=== PATIENT | male | born 1950 | race Caucasian/White ===

== ENCOUNTER → 2016-10-14 | Outpatient (CLI) | payer BC ==
[2016-10-14 10:47] LABS: Anion Gap 12 mmol/L; Blood Urea Nitrogen 16 mg/dL (9-20); Carbon Dioxide 28 mmol/L (22-30); Chloride 101 mmol/L (98-107); Non-African American GFR(MDRD) >60 (>60 ml/min/1.73 sqM); Sodium 141 mmol/L (137-145)
[2016-10-14 10:49] LABS: CH 30.8; CHCM 33.6; HCT 45.6 % (39.0-53.0); HDW 2.79; HGB 14.9 gm/dL (13.0-17.5); MCHC 32.6 g/dL (31.0-37.0); MCV 92.1 fL (80.0-100.0); Mean Platelet Volume 7.2; RBC 4.95 m/uL (4.30-5.90); RDW 13.2 % (11.5-15.5)
== END | disposition home or self-care (01) ==
LOC: LABPAT 10:01
PROVIDERS: ATTEND Internal Medicine Cardiovascular Disease
DX: Z01.812 Encounter for preprocedural laboratory examination (principal); I25.5 Ischemic cardiomyopathy
CPT/HCPCS: 80051; 82565; 84520; 85027

== ENCOUNTER 2016-10-26 11:00 | Day surgery (SDC) | payer BC ==
[2016-10-25 08:55] VITALS: BMI 24.3
[~2016-10-26 11:00] MED LIST: DEXAMETHASONE SOD PHOSPHATE 10 MG/ML 1 ML VIAL IV ONE; HYDROmorphone 1 MG/ML 1 ML SYRINGE IVP PRN; MIDAZOLAM 2 MG/2 ML VIAL IV PRN; ONDANSETRON 4 MG/2 ML VIAL IVP ONE; SCOPOLAMINE 1.5MG/72HR PATCH TRANSDERM ONE; ceFAZolin 1,000 MG in SODIUM CHLORIDE 0.9% IRRIGATIO 250 ML IRRIGATION ONE; ceFAZolin 2 GM in SODIUM CHLORIDE 0.9% 100 ML IVPB ONE
[2016-10-26] MEDS: SODIUM CHLORIDE 0.9% 1,000 ML IV SCH (11:28)
[2016-10-26] MEDS ORDERED: MIDAZOLAM 2 MG/2 ML VIAL ONE (11:41)
[2016-10-26] MEDS ORDERED: fentaNYL (PF) 50 MCG/ML 2 ML AMP ONE (11:41)
[2016-10-26] MEDS ORDERED: PROPOFOL 10 MG/ML 20 ML VIAL IV ONE (11:41)
[2016-10-26] MEDS ORDERED: LIDOCAINE 1% INJ 10MG/ML (20 ML MDV) SQ ONE ×2 (12:30→12:31)
[2016-10-26] MEDS ORDERED: ACETAMINOPHEN TAB 325 MG TAB PO PRN (13:29)
[2016-10-26] MEDS ORDERED: HYDROcodone/APAP 5-325MG 1 EACH TAB PO PRN (13:29)
--- NOTE | 2016-10-26 13:39 | P.PCN ---
Date of Procedure: 10/26/16 Preoperative Diagnosis: Ischemic cardiomyopathy and congestive heart failure Postoperative Diagnosis: The same Procedure(s) Performed: Prophylactic AICD implantation Description of Procedure: HISTORY: This is a 66-year-old gentleman with history of ischemic cardiomyopathy with ejection fraction of about 30% was referred for prophylactic AICD implantation by LALA Sevilla. Patient had previous myocardial infarctions stent placement. CONSENT:I have discussed the risks, benefits and alternative therapies for the above-mentioned procedure and for both sedation/analgesia as well as necessary blood product administration, if indicated, as they pertain to this patient. The patient has indicated understanding and acceptance of the risks and procedures discussed. PROCEDURE: Patient was brought to the lab in a fasting state. Patient was prepped and draped in the usual fashion. Patient was given IV sedation with fentanyl and Versed. The skin below the left clavicle was infiltrated with lidocaine. An incision was made parallel to deltopectoral groove was deepened until the pectoral fascia was exposed. A pocket was created by blunt dissection and cautery. Axillary venography was performed to delineate the course of the axillary vein. 1 stick were performed into extrathoracic portion of the axillary vein and 1 sheath were advanced over the guidewires and left in subclavian vein. LEADS: VENTRICULAR: This is manufactured by [employer]. Model number is [id number] and the serial number is [id number] THE DEVICE: This is manufactured by [employer]. Model name is Inogen Mini. Model number is [id number] and the serial number is [id number]. The ventricular lead is maneuvered l with help of a straight and curved stylets into the left ventricle apical region. Satisfactory position was obtained and threshold measurements were made. . . THRESHOLDS: VENTRICLE : The minimal patient threshold was 0.6 at a pulse width of 0.5. Impedance was 672 ohms. Shock impedance was 72. R-wave: 11.5 DFT TESTING: This was done under general anesthesia. Anesthesia was administered by department of anesthesia. Ventricle fibrillation was induced with T shock. This was appropriately detected with a 3 dropouts. 11 J shock converted the patient back to sinus rhythm. Patient tolerated the procedure well. The leads and pulse generator remained in the pocket after it was washed with antibiotics. Pocket was closed in the usual fashion. The fascia was closed with 2-0 Prolene ,the subcutaneous tissue was closed with 3-0 Prolene and the skin was closed with 4-0 Prolene. PROGRAMMING: NAYELY PROGRAMMING MODE: VVI RATE: 40 OUTPUT: ventricle: 3.5 at 2.5 ms TACHYCARDIA PROGRAMMING: VT ZONE: Programmed to a rate of 1 75 bpm. Monitor only zone. VF ZONE: Programmed to a rate of 205 bpm. Therapies are programmed to Quick convert followed by 21 J 1 followed by 31 time joules 1 followed by 41 J 6. FINAL IMPRESSION: #1. Axillary venography #2. Insertion of the single coil single lead prophylactic AICD #3. DFT testing COMPLICATIONS: Nil PLAN: Patient will be monitored on the telemetry unit. Prophylactic antibacterial be continued. Possible discharge in am. Chest x-ray to be done in the a.m.
[2016-10-26] MEDS ORDERED: WARFARIN 5 MG TAB PO ONE (18:00)
[2016-10-26] MEDS: LACTATED RINGERS 1,000 ML IV SCH (18:47)
[2016-10-26] MEDS: CARVEDILOL 3.125 MG TAB PO SCH (18:57)
[2016-10-26] MEDS: ceFAZolin 2 GM in SODIUM CHLORIDE 0.9% 100 ML IVPB SCH ×2 (18:58→23:36)
[2016-10-26] MEDS ORDERED: ASPIRIN 81 MG CHEW PO ONE (21:00)
[2016-10-27] MEDS: ceFAZolin 2 GM in SODIUM CHLORIDE 0.9% 100 ML IVPB SCH (05:04)
[2016-10-27] MEDS: CARVEDILOL 3.125 MG TAB PO SCH (06:33)
[2016-10-27 08:26] VITALS: BP 98/54; PULSE 63; RESP 14; TEMP 97.2
[2016-10-27] MEDS: LACTATED RINGERS 1,000 ML IV SCH (08:33)
[2016-10-27] MEDS: SODIUM CHLORIDE 0.9% 1,000 ML IV SCH (08:35)
--- NOTE | 2016-10-27 08:50 | P.DS ---
Providers Date of admission: 10/26/2016 Attending physician: Joseph Rose Primary care physician: Heather Doctors Hospital Course: This is 66-year-old gentleman with history of previous myocardial infarctions and ischemic cardiomyopathy, was referred for prophylactic AICD implantation. Patient had device implantation yesterday without any complications. Patient remained stable overnight. Patient did have transient atrial fibrillation but back in sinus rhythm at this time. His site looks normal without any hematoma or ecchymosis. Patient denies any chest pain shortness of breath dizziness or syncope. His vital signs remained stable. Patient is tolerating activity. Chest x-ray showed proper lead position. Interrogation of the device showed proper thresholds and stable. Patient is being discharged home. He'll continue home medications and prophylactic antibiotics in the form of Keflex 500 mg by mouth 3 times a day. Patient is instructed to keep the area dry for the next week. He is also instructed not to lift any heavy weights pushing or pulling with the left arm. He is at advised not to drive. Patient will be followed in the office in one week time. Appointment will be made with Dr. LALA Sevilla. Plan - Discharge Summary New Discharge Prescriptions: Cephalexin [Keflex] 500 mg PO Q8HR #10 cap Discharge Medication List Lisinopril [Prinivil] 10 mg PO DAILY 01/26/16 [History] Aspirin 325 mg PO DAILY 02/10/16 [History] Carvedilol [Coreg] 3.125 mg PO BID 03/03/16 [History] Atorvastatin [Lipitor] 10 mg PO DAILY 10/25/16 [History] Cephalexin [Keflex] 500 mg PO Q8HR #10 cap 10/27/16 [Rx] Discharge Disposition: HOME SELF-CARE
[2016-10-27] MEDS ORDERED: LISINOPRIL 10 MG TAB PO SCH (09:00)
[2016-10-27] MEDS ORDERED: ATORVASTATIN 10 MG TAB PO SCH (09:00)
--- NOTE | 2016-10-27 09:45 | XR ---
EXAMINATION TYPE: XR chest 2V DATE OF EXAM: 10/27/2016 7:37 AM COMPARISON: NONE HISTORY: Lead placement check FINDINGS: The lungs are clear and there is no pneumothorax, pleural effusion, or focal pneumonia. Single lead pacemaker seen lead overlying the right ventricle. Hypertrophic and degenerative change of the spine . IMPRESSION: 1. No postprocedural complication.
== END 2016-10-27 11:09 | disposition home or self-care (01) ==
LOC: CATHEP 11:00 → 6SEL 13:40 → CATHEP 10-27 11:09
PROVIDERS: ATTEND Internal Medicine Cardiovascular Disease
DX: I25.5 Ischemic cardiomyopathy (principal); I50.9 Heart failure, unspecified; Z00.6 Encounter for examination for normal comparison and control in clinical research program; I12.9 Hypertensive chronic kidney disease with stage 1 through stage 4 chronic kidney disease, or unspecified chronic kidney disease; N18.9 Chronic kidney disease, unspecified; I73.9 Peripheral vascular disease, unspecified; I25.10 Atherosclerotic heart disease of native coronary artery without angina pectoris; E78.5 Hyperlipidemia, unspecified; Z82.49 Family history of ischemic heart disease and other diseases of the circulatory system; Z87.891 Personal history of nicotine dependence; Z79.82 Long term (current) use of aspirin; Z79.899 Other long term (current) drug therapy
CPT/HCPCS: 93005; 93641; 33249; 71020; C1892; C1722; C1769; C1777; J2250; J0690 ×3; J2001; J3010; J2704; 99152; 99153

== ENCOUNTER → 2016-11-19 | Outpatient (CLI) | payer BC ==
[2016-11-19 10:25] LABS: Basophils % (A) 1 %; CH 30.4; CHCM 33.2; Eosinophils # (A) 0.3 k/uL (0-0.7); Eosinophils % (A) 5 %; HCT 44.3 % (39.0-53.0); HDW 2.82; HGB 14.3 gm/dL (13.0-17.5); Luc # (Auto) 0.17; Luc % (Auto) 2; Lymphocytes # (A) 1.7 k/uL (1.0-4.8); Lymphocytes % (A) 23 %; MCH 29.8 pg (25.0-35.0); MCHC 32.3 g/dL (31.0-37.0); MCV 92.2 fL (80.0-100.0); Mean Platelet Volume 6.6; Monocytes # (A) 0.4 k/uL (0-1.0); Monocytes % (A) 5 %; Neutrophils # (A) 4.8 k/uL (1.3-7.7); Neutrophils % (A) 64 %; RBC 4.81 m/uL (4.30-5.90); RDW 13.1 % (11.5-15.5); WBC 7.4 k/uL (3.8-10.6); WBC (Perox) 7.36
[2016-11-19 10:36] LABS: Anion Gap 11 mmol/L; Blood Urea Nitrogen 19 mg/dL (9-20); Carbon Dioxide 30 mmol/L (22-30); Chloride 101 mmol/L (98-107); Non-African American GFR(MDRD) >60 (>60 ml/min/1.73 sqM); Potassium 5.1 mmol/L (3.5-5.1); Sodium 142 mmol/L (137-145)
== END | disposition home or self-care (01) ==
LOC: LABPAT 09:36
PROVIDERS: ATTEND Internal Medicine Interventional Cardiology
DX: Z01.812 Encounter for preprocedural laboratory examination (principal); I25.5 Ischemic cardiomyopathy; I73.9 Peripheral vascular disease, unspecified
CPT/HCPCS: 80051; 82565; 84520; 85025

== ENCOUNTER 2016-12-07 06:32 | Day surgery (SDC) | payer BC ==
[2016-12-03 15:06] VITALS: BMI 24.3
[~2016-12-07 06:32] MED LIST changes: +ALPRAZolam 0.25 MG TAB PO PRN; +ALPRAZolam 0.5 MG TAB PO PRN; +ASPIRIN 325 MG TAB PO STA; +ATORVASTATIN 80 MG TAB PO STA; -DEXAMETHASONE SOD PHOSPHATE 10 MG/ML 1 ML VIAL IV ONE; -HYDROmorphone 1 MG/ML 1 ML SYRINGE IVP PRN; -MIDAZOLAM 2 MG/2 ML VIAL IV PRN; +NITROGLYCERIN SL TABS 0.4 MG TAB SUBLINGUAL PRN; -ONDANSETRON 4 MG/2 ML VIAL IVP ONE; -SCOPOLAMINE 1.5MG/72HR PATCH TRANSDERM ONE; +SODIUM CHLORIDE 0.9% 1,000 ML in EMPTY BAG 1 BAG IV ONE; -ceFAZolin 1,000 MG in SODIUM CHLORIDE 0.9% IRRIGATIO 250 ML IRRIGATION ONE; -ceFAZolin 2 GM in SODIUM CHLORIDE 0.9% 100 ML IVPB ONE
[2016-12-07] MEDS ORDERED: LIDOCAINE 2% INJ 20 MG/ML SQ ONE (07:34)
[2016-12-07] MEDS ORDERED: diphenhydrAMINE 50 MG/ML 1 ML VIAL IVP ONE (07:35)
[2016-12-07] MEDS ORDERED: MIDAZOLAM 2 MG/2 ML VIAL IV ONE (07:35)
[2016-12-07] MEDS: VERAPAMIL SYRINGE (5 MG/10 ML) INTRAARTER ONE ×2 (07:37→08:36)
[2016-12-07] MEDS: HEPARIN SODIUM 1,000 UNIT/ML VIAL IV ONE ×2 (07:38→08:07)
[2016-12-07] MEDS ORDERED: SODIUM CHLORIDE 0.9% 1,000 ML IV ONE (07:57)
[2016-12-07] MEDS ORDERED: NITROGLYCERIN 1000MCG/10ML SYRINGE INTRACORON ONE (08:30)
[2016-12-07] MEDS ORDERED: IOHEXOL 350 MG/ML 100 ML BOTTLE INTRATHECA ONE (08:35)
[2016-12-07] MEDS ORDERED: NITROGLYCERIN SL TABS 0.4 MG TAB SUBLINGUAL PRN (08:44)
[2016-12-07] MEDS ORDERED: ATROPINE SULFATE 0.1 MG/ML 10ML SYRINGE IV PRN (08:44)
[2016-12-07] MEDS ORDERED: RX INFO: IV CONTRAST WAS GIVEN 1 EACH MISC MISCELLANE PRN (08:44)
[2016-12-07] MEDS ORDERED: MAG HYDROX/AL HYDROX/SIMETH 30 ML CUP PO PRN (08:44)
[2016-12-07] MEDS ORDERED: ZOLPIDEM 5 MG TAB PO PRN (08:44)
[2016-12-07] MEDS ORDERED: SODIUM CHLORIDE 0.9% 1,000 ML IV SCH (08:45)
[2016-12-07] MEDS ORDERED: CLOPIDOGREL 75 MG TAB PO ONE (08:50)
[2016-12-07] MEDS: CARVEDILOL 6.25 MG TAB PO SCH (18:31)
--- NOTE | 2016-12-07 20:27 | US ---
EXAMINATION TYPE: US carotid duplex BILAT DATE OF EXAM: 12/07/2016 7:32 PM COMPARISON: NONE CLINICAL HISTORY: pre op. EXAM MEASUREMENTS: RIGHT: Peak Systolic Velocity (PSV) cm/sec ----- Right CCA: 84.6 ----- Right ICA: 69.0 ----- Right ECA: 77.4 ICA/CCA ratio: 0.8 RIGHT: End Diastole cm/sec ----- Right CCA: 15.5 ----- Right ICA: 16.8 ----- Right ECA: 11.1 LEFT: Peak Systolic Velocity (PSV) cm/sec ----- Left CCA: 87.1 ----- Left ICA: 98.2 ----- Left ECA: 89.2 ICA/CCA ratio: 1.1 LEFT: End Diastole cm/sec ----- Left CCA: 19.2 ----- Left ICA: 27.0 ----- Left ECA: 14.1 VERTEBRALS (direction of flow): Right Vertebral: Antegrade Left Vertebral: Antegrade TECHNOLOGIST IMPRESSION: Mild amount of plaque visualized bilaterally, no elevated velocities, no si gnificant stenosis IMPRESSION: There is antegrade flow in the vertebral arteries. The images and measurements suggest 2 0-30% stenosis in both internal carotid arteries. Criteria for Assigning % of Stenosis / Diameter reduction (Estimation based on the indirect measurements of the internal carotid artery velocities (ICA PSV). 1. Normal (no stenosis)=ICA PSV < 125 cm/s: ratio < 2.0: ICA EDV<40 cm/s. 2. Less than 50% stenosis=ICA PSV < 125 cm/s: ratio < 2.0: ICA EDV<40 cm/s. 3. 50 to 69% stenosis=ICA PSV of 125 to 230 cm/s: ration 2.0 ? 4.0: ICA EDV 40-100 cm/s. 4. Greater than 70% stenosis to near occlusion= ICA PSV > 230 cm/s: ratio > 4.0: ICA EDV > 100 cm/s. 5. Near occlusion= ICA PSV velocities may be low or undetectable: variable ratio and ICA EDV. 6. Total occlusion=unable to detect flow.
--- NOTE | 2016-12-07 22:24 | CC ---
DATE OF SERVICE: 12/07/2016 PROCEDURE: Coronary angiography. PERFORMED BY: Dr. Ede Sevilla. CLINICAL INFORMATION: Mr. Francois Avendano is a 66-year-old gentleman with peripheral arterial disease, ischemic cardiomyopathy, hypertension and hypercholesterolemia. He underwent a cardiac catheterization in March of last year which revealed a mid LAD subtotal lesion. 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 Because of ejection fraction of less than 35%, he went on to have a single-chamber ICD. He was brought in for the procedure to tackle a subtotal/chronic total occlusion in the mid LAD, where there was significant viability based on noninvasive studies. He was advised intervention after repeating coronary angiography. Risks, benefits, options and rationale were discussed. PROCEDURE NOTE: Under local anesthesia and strict aseptic precautions, a 6 Portuguese introducer was placed in the right radial artery. I used an Ultimate 2 catheter to perform selective coronary angiography and then went on to perform intervention of the LAD. Left ventriculogram was not performed and LV pressures were not checked. CORONARY ANGIOGRAPHIC FINDINGS LEFT MAIN CORONARY ARTERY: Short patent vessel has mild to moderate calcification, bifurcates into LAD and circumflex. In the caudal view there is no significant disease, but I cannot exclude some calcification at about 10% to 15% narrowing. It bifurcates into LAD and circumflex. LEFT ANTERIOR DESCENDING CORONARY ARTERY: This vessel is subtotally occluded in the mid portion after 2 diagonal branches and a septal branch. Prior to the occlusion there is about a 50% narrowing. Late filling of the LAD is noted and it runs all the way to the apex. This appears to be a chronically occluded vessel. The opacified diagonal and septal branches are free of significant disease, and the LAD itself has a 50% lesion before the subtotal occlusion. LEFT POSTERIOR CIRCUMFLEX CORONARY ARTERY: Technically a non-dominant vessel; gives off a first obtuse marginal; has a 40% narrowing, then continues ( ) circumflex in the distal posterolateral branch has about a 30% to 40% narrowing. No critical lesion is noted. There is moderate calcification noted. RIGHT CORONARY ARTERY: This is a dominant vessel, diffusely diseased; has multiple areas of narrowing, and there is inferior wall akinesia noted. The vessel bifurcates distally into PLV and PDA. PLV is not opacified. PDA has diffuse disease. The entire RCA has diffuse disease throughout with multiple areas of narrowing of about 70% to 80%, and distal stenosis is about 80% to 90%. Then it bifurcates into a totally occluded PLV and a PDA that has diffuse disease. Left ventriculogram was not performed. FINAL IMPRESSION: This patient has a subtotal 95% to 99% mid LAD lesion which appears to be almost a chronic occlusion with recanalized vessel. There is a 50% LAD lesion prior to total occlusion, and the 2 diagonals and septals are patent. Circumflex has moderate noncritical disease; non-dominant vessel. Right coronary artery is diffusely diseased, has multiple areas of narrowing with significant hypokinesia in its distribution. The distal RCA has a 90% stenosis and the PDA branch has diffuse disease, but PLV is not opacified. RECOMMENDATIONS: I am recommend intervention of the LAD and proceeded to perform this in the same setting.
--- NOTE | 2016-12-07 22:30 | PTCA ---
DATE OF SERVICE: 12/07/2016 PROCEDURE: Percutaneous transluminal coronary angioplasty of totally occluded mid left anterior descending coronary artery. PERFORMED BY: Dr. Ede Sevilla. CLINICAL INFORMATION: Mr. Francois Avendano is a 66-year-old gentleman with peripheral arterial disease, ischemic cardiomyopathy, hypertension and hypercholesterolemia. He underwent a cardiac catheterization in March of last year which revealed a mid LAD subtotal lesion. 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 Because of ejection fraction of less than 35%, he went on to have a single-chamber ICD. He was brought in for the procedure to tackle a subtotal/chronic total occlusion in the mid LAD, where there was significant viability based on noninvasive studies. He was advised intervention after repeating coronary angiography. Risks, benefits, options and rationale were discussed. Following coronary angiography, I recommended PTCA of this vessel, which was probably a chronic subtotal occlusion of recanalized vessel. PROCEDURE NOTE: Existing 6 Fijian introducer was used to perform the procedure. I used an XB LAD 3.5 catheter with a fairly decent guide support, and I tried to cross the lesion with a long Whisper wire with a straight tip. I had difficulty with guide support and finally I switched this over to a Voda 3.5 catheter. With this I had a better guide support; I was able to cross the lesion. Wire was kept distally. I tried to advance a 1.5 balloon, and with great difficulty I reached the lesion and gave 2 inflations. There was improved profusion in the LAD, but I could not open up the artery, and therefore I abandoned the procedure with the understanding that the vessel is large enough and he may benefit from a surgical intervention or a chronic total occlusion effort which could be performed later on. Patient has significant peripheral arterial disease. PTCA was performed with a modest improvement. Results were discussed with the patient and his . I will reevaluate him in the office in about a week or so and then make further recommendations. Patient received 5000 units of IV heparin and he also received 600 mg of Plavix. The sheath was taken out and TR band applied as per protocol and he was sent to the room in stable condition. ASSESSMENT: From a pre-PTCA stenosis of 99%, the residual stenosis is about 50% to 60% with improved flow, but this is a suboptimal result. This was explained to the patient. He will require a definitive revascularization procedure maybe CABG, which will be discussed at length during his office visit or prior to discharge . He will be discharged tomorrow if he remains stable. Findings and reccomendations were discussed with the patient and family. ROSALIE
--- NOTE | 2016-12-07 22:32 | LTR ---
December 07, 2016 RE: Francois Avendano Dear Dr. Rebolledo, Thank you for the opportunity to participate in the care of Mr. Avendano. Please find enclosed my detailed reports for your records. This gentleman had a suboptimal result because of the chronicity of the lesion. I will re-evaluate him in the office and consider repeat revascularization either surgically or by percutaneous approach with [facility]-specific center. However, I will discuss with the patient at length and keep you posted. I expect he will be discharged tomorrow if he remains stable. Thank you for your referral. Please call with questions. Sincerely, KATHY MEZA MD
[2016-12-08 00:29] VITALS: RESP 16
[2016-12-08 06:24] LABS: Basophils % (A) 1 %; CH 30.5; CHCM 33.5; Eosinophils # (A) 0.3 k/uL (0-0.7); Eosinophils % (A) 5 %; HCT 40.9 % (39.0-53.0); HGB 13.1 gm/dL (13.0-17.5); Luc # (Auto) 0.11; Luc % (Auto) 2; Lymphocytes # (A) 1.2 k/uL (1.0-4.8); Lymphocytes % (A) 20 %; MCH 29.3 pg (25.0-35.0); MCV 91.4 fL (80.0-100.0); Mean Platelet Volume 6.6; Monocytes # (A) 0.4 k/uL (0-1.0); Monocytes % (A) 7 %; Neutrophils % (A) 65 %; RBC 4.47 m/uL (4.30-5.90); RDW 13.3 % (11.5-15.5); WBC 6.1 k/uL (3.8-10.6); WBC (Perox) 6.59
[2016-12-08 06:29] LABS: INR 1.2 (<1.1); Partial Thromboplastin Time 22.9 sec (22.0-30.0); Prothrombin Time 11.8 sec (9.0-12.0)
[2016-12-08 06:32] LABS: ALT 30 U/L (21-72); AST 17 U/L (17-59); Alkaline Phosphatase 75 U/L (38-126); Anion Gap 9 mmol/L; Blood Urea Nitrogen 15 mg/dL (9-20); Calcium 9.2 mg/dL (8.4-10.2); Carbon Dioxide 30 mmol/L (22-30); Chloride 103 mmol/L (98-107); Glucose 93 mg/dL (74-99); Magnesium 1.9 mg/dL (1.6-2.3); Non-African American GFR(MDRD) >60 (>60 ml/min/1.73 sqM); Potassium 4.7 mmol/L (3.5-5.1); Sodium 142 mmol/L (137-145); Total Bilirubin 0.6 mg/dL (0.2-1.3); Total Protein 6.7 g/dL (6.3-8.2)
[2016-12-08] MEDS: CARVEDILOL 6.25 MG TAB PO SCH (06:44)
[2016-12-08 07:06] LABS: Hepatitis B Core IgM Index 0.06
[2016-12-08 07:17] LABS: Hepatitis C Virus IgG Index 0.01
[2016-12-08 07:18] LABS: Hepatitis C Virus IgG Ab Negative (Negative)
[2016-12-08] MEDS ORDERED: ASPIRIN 81 MG CHEW PO SCH (09:00)
[2016-12-08] MEDS ORDERED: LISINOPRIL 10 MG TAB PO SCH (09:00)
[2016-12-08] MEDS ORDERED: CLOPIDOGREL 75 MG TAB PO SCH (09:00)
[2016-12-08] MEDS ORDERED: ATORVASTATIN 40 MG TAB PO SCH (09:00)
--- NOTE | 2016-12-08 09:06 | DS ---
DATE OF ADMISSION: 12/07/2016 DATE OF DISCHARGE: 12/08/2016 DIAGNOSES: 1. Unstable angina. 2. Ischemic cardiomyopathy. 3. Peripheral arterial disease. Mr. Avendano was brought in yesterday for elective coronary angiography and PCI. I performed coronary angiography which revealed a subtotal mid LAD lesion, which was intervened. This appeared to be almost a chronic total occlusion with recanalization. I was able to cross the lesion and dilated the proximal portion of the lesion with a 1.5 balloon but I could not advance any other balloon. I explained to the patient that he will benefit from revascularization even surgically. I spoke to the patient this morning at length and reviewed that his carotid Doppler was unremarkable. I am recommending an echocardiogram. I am suggesting aortocoronary bypass surgery with a VIZCAINO to LAD and possibly the diagonal branch that was there just before the total occlusion, which was patent with moderate disease and also consider bypassing the circumflex marginal. I explained to the patient that LAD territory was viable and a graft of this would improve both quality of life and length of life. He is 66 years of age and I explained the rationale for complete revascularization necessitating the grafting of diagonal and if necessary of obtuse marginal as well. I had a long discussion with the patient. He understands and is agreeable with this. He will be seen by Dr. Johnson this morning. A carotid Doppler is unremarkable and echocardiogram will also be repeated today. The patient will be discharged after being seen by Dr. Johnson and he will have surgery next week. He received 600 mg of Plavix and therefore I recommend that we should wait at least 4 to 5 days. He will be on: 1. Aspirin 81 mg daily. 2. Coreg 6.25 mg b.i.d. 3. Atorvastatin will be 40 mg daily. He will be discharged later on this afternoon. This morning, physical exam revealed blood pressure of 110/60, pulse rate 60 per minute. There is no JVD or carotid bruit. S1, S2 are heard normally. Lungs are clear. Abdomen exam is unremarkable. Lower extremities reveal diminished pulses. No edema. Central nervous system, grossly no focal deficits.
[2016-12-08 09:15] VITALS: PULSE 60
--- NOTE | 2016-12-08 10:28 | ECHOF ---
Referral Reason:eval heart function pre-op poss cabg MEASUREMENTS -------- HEIGHT: 193.0 cm WEIGHT: 94.3 kg BP: 107/62 RVIDd: 3.4 cm (< 3.3) IVSd: 1.3 cm (0.6 - 1.1) LVIDd: 4.6 cm (3.9 - 5.3) LVPWd: 1.3 cm (0.6 - 1.1) IVSs: 1.4 cm LVIDs: 3.6 cm LVPWs: 1.9 cm LA Diam: 3.2 cm (2.7 - 3.8) LAESV Index (A-L): 17.94 ml/m Ao Diam: 3.5 cm (2.0 - 3.7) AV Cusp: 2.3 cm (1.5 - 2.6) LA Diam: 2.7 cm (2.7 - 3.8) MV EXCURSION: 10.412 mm (> 18.000) MV EF SLOPE: 71 mm/s (70 - 150) EPSS: 1.1 cm MV E Kennedy: 0.61 m/s MV DecT: 278 ms MV A Kennedy: 0.76 m/s MV E/A Ratio: 0.80 RAP: 5.00 mmHg RVSP: 27.70 mmHg FINDINGS -------- Pacerwire seen in RV and RA. AICD This was a technically good study. There is mild concentric left ventricular hypertrophy. Overall left ventricular systolic function is mild-moderately impaired with, an EF between 40 - 45 %. Apical septum LV wall motion is hypokinetic. The right ventricle is mildly enlarged. Normal LA size by volume 22+/-6 ml/m2. The right atrium is normal in size. Aortic valve is trileaflet and is mildly thickened. Mild mitral annular calcification present. Trace tricuspid regurgitation present. The pulmonic valve was not well visualized. The aortic root size is normal. Normal inferior vena cava with normal inspiratory collapse consistent with estimated right atrial pressure of 5 mmHg. There is no pericardial effusion. CONCLUSIONS -------- 1. Pacerwire seen in RV and RA. 2. Aortic valve is trileaflet and is mildly thickened. 3. Mild mitral annular calcification present. 4. Trace tricuspid regurgitation present. 5. The pulmonic valve was not well visualized. 6. The aortic root size is normal. 7. Normal inferior vena cava with normal inspiratory collapse consistent with estimated right atrial pressure of 5 mmHg. 8. There is no pericardial effusion. 9. AICD 10. This was a technically good study. 11. There is mild concentric left ventricular hypertrophy. 12. Overall left ventricular systolic function is mild-moderately impaired with, an EF between 40 - 45 %. 13. Apical septum LV wall motion is hypokinetic. 14. The right ventricle is mildly enlarged. 15. Normal LA size by volume 22+/-6 ml/m2. 16. The right atrium is normal in size. ENGINEERING TEST MECHANIC: Miguel Brandon RDCS
[2016-12-08 11:05] VITALS: BP 122/67; TEMP 97.1
[2016-12-08 11:07] LABS: Hemoglobin A1C 5.3 % (4.2-6.1)
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
== END 2016-12-08 15:49 | disposition home or self-care (01) ==
LOC: CATHCVL 06:32 → 6SEL 08:35 → CATHCVL 12-08 15:49
PROVIDERS: ATTEND Internal Medicine Interventional Cardiology
DX: I25.110 Atherosclerotic heart disease of native coronary artery with unstable angina pectoris (principal); I25.82 Chronic total occlusion of coronary artery; I73.9 Peripheral vascular disease, unspecified; I25.5 Ischemic cardiomyopathy; I10 Essential (primary) hypertension; E78.00 Pure hypercholesterolemia, unspecified; Z72.0 Tobacco use; Z82.49 Family history of ischemic heart disease and other diseases of the circulatory system; Z95.810 Presence of automatic (implantable) cardiac defibrillator; Z79.899 Other long term (current) drug therapy; Z79.82 Long term (current) use of aspirin; Z89.429 Acquired absence of other toe(s), unspecified side
CPT/HCPCS: 93306; 93454; 92920; 83880; 80053; 80074; 84443; 83036; 83735; 85025; 85610; 85730; 87070; 93880; C1769 ×2; C1887 ×2; C1725 ×2; C1894; J2001; J2250; J1200; Q9967; J1644

== ENCOUNTER → 2016-12-14 | Outpatient (CLI) | payer BC ==
[2016-12-14 10:20] LABS: Cholesterol 154 mg/dL (<200); HDL Cholesterol 55 mg/dL (40-60); Triglycerides 81 mg/dL (<150)
[2016-12-14 10:39] LABS: Appearance,Urine Clear (Clear); Bilirubin,Urine Negative (Negative); Glucose,Urine (UA) Negative (Negative); Ketones,Urine Negative (Negative); Leukocyte Esterase,Urine Negative (Negative); Nitrite,Urine Negative (Negative); PH, Urine 5.5 (5.0-8.0); Protein,Urine Trace (Negative); Specific Gravity,Urine 1.017 (1.001-1.035); UA Billing (MACRO vs. MICRO) CHEM; Urobilinogen,Urine <2.0 mg/dL (<2.0)
--- NOTE | 2016-12-14 12:47 | XR ---
EXAMINATION TYPE: XR chest 2V DATE OF EXAM: 12/14/2016 10:34 AM COMPARISON: Prior chest x-ray 27 October 2016 HISTORY: Coronary artery disease TECHNIQUE: Frontal and lateral views of the chest are obtained. FINDINGS: Prominent lung volumes, intracardiac defibrillator lead are again noted. Cardiac mediastin al silhouette, pulmonary vascularity and migue are stable. No evident pneumonia, pneumothorax, or pleu ral effusion. IMPRESSION: No acute cardiopulmonary process. Stable exam.
--- NOTE | 2016-12-22 10:57 | P.ARTDOP ---
Arterial Doppler LOWER EXTREMITY ARTERIAL DOPPLER: DATE OF SERVICE: 12/14/2016 Reason for study: Pre-CABG. Doppler waveforms: Multiphasic at the femoral level bilaterally and at the left popliteal. Atypical below and all areas.. Pulse volume recording: Only performed at the digital level and very blunted bilaterally. Pressure gradients: Moderate gradients above both ankles. Ankle-brachial indices: 0.5 on the right and 0.49 on the left. Impression: At least moderate bilateral femoral popliteal disease..
--- NOTE | 2016-12-22 10:59 | P.VSCSTY ---
Greater Saphenous Vein Mapping This is bilateral lower extremity greater saphenous vein mapping. Date of service 12/14/2016 Vein quality and ultrasound appearance normal. Vein size groin right 7.5 x 4.9 groin left 5.6 x 4.9 High thigh right 4.7 x 3.7 high thigh left 4.5 x 4.2 Mid thigh right 4.4 x 4.0 mid thigh left 4.6 x 4.1 Above-knee right 4.4 x 3.4 above- knee left 3.4 x 2.8 Below knee right 4.7 x 3.2 below-knee left 3.7 x 2.5 Mid calf right 2.9 x 3.3 mid calf left to 3.3 x 2.8 Ankle right 3.5 x 2.2 ankle left 2.9 x 2.5 Impression usable bilateral greater saphenous vein.
== END | disposition home or self-care (01) ==
LOC: LABWHC1 08:57
PROVIDERS: ATTEND Surgery
DX: Z01.812 Encounter for preprocedural laboratory examination (principal); I25.10 Atherosclerotic heart disease of native coronary artery without angina pectoris
CPT/HCPCS: 36415; 71020; 80061; 81003; 87086; 93923; 93970; 94150

== ENCOUNTER 2016-12-16 05:40 | Inpatient (IN) | payer BC ==
[~2016-12-16 05:40] MED LIST changes: +ALBUMIN HUMAN 25% 50 ML IV ONE; +ALBUMIN HUMAN 5% 500 ML IVPB ONE; -ALPRAZolam 0.25 MG TAB PO PRN; -ALPRAZolam 0.5 MG TAB PO PRN; +AMINOCAPROIC ACID 250 MG/ML 20 ML VIAL IV ONE; +AMINOCAPROIC ACID 5,000 MG in DEXTROSE 5% IN WATER 50 ML IV ONE; +ASPIRIN 325 MG TAB PO ONE; -ASPIRIN 325 MG TAB PO STA; +ATORVASTATIN 10 MG TAB PO ONE; -ATORVASTATIN 80 MG TAB PO STA; +CALCIUM CHLORIDE 100 MG/ML 10 ML SYRINGE IV ONE; +CHLORHEXIDINE GLUCONATE 15 ML CUP MUCOUS MEM ONE; +CLEVIDIPINE BUTYRATE 25 MG in EMPTY BAG 1 BAG IV ONE; +DEXTROSE 5% IN WATER 1,000 ML with POTASSIUM CHLORIDE 110 MEQ, MAGNESIUM SULFATE 16 MEQ... IV ONE; +DEXTROSE 5% IN WATER 1,000 ML with POTASSIUM CHLORIDE 25 MEQ, SODIUM CHLORIDE 4MEQ/ML V... IV ONE; +HEPARIN SODIUM 1,000 UNIT/ML VIAL IV ONE; +HEPARIN SODIUM,PORCINE 5,000 UNIT in SODIUM CHLORIDE 0.9% 500 ML IV ONE; +INSULIN REGULAR 100 UNIT in SODIUM CHLORIDE 0.9% 100 ML IV ONE; +LACTATED RINGERS 1,000 ML IV ONE; +MAGNESIUM SULFATE MG 500 MG/ML VIAL IV ONE; +MANNITOL 25% 12.5 GM/50 ML VIAL IV ONE; +METOPROLOL TARTRATE 12.5 MG TAB PO ONE; +MUPIROCIN 2% OINT 22 GM TUBE NASAL NR; -NITROGLYCERIN SL TABS 0.4 MG TAB SUBLINGUAL PRN; +NITROGLYCERIN-D5W PMX 25 MG/250 ML BTL IV ONE; +NITROGLYCERIN-D5W PMX 50 MG in DEXTROSE/WATER 1 250ML.BAG IV ONE; +NOREPINEPHRINE 4 MG in SODIUM CHLORIDE 0.9% 250 ML IV ONE; +PAPAVERINE 360 MG in SODIUM CHLORIDE 0.9% 90 ML IV ONE; +PHENYLEPHRINE 40 MG in SODIUM CHLORIDE 0.9% 250 ML IV ONE; +PHENYLEPHRINE-0.9% NACL SYG 1 MG/10 ML SYRINGE IV ONE; +PROPOFOL 50 ML IV ONE; +PROTAMINE SULFATE 10 MG/ML 25 ML VIAL IV ONE; +PROTAMINE SULFATE 250 MG in EMPTY BAG 1 BAG IV ONE; +SODIUM BICARB 8.4% 50 ML SYR (1 MEQ/ML) IV ONE; +SODIUM CHLORIDE 0.9% 1,000 ML IV ONE; -SODIUM CHLORIDE 0.9% 1,000 ML in EMPTY BAG 1 BAG IV ONE; +ceFAZolin 1,000 MG in SODIUM CHLORIDE 0.9% IRRIGATIO 1,000 ML IRRIGATION ONE; +ceFAZolin 2,000 MG in SODIUM CHLORIDE 0.9% 30 ML IVPB ONE
[2016-12-16] MEDS ORDERED: LACTATED RINGERS 1,000 ML IV SCH (05:46)
[2016-12-16] MEDS ORDERED: VECURONIUM 10 MG VIAL IV ONE (07:53)
[2016-12-16] MEDS ORDERED: ALBUMIN HUMAN 5% 500 ML VIAL IVPB ONE (07:53)
[2016-12-16] MEDS ORDERED: HEPARIN SODIUM 1,000 UNIT/ML VIAL ONE (07:53)
[2016-12-16] MEDS ORDERED: ELECTROLYTE-R (PH 7.4) 1,000 ML IV.SOLN IV ONE (07:53)
[2016-12-16] MEDS ORDERED: PROPOFOL 10 MG/ML 20 ML VIAL IV ONE (07:53)
[2016-12-16] MEDS ORDERED: fentaNYL (PF) 50 MCG/ML 50 ML VIAL ONE (07:53)
[2016-12-16] MEDS ORDERED: HEPARIN SODIUM,PORCINE 5,000 UNIT/ML 1 ML VIAL ONE (07:53)
[2016-12-16] MEDS ORDERED: ePHEDrine 50 MG/ML 1 ML AMP ONE (07:53)
[2016-12-16] MEDS ORDERED: HEPARIN SODIUM,PORCINE 10,000 UNIT/ML 1 ML VIAL ONE (07:53)
[2016-12-16] MEDS ORDERED: MAGNESIUM SULFATE 4 MEQ/ML 2 ML VIAL ONE (07:53)
[2016-12-16] MEDS ORDERED: fentaNYL (PF) 50 MCG/ML 2 ML AMP ONE (07:53)
[2016-12-16] MEDS ORDERED: WATER FOR INJECTION, STERILE 10 ML VIAL IV ONE (07:53)
[2016-12-16] MEDS ORDERED: PROTAMINE SULFATE 10 MG/ML 25 ML VIAL IV ONE (07:53)
[2016-12-16] MEDS ORDERED: LIDOCAINE 2% SYG (PF) 100 MG/5 ML ONE (07:53)
[2016-12-16] MEDS ORDERED: SODIUM CHLORIDE 0.9% IRRIG 1,000 ML BTL IRRIGATION ONE (07:53)
[2016-12-16] MEDS ORDERED: MIDAZOLAM 2 MG/2 ML VIAL ONE (07:53)
[2016-12-16 08:43] LABS: Glucose,Whole Blood 90 mg/dL (75-99)
[2016-12-16 10:39] LABS: Glucose,Whole Blood 112 mg/dL (75-99)
[2016-12-16] MEDS ORDERED: WATER IV ONE (11:45)
[2016-12-16] MEDS ORDERED: [UNRECOGNIZED DRUG - OTHER] IV ONE (11:45)
[2016-12-16] MEDS ORDERED: DEXTROSE IV ONE (11:45)
[2016-12-16 11:56] LABS: Glucose,Whole Blood 106 mg/dL (75-99)
[2016-12-16 12:19] LABS: Glucose,Whole Blood 107 mg/dL (75-99)
[2016-12-16 12:37] LABS: Glucose,Whole Blood 104 mg/dL (75-99)
[2016-12-16 13:02] LABS: Glucose,Whole Blood 266 mg/dL (75-99)
[2016-12-16 13:32] LABS: Glucose,Whole Blood 196 mg/dL (75-99)
[2016-12-16 14:07] LABS: Glucose,Whole Blood 185 mg/dL (75-99)
[2016-12-16 15:06] LABS: Glucose,Whole Blood 120 mg/dL (75-99)
[2016-12-16] MEDS ORDERED: ALBUMIN HUMAN 5% 250 ML IVPB ONE (15:26)
[2016-12-16] MEDS ORDERED: Magnesium Replacement Protocol 1 EACH MISC MISCELLANE PRN (15:59)
[2016-12-16] MEDS ORDERED: Potassium Replacement Protocol 1 EACH MISC MISCELLANE PRN (15:59)
[2016-12-16] MEDS ORDERED: PROPOFOL 500 MG in EMPTY BAG 1 BAG IV SCH (15:59)
[2016-12-16] MEDS ORDERED: BENZOCAINE/MENTHOL LOZENG 1 EACH LOZENGE MUCOUS MEM PRN (15:59)
[2016-12-16] MEDS ORDERED: METOCLOPRAMIDE 5 MG/ML 2 ML VIAL IVP PRN (15:59)
[2016-12-16] MEDS ORDERED: CALCIUM GLUCONATE 2,000 MG in SODIUM CHLORIDE 0.9% 100 ML IVPB PRN (15:59)
[2016-12-16] MEDS ORDERED: ALBUMIN HUMAN 5% 250 ML in EMPTY BAG 1 BAG IVPB PRN (15:59)
[2016-12-16] MEDS ORDERED: PHENYLEPHRINE 40 MG in SODIUM CHLORIDE 0.9% 250 ML IV SCH (15:59)
[2016-12-16] MEDS ORDERED: ONDANSETRON 4 MG/2 ML VIAL IVP PRN (15:59)
[2016-12-16] MEDS ORDERED: MORPHINE SULFATE 2 MG/ML SYRINGE IVP PRN (15:59)
[2016-12-16] MEDS ORDERED: Phosphorus Replacement Protoco 1 EACH MISC MISCELLANE PRN (15:59)
[2016-12-16] MEDS: IPRATROPIUM-ALBUTEROL 3 ML NEB INHALATION SCH ×3 (16:16→22:57)
--- NOTE | 2016-12-16 16:19 | XR ---
EXAMINATION TYPE: XR chest 1V portable DATE OF EXAM: 12/16/2016 4:04 PM Comparison: 12/14/2016 Clinical History: 66-YEAR-OLD MALE RULE OUT RETAINED SURGICAL BLADE Findings: Median sternotomy wires are present with post-CABG changes in the mediastinum. Left anterior chest wa ll ICD generator right ventricular lead. A magnified overlies the generator device. ET tube is satisf actory. Right IJ [place]gen catheter with tip at the proximal right main pulmonary artery. Mediastinal drains as well as a less left chest tube are in place. No appreciable pneumothorax. Mild interstitia l prominence. No significant pleural effusion. Impression: 1. No retained surgical foreign body identified. 2. Post surgical changes. Correlate for mild pulmonary vascular congestion.
[2016-12-16] MEDS: LACTATED RINGERS 1,000 ML IV SCH (16:30)
[2016-12-16] MEDS: NITROGLYCERIN-D5W PMX 50 MG in DEXTROSE/WATER 1 250ML.BAG IV SCH (16:30)
[2016-12-16 16:59] LABS: ABG Base Excess -1.4 mmol/L; ABG HCO3 24 mmol/L (21-25); ABG PCO2 49 mmHg (35-45); ABG PH 7.31 (7.35-7.45); ABG PO2 >400 mmHg (83-108); ABG TCO2 26 mmol/L (19-24)
[2016-12-16 17:04] LABS: Glucose,Whole Blood 111 mg/dL (75-99)
[2016-12-16 17:13] LABS: CHCM 33.8; HDW 2.97; MCH 31.9 pg (25.0-35.0); MCHC 34.6 g/dL (31.0-37.0); MCV 92.2 fL (80.0-100.0); Mean Platelet Volume 8.3; RBC 2.11 m/uL (4.30-5.90); RDW 13.5 % (11.5-15.5); WBC (Perox) 5.99
[2016-12-16 17:17] LABS: Ionized Calcium 4.5 mg/dL (4.5-5.3)
[2016-12-16 17:24] LABS: INR 1.6 (<1.1); Partial Thromboplastin Time 33.7 sec (22.0-30.0); Prothrombin Time 15.5 sec (9.0-12.0)
[2016-12-16 17:26] LABS: HCT 19.4 % (39.0-53.0); HGB 6.7 gm/dL (13.0-17.5)
[2016-12-16 17:28] LABS: ALT 33 U/L (21-72); AST 25 U/L (17-59); Alkaline Phosphatase 37 U/L (38-126); Anion Gap 7 mmol/L; Blood Urea Nitrogen 11 mg/dL (9-20); Calcium 7.4 mg/dL (8.4-10.2); Carbon Dioxide 25 mmol/L (22-30); Chloride 107 mmol/L (98-107); Glucose 104 mg/dL (74-99); Magnesium 2.3 mg/dL (1.6-2.3); Non-African American GFR(MDRD) >60 (>60 ml/min/1.73 sqM); Potassium 4.6 mmol/L (3.5-5.1); Sodium 139 mmol/L (137-145); Total Bilirubin 1.1 mg/dL (0.2-1.3); Total Protein 4.7 g/dL (6.3-8.2)
[2016-12-16 17:32] LABS: Glucose,Whole Blood 117 mg/dL (75-99)
[2016-12-16 17:52] LABS: Add Differential Manual Differential
[2016-12-16 17:55] LABS: Nucleated Red Blood Cells 0 /100 WBC (0-0); Total Cells Counted 200
[2016-12-16 17:56] LABS: Hepatitis B Core IgM Index 0.05
[2016-12-16 17:57] LABS: Manual Review Performed
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
[2016-12-16 18:09] LABS: Hepatitis C Virus IgG Index 0.01
[2016-12-16 18:11] LABS: Hepatitis C Virus IgG Ab Negative (Negative)
[2016-12-16] MEDS: ceFAZolin 2 GM in SODIUM CHLORIDE 0.9% 100 ML IVPB SCH (18:15)
[2016-12-16] MEDS ORDERED: CALCIUM GLUCONATE 1,000 MG in SODIUM CHLORIDE 0.9% 100 ML IVPB ONE (18:15)
[2016-12-16] MEDS: INSULIN REGULAR 100 UNIT in SODIUM CHLORIDE 0.9% 100 ML IV SCH (18:26)
[2016-12-16 18:28] LABS: Glucose,Whole Blood 152 mg/dL (75-99)
[2016-12-16] MEDS: ACETAMINOPHEN IV (For NPO) 1,000 MG in EMPTY BAG 1 BAG IVPB SCH (18:45)
[2016-12-16 19:09] LABS: Glucose,Whole Blood 158 mg/dL (75-99)
[2016-12-16] MEDS: PROPOFOL 500 MG in EMPTY BAG 1 BAG IV SCH ×2 (19:25→22:12)
[2016-12-16 19:35] LABS: Basophils % (A) 0 %; CH 30.7; CHCM 33.7; Eosinophils # (A) 0.1 k/uL (0-0.7); Eosinophils % (A) 1 %; HCT 20.5 % (39.0-53.0); HDW 3.01; Luc # (Auto) 0.06; Luc % (Auto) 1; Lymphocytes # (A) 0.5 k/uL (1.0-4.8); Lymphocytes % (A) 6 %; MCH 30.9 pg (25.0-35.0); MCHC 33.8 g/dL (31.0-37.0); MCV 91.5 fL (80.0-100.0); Monocytes # (A) 0.6 k/uL (0-1.0); Monocytes % (A) 6 %; Neutrophils # (A) 8.5 k/uL (1.3-7.7); Neutrophils % (A) 87 %; RBC 2.24 m/uL (4.30-5.90); RDW 13.5 % (11.5-15.5); WBC 9.8 k/uL (3.8-10.6); WBC (Perox) 9.46
[2016-12-16 19:56] LABS: HGB 6.9 gm/dL (13.0-17.5)
[2016-12-16 20:17] LABS: Glucose,Whole Blood 159 mg/dL (75-99)
[2016-12-16] MEDS: MILRINONE-D5W PMX 20 MG in DEXTROSE/WATER 1 100ML.BAG IV SCH (20:54)
[2016-12-16] MEDS ORDERED: PANTOPRAZOLE 40 MG/10 ML VIAL IVP SCH (21:00)
[2016-12-16 21:02] LABS: Glucose,Whole Blood 154 mg/dL (75-99)
[2016-12-16] MEDS: CHLORHEXIDINE GLUCONATE 15 ML CUP MUCOUS MEM SCH (21:17)
[2016-12-16 22:05] LABS: Glucose,Whole Blood 138 mg/dL (75-99)
[2016-12-16] MEDS: CLEVIDIPINE BUTYRATE 25 MG in EMPTY BAG 1 BAG IV SCH (22:13)
[2016-12-16 22:49] LABS: Basophils % (A) 0 %; CH 30.7; CHCM 33.8; Eosinophils % (A) 0 %; HDW 2.95; Luc # (Auto) 0.05; Luc % (Auto) 1; Lymphocytes # (A) 0.3 k/uL (1.0-4.8); Lymphocytes % (A) 4 %; MCH 30.5 pg (25.0-35.0); MCHC 33.4 g/dL (31.0-37.0); MCV 91.3 fL (80.0-100.0); Mean Platelet Volume 9.1; Monocytes # (A) 0.4 k/uL (0-1.0); Monocytes % (A) 6 %; Neutrophils # (A) 6.4 k/uL (1.3-7.7); Neutrophils % (A) 89 %; RBC 2.03 m/uL (4.30-5.90); RDW 13.6 % (11.5-15.5); WBC 7.2 k/uL (3.8-10.6); WBC (Perox) 7.42
[2016-12-16 22:58] LABS: Ionized Calcium 4.7 mg/dL (4.5-5.3)
[2016-12-16 23:03] LABS: HCT 18.5 % (39.0-53.0); HGB 6.2 gm/dL (13.0-17.5)
[2016-12-16 23:05] LABS: Anion Gap 10 mmol/L; Blood Urea Nitrogen 12 mg/dL (9-20); Calcium 8.1 mg/dL (8.4-10.2); Carbon Dioxide 25 mmol/L (22-30); Chloride 105 mmol/L (98-107); Glucose 117 mg/dL (74-99); Magnesium 2.3 mg/dL (1.6-2.3); Non-African American GFR(MDRD) >60 (>60 ml/min/1.73 sqM); Potassium 4.2 mmol/L (3.5-5.1); Sodium 140 mmol/L (137-145)
[2016-12-16 23:06] LABS: Glucose,Whole Blood 126 mg/dL (75-99)
--- NOTE | 2016-12-16 23:06 | OP ---
DATE OF SERVICE: 12/16/2016 SURGEON: Jennie Johnson MD SCRIPT WORKER: 1. Dung BESS 2. Cierra Parikh RN PREOPERATIVE DIAGNOSES: 1. Triple-vessel coronary artery disease. 2. Chronically occluded left anterior descending artery. 3. Old anteroapical myocardial infarction. 4. Ischemic cardiomyopathy, status post ICD implantation. 5. Hypertension. 6. Hyperlipidemia. 7. Peripheral vascular disease, status post toe amputation in the past. POSTOPERATIVE DIAGNOSES: 1. Triple-vessel coronary artery disease. 2. Chronically occluded left anterior descending artery. 3. Old anteroapical myocardial infarction. 4. Ischemic cardiomyopathy, status post ICD implantation. 5. Hypertension. 6. Hyperlipidemia. 7. Peripheral vascular disease, status post toe amputation in the past. OPERATION: 1. Quadruple coronary artery bypass grafting using the left internal mammary artery to the left anterior descending artery. 2. Reverse saphenous vein graft from the aorta to the posterior descending artery. 3. Reverse saphenous vein graft from the aorta to the diagonal artery. 4. Reverse saphenous vein graft from the aorta to the obtuse marginal artery. 5. Bilateral endoscopic harvesting of the greater saphenous vein. 6. Intraoperative transesophageal echocardiogram and epiaortic scanning. 7. Intraoperative graft flow measurements using the medistim system. INDICATION FOR SURGERY: Patient is a 66-year-old gentleman with the above comorbidities who was known to have chronically occluded left anterior descending artery and had a Lexiscan last year showing fixed defects anteroseptally with some minimal apical reversibility. He underwent ICD implantation in October 2016 for ischemic cardiomyopathy. Patient was reevaluated at this point and was brought in for potential PCI stenting of his chronically occluded left anterior descending artery; that was not successful. However, he has severe disease of the diagonal right coronary system and moderate disease of the circumflex system. Patient was offered surgery and is brought in today one week after receiving 600 mg of Plavix. Risks, benefits and alternatives were discussed with him. He understood them and agreed to proceed. DESCRIPTION OF THE PROCEDURE: Patient had a right internal jugular [place]-Jurgen catheter and right radial arterial line placed. He had normal PA pressure and good cardiac index. He was brought to the operating room, where general endotracheal anesthesia was induced uneventfully. He received 2 grams of cefazolin intravenously. A Campbell catheter was inserted. The chest, abdomen and both lower extremities were prepped and draped using ChloraPrep. Ioban was used to cover the skin. We placed a sterile magnet over the ICD to deactivate it during the case. Transesophageal echocardiogram revealed global hypokinesia with severe anterior hypokinesia and also severe inferior hypokinesia with no significant valvular abnormalities. Midline sternotomy was performed and no bone wax was used. The left hemisternum was elevated and the left internal mammary artery was harvested in a somewhat skeletonized fashion. The left pleura was intentionally opened in this process and was drained with 28 Colombian chest tube. The right pleura remained intact. In the same setting, initially the left greater saphenous vein was harvested from groin to above ankle level. However, the quality was at best fair, and we decided to harvest the right lower extremity greater saphenous vein, which was done subsequently. That vein was of better quality. Both leg incisions were closed over a drain. Mediastinal fat was transected with the Bovie and epiaortic scanning revealed no protruding atheroma in the ascending aorta. There was some intimal thickening. Pericardium was opened in an inverted T fashion and pericardial cradle was created. Findings included an elongated soft aorta that turned out to be thickened and a somewhat enlarged heart with evidence of an old anteroapical fibrotic old MD. Systemic heparinization to achieve an ACT above 500 seconds was administered, and after placement of respective pursestrings, aortic cannulation with a 21 [place]ian soft flow cannula, venous cannulation with a 29 3-stage Medtronic venous cannula via the right atrial appendage was performed. Antegrade as well as retrograde cardioplegia catheters were placed. The mammary artery was double-clipped distally and transected. It had an excellent pulsatile flow in it and was around 1.75 mm in diameter. The vein segment that we were using was of good quality for the diagonal and the obtuse marginal artery, and slightly of a lesser quality for the posterior descending artery. During aortic clamping, myocardial protection was achieved. An initial dose of 1 liter antegrade cold blood cardioplegia followed by 500 mL of retrograde cold blood cardioplegia. All subsequent doses were given retrograde at 15-minute intervals, with the last dose being warm blood via the retrograde route. The target had been identified before when I arrested the heart, and it appeared that the LAD, diagonal artery, obtuse marginal artery and posterior descending artery would be the site for bypass. The first distal anastomosis between a segment of reverse saphenous vein graft and the posterior descending artery was 1.5 mm in diameter and thin-walled, using Prolene 7-0 in continuous fashion. The second distal anastomosis was between another segment of reverse saphenous vein graft of better quality and the 1.5 mm thin-walled diagonal artery using Prolene 7-0 in continuous fashion. The third distal anastomosis was between another vein of good quality and the 2 mm obtuse marginal artery, using Prolene 7-0 in continuous fashion. All 3 venous anastomoses had good flow in them and were hemostatic. The fourth and last distal anastomosis was between the left internal mammary artery and was of good quality again and around 1.75 mm in diameter, and the mid aspect of the left anterior descending artery found in a fibrotic area. That artery was around 1.5 mm in diameter, thin-walled at that level, and the anastomosis was completed using Prolene 7-0 in continuous fashion. The mammary pedicle was affixed to the epicardium using Prolene 6-0 suture. Satisfied with the distal anastomosis, we moved our attention to the proximal anastomosis. Three buttons of 4.5 mm each were punched out of the ascending aorta. The 3 proximal anastomoses of the 3 vein grafts were fashioned in the same method using Prolene 6-0 in a continuous fashion. The re-warming was started during the proximal anastomosis, and again we gave warm blood as we were constructing the last proximal anastomosis. Patient was given lidocaine and magnesium and some de-airing maneuvers were done before unclamping the aorta. Flow was reestablished in the mammary artery. Flow was reestablished in the veins after de-airing them. After a period of reperfusion and guided with a MOOSE that showed much improved left ventricular function, we were able to wean off cardiopulmonary bypass with the need of moderate dose of Primacor that was started at the beginning of the case. MOOSE showed definitely improved left ventricular function. Flow measurement during the case and after coming off bypass with good hemodynamics showed a flow of 84 mL per minute, pulsatility index of 1.9, and diastolic filling of 74% for the mammary artery graft, showing excellent parameters. The flow into the vein graft to the obtuse marginal artery was 116 mL per minute, pulsatility index of 1.4, diastolic filling of 71% showing an excellent graft. Flow into the vein going to the diagonal artery was 53 mL per minute, pulsatility index of 2.5, diastolic filling of 70%, showing an excellent graft. The last graft to be measured was the vein going to the posterior descending artery, and the flow was 91 mL per minute, pulsatility index of 1.9, diastolic filling of 66%, showing an excellent graft. With that, test-dose than full-dose protamine was given. Two substernal chest tubes were placed. A deep groove was made in the left pleural pericardial fat to accommodate the mammary artery medial to the lung and away from the posterior sternal table. Pericardium was approximated over the heart and the grafts and the aorta. After ensuring adequate hemostasis and hemodynamics and after correct sponge, instrument and needle count, the sternum was approximated using 6 [id number] [place] cables after interposing Fibril between the sternal edges. Thorough irrigation with cefazolin followed. The rest of the closure proceeded in layers. Patient was transferred to the ICU in stable condition with normal sinus rhythm at 70, normal EKG, mean arterial pressure of 67, PA pressure of 26/12, on low-dose Primacor and nitroglycerin. [facility]
[2016-12-17 00:12] LABS: Glucose,Whole Blood 109 mg/dL (75-99)
[2016-12-17] MEDS: MILRINONE-D5W PMX 20 MG in DEXTROSE/WATER 1 100ML.BAG IV SCH (00:49)
[2016-12-17 01:05] LABS: Glucose,Whole Blood 141 mg/dL (75-99)
[2016-12-17] MEDS: ceFAZolin 2 GM in SODIUM CHLORIDE 0.9% 100 ML IVPB SCH ×2 (01:25→08:21)
[2016-12-17] MEDS: ACETAMINOPHEN IV (For NPO) 1,000 MG in EMPTY BAG 1 BAG IVPB SCH ×4 (01:25→19:51)
[2016-12-17] MEDS: HEPARIN SODIUM,PORCINE 5,000 UNIT/ML 1 ML VIAL SQ SCH ×3 (01:25→16:15)
[2016-12-17 01:33] LABS: ABG Base Excess -2.1 mmol/L; ABG HCO3 22 mmol/L (21-25); ABG PCO2 39 mmHg (35-45); ABG PH 7.38 (7.35-7.45); ABG PO2 194 mmHg (83-108); ABG TCO2 24 mmol/L (19-24)
[2016-12-17 02:03] LABS: Glucose,Whole Blood 147 mg/dL (75-99)
[2016-12-17 03:00] LABS: Glucose,Whole Blood 138 mg/dL (75-99)
[2016-12-17 04:05] LABS: Glucose,Whole Blood 114 mg/dL (75-99)
[2016-12-17 05:02] LABS: Glucose,Whole Blood 131 mg/dL (75-99)
[2016-12-17 05:16] LABS: Basophils % (A) 0 %; CH 30.7; CHCM 34.1; Eosinophils % (A) 0 %; HCT 21.5 % (39.0-53.0); HDW 3.05; HGB 7.1 gm/dL (13.0-17.5); Luc # (Auto) 0.07; Luc % (Auto) 1; Lymphocytes # (A) 0.3 k/uL (1.0-4.8); Lymphocytes % (A) 5 %; MCHC 33.1 g/dL (31.0-37.0); MCV 90.7 fL (80.0-100.0); Mean Platelet Volume 7.9; Monocytes # (A) 0.4 k/uL (0-1.0); Monocytes % (A) 6 %; Neutrophils # (A) 6.2 k/uL (1.3-7.7); Neutrophils % (A) 88 %; RBC 2.37 m/uL (4.30-5.90); RDW 14.6 % (11.5-15.5); WBC 7.1 k/uL (3.8-10.6); WBC (Perox) 7.13
[2016-12-17 05:41] LABS: Ionized Calcium 4.8 mg/dL (4.5-5.3)
[2016-12-17 05:48] LABS: ALT 31 U/L (21-72); AST 28 U/L (17-59); Alkaline Phosphatase 40 U/L (38-126); Anion Gap 8 mmol/L; Blood Urea Nitrogen 14 mg/dL (9-20); Calcium 8.2 mg/dL (8.4-10.2); Carbon Dioxide 24 mmol/L (22-30); Chloride 108 mmol/L (98-107); Glucose 122 mg/dL (74-99); Magnesium 2.1 mg/dL (1.6-2.3); Non-African American GFR(MDRD) >60 (>60 ml/min/1.73 sqM); Potassium 4.4 mmol/L (3.5-5.1); Sodium 140 mmol/L (137-145)
[2016-12-17 06:11] LABS: Glucose,Whole Blood 135 mg/dL (75-99)
[2016-12-17 07:02] LABS: Glucose,Whole Blood 129 mg/dL (75-99)
[2016-12-17] MEDS: IPRATROPIUM-ALBUTEROL 3 ML NEB INHALATION SCH ×4 (08:00→19:24)
[2016-12-17 08:19] LABS: Glucose,Whole Blood 114 mg/dL (75-99)
[2016-12-17] MEDS: ATORVASTATIN 40 MG TAB PO SCH (08:26)
[2016-12-17] MEDS: ASPIRIN 325 MG TAB PO SCH (08:26)
--- NOTE | 2016-12-17 08:26 | XR ---
EXAMINATION TYPE: XR chest 1V portable DATE OF EXAM: 12/17/2016 6:49 AM COMPARISON: 12/16/2016 HISTORY: Shortness of breath TECHNIQUE: Single frontal view of the chest is obtained. FINDINGS: Mel[place]-Jurgen catheter and chest tube and cardiac device noted. Subsegmental infiltrate and ti ny effusion. No pneumothorax. Tiny bilateral pleural effusions. IMPRESSION: Stable postoperative changes with basilar atelectasis or infiltrate and tiny effusion.
[2016-12-17] MEDS: CLOPIDOGREL 75 MG TAB PO SCH (08:27)
[2016-12-17] MEDS: CHLORHEXIDINE GLUCONATE 15 ML CUP MUCOUS MEM SCH ×2 (08:27→22:32)
[2016-12-17] MEDS ORDERED: PANTOPRAZOLE 40 MG/10 ML VIAL IVP SCH (09:00)
[2016-12-17] MEDS: PANTOPRAZOLE 40 MG TABLET PO SCH ×2 (09:06→20:52)
[2016-12-17] MEDS: METOPROLOL TARTRATE 12.5 MG TAB PO SCH ×2 (09:07→22:33)
[2016-12-17 09:18] LABS: Glucose,Whole Blood 101 mg/dL (75-99)
[2016-12-17 10:23] LABS: Glucose,Whole Blood 106 mg/dL (75-99)
--- NOTE | 2016-12-17 10:38 | P.PN ---
Progress Note - Text CV Surgery Nursing POD: #1, quadruple coronary artery bypass grafting utilizing left internal mammary artery to the left anterior descending artery, reverse saphenous vein grafts to the posterior descending artery, diagonal branch, and obtuse marginal branch. Bilateral endoscopic harvesting of the greater saphenous vein, intraoperative transesophageal echocardiogram and epi-aortic ultrasonography, intraoperative graft flow measurements. Patient awake and alert, no distress noted, no specific complaints. Vital Signs: Afebrile , T-max 98.8F Vital Signs - 24 hr 12/16/16 12/16/16 12/16/16 16:30 16:45 17:00 Temperature Pulse Rate 68 68 70 Pulse Rate [ 65 Quality Assurance Coach ] Respiratory 16 16 16 Rate Blood Pressure O2 Sat by Pulse 100 100 100 Oximetry 12/16/16 12/16/16 12/16/16 17:30 18:00 18:47 Temperature Pulse Rate 69 72 77 Pulse Rate [ Quality Assurance Coach ] Respiratory Rate Blood Pressure O2 Sat by Pulse 100 100 Oximetry 12/16/16 12/16/16 12/16/16 19:00 19:30 20:00 Temperature Pulse Rate 75 77 76 Pulse Rate [ 65 Quality Assurance Coach ] Respiratory 16 16 16 Rate Blood Pressure 96/55 96/55 90/53 O2 Sat by Pulse 100 100 100 Oximetry 12/16/16 12/16/16 12/16/16 20:30 21:00 21:30 Temperature Pulse Rate 75 74 72 Pulse Rate [ Quality Assurance Coach ] Respiratory 16 16 16 Rate Blood Pressure 90/53 81/52 81/52 O2 Sat by Pulse 100 100 100 Oximetry 12/16/16 12/16/16 12/16/16 22:00 22:30 22:58 Temperature Pulse Rate 70 71 73 Pulse Rate [ Quality Assurance Coach ] Respiratory 16 Rate Blood Pressure 89/55 89/51 O2 Sat by Pulse 100 100 Oximetry 12/16/16 12/16/16 12/16/16 23:00 23:08 23:30 Temperature Pulse Rate 71 66 75 Pulse Rate [ Quality Assurance Coach ] Respiratory Rate Blood Pressure 96/58 112/57 O2 Sat by Pulse 100 100 Oximetry 12/16/16 12/17/16 12/17/16 23:55 00:00 00:30 Temperature Pulse Rate 74 73 72 Pulse Rate [ 65 Quality Assurance Coach ] Respiratory 16 Rate Blood Pressure 100/56 100/56 103/60 O2 Sat by Pulse 100 100 100 Oximetry 12/17/16 12/17/16 12/17/16 01:00 01:30 02:00 Temperature Pulse Rate 74 78 77 Pulse Rate [ Quality Assurance Coach ] Respiratory 18 Rate Blood Pressure 103/59 104/55 100/56 O2 Sat by Pulse 100 99 99 Oximetry 12/17/16 12/17/16 12/17/16 03:00 03:30 04:00 Temperature Pulse Rate 77 77 75 Pulse Rate [ 65 Quality Assurance Coach ] Respiratory 18 25 H 18 Rate Blood Pressure 103/60 105/60 106/62 O2 Sat by Pulse 100 100 100 Oximetry 12/17/16 12/17/16 12/17/16 04:30 05:00 06:00 Temperature Pulse Rate 76 77 80 Pulse Rate [ Quality Assurance Coach ] Respiratory 21 21 37 H Rate Blood Pressure 102/61 103/57 111/64 O2 Sat by Pulse 100 100 100 Oximetry 12/17/16 12/17/16 12/17/16 07:00 08:00 09:00 Temperature 98.8 F Pulse Rate 82 79 80 Pulse Rate [ Quality Assurance Coach ] Respiratory 50 H 20 22 Rate Blood Pressure O2 Sat by Pulse 98 100 100 Oximetry 12/17/16 10:00 Temperature Pulse Rate 78 Pulse Rate [ Quality Assurance Coach ] Respiratory 22 Rate Blood Pressure O2 Sat by Pulse 100 Oximetry ABP, PAP, CO, CI - Last 8 Hours Arterial Blood Pressure 132/53 Arterial Blood Pressure 129/55 Arterial Blood Pressure 117/52 Arterial Blood Pressure 134/55 Arterial Blood Pressure 129/56 Arterial Blood Pressure 117/48 Arterial Blood Pressure 108/46 Arterial Blood Pressure 121/53 Arterial Blood Pressure 116/52 Arterial Blood Pressure 109/51 Pulmonary Artery Pressure 24/14 Pulmonary Artery Pressure 31/15 Pulmonary Artery Pressure 25/12 Pulmonary Artery Pressure 26/11 Pulmonary Artery Pressure 33/16 Pulmonary Artery Pressure 34/14 Pulmonary Artery Pressure 33/16 Pulmonary Artery Pressure 29/14 Pulmonary Artery Pressure 31/15 Pulmonary Artery Pressure 31/16 Cardiac Output 6.3 Cardiac Output 6.3 Cardiac Output 6.3 Cardiac Output 7.8 Cardiac Output 7.8 Cardiac Output 7.8 Cardiac Output 7.8 Cardiac Output 7.8 Cardiac Output 9.1 Cardiac Output 9.1 Cardiac Index 2.8 Cardiac Index 3.5 Labs: Short CBC 12/16/16 12/16/16 12/16/16 Range/Units 16:40 19:20 22:30 WBC 6.0 9.8 7.2 (3.8-10.6) k/uL Hgb 6.7 L* D 6.9 L* 6.2 L* (13.0-17.5) gm/dL Hct 19.4 L* 20.5 L 18.5 L* (39.0-53.0) % Plt Count 96 L D 124 L 102 L (150-450) k/uL Neutrophils # Not Reportable 8.5 H 6.4 12/17/16 Range/Units 05:00 WBC 7.1 (3.8-10.6) k/uL Hgb 7.1 L (13.0-17.5) gm/dL Hct 21.5 L (39.0-53.0) % Plt Count 118 L (150-450) k/uL Neutrophils # 6.2 BMP 12/16/16 12/16/16 12/17/16 16:40 22:30 05:00 Sodium 139 140 140 Potassium 4.6 4.2 4.4 Chloride 107 105 108 H Carbon Dioxide 25 25 24 BUN 11 12 14 Creatinine 0.84 0.87 0.84 Glucose 104 H 117 H 122 H Calcium 7.4 L 8.1 L 8.2 L Liver Function 12/16/16 12/17/16 Range/Units 16:40 05:00 Total Bilirubin 1.1 1.0 (0.2-1.3) mg/dL AST 25 28 (17-59) U/L ALT 33 31 (21-72) U/L Alkaline Phosphatase 37 L 40 (38-126) U/L Albumin 3.1 L 3.2 L (3.5-5.0) g/dL IV Fluids: Insulin drip at 3.5 units per hour, nitroglycerin drip at 20 mcg/m Cardiac output: 6.3 L/m Cardiac index: 2.8 L/m Pulmonary artery pressures: 24/14 mmHg CVP: 8 mmHg Lungs: Respirations are even and nonlabored, breath sounds diminished bilaterally particularly in the left base to auscultation. O2 sat: 100% on 4 L of oxygen delivered via nasal cannula I/S: 500 mL, The patient gave return demonstration of proper use of the incentive spirometer Heart: S1S2, regular rate and rhythm, bedside telemetry shows a normal sinus rhythm at 78 Sternum stable, chest incision clean with silverlon dressing clean and dry. Right leg is slightly ecchymotic at saphenous vein harvest site. Abdomen: Soft, Positive bowel sounds present in all 4 quadrants. CBGs: 106-158 mg/dL U/O: Adequate urine output to the Campbell catheter Chest Tubes: Mediastinal chest tube without visible air leak drained 343 mL of serosanguineous fluid over the last 8 hours area Left pleural chest tube without visible air leak and drained 78 mL of serosanguineous fluid over the last 8 hours 24 hr Total: Mediastinal-583 mL Left pleural-217 mL Intake & Output 12/15/16 12/16/16 12/17/16 12/18/16 06:59 06:59 06:59 06:59 Intake Total 1769.840 489.843 Output Total 3820 549 Balance -2050.160 -59.157 Weight 104 kg Active Medications Hydrocodone Bitart/Acetaminophen ([place] 5-325) 2 each PO Q4HR PRN PRN Reason: Severe Pain Hydrocodone Bitart/Acetaminophen ([place] 5-325) 1 each PO Q4HR PRN PRN Reason: Moderate Pain Albuterol/Ipratropium (Duoneb 0.5 Mg-3 Mg/3 Ml Soln) 3 ml INHALATION RT-Q2H PRN PRN Reason: Shortness Of Breath Or Wheezing Albuterol/Ipratropium (Duoneb 0.5 Mg-3 Mg/3 Ml Soln) 3 ml INHALATION RT-QID [facility] Aspirin (Aspirin) 325 mg PO DAILY [facility] Last Admin: 12/17/16 08:26 Dose: 325 mg Atorvastatin Calcium (Lipitor) 40 mg PO DAILY [facility] Last Admin: 12/17/16 08:26 Dose: 40 mg Benzocaine/Menthol (Cepacol Lozenge) 1 each MUCOUS MEM Q2H PRN PRN Reason: Sore Throat Bisacodyl (Dulcolax) 10 mg RECTAL DAILY PRN PRN Reason: Constipation Chlorhexidine Gluconate (Peridex) 15 ml MUCOUS MEM BID [facility] Last Admin: 12/17/16 08:27 Dose: Not Given Clopidogrel Bisulfate (Plavix) 75 mg PO DAILY [facility] Last Admin: 12/17/16 08:27 Dose: 75 mg Heparin Sodium (Porcine) (Heparin) 5,000 unit SQ Q8HR [facility] Last Admin: 12/17/16 08:25 Dose: 5,000 unit Acetaminophen 1,000 mg/ IV (Solution) 100 mls @ 400 mls/hr IVPB Q6HR MICHAELA Stop: 12/17/16 18:01 Last Admin: 12/17/16 08:21 Dose: 400 mls/hr Albumin Human 250 ml/ IV (Solution) 250 mls @ 250 mls/hr IVPB Q1HR PRN PRN Reason: For Volume Stop: 12/18/16 16:00 Last Admin: 12/16/16 22:11 Dose: 250 mls/hr Calcium Gluconate 2,000 mg/ (Sodium Chloride) 120 mls @ 100 mls/hr IVPB ONCE PRN PRN Reason: Ionized Calcium less than 4.4 Stop: 12/17/16 16:00 Clevidipine 25 mg/ IV Solution 50 mls @ 2 mls/hr IV .Q24H MICHAELA; 1 MG/HR PRN Reason: Protocol Last Admin: 12/16/16 22:13 Dose: Not Given Insulin Human Regular 100 unit (/ Sodium Chloride) 101 mls @ 0 mls/hr IV .Q0M MICHAELA; Per Protocol PRN Reason: Protocol Last Titration: 12/17/16 09:22 Dose: 0 units/hr, 0 mls/hr Lactated Ringer's (Lactated Ringers) 1,000 mls @ 20 mls/hr IV .Q24H MICHAELA Last Admin: 12/16/16 16:30 Dose: 50 mls/hr Nitroglycerin/Dextrose 50 mg/ (IV Solution) 250 mls @ 1.5 mls/hr IV .Q24H MICHAELA PRN Reason: 5 MCG/MIN Last Infusion: 12/16/16 16:30 Dose: 5 mcg/min, 1.5 mls/hr Phenylephrine HCl 40 mg/ (Sodium Chloride) 254 mls @ 0 mls/hr IV .Q0M MICHAELA; Titrate PRN Reason: Protocol Propofol 500 mg/ IV Solution 50 mls @ 0 mls/hr IV .Q0M MICHAELA; Titrate PRN Reason: Protocol Last Titration: 12/16/16 23:20 Dose: 0 mcg/kg/min, 0 mls/hr Magnesium Hydroxide (Milk Of Magnesia) 2,400 mg PO BID PRN PRN Reason: Constipation Metoclopramide HCl (Reglan) 10 mg IVP Q4H PRN PRN Reason: Nausea And Vomiting Metoprolol Tartrate (Lopressor) 12.5 mg PO BID MICHAELA Last Admin: 12/17/16 09:07 Dose: 12.5 mg Miscellaneous Information (Magnesium Per Protocol) 1 each MISCELLANE DAILY PRN ; Protocol PRN Reason: Per Protocol Miscellaneous Information (Phosphorus Per Protocol) 1 each MISCELLANE DAILY PRN ; Protocol PRN Reason: Per Protocol Miscellaneous Information (Potassium Per Protocol) 1 each MISCELLANE DAILY PRN ; Protocol PRN Reason: Per Protocol Morphine Sulfate (Morphine Sulfate (Inj)) 2 mg IVP Q2H PRN PRN Reason: Severe Pain Last Admin: 12/17/16 06:39 Dose: 2 mg Ondansetron HCl (Zofran) 4 mg IVP Q6HR PRN PRN Reason: Nausea And Vomiting Oxycodone HCl (Oxyir) 10 mg PO Q4H PRN PRN Reason: Severe Pain Stop: 12/17/16 16:00 Last Admin: 12/17/16 08:20 Dose: 10 mg Oxycodone HCl (Oxyir) 5 mg PO Q4H PRN PRN Reason: Moderate Pain Stop: 12/17/16 16:00 Pantoprazole Sodium (Protonix) 40 mg PO AC-BID MICHAELA Last Admin: 12/17/16 09:06 Dose: 40 mg Senna/Docusate Sodium (Senokot-S) 2 each PO HS MICHAELA Sodium Chloride (Saline Flush) 10 ml IV BID MICHAELA Last Admin: 12/17/16 09:07 Dose: 10 ml Plan: Postop day #1-good progress Continue aggressive pulmonary toilet utilizing incentive spirometry, coughing and deep breathing, and inhalation treatments per respiratory therapy department. Continue to increase activity as tolerated. Blood sugar management per medical service AICD to be interrogated today
--- NOTE | 2016-12-17 10:53 | P.CONS ---
History of Present Illness - Reason for Consult Consult date: 12/17/16 medical management Requesting physician: Jennie Johnson - Chief Complaint quadruple bypass - History of Present Illness this is a 66-year-old male with a known history of triple-vessel coronary artery disease, myocardial infarction, ischemic cardiomyopathy with AICD placement, hypertension, hyperlipidemia, peripheral vascular disease and COPD. Patient is also former smoker he quit in October 2016. patient had undergone cardiac catheterization 12/07/2016 had a chronically occluded mid LAD. And PTCA was unsuccessful at opening the lesion. Therefore he was recommended to have a coronary artery bypass grafting. Patient is postop day #1 status post quadruple coronary bypass grafting with Dr. Grubbs. Patient was extubated last night. He is currently sitting up at bedside chair. Pain is controlled. He has [address] Denies any nausea or vomiting. Denies any bowel movement changes, shortness of breath in urine output is adequate. He is currently on insulin drip for close blood sugar monitoring. Patient has no history of diabetes.blood sugar this morning is 114. patient does have [facility] with dextrose with good contributing to some of the mildly elevated blood sugars.we'll continue to monitor.patient also had acute blood loss anemia with hemoglobin 6.2 did require 1 unit of blood. Hemoglobin today is 7.1 Review of Systems please refer to HPI otherwise unremarkable Past Medical History Past Medical History: Eye Disorder, Hyperlipidemia, Hypertension, Vascular Disorder Additional Past Medical History / Comment(s): Ischemic cardiomyopathy with impaired LV function preoperatively., COPD with an FEV1 of 41% of predicted based on a spirometer was done preoperatively, blindness in the left eye, peripheral vascular disease with previous amputation of the toe, chronic back pain, hyperlipidemia, hypertension History of Any Multi-Drug Resistant Organisms: None Reported Past Surgical History: AICD, Heart Catheterization, Tonsillectomy Additional Past Surgical History / Comment(s): right foot surgery, Left eye surgery after injury. [place] AICD Lt Chest. Past Anesthesia/Blood Transfusion Reactions: No Reported Reaction, Motion Sickness Type of Cardiac Device: AICD Device Placement Date:: 10/27/2016 Past Psychological History: No Psychological Hx Reported Smoking Status: Former smoker Past Alcohol Use History: None Reported Additional Past Alcohol Use History / Comment(s): STOPPED DRINKING 37 YEARS AGO. QUIT SMOKING OCT 2016. HX OF 1 PPD SMOKER-SMOKED FOR OVER 40 YRS. Past Drug Use History: None Reported - Past Family History Mother Family Medical History: Cancer Additional Family Medical History / Comment(s): age 62 of cancer Father Additional Family Medical History / Comment(s): paraplegic after motorcycle accident age 57. age 64 2 weeks after . Medications and Allergies Home Medications Medication Instructions Recorded Confirmed Type Lisinopril [Prinivil] 10 mg PO DAILY 01/26/16 12/16/16 History Aspirin 325 mg PO ONCE 12/16/16 12/16/16 History Aspirin [Adult Low Dose Aspirin EC] 81 mg PO DAILY 12/16/16 12/16/16 History Atorvastatin [Lipitor] 40 mg PO DAILY 12/16/16 12/16/16 History Carvedilol [Coreg] 6.25 mg PO DAILY 12/16/16 12/16/16 History Allergies Allergy/AdvReac Type Severity Reaction Status Date / Time No Known Allergies Allergy Verified 12/13/16 09:41 Physical Exam Vitals: Vital Signs Temp Pulse Pulse Resp BP Pulse Ox 12/17/16 10:00 78 22 100 12/17/16 09:00 80 22 100 12/17/16 08:00 98.8 F 79 20 100 12/17/16 07:00 82 50 H 98 12/17/16 06:00 80 37 H 111/64 100 12/17/16 05:00 77 21 103/57 100 12/17/16 04:30 76 21 102/61 100 12/17/16 04:00 75 65 18 106/62 100 12/17/16 03:30 77 25 H 105/60 100 12/17/16 03:00 77 18 103/60 100 12/17/16 02:00 77 18 100/56 99 12/17/16 01:30 78 104/55 99 12/17/16 01:00 74 103/59 100 12/17/16 00:30 72 103/60 100 12/17/16 00:00 73 65 16 100/56 100 12/16/16 23:55 74 100/56 100 12/16/16 23:30 75 112/57 100 12/16/16 23:08 66 12/16/16 23:00 71 96/58 100 12/16/16 22:58 73 12/16/16 22:30 71 89/51 100 12/16/16 22:00 70 16 89/55 100 12/16/16 21:30 72 16 81/52 100 12/16/16 21:00 74 16 81/52 100 12/16/16 20:30 75 16 90/53 100 12/16/16 20:00 76 65 16 90/53 100 12/16/16 19:30 77 16 96/55 100 12/16/16 19:00 75 16 96/55 100 12/16/16 18:47 77 12/16/16 18:00 72 100 12/16/16 17:30 69 100 12/16/16 17:00 70 16 100 12/16/16 16:45 68 16 100 12/16/16 16:30 68 65 16 100 Intake and Output 12/16/16 12/17/16 12/17/16 22:59 06:59 14:59 Intake Total 706.756 5759.768 489.843 Output Total 2887 933 549 Balance -2347.928 264.768 -59.157 Intake: IV 395 544 240 CO/CI 130 120 10 Lactated Ringers 1,000 ml 250 400 200 @ 20 mls/hr IV .Q24H [facility] Rx#:[id number] Pressure Bag 15 24 30 Intake, IV Titration 144.072 33.768 249.843 Amount ACETAMINOPHEN IV (For NPO 100 ) 1,000 mg In Empty Bag 1 bag @ 400 mls/hr IVPB Q6HR [facility] Rx#:[id number] Insulin Regular 100 unit 11.008 13.062 32.250 In Sodium Chloride 0.9% 100 ml @ Per Protocol IV .Q0M [facility] Rx#:[id number] Lactated Ringers 1,000 ml 100 @ 20 mls/hr IV .Q24H [facility] Rx#:[id number] Milrinone-D5w Pmx 20 mg 11.084 17.593 In Dextrose/Water 1 100ml .bag @ Per Protocol IV . Q0M [facility] Rx#:[id number] Nitroglycerin-D5w Pmx 50 0 mg In Dextrose/Water 1 250ml.bag @ 5 MCG/MIN 1.5 mls/hr IV .Q24H [facility] Rx#: [id number] Propofol 500 mg In Empty 33.064 9.622 Bag 1 bag @ Titrate IV . Q0M [facility] Rx#:[id number] ceFAZolin 2 gm In Sodium 100 Chloride 0.9% 100 ml @ 100 mls/hr IVPB Q8HR [facility] Rx#:[id number] Blood Product 620 Rc As-1 Unit 310 [id number] Output: Chest Tube Drainage 197 274 329 Chest Tube Mediastinal 193 200 190 Left Lateral Chest 4 74 139 Gastric Drainage 450 100 Drainage 90 Left Knee 40 Right Knee 50 Urine 1150 559 220 Estimated Blood Loss 1000 Other: Voiding Method Indwelling Catheter Indwelling Catheter Weight 104 kg ABP, PAP, CO, CI - Last 8 Hours Arterial Blood Pressure 132/53 Arterial Blood Pressure 129/55 Arterial Blood Pressure 117/52 Arterial Blood Pressure 134/55 Arterial Blood Pressure 129/56 Arterial Blood Pressure 117/48 Arterial Blood Pressure 108/46 Arterial Blood Pressure 121/53 Arterial Blood Pressure 116/52 Arterial Blood Pressure 109/51 Pulmonary Artery Pressure 24/14 Pulmonary Artery Pressure 31/15 Pulmonary Artery Pressure 25/12 Pulmonary Artery Pressure 26/11 Pulmonary Artery Pressure 33/16 Pulmonary Artery Pressure 34/14 Pulmonary Artery Pressure 33/16 Pulmonary Artery Pressure 29/14 Pulmonary Artery Pressure 31/15 Pulmonary Artery Pressure 31/16 Cardiac Output 6.3 Cardiac Output 6.3 Cardiac Output 6.3 Cardiac Output 7.8 Cardiac Output 7.8 Cardiac Output 7.8 Cardiac Output 7.8 Cardiac Output 7.8 Cardiac Output 9.1 Cardiac Output 9.1 Cardiac Index 2.8 Cardiac Index 3.5 Head normocephalic Neck supple Lungs clear to auscultation bilaterally no wheezing or crackles. 2 chest tubes. Dressing is clean dry and intact along the chest wall. Heart regular rate and rhythm S1-S2, no rub or gallop Abdomen is soft nontender nondistended positive bowel sounds no hepatosplenomegaly Extremities no edema Neuro alert and orientated to 3 Results CBC & Chem 7: 12/17/16 05:00 12/17/16 05:00 Labs: Abnormal Lab Results - Last 24 Hours (Table) 12/14/16 12/16/16 12/16/16 Range/Units 09:30 11:42 12:15 RBC (4.30-5.90) m/uL Hgb (13.0-17.5) gm/dL Hct (39.0-53.0) % Plt Count (150-450) k/uL Neutrophils # (1.3-7.7) k/uL Lymphocytes # (1.0-4.8) k/uL Lymphocytes # (Manual) (1.0-4.8) k/uL PT (9.0-12.0) sec APTT (22.0-30.0) sec ABG pH (7.35-7.45) ABG pCO2 (35-45) mmHg ABG pO2 (83-108) mmHg ABG Total CO2 (19-24) mmol/L ABG O2 Saturation (94-97) % Chloride (98-107) mmol/L Glucose (74-99) mg/dL POC Glucose (mg/dL) 106 H 107 H (75-99) mg/dL Calcium (8.4-10.2) mg/dL Alkaline Phosphatase (38-126) U/L Total Protein (6.3-8.2) g/dL Albumin (3.5-5.0) g/dL Crossmatch See Detail 12/16/16 12/16/16 12/16/16 Range/Units 12:33 12:59 13:29 RBC (4.30-5.90) m/uL Hgb (13.0-17.5) gm/dL Hct (39.0-53.0) % Plt Count (150-450) k/uL Neutrophils # (1.3-7.7) k/uL Lymphocytes # (1.0-4.8) k/uL Lymphocytes # (Manual) (1.0-4.8) k/uL PT (9.0-12.0) sec APTT (22.0-30.0) sec ABG pH (7.35-7.45) ABG pCO2 (35-45) mmHg ABG pO2 (83-108) mmHg ABG Total CO2 (19-24) mmol/L ABG O2 Saturation (94-97) % Chloride (98-107) mmol/L Glucose (74-99) mg/dL POC Glucose (mg/dL) 104 H 266 H 196 H (75-99) mg/dL Calcium (8.4-10.2) mg/dL Alkaline Phosphatase (38-126) U/L Total Protein (6.3-8.2) g/dL Albumin (3.5-5.0) g/dL Crossmatch 12/16/16 12/16/16 12/16/16 Range/Units 14:04 15:03 16:40 RBC 2.11 L (4.30-5.90) m/uL Hgb 6.7 L* D (13.0-17.5) gm/dL Hct 19.4 L* (39.0-53.0) % Plt Count 96 L D (150-450) k/uL Neutrophils # (1.3-7.7) k/uL Lymphocytes # (1.0-4.8) k/uL Lymphocytes # (Manual) 0.8 L (1.0-4.8) k/uL PT (9.0-12.0) sec APTT (22.0-30.0) sec ABG pH (7.35-7.45) ABG pCO2 (35-45) mmHg ABG pO2 (83-108) mmHg ABG Total CO2 (19-24) mmol/L ABG O2 Saturation (94-97) % Chloride (98-107) mmol/L Glucose (74-99) mg/dL POC Glucose (mg/dL) 185 H 120 H (75-99) mg/dL Calcium (8.4-10.2) mg/dL Alkaline Phosphatase (38-126) U/L Total Protein (6.3-8.2) g/dL Albumin (3.5-5.0) g/dL Crossmatch 12/16/16 12/16/16 12/16/16 Range/Units 16:40 16:40 16:44 RBC (4.30-5.90) m/uL Hgb (13.0-17.5) gm/dL Hct (39.0-53.0) % Plt Count (150-450) k/uL Neutrophils # (1.3-7.7) k/uL Lymphocytes # (1.0-4.8) k/uL Lymphocytes # (Manual) (1.0-4.8) k/uL PT 15.5 H (9.0-12.0) sec APTT 33.7 H (22.0-30.0) sec ABG pH (7.35-7.45) ABG pCO2 (35-45) mmHg ABG pO2 (83-108) mmHg ABG Total CO2 (19-24) mmol/L ABG O2 Saturation (94-97) % Chloride (98-107) mmol/L Glucose 104 H (74-99) mg/dL POC Glucose (mg/dL) 111 H (75-99) mg/dL Calcium 7.4 L (8.4-10.2) mg/dL Alkaline Phosphatase 37 L (38-126) U/L Total Protein 4.7 L (6.3-8.2) g/dL Albumin 3.1 L (3.5-5.0) g/dL Crossmatch 12/16/16 12/16/16 12/16/16 Range/Units 16:51 17:27 18:20 RBC (4.30-5.90) m/uL Hgb (13.0-17.5) gm/dL Hct (39.0-53.0) % Plt Count (150-450) k/uL Neutrophils # (1.3-7.7) k/uL Lymphocytes # (1.0-4.8) k/uL Lymphocytes # (Manual) (1.0-4.8) k/uL PT (9.0-12.0) sec APTT (22.0-30.0) sec ABG pH 7.31 L (7.35-7.45) ABG pCO2 49 H (35-45) mmHg ABG pO2 >400 H (83-108) mmHg ABG Total CO2 26 H (19-24) mmol/L ABG O2 Saturation 100.0 H (94-97) % Chloride (98-107) mmol/L Glucose (74-99) mg/dL POC Glucose (mg/dL) 117 H 152 H (75-99) mg/dL Calcium (8.4-10.2) mg/dL Alkaline Phosphatase (38-126) U/L Total Protein (6.3-8.2) g/dL Albumin (3.5-5.0) g/dL Crossmatch 12/16/16 12/16/16 12/16/16 Range/Units 19:04 19:20 20:11 RBC 2.24 L (4.30-5.90) m/uL Hgb 6.9 L* (13.0-17.5) gm/dL Hct 20.5 L (39.0-53.0) % Plt Count 124 L (150-450) k/uL Neutrophils # 8.5 H (1.3-7.7) k/uL Lymphocytes # 0.5 L (1.0-4.8) k/uL Lymphocytes # (Manual) (1.0-4.8) k/uL PT (9.0-12.0) sec APTT (22.0-30.0) sec ABG pH (7.35-7.45) ABG pCO2 (35-45) mmHg ABG pO2 (83-108) mmHg ABG Total CO2 (19-24) mmol/L ABG O2 Saturation (94-97) % Chloride (98-107) mmol/L Glucose (74-99) mg/dL POC Glucose (mg/dL) 158 H 159 H (75-99) mg/dL Calcium (8.4-10.2) mg/dL Alkaline Phosphatase (38-126) U/L Total Protein (6.3-8.2) g/dL Albumin (3.5-5.0) g/dL Crossmatch 12/16/16 12/16/16 12/16/16 Range/Units 20:57 22:02 22:30 RBC (4.30-5.90) m/uL Hgb (13.0-17.5) gm/dL Hct (39.0-53.0) % Plt Count (150-450) k/uL Neutrophils # (1.3-7.7) k/uL Lymphocytes # (1.0-4.8) k/uL Lymphocytes # (Manual) (1.0-4.8) k/uL PT (9.0-12.0) sec APTT (22.0-30.0) sec ABG pH (7.35-7.45) ABG pCO2 (35-45) mmHg ABG pO2 (83-108) mmHg ABG Total CO2 (19-24) mmol/L ABG O2 Saturation (94-97) % Chloride (98-107) mmol/L Glucose 117 H (74-99) mg/dL POC Glucose (mg/dL) 154 H 138 H (75-99) mg/dL Calcium 8.1 L (8.4-10.2) mg/dL Alkaline Phosphatase (38-126) U/L Total Protein (6.3-8.2) g/dL Albumin (3.5-5.0) g/dL Crossmatch 12/16/16 12/16/16 12/17/16 Range/Units 22:30 23:04 00:08 RBC 2.03 L (4.30-5.90) m/uL Hgb 6.2 L* (13.0-17.5) gm/dL Hct 18.5 L* (39.0-53.0) % Plt Count 102 L (150-450) k/uL Neutrophils # (1.3-7.7) k/uL Lymphocytes # 0.3 L (1.0-4.8) k/uL Lymphocytes # (Manual) (1.0-4.8) k/uL PT (9.0-12.0) sec APTT (22.0-30.0) sec ABG pH (7.35-7.45) ABG pCO2 (35-45) mmHg ABG pO2 (83-108) mmHg ABG Total CO2 (19-24) mmol/L ABG O2 Saturation (94-97) % Chloride (98-107) mmol/L Glucose (74-99) mg/dL POC Glucose (mg/dL) 126 H 109 H (75-99) mg/dL Calcium (8.4-10.2) mg/dL Alkaline Phosphatase (38-126) U/L Total Protein (6.3-8.2) g/dL Albumin (3.5-5.0) g/dL Crossmatch 12/17/16 12/17/16 12/17/16 Range/Units 01:01 01:07 02:02 RBC (4.30-5.90) m/uL Hgb (13.0-17.5) gm/dL Hct (39.0-53.0) % Plt Count (150-450) k/uL Neutrophils # (1.3-7.7) k/uL Lymphocytes # (1.0-4.8) k/uL Lymphocytes # (Manual) (1.0-4.8) k/uL PT (9.0-12.0) sec APTT (22.0-30.0) sec ABG pH (7.35-7.45) ABG pCO2 (35-45) mmHg ABG pO2 194 H (83-108) mmHg ABG Total CO2 (19-24) mmol/L ABG O2 Saturation 100.0 H (94-97) % Chloride (98-107) mmol/L Glucose (74-99) mg/dL POC Glucose (mg/dL) 141 H 147 H (75-99) mg/dL Calcium (8.4-10.2) mg/dL Alkaline Phosphatase (38-126) U/L Total Protein (6.3-8.2) g/dL Albumin (3.5-5.0) g/dL Crossmatch 12/17/16 12/17/16 12/17/16 Range/Units 02:55 04:02 04:58 RBC (4.30-5.90) m/uL Hgb (13.0-17.5) gm/dL Hct (39.0-53.0) % Plt Count (150-450) k/uL Neutrophils # (1.3-7.7) k/uL Lymphocytes # (1.0-4.8) k/uL Lymphocytes # (Manual) (1.0-4.8) k/uL PT (9.0-12.0) sec APTT (22.0-30.0) sec ABG pH (7.35-7.45) ABG pCO2 (35-45) mmHg ABG pO2 (83-108) mmHg ABG Total CO2 (19-24) mmol/L ABG O2 Saturation (94-97) % Chloride (98-107) mmol/L Glucose (74-99) mg/dL POC Glucose (mg/dL) 138 H 114 H 131 H (75-99) mg/dL Calcium (8.4-10.2) mg/dL Alkaline Phosphatase (38-126) U/L Total Protein (6.3-8.2) g/dL Albumin (3.5-5.0) g/dL Crossmatch 12/17/16 12/17/16 12/17/16 Range/Units 05:00 05:00 06:08 RBC 2.37 L (4.30-5.90) m/uL Hgb 7.1 L (13.0-17.5) gm/dL Hct 21.5 L (39.0-53.0) % Plt Count 118 L (150-450) k/uL Neutrophils # (1.3-7.7) k/uL Lymphocytes # 0.3 L (1.0-4.8) k/uL Lymphocytes # (Manual) (1.0-4.8) k/uL PT (9.0-12.0) sec APTT (22.0-30.0) sec ABG pH (7.35-7.45) ABG pCO2 (35-45) mmHg ABG pO2 (83-108) mmHg ABG Total CO2 (19-24) mmol/L ABG O2 Saturation (94-97) % Chloride 108 H (98-107) mmol/L Glucose 122 H (74-99) mg/dL POC Glucose (mg/dL) 135 H (75-99) mg/dL Calcium 8.2 L (8.4-10.2) mg/dL Alkaline Phosphatase (38-126) U/L Total Protein 5.0 L (6.3-8.2) g/dL Albumin 3.2 L (3.5-5.0) g/dL Crossmatch 12/17/16 12/17/16 12/17/16 Range/Units 06:57 08:17 09:17 RBC (4.30-5.90) m/uL Hgb (13.0-17.5) gm/dL Hct (39.0-53.0) % Plt Count (150-450) k/uL Neutrophils # (1.3-7.7) k/uL Lymphocytes # (1.0-4.8) k/uL Lymphocytes # (Manual) (1.0-4.8) k/uL PT (9.0-12.0) sec APTT (22.0-30.0) sec ABG pH (7.35-7.45) ABG pCO2 (35-45) mmHg ABG pO2 (83-108) mmHg ABG Total CO2 (19-24) mmol/L ABG O2 Saturation (94-97) % Chloride (98-107) mmol/L Glucose (74-99) mg/dL POC Glucose (mg/dL) 129 H 114 H 101 H (75-99) mg/dL Calcium (8.4-10.2) mg/dL Alkaline Phosphatase (38-126) U/L Total Protein (6.3-8.2) g/dL Albumin (3.5-5.0) g/dL Crossmatch 12/17/16 Range/Units 10:20 RBC (4.30-5.90) m/uL Hgb (13.0-17.5) gm/dL Hct (39.0-53.0) % Plt Count (150-450) k/uL Neutrophils # (1.3-7.7) k/uL Lymphocytes # (1.0-4.8) k/uL Lymphocytes # (Manual) (1.0-4.8) k/uL PT (9.0-12.0) sec APTT (22.0-30.0) sec ABG pH (7.35-7.45) ABG pCO2 (35-45) mmHg ABG pO2 (83-108) mmHg ABG Total CO2 (19-24) mmol/L ABG O2 Saturation (94-97) % Chloride (98-107) mmol/L Glucose (74-99) mg/dL POC Glucose (mg/dL) 106 H (75-99) mg/dL Calcium (8.4-10.2) mg/dL Alkaline Phosphatase (38-126) U/L Total Protein (6.3-8.2) g/dL Albumin (3.5-5.0) g/dL Crossmatch Assessment and Plan Plan: 1. Triple-vessel coronary artery disease status post quadruple coronary bypass grafting. Patient had successful extubation last night. Continue with postop management. He is postop day #1 2. Acute blood loss anemia: secondary to surgery. Patient did receive 1 unit of blood. Hemoglobin is 7.1 today. 3. hyperglycemia: Mildly elevated blood sugars likely related to the D5 running through nitro drip. Currently on insulin drip. Blood sugars are stable. Continue to monitor. No history of diabetes. 4.essential hypertension 5. Ischemic cardiomyopathy with AICD. Scheduled for AICD interrogation today. Recent echo shows an EF of 40-45% 6. Hyperlipidemia continue Lipitor 8. History of peripheral vascular disease 9. History of myocardial infarction encourage incentive spirometry use and increase activity Thank you for this consultation. We will continue to follow along with you. Time with Patient: Greater than 30 (Greater than 50% of the total time spent in counseling and coordination of care.I performed an examination of the patient and discussed their management with the physician Electroneurodiagnostic Technologist. I have reviewed the Physician Electroneurodiagnostic Technologist's notes and agree with the documented findings and plan of care)
[2016-12-17 11:16] LABS: Glucose,Whole Blood 119 mg/dL (75-99)
[2016-12-17 13:07] LABS: Glucose,Whole Blood 125 mg/dL (75-99)
[2016-12-17 14:08] LABS: Glucose,Whole Blood 130 mg/dL (75-99)
[2016-12-17 14:17] LABS: Basophils % (A) 0 %; CH 30.2; CHCM 33.8; Eosinophils % (A) 0 %; HCT 23.1 % (39.0-53.0); HGB 7.8 gm/dL (13.0-17.5); Luc # (Auto) 0.12; Luc % (Auto) 1; Lymphocytes # (A) 0.5 k/uL (1.0-4.8); Lymphocytes % (A) 4 %; MCH 30.2 pg (25.0-35.0); MCHC 33.6 g/dL (31.0-37.0); Mean Platelet Volume 7.8; Monocytes # (A) 0.7 k/uL (0-1.0); Monocytes % (A) 6 %; Neutrophils % (A) 89 %; RBC 2.57 m/uL (4.30-5.90); RDW 14.8 % (11.5-15.5); WBC 12.4 k/uL (3.8-10.6); WBC (Perox) 12.34
[2016-12-17 15:23] LABS: Glucose,Whole Blood 101 mg/dL (75-99)
[2016-12-17] MEDS ORDERED: HYDROcodone/APAP 5-325MG 1 EACH TAB PO PRN (15:27)
[2016-12-17] MEDS ORDERED: BISACODYL 10 MG SUPP RECTAL PRN (15:28)
[2016-12-17] MEDS ORDERED: IPRATROPIUM-ALBUTEROL 3 ML NEB INHALATION PRN (15:28)
[2016-12-17] MEDS ORDERED: MAGNESIUM HYDROXIDE 2,400 MG/10 ML CUP PO PRN (15:28)
--- NOTE | 2016-12-17 15:32 | CONS ---
DATE OF CONSULTATION: Francois Avendano is a 66-year-old gentleman. Consultation requested by Dr. Johnson. Patient is known to have atherosclerotic heart disease, chronic obstructive lung disease with FEV1 of 42% predicted. Ejection fraction 40 to 45% status post AICD and apparently Dr. Hilario Sevilla attempted to try to recanalize that totally occluded chronically occluded LAD but not able to open it as the patient was referred for revascularization surgery, underwent revascularization surgery. Patient is extubated patient had triple vessel bypass surgery by Dr. Johnson with VIZCAINO graft to the LAD and vein graft to second diagonal ( ) bypass graft intermediate. The patient is a known diabetic, hypertensive, dyslipidemic, obesity. Patient is alert and oriented and sitting at bedside chair and cooperating very well using the bedside spirometry. Patient is doing very well, progressing very well. Patient's past history remarkable for chronic obstructive lung disease and FEV1 of 41% of predicted on spirometry. History of blindness in the left eye, peripheral vascular disease, previous amputation of the toe, chronic back pain, hyperlipidemia, hypertension. Status post AICD. Review of systems are essentially unremarkable other than what is stated in history of present illness. Current medications prior to admission include lisinopril 10 mg p.o. daily, aspirin 325, atorvastatin 40 mg, carvedilol 6.5 mg p.o. b.i.d. ALLERGIES: None mentioned. Physical examination revealed well-developed, well-nourished 66-year-old gentleman, not in acute distress, oriented x3 with a pulse rate 80 beats per minute and regular, blood pressure 111/64, respirations 20. Head normocephalic. HEENT unremarkable. Neck is supple. No thyroid enlargement. No bruit noted. Good carotid upstroke bilaterally. Chest is symmetrical. Cardiac examination, regular rate and rhythm. S1, S2 Lungs are clinically clear to auscultation and percussion, other than scattered rhonchi. Abdomen is soft. No organomegaly. Active bowel sounds. Extremities, decreased pedal pulses. No pedal edema. APNS examination grossly within normal limits. ASSESSMENT: 1. Status post aortocoronary bypass surgery x3 done yesterday 12/16. 2. Chronic obstructive lung disease with low FEV1 41% predicted with doing reasonably well. 3. Hypertension. 4. Hyperlipidemia. 5. Status post automatic implantable cardiovascular defibrillator. ADDENDUM: Correction on the bypass surgery done on Francois Avendano. Francois Avendano had internal mammary graft to left anterior descending, reverse saphenous venous bypass graft to posterior descending and reverse saphenous bypass graft to diagonal artery, reverse saphenous venous bypass graft obtuse marginal branch. There is a correction from previous dictation.
[2016-12-17] MEDS: HYDROcodone/APAP 5-325MG 1 EACH TAB PO PRN ×2 (16:11→20:21)
[2016-12-17] MEDS: CLEVIDIPINE BUTYRATE 25 MG in EMPTY BAG 1 BAG IV SCH (16:13)
[2016-12-17] MEDS: LACTATED RINGERS 1,000 ML IV SCH (16:14)
[2016-12-17] MEDS: NITROGLYCERIN-D5W PMX 50 MG in DEXTROSE/WATER 1 250ML.BAG IV SCH (16:14)
[2016-12-17 16:20] LABS: Glucose,Whole Blood 113 mg/dL (75-99)
--- NOTE | 2016-12-17 16:22 | P.PN ---
Subjective On 12/17/2016 the patient is being seen in follow-up. The patient is postop day #1 following carotid bypass surgery. The patient underwent his surgery yesterday without any major complications. Overnight the patient was weaned off the mechanical ventilator and the patient was extubated without any major difficulties. This morning, the patient is sitting up on a chair. The patient is hemodynamically stable. He is known to have COPD with FEV1 of 41% of predicted preoperatively. He is using incentive spirometer. In oxygen by nasal cannula. Chest tubes are still in place and the patient has 2 mediastinal and one left-sided pleural chest tube. Output is noted. Based on the output the patient's chest tube will be kept in place for another 24 hours. The patient did drop his hemoglobin postop and his hemoglobin was as low as 6.2 and based on that he was given a total of 2 units of packed RBCs. In fact after the packed RBC transfusion the patient's hemodynamics improved considerably. Her 89 was briefly placed on Primacor which was subsequently discontinued. Most recent hemoglobin is up to 7.2. No other specific complaints. Chest pain is under good control for now. Blood sugars also under good control. Objective - Vital Signs Vital signs: Vital Signs Temp 98 F 12/17/16 12:00 Pulse 79 12/17/16 15:37 Resp 20 12/17/16 15:00 BP 115/62 12/17/16 13:00 Pulse Ox 98 12/17/16 15:00 Intake & Output 12/16/16 12/17/16 12/17/16 18:59 06:59 18:59 Intake Total 206 1563.840 755.843 Output Total 1936 1884 1114 Balance -1730 -320.160 -358.157 Weight 104 kg Intake: IV 106 866 506 CO/CI 20 230 10 Lactated Ringers 1,000 ml 50 600 430 @ 20 mls/hr IV .Q24H [facility] Rx#:[id number] Pressure Bag 3 36 66 Intake, IV Titration 100 77.840 249.843 Amount ACETAMINOPHEN IV (For NPO 100 ) 1,000 mg In Empty Bag 1 bag @ 400 mls/hr IVPB Q6HR [facility] Rx#:[id number] Insulin Regular 100 unit 24.070 32.250 In Sodium Chloride 0.9% 100 ml @ Per Protocol IV .Q0M [facility] Rx#:[id number] Lactated Ringers 1,000 ml 100 @ 20 mls/hr IV .Q24H [facility] Rx#:[id number] Milrinone-D5w Pmx 20 mg 11.084 17.593 In Dextrose/Water 1 100ml .bag @ Per Protocol IV . Q0M [facility] Rx#:[id number] Nitroglycerin-D5w Pmx 50 0 mg In Dextrose/Water 1 250ml.bag @ 5 MCG/MIN 1.5 mls/hr IV .Q24H [facility] Rx#: [id number] Propofol 500 mg In Empty 42.686 Bag 1 bag @ Titrate IV . Q0M [facility] Rx#:[id number] ceFAZolin 2 gm In Sodium 100 Chloride 0.9% 100 ml @ 100 mls/hr IVPB Q8HR [facility] Rx#:[id number] Blood Product 620 Rc As-1 Unit 310 [id number] Output: Chest Tube Drainage 111 360 669 Chest Tube Mediastinal 111 282 340 Left Lateral Chest 0 78 329 Gastric Drainage 550 Drainage 90 90 Left Knee 40 40 Right Knee 50 50 Urine 825 884 355 Estimated Blood Loss 1000 Other: Voiding Method Indwelling Catheter Indwelling Catheter ABP, PAP, CO, CI - Last Documented Arterial Blood Pressure 124/51 Pulmonary Artery Pressure 32/22 Cardiac Output 6.3 Cardiac Index 2.8 - Exam Head exam was generally normal. There was no scleral icterus or corneal arcus. Mucous membranes were moist.Neck was supple and without jugular venous distension, thyromegaly, or carotid bruits. Carotids were easily palpable bilaterally. There was no adenopathy.the patient has a right IJ Cordis in place and neck is supple and there is no significant venous distention goiter. Lungs sounds are diminished in the lung bases bilaterally and the chest tubes are all in place. Sternum stable clean and intact. Heart sounds are positive for a throughout. No significant murmurs appreciated.Abdominal exam revealed normal bowel sounds. The abdomen was soft, non-tender, and without masses, organomegaly , or appreciable enlargement of the abdominal aorta.Examination of the extremities revealed easily palpable radial, femoral and pedal pulses. There was no cyanosis, clubbing or edema. - Labs CBC & Chem 7: 12/17/16 14:07 12/17/16 05:00 Labs: Abnormal Lab Results - Last 24 Hours (Table) 12/14/16 12/16/16 12/16/16 Range/Units 09:30 16:40 16:40 WBC (3.8-10.6) k/uL RBC 2.11 L (4.30-5.90) m/uL Hgb 6.7 L* D (13.0-17.5) gm/dL Hct 19.4 L* (39.0-53.0) % Plt Count 96 L D (150-450) k/uL Neutrophils # (1.3-7.7) k/uL Lymphocytes # (1.0-4.8) k/uL Lymphocytes # (Manual) 0.8 L (1.0-4.8) k/uL PT (9.0-12.0) sec APTT (22.0-30.0) sec ABG pH (7.35-7.45) ABG pCO2 (35-45) mmHg ABG pO2 (83-108) mmHg ABG Total CO2 (19-24) mmol/L ABG O2 Saturation (94-97) % Chloride (98-107) mmol/L Glucose 104 H (74-99) mg/dL POC Glucose (mg/dL) (75-99) mg/dL Calcium 7.4 L (8.4-10.2) mg/dL Alkaline Phosphatase 37 L (38-126) U/L Total Protein 4.7 L (6.3-8.2) g/dL Albumin 3.1 L (3.5-5.0) g/dL Crossmatch See Detail 12/16/16 12/16/16 12/16/16 Range/Units 16:40 16:44 16:51 WBC (3.8-10.6) k/uL RBC (4.30-5.90) m/uL Hgb (13.0-17.5) gm/dL Hct (39.0-53.0) % Plt Count (150-450) k/uL Neutrophils # (1.3-7.7) k/uL Lymphocytes # (1.0-4.8) k/uL Lymphocytes # (Manual) (1.0-4.8) k/uL PT 15.5 H (9.0-12.0) sec APTT 33.7 H (22.0-30.0) sec ABG pH 7.31 L (7.35-7.45) ABG pCO2 49 H (35-45) mmHg ABG pO2 >400 H (83-108) mmHg ABG Total CO2 26 H (19-24) mmol/L ABG O2 Saturation 100.0 H (94-97) % Chloride (98-107) mmol/L Glucose (74-99) mg/dL POC Glucose (mg/dL) 111 H (75-99) mg/dL Calcium (8.4-10.2) mg/dL Alkaline Phosphatase (38-126) U/L Total Protein (6.3-8.2) g/dL Albumin (3.5-5.0) g/dL Crossmatch 12/16/16 12/16/16 12/16/16 Range/Units 17:27 18:20 19:04 WBC (3.8-10.6) k/uL RBC (4.30-5.90) m/uL Hgb (13.0-17.5) gm/dL Hct (39.0-53.0) % Plt Count (150-450) k/uL Neutrophils # (1.3-7.7) k/uL Lymphocytes # (1.0-4.8) k/uL Lymphocytes # (Manual) (1.0-4.8) k/uL PT (9.0-12.0) sec APTT (22.0-30.0) sec ABG pH (7.35-7.45) ABG pCO2 (35-45) mmHg ABG pO2 (83-108) mmHg ABG Total CO2 (19-24) mmol/L ABG O2 Saturation (94-97) % Chloride (98-107) mmol/L Glucose (74-99) mg/dL POC Glucose (mg/dL) 117 H 152 H 158 H (75-99) mg/dL Calcium (8.4-10.2) mg/dL Alkaline Phosphatase (38-126) U/L Total Protein (6.3-8.2) g/dL Albumin (3.5-5.0) g/dL Crossmatch 12/16/16 12/16/16 12/16/16 Range/Units 19:20 20:11 20:57 WBC (3.8-10.6) k/uL RBC 2.24 L (4.30-5.90) m/uL Hgb 6.9 L* (13.0-17.5) gm/dL Hct 20.5 L (39.0-53.0) % Plt Count 124 L (150-450) k/uL Neutrophils # 8.5 H (1.3-7.7) k/uL Lymphocytes # 0.5 L (1.0-4.8) k/uL Lymphocytes # (Manual) (1.0-4.8) k/uL PT (9.0-12.0) sec APTT (22.0-30.0) sec ABG pH (7.35-7.45) ABG pCO2 (35-45) mmHg ABG pO2 (83-108) mmHg ABG Total CO2 (19-24) mmol/L ABG O2 Saturation (94-97) % Chloride (98-107) mmol/L Glucose (74-99) mg/dL POC Glucose (mg/dL) 159 H 154 H (75-99) mg/dL Calcium (8.4-10.2) mg/dL Alkaline Phosphatase (38-126) U/L Total Protein (6.3-8.2) g/dL Albumin (3.5-5.0) g/dL Crossmatch 12/16/16 12/16/16 12/16/16 Range/Units 22:02 22:30 22:30 WBC (3.8-10.6) k/uL RBC 2.03 L (4.30-5.90) m/uL Hgb 6.2 L* (13.0-17.5) gm/dL Hct 18.5 L* (39.0-53.0) % Plt Count 102 L (150-450) k/uL Neutrophils # (1.3-7.7) k/uL Lymphocytes # 0.3 L (1.0-4.8) k/uL Lymphocytes # (Manual) (1.0-4.8) k/uL PT (9.0-12.0) sec APTT (22.0-30.0) sec ABG pH (7.35-7.45) ABG pCO2 (35-45) mmHg ABG pO2 (83-108) mmHg ABG Total CO2 (19-24) mmol/L ABG O2 Saturation (94-97) % Chloride (98-107) mmol/L Glucose 117 H (74-99) mg/dL POC Glucose (mg/dL) 138 H (75-99) mg/dL Calcium 8.1 L (8.4-10.2) mg/dL Alkaline Phosphatase (38-126) U/L Total Protein (6.3-8.2) g/dL Albumin (3.5-5.0) g/dL Crossmatch 12/16/16 12/17/16 12/17/16 Range/Units 23:04 00:08 01:01 WBC (3.8-10.6) k/uL RBC (4.30-5.90) m/uL Hgb (13.0-17.5) gm/dL Hct (39.0-53.0) % Plt Count (150-450) k/uL Neutrophils # (1.3-7.7) k/uL Lymphocytes # (1.0-4.8) k/uL Lymphocytes # (Manual) (1.0-4.8) k/uL PT (9.0-12.0) sec APTT (22.0-30.0) sec ABG pH (7.35-7.45) ABG pCO2 (35-45) mmHg ABG pO2 (83-108) mmHg ABG Total CO2 (19-24) mmol/L ABG O2 Saturation (94-97) % Chloride (98-107) mmol/L Glucose (74-99) mg/dL POC Glucose (mg/dL) 126 H 109 H 141 H (75-99) mg/dL Calcium (8.4-10.2) mg/dL Alkaline Phosphatase (38-126) U/L Total Protein (6.3-8.2) g/dL Albumin (3.5-5.0) g/dL Crossmatch 12/17/16 12/17/16 12/17/16 Range/Units 01:07 02:02 02:55 WBC (3.8-10.6) k/uL RBC (4.30-5.90) m/uL Hgb (13.0-17.5) gm/dL Hct (39.0-53.0) % Plt Count (150-450) k/uL Neutrophils # (1.3-7.7) k/uL Lymphocytes # (1.0-4.8) k/uL Lymphocytes # (Manual) (1.0-4.8) k/uL PT (9.0-12.0) sec APTT (22.0-30.0) sec ABG pH (7.35-7.45) ABG pCO2 (35-45) mmHg ABG pO2 194 H (83-108) mmHg ABG Total CO2 (19-24) mmol/L ABG O2 Saturation 100.0 H (94-97) % Chloride (98-107) mmol/L Glucose (74-99) mg/dL POC Glucose (mg/dL) 147 H 138 H (75-99) mg/dL Calcium (8.4-10.2) mg/dL Alkaline Phosphatase (38-126) U/L Total Protein (6.3-8.2) g/dL Albumin (3.5-5.0) g/dL Crossmatch 12/17/16 12/17/16 12/17/16 Range/Units 04:02 04:58 05:00 WBC (3.8-10.6) k/uL RBC 2.37 L (4.30-5.90) m/uL Hgb 7.1 L (13.0-17.5) gm/dL Hct 21.5 L (39.0-53.0) % Plt Count 118 L (150-450) k/uL Neutrophils # (1.3-7.7) k/uL Lymphocytes # 0.3 L (1.0-4.8) k/uL Lymphocytes # (Manual) (1.0-4.8) k/uL PT (9.0-12.0) sec APTT (22.0-30.0) sec ABG pH (7.35-7.45) ABG pCO2 (35-45) mmHg ABG pO2 (83-108) mmHg ABG Total CO2 (19-24) mmol/L ABG O2 Saturation (94-97) % Chloride (98-107) mmol/L Glucose (74-99) mg/dL POC Glucose (mg/dL) 114 H 131 H (75-99) mg/dL Calcium (8.4-10.2) mg/dL Alkaline Phosphatase (38-126) U/L Total Protein (6.3-8.2) g/dL Albumin (3.5-5.0) g/dL Crossmatch 12/17/16 12/17/16 12/17/16 Range/Units 05:00 06:08 06:57 WBC (3.8-10.6) k/uL RBC (4.30-5.90) m/uL Hgb (13.0-17.5) gm/dL Hct (39.0-53.0) % Plt Count (150-450) k/uL Neutrophils # (1.3-7.7) k/uL Lymphocytes # (1.0-4.8) k/uL Lymphocytes # (Manual) (1.0-4.8) k/uL PT (9.0-12.0) sec APTT (22.0-30.0) sec ABG pH (7.35-7.45) ABG pCO2 (35-45) mmHg ABG pO2 (83-108) mmHg ABG Total CO2 (19-24) mmol/L ABG O2 Saturation (94-97) % Chloride 108 H (98-107) mmol/L Glucose 122 H (74-99) mg/dL POC Glucose (mg/dL) 135 H 129 H (75-99) mg/dL Calcium 8.2 L (8.4-10.2) mg/dL Alkaline Phosphatase (38-126) U/L Total Protein 5.0 L (6.3-8.2) g/dL Albumin 3.2 L (3.5-5.0) g/dL Crossmatch 12/17/16 12/17/16 12/17/16 Range/Units 08:17 09:17 10:20 WBC (3.8-10.6) k/uL RBC (4.30-5.90) m/uL Hgb (13.0-17.5) gm/dL Hct (39.0-53.0) % Plt Count (150-450) k/uL Neutrophils # (1.3-7.7) k/uL Lymphocytes # (1.0-4.8) k/uL Lymphocytes # (Manual) (1.0-4.8) k/uL PT (9.0-12.0) sec APTT (22.0-30.0) sec ABG pH (7.35-7.45) ABG pCO2 (35-45) mmHg ABG pO2 (83-108) mmHg ABG Total CO2 (19-24) mmol/L ABG O2 Saturation (94-97) % Chloride (98-107) mmol/L Glucose (74-99) mg/dL POC Glucose (mg/dL) 114 H 101 H 106 H (75-99) mg/dL Calcium (8.4-10.2) mg/dL Alkaline Phosphatase (38-126) U/L Total Protein (6.3-8.2) g/dL Albumin (3.5-5.0) g/dL Crossmatch 12/17/16 12/17/16 12/17/16 Range/Units 11:14 13:05 14:07 WBC (3.8-10.6) k/uL RBC (4.30-5.90) m/uL Hgb (13.0-17.5) gm/dL Hct (39.0-53.0) % Plt Count (150-450) k/uL Neutrophils # (1.3-7.7) k/uL Lymphocytes # (1.0-4.8) k/uL Lymphocytes # (Manual) (1.0-4.8) k/uL PT (9.0-12.0) sec APTT (22.0-30.0) sec ABG pH (7.35-7.45) ABG pCO2 (35-45) mmHg ABG pO2 (83-108) mmHg ABG Total CO2 (19-24) mmol/L ABG O2 Saturation (94-97) % Chloride (98-107) mmol/L Glucose (74-99) mg/dL POC Glucose (mg/dL) 119 H 125 H 130 H (75-99) mg/dL Calcium (8.4-10.2) mg/dL Alkaline Phosphatase (38-126) U/L Total Protein (6.3-8.2) g/dL Albumin (3.5-5.0) g/dL Crossmatch 12/17/16 12/17/16 Range/Units 14:07 15:22 WBC 12.4 H (3.8-10.6) k/uL RBC 2.57 L (4.30-5.90) m/uL Hgb 7.8 L (13.0-17.5) gm/dL Hct 23.1 L (39.0-53.0) % Plt Count 146 L (150-450) k/uL Neutrophils # 11.0 H (1.3-7.7) k/uL Lymphocytes # 0.5 L (1.0-4.8) k/uL Lymphocytes # (Manual) (1.0-4.8) k/uL PT (9.0-12.0) sec APTT (22.0-30.0) sec ABG pH (7.35-7.45) ABG pCO2 (35-45) mmHg ABG pO2 (83-108) mmHg ABG Total CO2 (19-24) mmol/L ABG O2 Saturation (94-97) % Chloride (98-107) mmol/L Glucose (74-99) mg/dL POC Glucose (mg/dL) 101 H (75-99) mg/dL Calcium (8.4-10.2) mg/dL Alkaline Phosphatase (38-126) U/L Total Protein (6.3-8.2) g/dL Albumin (3.5-5.0) g/dL Crossmatch Assessment and Plan Plan: Impression: #1 Coronary artery disease status post coronary artery bypass grafting utilizing a VIZCAINO to the elbow EGD, saphenous vein grafts to the OM, diabetic and PDA. Postoperative day #1 #2 Ventilatory dependence as a planned outcome of thoracotomy.the patient was weaned off the mechanical ventilator and extubated blood any major difficulties. Today's chest x-ray showing stable postoperative changes. #3 postoperative anemia, status post transfusion with 2 units of packed RBC. Hemogram is stable for now. Patient is on no pressors. #4 Hypertension. #5 Hyperlipidemia. #6 Ischemic cardiomyopathy, status post AICD, most recent echocardiogram reveals estimated ejection fraction 40-45% Plan Continue using incentive spirometer. Monitor the output from the chest tubes. Interrogate AICD at a later stage. Routine postoperative care and the patient be kept in ICU for 24 hours.wean of the clavicle proximal and discontinue on this will largely depend on the patient's blood pressure response.
[2016-12-17 17:59] LABS: Glucose,Whole Blood 120 mg/dL (75-99)
[2016-12-17 19:34] LABS: Glucose,Whole Blood 132 mg/dL (75-99)
[2016-12-17 22:24] LABS: Glucose,Whole Blood 141 mg/dL (75-99)
[2016-12-17] MEDS: SENNOSIDES-DOCUSATE SODIUM 1 EACH TAB PO SCH (22:32)
[2016-12-17] MEDS ORDERED: ALPRAZolam 0.5 MG TAB PO PRN (22:43)
[2016-12-18] MEDS: HEPARIN SODIUM,PORCINE 5,000 UNIT/ML 1 ML VIAL SQ SCH ×3 (00:16→15:32)
[2016-12-18] MEDS: HYDROcodone/APAP 5-325MG 1 EACH TAB PO PRN ×2 (00:16→04:32)
[2016-12-18] MEDS: INSULIN REGULAR 100 UNIT in SODIUM CHLORIDE 0.9% 100 ML IV SCH (00:20)
[2016-12-18 00:21] LABS: Glucose,Whole Blood 133 mg/dL (75-99)
[2016-12-18 02:04] LABS: Glucose,Whole Blood 111 mg/dL (75-99)
[2016-12-18 04:29] LABS: Glucose,Whole Blood 108 mg/dL (75-99)
[2016-12-18 04:39] LABS: Basophils % (A) 0 %; CH 30.9; Eosinophils % (A) 0 %; HCT 22.7 % (39.0-53.0); HDW 3.09; HGB 7.3 gm/dL (13.0-17.5); Luc # (Auto) 0.16; Luc % (Auto) 2; Lymphocytes # (A) 0.9 k/uL (1.0-4.8); Lymphocytes % (A) 9 %; MCH 29.6 pg (25.0-35.0); MCHC 32.2 g/dL (31.0-37.0); MCV 91.7 fL (80.0-100.0); Mean Platelet Volume 8.9; Monocytes # (A) 0.7 k/uL (0-1.0); Monocytes % (A) 7 %; Neutrophils # (A) 8.1 k/uL (1.3-7.7); Neutrophils % (A) 82 %; RBC 2.47 m/uL (4.30-5.90); WBC 9.9 k/uL (3.8-10.6); WBC (Perox) 10.49
[2016-12-18 04:44] LABS: INR 1.3 (<1.1); Ionized Calcium 4.8 mg/dL (4.5-5.3); Prothrombin Time 13.1 sec (9.0-12.0)
[2016-12-18 04:53] LABS: ALT 27 U/L (21-72); AST 22 U/L (17-59); Alkaline Phosphatase 40 U/L (38-126); Anion Gap 7 mmol/L; Blood Urea Nitrogen 14 mg/dL (9-20); Calcium 8.2 mg/dL (8.4-10.2); Carbon Dioxide 28 mmol/L (22-30); Chloride 104 mmol/L (98-107); Glucose 105 mg/dL (74-99); Non-African American GFR(MDRD) >60 (>60 ml/min/1.73 sqM); Potassium 4.6 mmol/L (3.5-5.1); Sodium 139 mmol/L (137-145); Total Bilirubin 0.5 mg/dL (0.2-1.3); Total Protein 5.3 g/dL (6.3-8.2)
[2016-12-18 06:08] LABS: Glucose,Whole Blood 106 mg/dL (75-99)
[2016-12-18] MEDS: IPRATROPIUM-ALBUTEROL 3 ML NEB INHALATION SCH ×4 (07:02→19:21)
--- NOTE | 2016-12-18 07:03 | XR ---
EXAMINATION TYPE: XR chest 1V portable DATE OF EXAM: 12/18/2016 6:36 AM CLINICAL HISTORY: Difficulty breathing progress study. Post open cardiac surgery. TECHNIQUE: Single AP portable upright view of the chest is obtained. COMPARISON: Chest x-ray from one day earlier FINDINGS: There is interval removal of right internal jugular [place] catheter, cordis sheath lili ins present. There is persistent left-sided chest tube and mediastinal drainage catheter. Post CABG changes with mediastinal clips and sternal wires is redemonstrated. Cardiac silhouette size is at upper limits of normal with mild central vascular congestion. No new suspicious focal airspace opacity or pneumothorax is seen bilaterally. Suspect tiny bilateral pleural effusions felt stable. IMPRESSION: Overall stable findings, persistent mild central vascular congestion and tiny bilateral pleural effusions, no new suspicious focal infiltrate is seen.
[2016-12-18] MEDS: CHLORHEXIDINE GLUCONATE 15 ML CUP MUCOUS MEM SCH (08:08)
[2016-12-18] MEDS: METOPROLOL TARTRATE 25 MG TAB PO SCH ×2 (08:09→20:40)
[2016-12-18] MEDS: PANTOPRAZOLE 40 MG TABLET PO SCH ×2 (08:10→16:33)
[2016-12-18] MEDS: ATORVASTATIN 40 MG TAB PO SCH (08:10)
[2016-12-18] MEDS: CLOPIDOGREL 75 MG TAB PO SCH (08:10)
[2016-12-18] MEDS: ASPIRIN 325 MG TAB PO SCH (08:10)
[2016-12-18] MEDS: HYDROcodone/APAP 7.5-325MG 1 EACH TAB PO PRN ×4 (08:13→20:39)
--- NOTE | 2016-12-18 08:13 | P.PN ---
Subjective Principal diagnosis: Triple-vessel coronary artery disease. Chronically occluded left anterior descending artery. Old anteroapical myocardial infarction. Ischemic myopathy, status post ICD implantation. Hypertension. Hyperlipidemia. Peripheral vascular disease, status post toe amputation in the past. POD #2 quadruple coronary artery bypass grafting using the left internal mammary artery to the left anterior descending artery. Reverse saphenous vein graft from the aorta to the posterior descending artery. Reverse saphenous vein graft from the aorta to the diagonal artery. Reverse saphenous vein graft from the aorta to the obtuse marginal artery. Bilateral endoscopic harvesting of the greater saphenous vein. Intraoperative transesophageal echocardiogram and epi-aortic scanning. Intraoperative graft flow measurement using the Medistim device. Patient currently sitting up in a recliner receiving breathing treatment. States pain is not quite controlled with current medication regimen. Objective - Vital Signs Vital signs: Vital Signs Temp 97.9 F 12/18/16 04:00 Pulse 95 12/18/16 07:17 Resp 26 H 12/18/16 07:00 BP 115/62 12/17/16 13:00 Pulse Ox 92 L 12/18/16 07:00 Intake & Output 12/17/16 12/18/16 12/18/16 18:59 06:59 18:59 Intake Total 935.139 874.570 86 Output Total 1414 967 120 Balance -478.861 -92.430 -34 Weight 102.5 kg Intake: IV 674 700.5 56 CO/CI 10 Lactated Ringers 1,000 ml 580 600 50 @ 20 mls/hr IV .Q24H [facility] Rx#:[id number] Nitroglycerin-D5w Pmx 50 28.5 mg In Dextrose/Water 1 250ml.bag @ 5 MCG/MIN 1.5 mls/hr IV .Q24H [facility]ELA Rx#: [id number] Pressure Bag 84 72 6 Intake, IV Titration 261.139 24.070 Amount ACETAMINOPHEN IV (For NPO 100 ) 1,000 mg In Empty Bag 1 bag @ 400 mls/hr IVPB Q6HR [facility]A Rx#:[id number] Insulin Regular 100 unit 43.546 24.070 In Sodium Chloride 0.9% 100 ml @ Per Protocol IV .Q0M [facility]HAELA Rx#:[id number] Milrinone-D5w Pmx 20 mg 17.593 In Dextrose/Water 1 100ml .bag @ Per Protocol IV . Q0M PENDING SALE TO [facility] Rx#:[id number] ceFAZolin 2 gm In Sodium 100 Chloride 0.9% 100 ml @ 100 mls/hr IVPB Q8HR PENDING SALE TO [facility] Rx#:[id number] Oral 150 30 Output: Chest Tube Drainage 759 360 90 Chest Tube Mediastinal 370 160 20 Left Lateral Chest 389 200 70 Drainage 200 150 Left Knee 90 90 Right Knee 110 60 Urine 455 457 30 Other: Voiding Method Indwelling Catheter Indwelling Catheter ABP, PAP, CO, CI - Last Documented Arterial Blood Pressure 154/60 Pulmonary Artery Pressure 32/22 Cardiac Output 6.3 Cardiac Index 2.8 - Constitutional General appearance: Present: cooperative, no acute distress - Respiratory Details: Lungs sounds diminished bilaterally, respirations even, nonlabored. Currently on 2 L nasal cannula. Only able to achieve 500 mL on incentive spirometry. Effective cough with productive yellow thick sputum. Left pleural chest tube to -20 cm wall suction, draining 120 mL serosanguineous drainage in the last 8 hours, 540 mL in the last 24 hours. Mediastinal chest tube to -20 cm wall suction, draining 120 mL in the last 8 hours, 430 mL last 4 hours. No air leak present - Cardiovascular Details: S1, S2 present. Regular rate and rhythm, normal sinus rhythm on telemetry. No events noted overnight on telemetry. A/V epicardial pacemaker wires present but capped. Chest stable. Heart hugger in place with patient demonstrating appropriate use. No edema present. Teds, SCDs present. - Gastrointestinal Gastrointestinal Comment(s): Abdomen soft, nontender, nondistended. Hypoactive bowel sounds 4 quadrants. - Genitourinary Genitourinary Comment(s): Campbell present draining clear, yellow urine. Approximately 30-40 mL per hour. - Integumentary Integumentary Comment(s): Anterior chest incision covered with dry intact silver dressing. I lateral lower extremity EVH sites well approximated with SHEILA drains draining minimal serosanguineous fluid. - Musculoskeletal Musculoskeletal: Present: strength equal bilaterally - Psychiatric Psychiatric: Present: A&O x's 3, appropriate affect, intact judgment & insight - Allied health notes Allied health notes reviewed: nursing - Labs CBC & Chem 7: 12/18/16 04:25 12/18/16 04:25 Labs: Abnormal Lab Results - Last 24 Hours (Table) 12/17/16 12/17/16 12/17/16 Range/Units 08:17 09:17 10:20 WBC (3.8-10.6) k/uL RBC (4.30-5.90) m/uL Hgb (13.0-17.5) gm/dL Hct (39.0-53.0) % Plt Count (150-450) k/uL Neutrophils # (1.3-7.7) k/uL Lymphocytes # (1.0-4.8) k/uL PT (9.0-12.0) sec Glucose (74-99) mg/dL POC Glucose (mg/dL) 114 H 101 H 106 H (75-99) mg/dL Calcium (8.4-10.2) mg/dL Total Protein (6.3-8.2) g/dL Albumin (3.5-5.0) g/dL 12/17/16 12/17/16 12/17/16 Range/Units 11:14 13:05 14:07 WBC (3.8-10.6) k/uL RBC (4.30-5.90) m/uL Hgb (13.0-17.5) gm/dL Hct (39.0-53.0) % Plt Count (150-450) k/uL Neutrophils # (1.3-7.7) k/uL Lymphocytes # (1.0-4.8) k/uL PT (9.0-12.0) sec Glucose (74-99) mg/dL POC Glucose (mg/dL) 119 H 125 H 130 H (75-99) mg/dL Calcium (8.4-10.2) mg/dL Total Protein (6.3-8.2) g/dL Albumin (3.5-5.0) g/dL 12/17/16 12/17/16 12/17/16 Range/Units 14:07 15:22 16:18 WBC 12.4 H (3.8-10.6) k/uL RBC 2.57 L (4.30-5.90) m/uL Hgb 7.8 L (13.0-17.5) gm/dL Hct 23.1 L (39.0-53.0) % Plt Count 146 L (150-450) k/uL Neutrophils # 11.0 H (1.3-7.7) k/uL Lymphocytes # 0.5 L (1.0-4.8) k/uL PT (9.0-12.0) sec Glucose (74-99) mg/dL POC Glucose (mg/dL) 101 H 113 H (75-99) mg/dL Calcium (8.4-10.2) mg/dL Total Protein (6.3-8.2) g/dL Albumin (3.5-5.0) g/dL 12/17/16 12/17/16 12/17/16 Range/Units 17:58 19:32 22:23 WBC (3.8-10.6) k/uL RBC (4.30-5.90) m/uL Hgb (13.0-17.5) gm/dL Hct (39.0-53.0) % Plt Count (150-450) k/uL Neutrophils # (1.3-7.7) k/uL Lymphocytes # (1.0-4.8) k/uL PT (9.0-12.0) sec Glucose (74-99) mg/dL POC Glucose (mg/dL) 120 H 132 H 141 H (75-99) mg/dL Calcium (8.4-10.2) mg/dL Total Protein (6.3-8.2) g/dL Albumin (3.5-5.0) g/dL 12/18/16 12/18/16 12/18/16 Range/Units 00:19 02:03 04:25 WBC (3.8-10.6) k/uL RBC (4.30-5.90) m/uL Hgb (13.0-17.5) gm/dL Hct (39.0-53.0) % Plt Count (150-450) k/uL Neutrophils # (1.3-7.7) k/uL Lymphocytes # (1.0-4.8) k/uL PT (9.0-12.0) sec Glucose 105 H (74-99) mg/dL POC Glucose (mg/dL) 133 H 111 H (75-99) mg/dL Calcium 8.2 L (8.4-10.2) mg/dL Total Protein 5.3 L (6.3-8.2) g/dL Albumin 3.1 L (3.5-5.0) g/dL 12/18/16 12/18/16 12/18/16 Range/Units 04:25 04:25 04:28 WBC (3.8-10.6) k/uL RBC 2.47 L (4.30-5.90) m/uL Hgb 7.3 L (13.0-17.5) gm/dL Hct 22.7 L (39.0-53.0) % Plt Count 120 L (150-450) k/uL Neutrophils # 8.1 H (1.3-7.7) k/uL Lymphocytes # 0.9 L (1.0-4.8) k/uL PT 13.1 H (9.0-12.0) sec Glucose (74-99) mg/dL POC Glucose (mg/dL) 108 H (75-99) mg/dL Calcium (8.4-10.2) mg/dL Total Protein (6.3-8.2) g/dL Albumin (3.5-5.0) g/dL 12/18/16 Range/Units 06:07 WBC (3.8-10.6) k/uL RBC (4.30-5.90) m/uL Hgb (13.0-17.5) gm/dL Hct (39.0-53.0) % Plt Count (150-450) k/uL Neutrophils # (1.3-7.7) k/uL Lymphocytes # (1.0-4.8) k/uL PT (9.0-12.0) sec Glucose (74-99) mg/dL POC Glucose (mg/dL) 106 H (75-99) mg/dL Calcium (8.4-10.2) mg/dL Total Protein (6.3-8.2) g/dL Albumin (3.5-5.0) g/dL - Imaging and Cardiology Chest x-ray: report reviewed, image reviewed Assessment and Plan (1) Coronary artery disease Status: Acute (2) Ischemic cardiomyopathy Status: Acute (3) Status post implantation of automatic cardioverter/defibrillator (AICD) Status: Acute (4) Hypertension Status: Acute (5) Hyperlipidemia Status: Acute (6) Peripheral vascular disease Status: Acute (7) COPD (chronic obstructive pulmonary disease) Status: Acute Plan: 1. Continue aspirin, Plavix, Lipitor. Will increase Lopressor to 25 mg by mouth twice a day. 2. Will increase pain medication to Vancleave was 7.5/325 mg. Avoid Toradol at this time as patient has 1 functioning kidney. 3. DC nitro drip. 4. Encourage incentive spirometry use. 5. Increase activity, out of bed to chair all day. Physical therapy to follow 6. May add in REGGIE inhibitor later if blood pressure will tolerate. 7. Will leave chest tubes for 1 more day as output was high in the last 24 hours. 8. GI/DVT prophylaxis. 9. Insulin management per primary service. 10. More recommendations as patient progresses. Time with Patient: Greater than 30
[2016-12-18 08:21] LABS: Glucose,Whole Blood 129 mg/dL (75-99)
[2016-12-18] MEDS ORDERED: FUROSEMIDE 10 MG/ML 2 ML VIAL IV ONE (08:51)
[2016-12-18 10:25] LABS: Glucose,Whole Blood 126 mg/dL (75-99)
[2016-12-18 11:15] LABS: Glucose,Whole Blood 118 mg/dL (75-99)
[2016-12-18] MEDS: INSULIN LISPRO (humaLOG) 300 UNIT/3 ML VIAL SQ SCH ×3 (11:41→20:39)
[2016-12-18] MEDS: LISINOPRIL 5 MG TAB PO SCH (11:41)
--- NOTE | 2016-12-18 12:08 | P.PN ---
Subjective Patient is doing well today. Insulin drip was discontinued this morning. He denies any chest pain. He was up in the chair when I saw him. Objective - Vital Signs Vital signs: Vital Signs Temp 97.7 F 12/18/16 08:00 Pulse 86 12/18/16 11:00 Resp 20 12/18/16 11:44 BP 115/62 12/17/16 13:00 Pulse Ox 95 12/18/16 11:00 Intake & Output 12/17/16 12/18/16 12/18/16 18:59 06:59 18:59 Intake Total 935.139 874.570 252 Output Total 4285 299 8014 Balance -478.861 -92.430 -1288 Weight 102.5 kg Intake: IV 674 700.5 222 CO/CI 10 Lactated Ringers 1,000 ml 580 600 210 @ 20 mls/hr IV .Q24H MICHAELA Rx#:[id number] Nitroglycerin-D5w Pmx 50 28.5 mg In Dextrose/Water 1 250ml.bag @ 5 MCG/MIN 1.5 mls/hr IV .Q24H MICHAELA Rx#: [id number] Pressure Bag 84 72 12 Intake, IV Titration 261.139 24.070 Amount ACETAMINOPHEN IV (For NPO 100 ) 1,000 mg In Empty Bag 1 bag @ 400 mls/hr IVPB Q6HR MICHAELA Rx#:[id number] Insulin Regular 100 unit 43.546 24.070 In Sodium Chloride 0.9% 100 ml @ Per Protocol IV .Q0M MICHAELA Rx#:[id number] Milrinone-D5w Pmx 20 mg 17.593 In Dextrose/Water 1 100ml .bag @ Per Protocol IV . Q0M MICHAELA Rx#:[id number] ceFAZolin 2 gm In Sodium 100 Chloride 0.9% 100 ml @ 100 mls/hr IVPB Q8HR MICHAELA Rx#:[id number] Oral 150 30 Output: Chest Tube Drainage 759 360 130 Chest Tube Mediastinal 370 160 30 Left Lateral Chest 389 200 100 Drainage 200 150 Left Knee 90 90 Right Knee 110 60 Urine 752 001 5847 Other: Voiding Method Indwelling Catheter Indwelling Catheter Indwelling Catheter ABP, PAP, CO, CI - Last Documented Arterial Blood Pressure 123/46 Pulmonary Artery Pressure 32/22 Cardiac Output 6.3 Cardiac Index 2.8 - Exam General: The patient is awake and alert, in no distress Eye: there is normal conjunctiva bilaterally. Neck: The neck is supple, there is no JVD. Cardiovascular: Normal S1-S2, no S3-S4, no murmurs. Respiratory: Lungs clear to auscultation bilaterally Gastrointestinal: Abdomen is soft, nontender Musculoskeletal: There is no pedal edema. Neurological:. Speech is normal. Skin: Skin is warm and dry - Labs CBC & Chem 7: 12/18/16 04:25 12/18/16 04:25 Labs: Abnormal Lab Results - Last 24 Hours (Table) 12/17/16 12/17/16 12/17/16 Range/Units 13:05 14:07 14:07 WBC 12.4 H (3.8-10.6) k/uL RBC 2.57 L (4.30-5.90) m/uL Hgb 7.8 L (13.0-17.5) gm/dL Hct 23.1 L (39.0-53.0) % Plt Count 146 L (150-450) k/uL Neutrophils # 11.0 H (1.3-7.7) k/uL Lymphocytes # 0.5 L (1.0-4.8) k/uL PT (9.0-12.0) sec Glucose (74-99) mg/dL POC Glucose (mg/dL) 125 H 130 H (75-99) mg/dL Calcium (8.4-10.2) mg/dL Total Protein (6.3-8.2) g/dL Albumin (3.5-5.0) g/dL 12/17/16 12/17/16 12/17/16 Range/Units 15:22 16:18 17:58 WBC (3.8-10.6) k/uL RBC (4.30-5.90) m/uL Hgb (13.0-17.5) gm/dL Hct (39.0-53.0) % Plt Count (150-450) k/uL Neutrophils # (1.3-7.7) k/uL Lymphocytes # (1.0-4.8) k/uL PT (9.0-12.0) sec Glucose (74-99) mg/dL POC Glucose (mg/dL) 101 H 113 H 120 H (75-99) mg/dL Calcium (8.4-10.2) mg/dL Total Protein (6.3-8.2) g/dL Albumin (3.5-5.0) g/dL 12/17/16 12/17/16 12/18/16 Range/Units 19:32 22:23 00:19 WBC (3.8-10.6) k/uL RBC (4.30-5.90) m/uL Hgb (13.0-17.5) gm/dL Hct (39.0-53.0) % Plt Count (150-450) k/uL Neutrophils # (1.3-7.7) k/uL Lymphocytes # (1.0-4.8) k/uL PT (9.0-12.0) sec Glucose (74-99) mg/dL POC Glucose (mg/dL) 132 H 141 H 133 H (75-99) mg/dL Calcium (8.4-10.2) mg/dL Total Protein (6.3-8.2) g/dL Albumin (3.5-5.0) g/dL 12/18/16 12/18/16 12/18/16 Range/Units 02:03 04:25 04:25 WBC (3.8-10.6) k/uL RBC 2.47 L (4.30-5.90) m/uL Hgb 7.3 L (13.0-17.5) gm/dL Hct 22.7 L (39.0-53.0) % Plt Count 120 L (150-450) k/uL Neutrophils # 8.1 H (1.3-7.7) k/uL Lymphocytes # 0.9 L (1.0-4.8) k/uL PT (9.0-12.0) sec Glucose 105 H (74-99) mg/dL POC Glucose (mg/dL) 111 H (75-99) mg/dL Calcium 8.2 L (8.4-10.2) mg/dL Total Protein 5.3 L (6.3-8.2) g/dL Albumin 3.1 L (3.5-5.0) g/dL 12/18/16 12/18/16 12/18/16 Range/Units 04:25 04:28 06:07 WBC (3.8-10.6) k/uL RBC (4.30-5.90) m/uL Hgb (13.0-17.5) gm/dL Hct (39.0-53.0) % Plt Count (150-450) k/uL Neutrophils # (1.3-7.7) k/uL Lymphocytes # (1.0-4.8) k/uL PT 13.1 H (9.0-12.0) sec Glucose (74-99) mg/dL POC Glucose (mg/dL) 108 H 106 H (75-99) mg/dL Calcium (8.4-10.2) mg/dL Total Protein (6.3-8.2) g/dL Albumin (3.5-5.0) g/dL 12/18/16 12/18/16 12/18/16 Range/Units 08:19 10:23 11:13 WBC (3.8-10.6) k/uL RBC (4.30-5.90) m/uL Hgb (13.0-17.5) gm/dL Hct (39.0-53.0) % Plt Count (150-450) k/uL Neutrophils # (1.3-7.7) k/uL Lymphocytes # (1.0-4.8) k/uL PT (9.0-12.0) sec Glucose (74-99) mg/dL POC Glucose (mg/dL) 129 H 126 H 118 H (75-99) mg/dL Calcium (8.4-10.2) mg/dL Total Protein (6.3-8.2) g/dL Albumin (3.5-5.0) g/dL Assessment and Plan Plan: 1. Triple-vessel coronary artery disease status post quadruple coronary bypass grafting. Continue with postop management. 2. Acute blood loss anemia: secondary to surgery. Patient did receive 1 unit of blood. We will monitor CBC daily. Transfusion as directed by cardiac surgery. 3. hyperglycemia: Insulin drip discontinued today. Continue sliding scale insulin 4. Essential hypertension: Blood pressure well-controlled 5. Ischemic cardiomyopathy with AICD. Recent echo shows an EF of 40-45% 6. Hyperlipidemia continue Lipitor 8. History of peripheral vascular disease 9. History of myocardial infarction encourage incentive spirometry use and increase activity. Repeat lab work in the morning. Thank you for this consultation. We will continue to follow along with you.
[2016-12-18] MEDS: LACTATED RINGERS 1,000 ML IV SCH (12:19)
--- NOTE | 2016-12-18 13:21 | P.PN ---
Subjective Principal diagnosis: Coronary artery disease On 12/17/2016 the patient is being seen in follow-up. The patient is postop day #1 following carotid bypass surgery. The patient underwent his surgery yesterday without any major complications. Overnight the patient was weaned off the mechanical ventilator and the patient was extubated without any major difficulties. This morning, the patient is sitting up on a chair. The patient is hemodynamically stable. He is known to have COPD with FEV1 of 41% of predicted preoperatively. He is using incentive spirometer. In oxygen by nasal cannula. Chest tubes are still in place and the patient has 2 mediastinal and one left-sided pleural chest tube. Output is noted. Based on the output the patient's chest tube will be kept in place for another 24 hours. The patient did drop his hemoglobin postop and his hemoglobin was as low as 6.2 and based on that he was given a total of 2 units of packed RBCs. In fact after the packed RBC transfusion the patient's hemodynamics improved considerably. Her 89 was briefly placed on Primacor which was subsequently discontinued. Most recent hemoglobin is up to 7.2. No other specific complaints. Chest pain is under good control for now. Blood sugars also under good control. The patient is seen again today 12/18/2016 in follow-up in the intensive care unit following coronary artery bypass surgery. This is postoperative day #2. He is is awake and alert in no acute distress. He is sitting up in the chair at the bedside. His mediastinal and left pleural chest tubes remain in place. There is still a good amount of output noted. His chest x-ray does reveal improved aeration. He denies any worsening shortness of breath, cough or congestion. He is maintaining good O2 saturations in the upper 90s on 2 L/m per nasal cannula. He is pulling approximately 500 mL's on his incentive spirometer. He's been afebrile. His heart remained regular in sinus rhythm. Hemodynamically stable. Objective - Vital Signs Vital signs: Vital Signs Temp 97.5 F L 12/18/16 12:00 Pulse 88 12/18/16 12:00 Resp 20 12/18/16 12:00 BP 115/62 12/17/16 13:00 Pulse Ox 98 12/18/16 12:00 Intake & Output 12/17/16 12/18/16 12/18/16 18:59 06:59 18:59 Intake Total 935.139 874.570 265 Output Total 4456 935 4149 Balance -478.861 -92.430 -1775 Weight 102.5 kg Intake: IV 674 700.5 235 CO/CI 10 Lactated Ringers 1,000 ml 580 600 220 @ 20 mls/hr IV .Q24H MICHAELA Rx#:[id number] Nitroglycerin-D5w Pmx 50 28.5 mg In Dextrose/Water 1 250ml.bag @ 5 MCG/MIN 1.5 mls/hr IV .Q24H MICHAELA Rx#: [id number] Pressure Bag 84 72 15 Intake, IV Titration 261.139 24.070 Amount ACETAMINOPHEN IV (For NPO 100 ) 1,000 mg In Empty Bag 1 bag @ 400 mls/hr IVPB Q6HR MICHAELA Rx#:[id number] Insulin Regular 100 unit 43.546 24.070 In Sodium Chloride 0.9% 100 ml @ Per Protocol IV .Q0M MICHAELA Rx#:[id number] Milrinone-D5w Pmx 20 mg 17.593 In Dextrose/Water 1 100ml .bag @ Per Protocol IV . Q0M MICHAELA Rx#:[id number] ceFAZolin 2 gm In Sodium 100 Chloride 0.9% 100 ml @ 100 mls/hr IVPB Q8HR MICHAELA Rx#:[id number] Oral 150 30 Output: Chest Tube Drainage 759 360 230 Chest Tube Mediastinal 370 160 70 Left Lateral Chest 389 200 160 Drainage 200 150 Left Knee 90 90 Right Knee 110 60 Urine 282 952 2491 Other: Voiding Method Indwelling Catheter Indwelling Catheter Indwelling Catheter ABP, PAP, CO, CI - Last Documented Arterial Blood Pressure 128/55 Pulmonary Artery Pressure 32/22 Cardiac Output 6.3 Cardiac Index 2.8 - Exam GENERAL EXAM: Alert, active, comfortable in no apparent distress. HEAD: Normocephalic. EYES: Normal reaction of pupils, equal size. NOSE: Clear with pink turbinates. THROAT: No erythema or exudates. NECK: No masses, no JVD. CHEST: No chest wall deformity. Dressing is dry and intact. LUNGS: Equal air entry with crackles in the bilateral posterior bases. Diminished. CVS: S1 and S2 normal with no audible murmurs, regular rhythm. ABDOMEN: No hepatosplenomegaly, normal bowel sounds, no guarding or rigidity. SPINE: No scoliosis or deformity SKIN: No rashes CENTRAL NERVOUS SYSTEM: No focal deficits, tone is normal in all 4 extremities. Extremities: There is trace peripheral edema. SHEILA drains bilaterally. Neto wraps in place. Peripheral pulses are intact. - Labs CBC & Chem 7: 12/18/16 04:25 12/18/16 04:25 Labs: Abnormal Lab Results - Last 24 Hours (Table) 12/17/16 12/17/16 12/17/16 Range/Units 14:07 14:07 15:22 WBC 12.4 H (3.8-10.6) k/uL RBC 2.57 L (4.30-5.90) m/uL Hgb 7.8 L (13.0-17.5) gm/dL Hct 23.1 L (39.0-53.0) % Plt Count 146 L (150-450) k/uL Neutrophils # 11.0 H (1.3-7.7) k/uL Lymphocytes # 0.5 L (1.0-4.8) k/uL PT (9.0-12.0) sec Glucose (74-99) mg/dL POC Glucose (mg/dL) 130 H 101 H (75-99) mg/dL Calcium (8.4-10.2) mg/dL Total Protein (6.3-8.2) g/dL Albumin (3.5-5.0) g/dL 12/17/16 12/17/16 12/17/16 Range/Units 16:18 17:58 19:32 WBC (3.8-10.6) k/uL RBC (4.30-5.90) m/uL Hgb (13.0-17.5) gm/dL Hct (39.0-53.0) % Plt Count (150-450) k/uL Neutrophils # (1.3-7.7) k/uL Lymphocytes # (1.0-4.8) k/uL PT (9.0-12.0) sec Glucose (74-99) mg/dL POC Glucose (mg/dL) 113 H 120 H 132 H (75-99) mg/dL Calcium (8.4-10.2) mg/dL Total Protein (6.3-8.2) g/dL Albumin (3.5-5.0) g/dL 12/17/16 12/18/16 12/18/16 Range/Units 22:23 00:19 02:03 WBC (3.8-10.6) k/uL RBC (4.30-5.90) m/uL Hgb (13.0-17.5) gm/dL Hct (39.0-53.0) % Plt Count (150-450) k/uL Neutrophils # (1.3-7.7) k/uL Lymphocytes # (1.0-4.8) k/uL PT (9.0-12.0) sec Glucose (74-99) mg/dL POC Glucose (mg/dL) 141 H 133 H 111 H (75-99) mg/dL Calcium (8.4-10.2) mg/dL Total Protein (6.3-8.2) g/dL Albumin (3.5-5.0) g/dL 12/18/16 12/18/16 12/18/16 Range/Units 04:25 04:25 04:25 WBC (3.8-10.6) k/uL RBC 2.47 L (4.30-5.90) m/uL Hgb 7.3 L (13.0-17.5) gm/dL Hct 22.7 L (39.0-53.0) % Plt Count 120 L (150-450) k/uL Neutrophils # 8.1 H (1.3-7.7) k/uL Lymphocytes # 0.9 L (1.0-4.8) k/uL PT 13.1 H (9.0-12.0) sec Glucose 105 H (74-99) mg/dL POC Glucose (mg/dL) (75-99) mg/dL Calcium 8.2 L (8.4-10.2) mg/dL Total Protein 5.3 L (6.3-8.2) g/dL Albumin 3.1 L (3.5-5.0) g/dL 12/18/16 12/18/16 12/18/16 Range/Units 04:28 06:07 08:19 WBC (3.8-10.6) k/uL RBC (4.30-5.90) m/uL Hgb (13.0-17.5) gm/dL Hct (39.0-53.0) % Plt Count (150-450) k/uL Neutrophils # (1.3-7.7) k/uL Lymphocytes # (1.0-4.8) k/uL PT (9.0-12.0) sec Glucose (74-99) mg/dL POC Glucose (mg/dL) 108 H 106 H 129 H (75-99) mg/dL Calcium (8.4-10.2) mg/dL Total Protein (6.3-8.2) g/dL Albumin (3.5-5.0) g/dL 12/18/16 12/18/16 Range/Units 10:23 11:13 WBC (3.8-10.6) k/uL RBC (4.30-5.90) m/uL Hgb (13.0-17.5) gm/dL Hct (39.0-53.0) % Plt Count (150-450) k/uL Neutrophils # (1.3-7.7) k/uL Lymphocytes # (1.0-4.8) k/uL PT (9.0-12.0) sec Glucose (74-99) mg/dL POC Glucose (mg/dL) 126 H 118 H (75-99) mg/dL Calcium (8.4-10.2) mg/dL Total Protein (6.3-8.2) g/dL Albumin (3.5-5.0) g/dL Assessment and Plan Plan: Impression: #1 Coronary artery disease status post coronary artery bypass grafting utilizing a VIZCAINO to the elbow EGD, saphenous vein grafts to the OM, diabetic and PDA. Postoperative day #2 #2 Ventilatory dependence as a planned outcome of thoracotomy. The patient was weaned off the mechanical ventilator and extubated blood any major difficulties. Today's chest x-ray showing stable postoperative changes. #3 Postoperative anemia, status post transfusion with 2 units of packed RBC. Hemoglobin is stable for now, currently 7.3. Patient is on no pressors. #4 Hypertension. #5 Hyperlipidemia. #6 Ischemic cardiomyopathy, status post AICD, most recent echocardiogram reveals estimated ejection fraction 40-45% Plan[facility] The patient was seen and evaluated by Dr. Lamar. His chest x-ray and labs were reviewed. His nitroglycerin drip has been weaned off. We'll wean off the insulin drip and start the 3 shock protocol. He'll remain here in the intensive care unit another 24 hours. We will increase his activity as tolerated. We've again encourage increased use the incentive spirometer and cough and deep breathing exercises. We will continue to follow.
--- NOTE | 2016-12-18 13:25 | P.PN ---
Subjective Principal diagnosis: CAD status post CABG This is a pleasant 66-year-old gentleman who sees Dr. LALA Sevilla as an outpatient who underwent coronary artery bypass grafting 4 with VIZCAINO to LAD, SVG to OM, SVG to diagonal, and SVG to PDA. The patient was extubated yesterday. Hemodynamically he seems to be doing very well. He is on dual antiplatelet therapy along with beta simran, and statin. Objective - Vital Signs Vital signs: Vital Signs Temp 97.5 F L 12/18/16 12:00 Pulse 88 12/18/16 12:00 Resp 20 12/18/16 12:00 BP 115/62 12/17/16 13:00 Pulse Ox 98 12/18/16 12:00 Intake & Output 12/17/16 12/18/16 12/18/16 18:59 06:59 18:59 Intake Total 935.139 874.570 265 Output Total 7491 629 4226 Balance -478.861 -92.430 -1775 Weight 102.5 kg Intake: IV 674 700.5 235 CO/CI 10 Lactated Ringers 1,000 ml 580 600 220 @ 20 mls/hr IV .Q24H MICHAELA Rx#:[id number] Nitroglycerin-D5w Pmx 50 28.5 mg In Dextrose/Water 1 250ml.bag @ 5 MCG/MIN 1.5 mls/hr IV .Q24H MICHAELA Rx#: [id number] Pressure Bag 84 72 15 Intake, IV Titration 261.139 24.070 Amount ACETAMINOPHEN IV (For NPO 100 ) 1,000 mg In Empty Bag 1 bag @ 400 mls/hr IVPB Q6HR MICHAELA Rx#:[id number] Insulin Regular 100 unit 43.546 24.070 In Sodium Chloride 0.9% 100 ml @ Per Protocol IV .Q0M MICHAELA Rx#:[id number] Milrinone-D5w Pmx 20 mg 17.593 In Dextrose/Water 1 100ml .bag @ Per Protocol IV . Q0M MICHAELA Rx#:[id number] ceFAZolin 2 gm In Sodium 100 Chloride 0.9% 100 ml @ 100 mls/hr IVPB Q8HR MICHAELA Rx#:[id number] Oral 150 30 Output: Chest Tube Drainage 759 360 230 Chest Tube Mediastinal 370 160 70 Left Lateral Chest 389 200 160 Drainage 200 150 Left Knee 90 90 Right Knee 110 60 Urine 757 869 1509 Other: Voiding Method Indwelling Catheter Indwelling Catheter Indwelling Catheter ABP, PAP, CO, CI - Last Documented Arterial Blood Pressure 128/55 Pulmonary Artery Pressure 32/22 Cardiac Output 6.3 Cardiac Index 2.8 - Constitutional General appearance: Present: no acute distress - Labs CBC & Chem 7: 12/18/16 04:25 12/18/16 04:25 Labs: Abnormal Lab Results - Last 24 Hours (Table) 12/17/16 12/17/16 12/17/16 Range/Units 14:07 14:07 15:22 WBC 12.4 H (3.8-10.6) k/uL RBC 2.57 L (4.30-5.90) m/uL Hgb 7.8 L (13.0-17.5) gm/dL Hct 23.1 L (39.0-53.0) % Plt Count 146 L (150-450) k/uL Neutrophils # 11.0 H (1.3-7.7) k/uL Lymphocytes # 0.5 L (1.0-4.8) k/uL PT (9.0-12.0) sec Glucose (74-99) mg/dL POC Glucose (mg/dL) 130 H 101 H (75-99) mg/dL Calcium (8.4-10.2) mg/dL Total Protein (6.3-8.2) g/dL Albumin (3.5-5.0) g/dL 12/17/16 12/17/16 12/17/16 Range/Units 16:18 17:58 19:32 WBC (3.8-10.6) k/uL RBC (4.30-5.90) m/uL Hgb (13.0-17.5) gm/dL Hct (39.0-53.0) % Plt Count (150-450) k/uL Neutrophils # (1.3-7.7) k/uL Lymphocytes # (1.0-4.8) k/uL PT (9.0-12.0) sec Glucose (74-99) mg/dL POC Glucose (mg/dL) 113 H 120 H 132 H (75-99) mg/dL Calcium (8.4-10.2) mg/dL Total Protein (6.3-8.2) g/dL Albumin (3.5-5.0) g/dL 12/17/16 12/18/16 12/18/16 Range/Units 22:23 00:19 02:03 WBC (3.8-10.6) k/uL RBC (4.30-5.90) m/uL Hgb (13.0-17.5) gm/dL Hct (39.0-53.0) % Plt Count (150-450) k/uL Neutrophils # (1.3-7.7) k/uL Lymphocytes # (1.0-4.8) k/uL PT (9.0-12.0) sec Glucose (74-99) mg/dL POC Glucose (mg/dL) 141 H 133 H 111 H (75-99) mg/dL Calcium (8.4-10.2) mg/dL Total Protein (6.3-8.2) g/dL Albumin (3.5-5.0) g/dL 12/18/16 12/18/16 12/18/16 Range/Units 04:25 04:25 04:25 WBC (3.8-10.6) k/uL RBC 2.47 L (4.30-5.90) m/uL Hgb 7.3 L (13.0-17.5) gm/dL Hct 22.7 L (39.0-53.0) % Plt Count 120 L (150-450) k/uL Neutrophils # 8.1 H (1.3-7.7) k/uL Lymphocytes # 0.9 L (1.0-4.8) k/uL PT 13.1 H (9.0-12.0) sec Glucose 105 H (74-99) mg/dL POC Glucose (mg/dL) (75-99) mg/dL Calcium 8.2 L (8.4-10.2) mg/dL Total Protein 5.3 L (6.3-8.2) g/dL Albumin 3.1 L (3.5-5.0) g/dL 12/18/16 12/18/16 12/18/16 Range/Units 04:28 06:07 08:19 WBC (3.8-10.6) k/uL RBC (4.30-5.90) m/uL Hgb (13.0-17.5) gm/dL Hct (39.0-53.0) % Plt Count (150-450) k/uL Neutrophils # (1.3-7.7) k/uL Lymphocytes # (1.0-4.8) k/uL PT (9.0-12.0) sec Glucose (74-99) mg/dL POC Glucose (mg/dL) 108 H 106 H 129 H (75-99) mg/dL Calcium (8.4-10.2) mg/dL Total Protein (6.3-8.2) g/dL Albumin (3.5-5.0) g/dL 12/18/16 12/18/16 Range/Units 10:23 11:13 WBC (3.8-10.6) k/uL RBC (4.30-5.90) m/uL Hgb (13.0-17.5) gm/dL Hct (39.0-53.0) % Plt Count (150-450) k/uL Neutrophils # (1.3-7.7) k/uL Lymphocytes # (1.0-4.8) k/uL PT (9.0-12.0) sec Glucose (74-99) mg/dL POC Glucose (mg/dL) 126 H 118 H (75-99) mg/dL Calcium (8.4-10.2) mg/dL Total Protein (6.3-8.2) g/dL Albumin (3.5-5.0) g/dL Assessment and Plan Plan: Assessment #1 CAD and status post CABG as described above #2 hypertension #3 dyslipidemia Plan #1 continue the patient on the current medical treatment #2 follow-up with the patient
[2016-12-18 13:49] LABS: Hemoglobin A1C 5.3 % (4.2-6.1)
[2016-12-18] MEDS: FERROUS SULFATE 325 MG TAB PO SCH (16:33)
[2016-12-18 16:40] LABS: Glucose,Whole Blood 134 mg/dL (75-99)
[2016-12-18 20:37] LABS: Glucose,Whole Blood 138 mg/dL (75-99)
[2016-12-18] MEDS: SENNOSIDES-DOCUSATE SODIUM 1 EACH TAB PO SCH (20:39)
[2016-12-19] MEDS: HEPARIN SODIUM,PORCINE 5,000 UNIT/ML 1 ML VIAL SQ SCH ×3 (00:34→15:13)
[2016-12-19] MEDS: HYDROcodone/APAP 7.5-325MG 1 EACH TAB PO PRN ×3 (03:13→18:58)
[2016-12-19 05:23] LABS: Basophils % (A) 0 %; CH 30.5; CHCM 33.9; Eosinophils # (A) 0.1 k/uL (0-0.7); Eosinophils % (A) 1 %; HCT 21.4 % (39.0-53.0); HDW 3.01; HGB 7.3 gm/dL (13.0-17.5); Luc # (Auto) 0.11; Luc % (Auto) 2; Lymphocytes # (A) 0.8 k/uL (1.0-4.8); Lymphocytes % (A) 11 %; MCH 31.2 pg (25.0-35.0); MCHC 34.4 g/dL (31.0-37.0); MCV 90.7 fL (80.0-100.0); Mean Platelet Volume 8.8; Monocytes # (A) 0.5 k/uL (0-1.0); Monocytes % (A) 7 %; Neutrophils # (A) 5.5 k/uL (1.3-7.7); Neutrophils % (A) 79 %; RBC 2.35 m/uL (4.30-5.90); RDW 14.6 % (11.5-15.5); WBC (Perox) 7.49
[2016-12-19 05:30] LABS: Ionized Calcium 4.8 mg/dL (4.5-5.3)
[2016-12-19 05:36] LABS: ALT 33 U/L (21-72); AST 18 U/L (17-59); Alkaline Phosphatase 49 U/L (38-126); Anion Gap 6 mmol/L; Blood Urea Nitrogen 16 mg/dL (9-20); Calcium 8.2 mg/dL (8.4-10.2); Carbon Dioxide 29 mmol/L (22-30); Chloride 101 mmol/L (98-107); Glucose 115 mg/dL (74-99); Non-African American GFR(MDRD) >60 (>60 ml/min/1.73 sqM); Potassium 4.6 mmol/L (3.5-5.1); Sodium 136 mmol/L (137-145); Total Bilirubin 0.6 mg/dL (0.2-1.3); Total Protein 5.2 g/dL (6.3-8.2)
[2016-12-19 05:46] LABS: Magnesium 1.9 mg/dL (1.6-2.3)
[2016-12-19] MEDS: MAGNESIUM SULFATE-D5W PMX 1 GM in DEXTROSE/WATER 1 100ML.BAG IVPB SCH ×2 (06:58→08:13)
[2016-12-19] MEDS: INSULIN LISPRO (humaLOG) 300 UNIT/3 ML VIAL SQ SCH ×4 (07:28→23:28)
[2016-12-19] MEDS: FERROUS SULFATE 325 MG TAB PO SCH ×2 (07:37→16:06)
[2016-12-19] MEDS: PANTOPRAZOLE 40 MG TABLET PO SCH ×2 (07:37→16:06)
[2016-12-19] MEDS: CLOPIDOGREL 75 MG TAB PO SCH (07:38)
[2016-12-19] MEDS: ATORVASTATIN 40 MG TAB PO SCH (07:38)
[2016-12-19] MEDS: ASPIRIN 325 MG TAB PO SCH (07:38)
--- NOTE | 2016-12-19 07:38 | XR ---
EXAMINATION TYPE: XR chest 1V portable DATE OF EXAM: 12/19/2016 6:30 AM COMPARISON: Prior chest x-ray 18 December 2016 HISTORY: Postoperative cardiac surgery, abnormal chest x-ray TECHNIQUE: Single frontal view of the chest is obtained. FINDINGS: Intracardiac defibrillator is stable, left chest tube remains in place, minimal left apica l pneumothorax is noted. Right jugular central venous sheath is no longer seen. Patchy basilar densit y persists. Patient is post median sternotomy and the heart is enlarged, median sternal drain is pres ent. Interstitium mildly increased, lung volumes are low. IMPRESSION: Basilar atelectasis and possible small effusion, small left apical pneumothorax. Expirat ory rotated exam. Additional follow-up suggested.
[2016-12-19] MEDS: IPRATROPIUM-ALBUTEROL 3 ML NEB INHALATION SCH ×4 (07:59→19:45)
--- NOTE | 2016-12-19 09:10 | P.PN ---
Addendum entered and electronically signed by Briseida Cuello, [facility] 12/19/16 10:31 : Mediastinal chest tube discontinued without incident. Pt brendon well. CXR in AM. Original Note: <Briseida Cuello - Last Filed: 12/19/16 09:10> Subjective Principal diagnosis: Triple-vessel coronary artery disease. Chronically occluded left anterior descending artery. Old anteroapical myocardial infarction. Ischemic myopathy, status post ICD implantation. Hypertension. Hyperlipidemia. Peripheral vascular disease, status post toe amputation in the past. POD #3 quadruple coronary artery bypass grafting using the left internal mammary artery to the left anterior descending artery. Reverse saphenous vein graft from the aorta to the posterior descending artery. Reverse saphenous vein graft from the aorta to the diagonal artery. Reverse saphenous vein graft from the aorta to the obtuse marginal artery. Bilateral endoscopic harvesting of the greater saphenous vein. Intraoperative transesophageal echocardiogram and epi-aortic scanning. Intraoperative graft flow measurement using the Medistim device. Patient currently sitting up in a recliner in no apparent distress. No new complaints at this time. Objective - Vital Signs Vital signs: Vital Signs Temp 98.2 F 12/19/16 04:00 Pulse 92 12/19/16 07:59 Resp 20 12/19/16 07:47 BP 107/59 12/19/16 07:30 Pulse Ox 98 12/19/16 07:30 Intake & Output 12/18/16 12/19/16 12/19/16 18:59 06:59 18:59 Intake Total 325 273 216 Output Total 2580 1040 230 [facility] -2255 -767 -14 Weight 99.4 kg Intake: IV 295 153 16 Lactated Ringers 1,000 ml 280 120 10 @ 20 mls/hr IV .Q24H [facility] Rx#:[id number] Pressure Bag 15 33 6 Intake, IV Titration 200 Amount Magnesium Sulfate-D5w Pmx 200 1 gm In Dextrose/Water 1 100ml.bag @ 100 mls/hr IVPB Q1H [facility] Rx#: [id number] Oral 30 120 Output: Chest Tube Drainage 270 290 30 Chest Tube Mediastinal 80 100 0 Left Lateral Chest 190 190 30 Urine 2310 750 200 Other: Voiding Method Indwelling Catheter Urinal Urinal ABP, PAP, CO, CI - Last Documented Arterial Blood Pressure 99/48 Pulmonary Artery Pressure 32/22 Cardiac Output 6.3 Cardiac Index 2.8 - Constitutional General appearance: Present: cooperative, no acute distress - Respiratory Details: Lungs sounds diminished bilaterally. Respirations even, nonlabored. Currently on 2 L nasal cannula. Only able to achieve 500 mL in his incentive spirometry. Weak cough. Mediastinal chest tube to -20 cm wall suction, drained 60 mL serosanguineous fluid in the last 8 hours, 360 mL the last 24 hours. Left pleural chest tube to -20 cm wall suction, drained 130 mL serosanguineous fluid the last 8 hours, 220 mL the last 24 hours. No air leak present. - Cardiovascular Details: S1, S2 present. Regular rate and rhythm, normal sinus rhythm on telemetry. No events noted overnight. Chest stable. Heart hugger in place with patient demonstrating appropriate use. Bilateral lower extremity edema present. Teds, SCDs present. - Gastrointestinal Gastrointestinal Comment(s): Abdomen soft, nontender, nondistended. Active bowel sounds 4 quadrants. Tolerating diet. - Genitourinary Genitourinary Comment(s): Voiding clear, yellow urine per urinal. - Integumentary Integumentary Comment(s): Anterior chest covered with dry intact silver dressing. Bilateral lower extremity EVH sites well approximated. - Musculoskeletal Musculoskeletal: Present: gait normal, strength equal bilaterally - Psychiatric Psychiatric: Present: A&O x's 3, appropriate affect, intact judgment & insight - Allied health notes Allied health notes reviewed: nursing - Labs CBC & Chem 7: 12/19/16 05:05 12/19/16 05:05 Labs: Abnormal Lab Results - Last 24 Hours (Table) 12/18/16 12/18/16 12/18/16 Range/Units 08:19 10:23 11:13 RBC (4.30-5.90) m/uL Hgb (13.0-17.5) gm/dL Hct (39.0-53.0) % Plt Count (150-450) k/uL Lymphocytes # (1.0-4.8) k/uL Sodium (137-145) mmol/L Glucose (74-99) mg/dL POC Glucose (mg/dL) 129 H 126 H 118 H (75-99) mg/dL Calcium (8.4-10.2) mg/dL Total Protein (6.3-8.2) g/dL Albumin (3.5-5.0) g/dL 03/18/17 03/18/17 03/19/17 Range/Units 16:38 20:35 05:05 RBC 2.35 L (4.30-5.90) m/uL Hgb 7.3 L (13.0-17.5) gm/dL Hct 21.4 L (39.0-53.0) % Plt Count 133 L (150-450) k/uL Lymphocytes # 0.8 L (1.0-4.8) k/uL Sodium (137-145) mmol/L Glucose (74-99) mg/dL POC Glucose (mg/dL) 134 H 138 H (75-99) mg/dL Calcium (8.4-10.2) mg/dL Total Protein (6.3-8.2) g/dL Albumin (3.5-5.0) g/dL 12/19/16 Range/Units 05:05 RBC (4.30-5.90) m/uL Hgb (13.0-17.5) gm/dL Hct (39.0-53.0) % Plt Count (150-450) k/uL Lymphocytes # (1.0-4.8) k/uL Sodium 136 L (137-145) mmol/L Glucose 115 H (74-99) mg/dL POC Glucose (mg/dL) (75-99) mg/dL Calcium 8.2 L (8.4-10.2) mg/dL Total Protein 5.2 L (6.3-8.2) g/dL Albumin 3.0 L (3.5-5.0) g/dL - Imaging and Cardiology Chest x-ray: report reviewed, image reviewed Assessment and Plan (1) Coronary artery disease Status: Acute (2) Ischemic cardiomyopathy Status: Acute (3) Status post implantation of automatic cardioverter/defibrillator (AICD) Status: Acute (4) Hypertension Status: Acute (5) Hyperlipidemia Status: Acute (6) Peripheral vascular disease Status: Acute (7) COPD (chronic obstructive pulmonary disease) Status: Acute Plan: 1. Continue aspirin, Plavix, Lipitor, Lopressor. 2. Pain control with current regimen. Avoid Toradol at this time as patient has 1 functioning kidney. 3. Will add Lasix 20 mg IV push daily. 4. Encourage incentive spirometry use. 5. Increase activity, out of bed to chair all day. Physical therapy to follow 6. Will discontinue mediastinal chest tube. 7. GI/DVT prophylaxis. 8. Insulin management per primary service. 9. Transfer to [facility] selective care today. Time with Patient: Greater than 30 <Jose L Roberts - Last Filed: 12/19/16 11:05> Objective - Vital Signs Vital signs: Vital Signs Temp 98.7 F 12/19/16 08:00 Pulse 96 12/19/16 10:00 Resp 50 H 12/19/16 10:00 BP 108/71 12/19/16 10:00 Pulse Ox 94 L 12/19/16 10:00 Intake & Output 12/18/16 12/19/16 12/19/16 18:59 06:59 18:59 Intake Total 325 273 219 Output Total 2580 1040 340 Balance -2255 -767 -121 Weight 99.4 kg Intake: IV 295 153 19 Lactated Ringers 1,000 ml 280 120 10 @ 20 mls/hr IV .Q24H [facility] Rx#:[id number] Pressure Bag 15 33 9 Intake, IV Titration 200 Amount Magnesium Sulfate-D5w Pmx 200 1 gm In Dextrose/Water 1 100ml.bag @ 100 mls/hr IVPB Q1H [facility] Rx#: [id number] Oral 30 120 Output: Chest Tube Drainage 270 290 140 Chest Tube Mediastinal 80 100 70 Left Lateral Chest 190 190 70 Urine 2310 750 200 Other: Voiding Method Indwelling Catheter Urinal Urinal ABP, PAP, CO, CI - Last Documented Arterial Blood Pressure 110/49 Pulmonary Artery Pressure 32/22 Cardiac Output 6.3 Cardiac Index 2.8 - Labs CBC & Chem 7: 12/19/16 05:05 12/19/16 05:05 Labs: Abnormal Lab Results - Last 24 Hours (Table) 12/18/16 12/18/16 12/18/16 Range/Units 11:13 16:38 20:35 RBC (4.30-5.90) m/uL Hgb (13.0-17.5) gm/dL Hct (39.0-53.0) % Plt Count (150-450) k/uL Lymphocytes # (1.0-4.8) k/uL Sodium (137-145) mmol/L Glucose (74-99) mg/dL POC Glucose (mg/dL) 118 H 134 H 138 H (75-99) mg/dL Calcium (8.4-10.2) mg/dL Total Protein (6.3-8.2) g/dL Albumin (3.5-5.0) g/dL 12/19/16 12/19/16 Range/Units 05:05 05:05 RBC 2.35 L (4.30-5.90) m/uL Hgb 7.3 L (13.0-17.5) gm/dL Hct 21.4 L (39.0-53.0) % Plt Count 133 L (150-450) k/uL Lymphocytes # 0.8 L (1.0-4.8) k/uL Sodium 136 L (137-145) mmol/L Glucose 115 H (74-99) mg/dL POC Glucose (mg/dL) (75-99) mg/dL Calcium 8.2 L (8.4-10.2) mg/dL Total Protein 5.2 L (6.3-8.2) g/dL Albumin 3.0 L (3.5-5.0) g/dL Assessment and Plan Plan: I agree with the above assessment and plan. The patient looks good this morning. His mediastinal chest tube was removed. We will keep his pleural tube for now. He is currently on room air and and ambulating without difficulty. He was given a dose of Lasix. Labs reviewed and appear to be reasonable. His chest x-ray does not show any large effusion. We will plan on transferring him to [facility] care this afternoon.
[2016-12-19] MEDS: FUROSEMIDE 10 MG/ML 2 ML VIAL IV SCH (09:41)
[2016-12-19] MEDS: METOPROLOL TARTRATE 25 MG TAB PO SCH ×2 (10:14→20:46)
[2016-12-19] MEDS: LISINOPRIL 5 MG TAB PO SCH ×2 (10:16→12:55)
--- NOTE | 2016-12-19 12:38 | P.PN ---
Subjective On 12/17/2016 the patient is being seen in follow-up. The patient is postop day #1 following carotid bypass surgery. The patient underwent his surgery yesterday without any major complications. Overnight the patient was weaned off the mechanical ventilator and the patient was extubated without any major difficulties. This morning, the patient is sitting up on a chair. The patient is hemodynamically stable. He is known to have COPD with FEV1 of 41% of predicted preoperatively. He is using incentive spirometer. In oxygen by nasal cannula. Chest tubes are still in place and the patient has 2 mediastinal and one left-sided pleural chest tube. Output is noted. Based on the output the patient's chest tube will be kept in place for another 24 hours. The patient did drop his hemoglobin postop and his hemoglobin was as low as 6.2 and based on that he was given a total of 2 units of packed RBCs. In fact after the packed RBC transfusion the patient's hemodynamics improved considerably. Her 89 was briefly placed on Primacor which was subsequently discontinued. Most recent hemoglobin is up to 7.2. No other specific complaints. Chest pain is under good control for now. Blood sugars also under good control. On 12/19/2016, the patient is postop day #3. B cell chest tubes can be potentially moved today knowing that output is minimal. Left pleural chest tube will be kept. Chest x-ray shows no acute abnormalities per no pneumothorax. Patient is ambulating. Hemodynamically stable. No nausea or vomiting. Chest wall pain is under good control. Hemoglobin is stable. The patient's most recent hemoglobin is at 7.3. Objective - Vital Signs Vital signs: Vital Signs Temp 98.7 F 12/19/16 08:00 Pulse 93 12/19/16 11:32 Resp 50 H 12/19/16 10:00 BP 108/71 12/19/16 10:00 Pulse Ox 94 L 12/19/16 10:00 Intake & Output 12/18/16 12/19/16 12/19/16 18:59 06:59 18:59 Intake Total 325 273 219 Output Total 2580 1040 340 Balance -2255 -767 -121 Weight 99.4 kg Intake: IV 295 153 19 Lactated Ringers 1,000 ml 280 120 10 @ 20 mls/hr IV .Q24H [facility] Rx#:[id number] Pressure Bag 15 33 9 Intake, IV Titration 200 Amount Magnesium Sulfate-D5w Pmx 200 1 gm In Dextrose/Water 1 100ml.bag @ 100 mls/hr IVPB Q1H [facility] Rx#: [id number] Oral 30 120 Output: Chest Tube Drainage 270 290 140 Chest Tube Mediastinal 80 100 70 Left Lateral Chest 190 190 70 Urine 2310 750 200 Other: Voiding Method Indwelling Catheter Urinal Urinal ABP, PAP, CO, CI - Last Documented Arterial Blood Pressure 110/49 Pulmonary Artery Pressure 32/22 Cardiac Output 6.3 Cardiac Index 2.8 - Exam Head exam was generally normal. There was no scleral icterus or corneal arcus. Mucous membranes were moist.Neck was supple and without jugular venous distension, thyromegaly, or carotid bruits. Carotids were easily palpable bilaterally. There was no adenopathy. neck is supple and there is no significant venous distention goiter. Lungs sounds are diminished in the lung bases bilaterally and the chest tubes are all in place. Sternum stable clean and intact. Heart sounds are positive for a throughout. No significant murmurs appreciated.Abdominal exam revealed normal bowel sounds. The abdomen was soft, non-tender, and without masses, organomegaly, or appreciable enlargement of the abdominal aorta.Examination of the extremities revealed easily palpable radial, femoral and pedal pulses. There was no cyanosis, clubbing or edema. - Labs CBC & Chem 7: 12/19/16 05:05 12/19/16 05:05 Labs: Abnormal Lab Results - Last 24 Hours (Table) 12/18/16 12/18/16 12/19/16 Range/Units 16:38 20:35 05:05 RBC 2.35 L (4.30-5.90) m/uL Hgb 7.3 L (13.0-17.5) gm/dL Hct 21.4 L (39.0-53.0) % Plt Count 133 L (150-450) k/uL Lymphocytes # 0.8 L (1.0-4.8) k/uL Sodium (137-145) mmol/L Glucose (74-99) mg/dL POC Glucose (mg/dL) 134 H 138 H (75-99) mg/dL Calcium (8.4-10.2) mg/dL Total Protein (6.3-8.2) g/dL Albumin (3.5-5.0) g/dL 12/19/16 Range/Units 05:05 RBC (4.30-5.90) m/uL Hgb (13.0-17.5) gm/dL Hct (39.0-53.0) % Plt Count (150-450) k/uL Lymphocytes # (1.0-4.8) k/uL Sodium 136 L (137-145) mmol/L Glucose 115 H (74-99) mg/dL POC Glucose (mg/dL) (75-99) mg/dL Calcium 8.2 L (8.4-10.2) mg/dL Total Protein 5.2 L (6.3-8.2) g/dL Albumin 3.0 L (3.5-5.0) g/dL Assessment and Plan Plan: Impression: #1 Coronary artery disease status post coronary artery bypass grafting utilizing a VIZCAINO to the elbow EGD, saphenous vein grafts to the OM, diabetic and PDA. Postoperative day #3 #2 postoperative chest tubes still in place. The B cell chest tubes can be potentially removed today. This will be consulted for further with the cardiac surgeon. Chest x-ray stable for now. #3 postoperative anemia, status post transfusion with 2 units of packed RBC. Hemogram is stable for now at 7.3 #4 Hypertension. #5 Hyperlipidemia. #6 Ischemic cardiomyopathy, status post AICD, most recent echocardiogram reveals estimated ejection fraction 40-45% Plan Continue using incentive spirometer. Remove the mediastinal chest tubes. [place]blate the [place] to [place]. Lasix 20 mg IV daily. Rest of the medications are all appropriate. We will continue to follow.
[2016-12-19 12:44] LABS: Glucose,Whole Blood 142 mg/dL (75-99)
--- NOTE | 2016-12-19 12:57 | P.PN ---
Subjective Patient is doing well today. He denies any chest pain. He was up in the chair when I saw him. Objective - Vital Signs Vital signs: Vital Signs Temp 98.6 F 12/19/16 12:00 Pulse 96 12/19/16 12:00 Resp 32 H 12/19/16 12:00 BP 111/61 12/19/16 12:00 Pulse Ox 96 12/19/16 12:00 Intake & Output 12/18/16 12/19/16 12/19/16 18:59 06:59 18:59 Intake Total 325 273 219 Output Total 2580 1040 1320 Balance -2255 -767 -1101 Weight 99.4 kg Intake: IV 295 153 19 Lactated Ringers 1,000 ml 280 120 10 @ 20 mls/hr IV .Q24H [facility] Rx#:[id number] Pressure Bag 15 33 9 Intake, IV Titration 200 Amount Magnesium Sulfate-D5w Pmx 200 1 gm In Dextrose/Water 1 100ml.bag @ 100 mls/hr IVPB Q1H [facility] Rx#: [id number] Oral 30 120 Output: Chest Tube Drainage 270 290 170 Chest Tube Mediastinal 80 100 70 Left Lateral Chest 190 190 100 Urine 2310 750 1150 Other: Voiding Method Indwelling Catheter Urinal Urinal ABP, PAP, CO, CI - Last Documented Arterial Blood Pressure 110/49 Pulmonary Artery Pressure 32/22 Cardiac Output 6.3 Cardiac Index 2.8 - Exam General: The patient is awake and alert, in no distress Eye: there is normal conjunctiva bilaterally. Neck: The neck is supple, there is no JVD. Cardiovascular: Normal S1-S2, no S3-S4, no murmurs. Respiratory: Lungs clear to auscultation bilaterally Gastrointestinal: Abdomen is soft, nontender Musculoskeletal: There is no pedal edema. Neurological:. Speech is normal. Skin: Skin is warm and dry - Labs CBC & Chem 7: 12/19/16 05:05 12/19/16 05:05 Labs: Abnormal Lab Results - Last 24 Hours (Table) 12/18/16 12/18/16 12/19/16 Range/Units 16:38 20:35 05:05 RBC 2.35 L (4.30-5.90) m/uL Hgb 7.3 L (13.0-17.5) gm/dL Hct 21.4 L (39.0-53.0) % Plt Count 133 L (150-450) k/uL Lymphocytes # 0.8 L (1.0-4.8) k/uL Sodium (137-145) mmol/L Glucose (74-99) mg/dL POC Glucose (mg/dL) 134 H 138 H (75-99) mg/dL Calcium (8.4-10.2) mg/dL Total Protein (6.3-8.2) g/dL Albumin (3.5-5.0) g/dL 12/19/16 12/19/16 Range/Units 05:05 12:43 RBC (4.30-5.90) m/uL Hgb (13.0-17.5) gm/dL Hct (39.0-53.0) % Plt Count (150-450) k/uL Lymphocytes # (1.0-4.8) k/uL Sodium 136 L (137-145) mmol/L Glucose 115 H (74-99) mg/dL POC Glucose (mg/dL) 142 H (75-99) mg/dL Calcium 8.2 L (8.4-10.2) mg/dL Total Protein 5.2 L (6.3-8.2) g/dL Albumin 3.0 L (3.5-5.0) g/dL Assessment and Plan Plan: 1. Triple-vessel coronary artery disease status post quadruple coronary bypass grafting. Continue with postop management. 2. Acute blood loss anemia: secondary to surgery. Patient did receive 1 unit of blood. We will monitor CBC daily. Transfusion as directed by cardiac surgery. 3. hyperglycemia: Insulin drip discontinued today. Continue sliding scale insulin 4. Essential hypertension: Blood pressure well-controlled 5. Ischemic cardiomyopathy with AICD. Recent echo shows an EF of 40-45% 6. Hyperlipidemia continue Lipitor 8. History of peripheral vascular disease 9. History of myocardial infarction encourage incentive spirometry use and increase activity. Repeat lab work in the morning. Thank you for this consultation. We will continue to follow along with you.
--- NOTE | 2016-12-19 13:35 | P.PN ---
Subjective Principal diagnosis: CAD status post CABG This is a pleasant 66-year-old gentleman who sees Dr. LALA Sevilla as an outpatient who underwent coronary artery bypass grafting 4 with VIZCAINO to LAD, SVG to OM, SVG to diagonal, and SVG to PDA. The patient was extubated yesterday. Hemodynamically he seems to be doing very well. He is on dual antiplatelet therapy along with beta simran, and statin. Objective - Vital Signs Vital signs: Vital Signs Temp 98.6 F 12/19/16 12:00 Pulse 96 12/19/16 12:00 Resp 32 H 12/19/16 12:00 BP 111/61 12/19/16 12:00 Pulse Ox 96 12/19/16 12:00 Intake & Output 12/18/16 12/19/16 12/19/16 18:59 06:59 18:59 Intake Total 325 273 219 Output Total 2580 1040 1320 Balance -1045 -767 -1101 Weight 99.4 kg Intake: IV 295 153 19 Lactated Ringers 1,000 ml 280 120 10 @ 20 mls/hr IV .Q24H [facility] Rx#:[id number] Pressure Bag 15 33 9 Intake, IV Titration 200 Amount Magnesium Sulfate-D5w Pmx 200 1 gm In Dextrose/Water 1 100ml.bag @ 100 mls/hr IVPB Q1H [facility] Rx#: [id number] Oral 30 120 Output: Chest Tube Drainage 270 290 170 Chest Tube Mediastinal 80 100 70 Left Lateral Chest 190 190 100 Urine 2310 750 1150 Other: Voiding Method Indwelling Catheter Urinal Urinal ABP, PAP, CO, CI - Last Documented Arterial Blood Pressure 110/49 Pulmonary Artery Pressure 32/22 Cardiac Output 6.3 Cardiac Index 2.8 - Constitutional General appearance: Present: no acute distress - Labs CBC & Chem 7: 12/19/16 05:05 12/19/16 05:05 Labs: Abnormal Lab Results - Last 24 Hours (Table) 12/18/16 12/18/16 12/19/16 Range/Units 16:38 20:35 05:05 RBC 2.35 L (4.30-5.90) m/uL Hgb 7.3 L (13.0-17.5) gm/dL Hct 21.4 L (39.0-53.0) % Plt Count 133 L (150-450) k/uL Lymphocytes # 0.8 L (1.0-4.8) k/uL Sodium (137-145) mmol/L Glucose (74-99) mg/dL POC Glucose (mg/dL) 134 H 138 H (75-99) mg/dL Calcium (8.4-10.2) mg/dL Total Protein (6.3-8.2) g/dL Albumin (3.5-5.0) g/dL 12/19/16 12/19/16 Range/Units 05:05 12:43 RBC (4.30-5.90) m/uL Hgb (13.0-17.5) gm/dL Hct (39.0-53.0) % Plt Count (150-450) k/uL Lymphocytes # (1.0-4.8) k/uL Sodium 136 L (137-145) mmol/L Glucose 115 H (74-99) mg/dL POC Glucose (mg/dL) 142 H (75-99) mg/dL Calcium 8.2 L (8.4-10.2) mg/dL Total Protein 5.2 L (6.3-8.2) g/dL Albumin 3.0 L (3.5-5.0) g/dL Assessment and Plan Plan: Assessment #1 CAD and status post CABG as described above #2 hypertension #3 dyslipidemia Plan #1 continue the patient on the current medical treatment #2 follow-up with the patient
[2016-12-19 18:55] LABS: Glucose,Whole Blood 151 mg/dL (75-99)
[2016-12-19 20:03] LABS: Glucose,Whole Blood 129 mg/dL (75-99)
[2016-12-19] MEDS: SENNOSIDES-DOCUSATE SODIUM 1 EACH TAB PO SCH (20:46)
[2016-12-20] MEDS: HYDROcodone/APAP 7.5-325MG 1 EACH TAB PO PRN ×3 (00:20→16:56)
[2016-12-20] MEDS: HEPARIN SODIUM,PORCINE 5,000 UNIT/ML 1 ML VIAL SQ SCH ×4 (00:20→23:33)
[2016-12-20 05:03] LABS: Basophils % (A) 0 %; CH 30.1; CHCM 32.9; Eosinophils # (A) 0.2 k/uL (0-0.7); Eosinophils % (A) 4 %; HCT 23.1 % (39.0-53.0); HDW 2.97; HGB 7.6 gm/dL (13.0-17.5); Luc # (Auto) 0.14; Luc % (Auto) 3; Lymphocytes % (A) 20 %; MCH 30.5 pg (25.0-35.0); MCHC 33.1 g/dL (31.0-37.0); MCV 92.1 fL (80.0-100.0); Mean Platelet Volume 7.4; Monocytes # (A) 0.4 k/uL (0-1.0); Monocytes % (A) 7 %; Neutrophils # (A) 3.5 k/uL (1.3-7.7); Neutrophils % (A) 67 %; RBC 2.51 m/uL (4.30-5.90); RDW 14.7 % (11.5-15.5); WBC 5.3 k/uL (3.8-10.6); WBC (Perox) 5.64
[2016-12-20 05:06] LABS: Ionized Calcium 4.8 mg/dL (4.5-5.3)
[2016-12-20 05:21] LABS: ALT 31 U/L (21-72); AST 20 U/L (17-59); Alkaline Phosphatase 62 U/L (38-126); Anion Gap 2 mmol/L; Blood Urea Nitrogen 17 mg/dL (9-20); Calcium 8.4 mg/dL (8.4-10.2); Carbon Dioxide 30 mmol/L (22-30); Chloride 100 mmol/L (98-107); Glucose 101 mg/dL (74-99); Magnesium 2.1 mg/dL (1.6-2.3); Non-African American GFR(MDRD) >60 (>60 ml/min/1.73 sqM); Potassium 4.7 mmol/L (3.5-5.1); Sodium 132 mmol/L (137-145); Total Bilirubin 0.7 mg/dL (0.2-1.3); Total Protein 5.1 g/dL (6.3-8.2)
[2016-12-20 07:28] LABS: Glucose,Whole Blood 96 mg/dL (75-99)
[2016-12-20] MEDS: IPRATROPIUM-ALBUTEROL 3 ML NEB INHALATION SCH ×4 (07:34→20:17)
[2016-12-20] MEDS: INSULIN LISPRO (humaLOG) 300 UNIT/3 ML VIAL SQ SCH ×4 (08:38→20:13)
[2016-12-20] MEDS: PANTOPRAZOLE 40 MG TABLET PO SCH ×2 (08:38→16:57)
[2016-12-20] MEDS: FERROUS SULFATE 325 MG TAB PO SCH ×2 (08:38→16:57)
[2016-12-20] MEDS: ATORVASTATIN 40 MG TAB PO SCH (08:38)
[2016-12-20] MEDS: ASPIRIN 325 MG TAB PO SCH (08:39)
[2016-12-20] MEDS: CLOPIDOGREL 75 MG TAB PO SCH (08:39)
[2016-12-20] MEDS: METOPROLOL TARTRATE 25 MG TAB PO SCH ×2 (08:39→23:32)
--- NOTE | 2016-12-20 09:14 | XR ---
EXAMINATION TYPE: XR chest 1V portable DATE OF EXAM: 12/20/2016 7:09 AM COMPARISON: Prior chest x-ray 19 December 2016 HISTORY: Status post coronary bypass graft, chest tube Single view of the chest correlated to prior exam 19 December 2016 Left sided chest tube remains in place, there is a small left pneumothorax. Patient is post median st ernotomy, intracardiac defibrillator lead is in place. Patchy basilar density persists. Cardiomediast inal silhouette, pulmonary vascularity and migue are stable. IMPRESSION: Stable postoperative findings.
--- NOTE | 2016-12-20 11:13 | P.PN ---
Subjective Status post quadruple coronary artery bypass grafting Patient is currently in selective overflow. Patient sitting up at bedside chair comfortably. Denies any pain. Denies any nausea or vomiting. Denies any chest pain or shortness of breath. Patient has been having bowel movements. Objective - Vital Signs Vital signs: Vital Signs Temp 98.1 F 12/20/16 08:00 Pulse 85 12/20/16 11:00 Resp 25 H 12/20/16 08:00 BP 103/60 12/20/16 08:00 Pulse Ox 94 L 12/20/16 08:00 Intake & Output 12/19/16 12/20/16 12/20/16 18:59 06:59 18:59 Intake Total 809 350 Output Total 1915 360 640 Balance -1106 -10 -640 Weight 98.2 kg Intake: IV 19 Lactated Ringers 1,000 ml 10 @ 20 mls/hr IV .Q24H [facility] Rx#:[id number] Pressure Bag 9 Intake, IV Titration 200 Amount Magnesium Sulfate-D5w Pmx 200 1 gm In Dextrose/Water 1 100ml.bag @ 100 mls/hr IVPB Q1H [facility] Rx#: [id number] Oral 590 350 Output: Chest Tube Drainage 290 60 40 Chest Tube Mediastinal 70 Left Lateral Chest 220 60 40 Urine 1625 300 600 Other: Voiding Method Urinal Urinal Urinal # Voids 1 1 # Bowel Movements 1 1 1 ABP, PAP, CO, CI - Last Documented Arterial Blood Pressure 110/49 Pulmonary Artery Pressure 32/22 Cardiac Output 6.3 Cardiac Index 2.8 - Exam Head normocephalic Neck supple Lungs clear to auscultation bilaterally no wheezing or crackles Heart regular rate and rhythm S1-S2, no rub or gallop. Dressing clean dry and intact Abdomen is soft nontender nondistended positive bowel sounds no hepatosplenomegaly Extremities +1 edema bilateral lower extremities Neuro alert and orientated to 3 - Labs CBC & Chem 7: 12/20/16 04:23 12/20/16 04:23 Labs: Abnormal Lab Results - Last 24 Hours (Table) 12/19/16 12/19/16 12/19/16 Range/Units 12:43 18:53 20:02 RBC (4.30-5.90) m/uL Hgb (13.0-17.5) gm/dL Hct (39.0-53.0) % Sodium (137-145) mmol/L Glucose (74-99) mg/dL POC Glucose (mg/dL) 142 H 151 H 129 H (75-99) mg/dL Total Protein (6.3-8.2) g/dL Albumin (3.5-5.0) g/dL 12/20/16 12/20/16 Range/Units 04:23 04:23 RBC 2.51 L (4.30-5.90) m/uL Hgb 7.6 L (13.0-17.5) gm/dL Hct 23.1 L (39.0-53.0) % Sodium 132 L (137-145) mmol/L Glucose 101 H (74-99) mg/dL POC Glucose (mg/dL) (75-99) mg/dL Total Protein 5.1 L (6.3-8.2) g/dL Albumin 2.9 L (3.5-5.0) g/dL Assessment and Plan Plan: 1. Triple-vessel coronary artery disease status post quadruple coronary bypass grafting. Continue with postop management. 2. Acute blood loss anemia: secondary to surgery. Patient did receive 1 unit of blood. Hemoglobin is 7.6 today. 3. hyperglycemia: Off of insulin drip. Currently on a sliding scale coverage. No history of diabetes. 4. essential hypertension: Blood pressures in the lower side this morning. Continue to monitor. 5. Ischemic cardiomyopathy with AICD. Recent echo shows an EF of 40-45% 6. Hyperlipidemia continue Lipitor 8. History of peripheral vascular disease 9. History of myocardial infarction 10. Moderate protein calorie malnutrition. Albumin level 2.9. Start ensure encourage incentive spirometry use and increase activity
[2016-12-20] MEDS: FUROSEMIDE 10 MG/ML 2 ML VIAL IV SCH (11:58)
[2016-12-20 12:31] LABS: Glucose,Whole Blood 112 mg/dL (75-99)
[2016-12-20 12:49] LABS: ABG Base Excess 1.5 mmol/L; ABG HCO3 26 mmol/L (21-25); ABG Oxygen Saturation 99.9 % (94-97); ABG PCO2 41 mmHg (35-45); ABG PH 7.41 (7.35-7.45); ABG PO2 353 mmHg (83-108); ABG TCO2 27 mmol/L (19-24)
[2016-12-20 12:50] LABS: ABG Base Excess 0.3 mmol/L; ABG HCO3 26 mmol/L (21-25); ABG PCO2 51 mmHg (35-45); ABG PH 7.33 (7.35-7.45); ABG PO2 >420 mmHg (83-108); ABG TCO2 28 mmol/L (19-24)
[2016-12-20 12:51] LABS: ABG HCO3 27 mmol/L (21-25); ABG PCO2 56 mmHg (35-45); ABG PO2 329 mmHg (83-108)
[2016-12-20] MEDS ORDERED: LISINOPRIL 2.5 MG TAB PO SCH (12:51)
[2016-12-20] MEDS: LISINOPRIL 5 MG TAB PO SCH (12:51)
[2016-12-20 12:52] LABS: ABG Oxygen Saturation 99.9 % (94-97); ABG TCO2 28 mmol/L (19-24)
[2016-12-20 12:53] LABS: ABG Base Excess 0.1 mmol/L; ABG HCO3 25 mmol/L (21-25); ABG PCO2 44 mmHg (35-45); ABG PH 7.37 (7.35-7.45); ABG PO2 >420 mmHg (83-108); ABG TCO2 26 mmol/L (19-24)
[2016-12-20 12:54] LABS: ABG HCO3 27 mmol/L (21-25); ABG Oxygen Saturation 99.9 % (94-97); ABG PCO2 44 mmHg (35-45); ABG PO2 359 mmHg (83-108); ABG TCO2 28 mmol/L (19-24)
[2016-12-20 12:55] LABS: ABG Base Excess 1.9 mmol/L; ABG HCO3 26 mmol/L (21-25); ABG Oxygen Saturation 99.9 % (94-97); ABG PCO2 44 mmHg (35-45); ABG PO2 278 mmHg (83-108); ABG TCO2 28 mmol/L (19-24)
[2016-12-20 12:57] LABS: ABG Base Excess 0.3 mmol/L; ABG HCO3 25 mmol/L (21-25); ABG Oxygen Saturation 99.8 % (94-97); ABG PCO2 43 mmHg (35-45); ABG PH 7.38 (7.35-7.45); ABG PO2 234 mmHg (83-108); ABG TCO2 26 mmol/L (19-24)
[2016-12-20 12:58] LABS: ABG Base Excess -0.6 mmol/L; ABG HCO3 25 mmol/L (21-25); ABG Oxygen Saturation 99.9 % (94-97); ABG PCO2 47 mmHg (35-45); ABG PH 7.34 (7.35-7.45); ABG PO2 292 mmHg (83-108); ABG TCO2 26 mmol/L (19-24)
[2016-12-20 12:59] LABS: ABG Base Excess -1.2 mmol/L; ABG HCO3 24 mmol/L (21-25); ABG Oxygen Saturation 99.9 % (94-97); ABG PCO2 47 mmHg (35-45); ABG PH 7.33 (7.35-7.45); ABG PO2 351 mmHg (83-108); ABG TCO2 26 mmol/L (19-24)
--- NOTE | 2016-12-20 13:56 | P.PN ---
Subjective Principal diagnosis: Triple-vessel coronary artery disease. Chronically occluded left anterior descending artery. Old anteroapical myocardial infarction. Ischemic myopathy, status post ICD implantation. Hypertension. Hyperlipidemia. Peripheral vascular disease, status post toe amputation in the past. POD #4 quadruple coronary artery bypass grafting using the left internal mammary artery to the left anterior descending artery. Reverse saphenous vein graft from the aorta to the posterior descending artery. Reverse saphenous vein graft from the aorta to the diagonal artery. Reverse saphenous vein graft from the aorta to the obtuse marginal artery. Bilateral endoscopic harvesting of the greater saphenous vein. Intraoperative transesophageal echocardiogram and epi-aortic scanning. Intraoperative graft flow measurement using the Medistim device. Patient currently sitting up in a recliner in no apparent distress. No new complaints at this time. Objective - Vital Signs Vital signs: Vital Signs Temp 98.3 F 12/20/16 04:00 Pulse 98 12/20/16 07:53 Resp 15 12/20/16 04:00 BP 100/58 12/20/16 04:00 Pulse Ox 98 12/20/16 04:00 Intake & Output 12/19/16 12/20/16 12/20/16 18:59 06:59 18:59 Intake Total 809 350 Output Total 1915 360 600 Balance -1106 -10 -600 Intake: IV 19 Lactated Ringers 1,000 ml 10 @ 20 mls/hr IV .Q24H MICHAELA Rx#:[id number] Pressure Bag 9 Intake, IV Titration 200 Amount Magnesium Sulfate-D5w Pmx 200 1 gm In Dextrose/Water 1 100ml.bag @ 100 mls/hr IVPB Q1H MICHAELA Rx#: [id number] Oral 590 350 Output: Chest Tube Drainage 290 60 Chest Tube Mediastinal 70 Left Lateral Chest 220 60 Urine 1625 300 600 Other: Voiding Method Urinal Urinal # Voids 1 1 # Bowel Movements 1 1 ABP, PAP, CO, CI - Last Documented Arterial Blood Pressure 110/49 Pulmonary Artery Pressure 32/22 Cardiac Output 6.3 Cardiac Index 2.8 - Constitutional General appearance: Present: cooperative, no acute distress - Respiratory Details: Lungs sounds diminished bilaterally. Respirations even, nonlabored. Currently on room air. Able to achieve 750 mL on incentive spirometry. Effective cough. Left pleural chest tube to -20 cm wall suction, drained 70 mL serous fluid overnight, 350 mL in the last 24 hours. No air leak present. - Cardiovascular Details: S1, S2 present. Regular rate and rhythm, normal sinus rhythm on telemetry. No events noted overnight. AV epicardial pacemaker wires present but capped. Chest stable. Trace bilateral lower extremity edema present. Heart hugger in place with patient demonstrating appropriate use. Teds, SCDs present. - Gastrointestinal Gastrointestinal Comment(s): Abdomen soft, nontender, nondistended. Active bowel sounds 4 quadrants. Tolerating diet. - Genitourinary Genitourinary Comment(s): Continues to void clear, yellow urine per urinal. - Integumentary Integumentary Comment(s): Anterior chest incision covered with dry intact silver dressing. Bilateral lower extremity EVH sites well approximated. - Musculoskeletal Musculoskeletal: Present: gait normal, strength equal bilaterally - Psychiatric Psychiatric: Present: A&O x's 3, appropriate affect, intact judgment & insight - Allied health notes Allied health notes reviewed: nursing - Labs CBC & Chem 7: 12/20/16 04:23 12/20/16 04:23 Labs: Abnormal Lab Results - Last 24 Hours (Table) 12/19/16 12/19/16 12/19/16 Range/Units 12:43 18:53 20:02 RBC (4.30-5.90) m/uL Hgb (13.0-17.5) gm/dL Hct (39.0-53.0) % Sodium (137-145) mmol/L Glucose (74-99) mg/dL POC Glucose (mg/dL) 142 H 151 H 129 H (75-99) mg/dL Total Protein (6.3-8.2) g/dL Albumin (3.5-5.0) g/dL 12/20/16 12/20/16 Range/Units 04:23 04:23 RBC 2.51 L (4.30-5.90) m/uL Hgb 7.6 L (13.0-17.5) gm/dL Hct 23.1 L (39.0-53.0) % Sodium 132 L (137-145) mmol/L Glucose 101 H (74-99) mg/dL POC Glucose (mg/dL) (75-99) mg/dL Total Protein 5.1 L (6.3-8.2) g/dL Albumin 2.9 L (3.5-5.0) g/dL - Imaging and Cardiology Chest x-ray: image reviewed Assessment and Plan (1) Coronary artery disease Status: Acute (2) Ischemic cardiomyopathy Status: Acute (3) Status post implantation of automatic cardioverter/defibrillator (AICD) Status: Acute (4) Hypertension Status: Acute (5) Hyperlipidemia Status: Acute (6) Peripheral vascular disease Status: Acute (7) COPD (chronic obstructive pulmonary disease) Status: Acute Plan: 1. Continue aspirin, Plavix, Lipitor, Lopressor. 2. Pain control with current regimen. Avoid Toradol as patient has 1 functioning kidney. 3. Continue Lasix 20 mg IV push daily. 4. Encourage incentive spirometry use. 5. Increase activity, out of bed to chair all day. Physical therapy to follow 6. Will discontinue epicardial pacemaker wires, left pleural chest tube. 7. GI/DVT prophylaxis. 8. Insulin management per primary service. 9. Transfer to [facility] when bed available. 10. Anticipate discharge home with home care soon. Time with Patient: Greater than 30
--- NOTE | 2016-12-20 15:38 | P.PN ---
Subjective Principal diagnosis: Status post CABG On 12/17/2016 the patient is being seen in follow-up. The patient is postop day #1 following carotid bypass surgery. The patient underwent his surgery yesterday without any major complications. Overnight the patient was weaned off the mechanical ventilator and the patient was extubated without any major difficulties. This morning, the patient is sitting up on a chair. The patient is hemodynamically stable. He is known to have COPD with FEV1 of 41% of predicted preoperatively. He is using incentive spirometer. In oxygen by nasal cannula. Chest tubes are still in place and the patient has 2 mediastinal and one left-sided pleural chest tube. Output is noted. Based on the output the patient's chest tube will be kept in place for another 24 hours. The patient did drop his hemoglobin postop and his hemoglobin was as low as 6.2 and based on that he was given a total of 2 units of packed RBCs. In fact after the packed RBC transfusion the patient's hemodynamics improved considerably. Her 89 was briefly placed on Primacor which was subsequently discontinued. Most recent hemoglobin is up to 7.2. No other specific complaints. Chest pain is under good control for now. Blood sugars also under good control. On 12/19/2016, the patient is postop day #3. chest tubes can be potentially moved today knowing that output is minimal. Left pleural chest tube will be kept. Chest x-ray shows no acute abnormalities per no pneumothorax. Patient is ambulating. Hemodynamically stable. No nausea or vomiting. Chest wall pain is under good control. Hemoglobin is stable. The patient's most recent hemoglobin is at 7.3. Patient was reevaluated today on 12/20/2016, doing quite well, relatively asymptomatic, he is just generally weak, but doing well with incentive spirometry, and his chest x-ray is reassuring. Hence the patient will likely need to be transferred out of the ICU to monitor bed. Patient is postoperative day #4 today Objective - Vital Signs Vital signs: Vital Signs Temp 97.7 F 12/20/16 11:00 Pulse 92 12/20/16 12:00 Resp 30 H 12/20/16 12:00 BP 105/60 12/20/16 13:00 Pulse Ox 95 12/20/16 12:00 Intake & Output 12/19/16 12/20/16 12/20/16 18:59 06:59 18:59 Intake Total 809 350 Output Total 1915 360 680 Balance -1106 -10 -680 Weight 98.2 kg Intake: IV 19 Lactated Ringers 1,000 ml 10 @ 20 mls/hr IV .Q24H MICHAELA Rx#:[id number] Pressure Bag 9 Intake, IV Titration 200 Amount Magnesium Sulfate-D5w Pmx 200 1 gm In Dextrose/Water 1 100ml.bag @ 100 mls/hr IVPB Q1H MICHAELA Rx#: [id number] Oral 590 350 Output: Chest Tube Drainage 290 60 80 Chest Tube Mediastinal 70 Left Lateral Chest 220 60 80 Urine 1625 300 600 Other: Voiding Method Urinal Urinal Urinal # Voids 1 1 # Bowel Movements 1 1 1 ABP, PAP, CO, CI - Last Documented Arterial Blood Pressure 110/49 Pulmonary Artery Pressure 32/22 Cardiac Output 6.3 Cardiac Index 2.8 - Exam Head exam was generally normal. There was no scleral icterus or corneal arcus. Mucous membranes were moist.Neck was supple and without jugular venous distension, thyromegaly, or carotid bruits. Carotids were easily palpable bilaterally. There was no adenopathy. neck is supple and there is no significant venous distention goiter. Lungs sounds are diminished in the lung bases bilaterally and the chest tubes are all in place. Sternum stable clean and intact. Heart sounds are positive for a throughout. No significant murmurs appreciated.Abdominal exam revealed normal bowel sounds. The abdomen was soft, non-tender, and without masses, organomegaly, or appreciable enlargement of the abdominal aorta.Examination of the extremities revealed easily palpable radial, femoral and pedal pulses. There was no cyanosis, clubbing or edema. - Labs CBC & Chem 7: 12/20/16 04:23 12/20/16 04:23 Labs: Abnormal Lab Results - Last 24 Hours (Table) 12/16/16 12/16/16 12/16/16 Range/Units 08:41 10:38 11:44 RBC (4.30-5.90) m/uL Hgb (13.0-17.5) gm/dL Hct (39.0-53.0) % ABG pH 7.33 L 7.30 L (7.35-7.45) ABG pCO2 51 H 56 H (35-45) mmHg ABG pO2 353 H >420 H 329 H (83-108) mmHg ABG HCO3 26 H 26 H 27 H (21-25) mmol/L ABG Total CO2 27 H 28 H 28 H (19-24) mmol/L ABG O2 Saturation 99.9 H 100.0 H 99.9 H (94-97) % ABG Hematocrit 33 L 33 L (34.0-46.0) % ABG Potassium 4.9 H 5.0 H (3.4-4.5) mmol/L Sodium (137-145) mmol/L Glucose (74-99) mg/dL POC Glucose (mg/dL) (75-99) mg/dL Total Protein (6.3-8.2) g/dL Albumin (3.5-5.0) g/dL Arterial Blood Potassium 4.9 H 5.0 H (3.4-4.5) mmol/L 12/16/16 12/16/16 12/16/16 Range/Units 12:15 12:32 13:00 RBC (4.30-5.90) m/uL Hgb (13.0-17.5) gm/dL Hct (39.0-53.0) % ABG pH (7.35-7.45) ABG pCO2 (35-45) mmHg ABG pO2 >420 H 359 H 278 H (83-108) mmHg ABG HCO3 27 H 26 H (21-25) mmol/L ABG Total CO2 26 H 28 H 28 H (19-24) mmol/L ABG O2 Saturation 100.0 H 99.9 H 99.9 H (94-97) % ABG Hematocrit 29 L 26 L 25 L (34.0-46.0) % ABG Potassium 4.6 H 7.3 H* (3.4-4.5) mmol/L Sodium (137-145) mmol/L Glucose (74-99) mg/dL POC Glucose (mg/dL) (75-99) mg/dL Total Protein (6.3-8.2) g/dL Albumin (3.5-5.0) g/dL Arterial Blood Potassium 4.6 H 7.3 H* (3.4-4.5) mmol/L 12/16/16 12/16/16 12/16/16 Range/Units 13:30 14:05 15:06 RBC (4.30-5.90) m/uL Hgb (13.0-17.5) gm/dL Hct (39.0-53.0) % ABG pH 7.34 L 7.33 L (7.35-7.45) ABG pCO2 47 H 47 H (35-45) mmHg ABG pO2 234 H 292 H 351 H (83-108) mmHg ABG HCO3 (21-25) mmol/L ABG Total CO2 26 H 26 H 26 H (19-24) mmol/L ABG O2 Saturation 99.8 H 99.9 H 99.9 H (94-97) % ABG Hematocrit 25 L 25 L 24 L (34.0-46.0) % ABG Potassium 5.8 H 5.1 H (3.4-4.5) mmol/L Sodium (137-145) mmol/L Glucose (74-99) mg/dL POC Glucose (mg/dL) (75-99) mg/dL Total Protein (6.3-8.2) g/dL Albumin (3.5-5.0) g/dL Arterial Blood Potassium 5.8 H 5.1 H (3.4-4.5) mmol/L 12/19/16 12/19/16 12/20/16 Range/Units 18:53 20:02 04:23 RBC 2.51 L (4.30-5.90) m/uL Hgb 7.6 L (13.0-17.5) gm/dL Hct 23.1 L (39.0-53.0) % ABG pH (7.35-7.45) ABG pCO2 (35-45) mmHg ABG pO2 (83-108) mmHg ABG HCO3 (21-25) mmol/L ABG Total CO2 (19-24) mmol/L ABG O2 Saturation (94-97) % ABG Hematocrit (34.0-46.0) % ABG Potassium (3.4-4.5) mmol/L Sodium (137-145) mmol/L Glucose (74-99) mg/dL POC Glucose (mg/dL) 151 H 129 H (75-99) mg/dL Total Protein (6.3-8.2) g/dL Albumin (3.5-5.0) g/dL Arterial Blood Potassium (3.4-4.5) mmol/L 12/20/16 12/20/16 Range/Units 04:23 12:30 RBC (4.30-5.90) m/uL Hgb (13.0-17.5) gm/dL Hct (39.0-53.0) % ABG pH (7.35-7.45) ABG pCO2 (35-45) mmHg ABG pO2 (83-108) mmHg ABG HCO3 (21-25) mmol/L ABG Total CO2 (19-24) mmol/L ABG O2 Saturation (94-97) % ABG Hematocrit (34.0-46.0) % ABG Potassium (3.4-4.5) mmol/L Sodium 132 L (137-145) mmol/L Glucose 101 H (74-99) mg/dL POC Glucose (mg/dL) 112 H (75-99) mg/dL Total Protein 5.1 L (6.3-8.2) g/dL Albumin 2.9 L (3.5-5.0) g/dL Arterial Blood Potassium (3.4-4.5) mmol/L Assessment and Plan Plan: #1 Coronary artery disease status post coronary artery bypass grafting utilizing a VIZCAINO to the elbow EGD, saphenous vein grafts to the OM, diabetic and PDA. Postoperative day #4 #2 postoperative chest tubes still in place. The B cell chest tubes can be potentially removed today. This will be consulted for further with the cardiac surgeon. Chest x-ray stable for now. #3 postoperative anemia, status post transfusion with 2 units of packed RBC. Hemogram is stable for now at 7.6 #4 Hypertension. #5 Hyperlipidemia. #6 Ischemic cardiomyopathy, status post AICD, most recent echocardiogram reveals estimated ejection fraction 40-45% Recommendation: Continue incentive spirometry, ambulate, possibly transferred to a monitored bed on [facility] today. Time with Patient: Less than 30
[2016-12-20] MEDS ORDERED: LISINOPRIL 2.5 MG TAB PO STA (17:05)
[2016-12-20 17:20] LABS: Glucose,Whole Blood 114 mg/dL (75-99)
[2016-12-20 20:07] LABS: Glucose,Whole Blood 117 mg/dL (75-99)
[2016-12-20] MEDS: SENNOSIDES-DOCUSATE SODIUM 1 EACH TAB PO SCH (20:13)
[2016-12-21 00:19] VITALS: RESP 18
[2016-12-21] MEDS: HYDROcodone/APAP 7.5-325MG 1 EACH TAB PO PRN (04:09)
[2016-12-21 05:03] LABS: Basophils % (A) 0 %; Eosinophils # (A) 0.2 k/uL (0-0.7); Eosinophils % (A) 4 %; HCT 23.2 % (39.0-53.0); HDW 3.01; HGB 7.6 gm/dL (13.0-17.5); Luc # (Auto) 0.17; Luc % (Auto) 3; Lymphocytes # (A) 0.9 k/uL (1.0-4.8); Lymphocytes % (A) 18 %; MCH 30.1 pg (25.0-35.0); MCHC 32.9 g/dL (31.0-37.0); MCV 91.5 fL (80.0-100.0); Mean Platelet Volume 7.1; Monocytes # (A) 0.5 k/uL (0-1.0); Monocytes % (A) 9 %; Neutrophils # (A) 3.6 k/uL (1.3-7.7); Neutrophils % (A) 67 %; RBC 2.53 m/uL (4.30-5.90); RDW 15.1 % (11.5-15.5); WBC 5.4 k/uL (3.8-10.6); WBC (Perox) 5.64
[2016-12-21 05:23] LABS: Anion Gap 7 mmol/L; Blood Urea Nitrogen 16 mg/dL (9-20); Carbon Dioxide 26 mmol/L (22-30); Chloride 101 mmol/L (98-107); Glucose 103 mg/dL (74-99); Potassium 4.2 mmol/L (3.5-5.1); Sodium 134 mmol/L (137-145)
[2016-12-21 05:24] LABS: ALT 44 U/L (21-72); AST 40 U/L (17-59); Alkaline Phosphatase 93 U/L (38-126); Calcium 8.2 mg/dL (8.4-10.2); Non-African American GFR(MDRD) >60 (>60 ml/min/1.73 sqM); Total Bilirubin 0.9 mg/dL (0.2-1.3); Total Protein 5.3 g/dL (6.3-8.2)
--- NOTE | 2016-12-21 07:24 | XR ---
EXAMINATION TYPE: XR chest 2V DATE OF EXAM: 12/21/2016 6:55 AM COMPARISON: 12/20/2016 TECHNIQUE: PA and lateral views submitted. HISTORY: Post chest tube removal FINDINGS: Pacemaker and Postsurgical changes bilateral small effusion. Consolidation. No sizable pneumothorax. No overt failu re. Degenerative change of the spine noted. A tiny amount residual pneumomediastinum likely postsurgi alfonso. IMPRESSION: 1. Stable bilateral infiltrate and small effusion.
--- NOTE | 2016-12-21 07:25 | PN ---
66-year-old gentleman that is admitted to hospital with coronary artery disease and had bypass surgery doing well and is free of symptoms, somewhat hypotensive this morning. I decreased the dose of Lisinopril to 2.5 mg daily. On exam, comfortable at rest. Vital signs are stable. There is no jugular venous distention. Chest exam reveals good air entry bilaterally. Heart exam reveals first and second heart sounds. No gallop. Exam of the extremities did not reveal any edema. ASSESSMENT: Coronary artery disease, status post coronary artery bypass grafting, patient is doing well, waiting to be transferred out of ICU.
[2016-12-21 08:17] LABS: Glucose,Whole Blood 106 mg/dL (75-99)
[2016-12-21 08:37] VITALS: BP 107/74; TEMP 97.1
[2016-12-21] MEDS: ATORVASTATIN 40 MG TAB PO SCH (08:37)
[2016-12-21] MEDS: METOPROLOL TARTRATE 25 MG TAB PO SCH (08:37)
[2016-12-21] MEDS: PANTOPRAZOLE 40 MG TABLET PO SCH (08:37)
[2016-12-21] MEDS: FERROUS SULFATE 325 MG TAB PO SCH (08:37)
[2016-12-21] MEDS: CLOPIDOGREL 75 MG TAB PO SCH (08:37)
[2016-12-21] MEDS: ASPIRIN 325 MG TAB PO SCH (08:37)
[2016-12-21] MEDS: HEPARIN SODIUM,PORCINE 5,000 UNIT/ML 1 ML VIAL SQ SCH (08:38)
[2016-12-21] MEDS: INSULIN LISPRO (humaLOG) 300 UNIT/3 ML VIAL SQ SCH (08:38)
[2016-12-21] MEDS: FUROSEMIDE 10 MG/ML 2 ML VIAL IV SCH (08:38)
[2016-12-21] MEDS: IPRATROPIUM-ALBUTEROL 3 ML NEB INHALATION SCH (09:25)
--- NOTE | 2016-12-21 09:36 | P.PN ---
<Briseida Cuello - Last Filed: 12/21/16 09:36> Subjective Principal diagnosis: Triple-vessel coronary artery disease. Chronically occluded left anterior descending artery. Old anteroapical myocardial infarction. Ischemic myopathy, status post ICD implantation. Hypertension. Hyperlipidemia. Peripheral vascular disease, status post toe amputation in the past. POD #5 quadruple coronary artery bypass grafting using the left internal mammary artery to the left anterior descending artery. Reverse saphenous vein graft from the aorta to the posterior descending artery. Reverse saphenous vein graft from the aorta to the diagonal artery. Reverse saphenous vein graft from the aorta to the obtuse marginal artery. Bilateral endoscopic harvesting of the greater saphenous vein. Intraoperative transesophageal echocardiogram and epi-aortic scanning. Intraoperative graft flow measurement using the Medistim device. Patient currently sitting up in a recliner in no apparent distress. No new complaints at this time. Feels he is ready to go home today Objective - Vital Signs Vital signs: Vital Signs Temp 97.5 F L 12/21/16 04:03 Pulse 95 12/21/16 04:03 Resp 18 12/21/16 04:03 BP 107/67 12/21/16 04:03 Pulse Ox 94 L 12/21/16 04:03 Intake & Output 12/20/16 12/21/16 12/21/16 18:59 06:59 18:59 Output Total 2480 1625 Balance -2480 -1625 Weight 98.2 kg 98.2 kg Output: Chest Tube Drainage 80 Left Lateral Chest 80 Urine 2400 1625 Other: Voiding Method Urinal Urinal # Voids 1 # Bowel Movements 1 ABP, PAP, CO, CI - Last Documented Arterial Blood Pressure 110/49 Pulmonary Artery Pressure 32/22 Cardiac Output 6.3 Cardiac Index 2.8 - Constitutional General appearance: Present: cooperative, no acute distress - Respiratory Details: Lungs sounds diminished bilaterally. Respirations even, nonlabored. Currently on room air. Able to achieve 1250 mL on incentive spirometry. Effective cough. - Cardiovascular Details: S1, S2 present. Regular rate and rhythm, normal sinus rhythm on telemetry. Chest stable. Trace bilateral lower extremity edema present. Heart hugger place with patient demonstrating appropriate use. Teds, SCDs present. - Gastrointestinal Gastrointestinal Comment(s): Abdomen soft, nontender, nondistended. Active bowel sounds 4 quadrants. Tolerating diet. - Genitourinary Genitourinary Comment(s): Continues to void clear, yellow urine per urinal. - Integumentary Integumentary Comment(s): Anterior chest incision covered with dry intact silver dressing. Bilateral lower extremity EVH sites well approximated. - Musculoskeletal Musculoskeletal: Present: gait normal, strength equal bilaterally - Psychiatric Psychiatric: Present: A&O x's 3, appropriate affect, intact judgment & insight - Allied health notes Allied health notes reviewed: nursing - Labs CBC & Chem 7: 12/21/16 04:34 12/21/16 04:34 Labs: Abnormal Lab Results - Last 24 Hours (Table) 12/16/16 12/16/16 12/16/16 Range/Units 08:41 10:38 11:44 RBC (4.30-5.90) m/uL Hgb (13.0-17.5) gm/dL Hct (39.0-53.0) % Lymphocytes # (1.0-4.8) k/uL ABG pH 7.33 L 7.30 L (7.35-7.45) ABG pCO2 51 H 56 H (35-45) mmHg ABG pO2 353 H >420 H 329 H (83-108) mmHg ABG HCO3 26 H 26 H 27 H (21-25) mmol/L ABG Total CO2 27 H 28 H 28 H (19-24) mmol/L ABG O2 Saturation 99.9 H 100.0 H 99.9 H (94-97) % ABG Hematocrit 33 L 33 L (34.0-46.0) % ABG Potassium 4.9 H 5.0 H (3.4-4.5) mmol/L Sodium (137-145) mmol/L Glucose (74-99) mg/dL POC Glucose (mg/dL) (75-99) mg/dL Calcium (8.4-10.2) mg/dL Total Protein (6.3-8.2) g/dL Albumin (3.5-5.0) g/dL Arterial Blood Potassium 4.9 H 5.0 H (3.4-4.5) mmol/L 12/16/16 12/16/16 12/16/16 Range/Units 12:15 12:32 13:00 RBC (4.30-5.90) m/uL Hgb (13.0-17.5) gm/dL Hct (39.0-53.0) % Lymphocytes # (1.0-4.8) k/uL ABG pH (7.35-7.45) ABG pCO2 (35-45) mmHg ABG pO2 >420 H 359 H 278 H (83-108) mmHg ABG HCO3 27 H 26 H (21-25) mmol/L ABG Total CO2 26 H 28 H 28 H (19-24) mmol/L ABG O2 Saturation 100.0 H 99.9 H 99.9 H (94-97) % ABG Hematocrit 29 L 26 L 25 L (34.0-46.0) % ABG Potassium 4.6 H 7.3 H* (3.4-4.5) mmol/L Sodium (137-145) mmol/L Glucose (74-99) mg/dL POC Glucose (mg/dL) (75-99) mg/dL Calcium (8.4-10.2) mg/dL Total Protein (6.3-8.2) g/dL Albumin (3.5-5.0) g/dL Arterial Blood Potassium 4.6 H 7.3 H* (3.4-4.5) mmol/L 12/16/16 12/16/16 12/16/16 Range/Units 13:30 14:05 15:06 RBC (4.30-5.90) m/uL Hgb (13.0-17.5) gm/dL Hct (39.0-53.0) % Lymphocytes # (1.0-4.8) k/uL ABG pH 7.34 L 7.33 L (7.35-7.45) ABG pCO2 47 H 47 H (35-45) mmHg ABG pO2 234 H 292 H 351 H (83-108) mmHg ABG HCO3 (21-25) mmol/L ABG Total CO2 26 H 26 H 26 H (19-24) mmol/L ABG O2 Saturation 99.8 H 99.9 H 99.9 H (94-97) % ABG Hematocrit 25 L 25 L 24 L (34.0-46.0) % ABG Potassium 5.8 H 5.1 H (3.4-4.5) mmol/L Sodium (137-145) mmol/L Glucose (74-99) mg/dL POC Glucose (mg/dL) (75-99) mg/dL Calcium (8.4-10.2) mg/dL Total Protein (6.3-8.2) g/dL Albumin (3.5-5.0) g/dL Arterial Blood Potassium 5.8 H 5.1 H (3.4-4.5) mmol/L 12/20/16 12/20/16 12/20/16 Range/Units 12:30 17:18 20:06 RBC (4.30-5.90) m/uL Hgb (13.0-17.5) gm/dL Hct (39.0-53.0) % Lymphocytes # (1.0-4.8) k/uL ABG pH (7.35-7.45) ABG pCO2 (35-45) mmHg ABG pO2 (83-108) mmHg ABG HCO3 (21-25) mmol/L ABG Total CO2 (19-24) mmol/L ABG O2 Saturation (94-97) % ABG Hematocrit (34.0-46.0) % ABG Potassium (3.4-4.5) mmol/L Sodium (137-145) mmol/L Glucose (74-99) mg/dL POC Glucose (mg/dL) 112 H 114 H 117 H (75-99) mg/dL Calcium (8.4-10.2) mg/dL Total Protein (6.3-8.2) g/dL Albumin (3.5-5.0) g/dL Arterial Blood Potassium (3.4-4.5) mmol/L 12/21/16 12/21/16 Range/Units 04:34 04:34 RBC 2.53 L (4.30-5.90) m/uL Hgb 7.6 L (13.0-17.5) gm/dL Hct 23.2 L (39.0-53.0) % Lymphocytes # 0.9 L (1.0-4.8) k/uL ABG pH (7.35-7.45) ABG pCO2 (35-45) mmHg ABG pO2 (83-108) mmHg ABG HCO3 (21-25) mmol/L ABG Total CO2 (19-24) mmol/L ABG O2 Saturation (94-97) % ABG Hematocrit (34.0-46.0) % ABG Potassium (3.4-4.5) mmol/L Sodium 134 L (137-145) mmol/L Glucose 103 H (74-99) mg/dL POC Glucose (mg/dL) (75-99) mg/dL Calcium 8.2 L (8.4-10.2) mg/dL Total Protein 5.3 L (6.3-8.2) g/dL Albumin 3.0 L (3.5-5.0) g/dL Arterial Blood Potassium (3.4-4.5) mmol/L - Imaging and Cardiology Chest x-ray: image reviewed Assessment and Plan (1) Coronary artery disease Status: Acute (2) Ischemic cardiomyopathy Status: Acute (3) Status post implantation of automatic cardioverter/defibrillator (AICD) Status: Acute (4) Hypertension Status: Acute (5) Hyperlipidemia Status: Acute (6) Peripheral vascular disease Status: Acute (7) COPD (chronic obstructive pulmonary disease) Status: Acute Plan: 1. Continue aspirin, Plavix, Lipitor, Lopressor, REGGIE inhibitor. 2. Will sent home on oral Lasix. 3. Ambulate in hallway. 4. Encourage incentive spirometry use. 5. GI/DVT prophylaxis. 6. Insulin management per primary service. 7. Anticipate discharge home with home care this afternoon. Time with Patient: Greater than 30 <Jose L Roberts - Last Filed: 12/21/16 09:39> Objective - Vital Signs Vital signs: Vital Signs Temp 97.1 F L 12/21/16 08:00 Pulse 96 12/21/16 09:35 Resp 18 12/21/16 08:00 BP 107/74 12/21/16 08:00 Pulse Ox 96 12/21/16 08:00 Intake & Output 12/20/16 12/21/16 12/21/16 18:59 06:59 18:59 Output Total 2480 1625 Balance -2480 -1625 Weight 98.2 kg 98.2 kg Output: Chest Tube Drainage 80 Left Lateral Chest 80 Urine 2400 1625 Other: Voiding Method Urinal Urinal Urinal # Voids 1 # Bowel Movements 1 ABP, PAP, CO, CI - Last Documented Arterial Blood Pressure 110/49 Pulmonary Artery Pressure 32/22 Cardiac Output 6.3 Cardiac Index 2.8 - Labs CBC & Chem 7: 12/21/16 04:34 12/21/16 04:34 Labs: Abnormal Lab Results - Last 24 Hours (Table) 12/16/16 12/16/16 12/16/16 Range/Units 08:41 10:38 11:44 RBC (4.30-5.90) m/uL Hgb (13.0-17.5) gm/dL Hct (39.0-53.0) % Lymphocytes # (1.0-4.8) k/uL ABG pH 7.33 L 7.30 L (7.35-7.45) ABG pCO2 51 H 56 H (35-45) mmHg ABG pO2 353 H >420 H 329 H (83-108) mmHg ABG HCO3 26 H 26 H 27 H (21-25) mmol/L ABG Total CO2 27 H 28 H 28 H (19-24) mmol/L ABG O2 Saturation 99.9 H 100.0 H 99.9 H (94-97) % ABG Hematocrit 33 L 33 L (34.0-46.0) % ABG Potassium 4.9 H 5.0 H (3.4-4.5) mmol/L Sodium (137-145) mmol/L Glucose (74-99) mg/dL POC Glucose (mg/dL) (75-99) mg/dL Calcium (8.4-10.2) mg/dL Total Protein (6.3-8.2) g/dL Albumin (3.5-5.0) g/dL Arterial Blood Potassium 4.9 H 5.0 H (3.4-4.5) mmol/L 12/16/16 12/16/16 12/16/16 Range/Units 12:15 12:32 13:00 RBC (4.30-5.90) m/uL Hgb (13.0-17.5) gm/dL Hct (39.0-53.0) % Lymphocytes # (1.0-4.8) k/uL ABG pH (7.35-7.45) ABG pCO2 (35-45) mmHg ABG pO2 >420 H 359 H 278 H (83-108) mmHg ABG HCO3 27 H 26 H (21-25) mmol/L ABG Total CO2 26 H 28 H 28 H (19-24) mmol/L ABG O2 Saturation 100.0 H 99.9 H 99.9 H (94-97) % ABG Hematocrit 29 L 26 L 25 L (34.0-46.0) % ABG Potassium 4.6 H 7.3 H* (3.4-4.5) mmol/L Sodium (137-145) mmol/L Glucose (74-99) mg/dL POC Glucose (mg/dL) (75-99) mg/dL Calcium (8.4-10.2) mg/dL Total Protein (6.3-8.2) g/dL Albumin (3.5-5.0) g/dL Arterial Blood Potassium 4.6 H 7.3 H* (3.4-4.5) mmol/L 12/16/16 12/16/16 12/16/16 Range/Units 13:30 14:05 15:06 RBC (4.30-5.90) m/uL Hgb (13.0-17.5) gm/dL Hct (39.0-53.0) % Lymphocytes # (1.0-4.8) k/uL ABG pH 7.34 L 7.33 L (7.35-7.45) ABG pCO2 47 H 47 H (35-45) mmHg ABG pO2 234 H 292 H 351 H (83-108) mmHg ABG HCO3 (21-25) mmol/L ABG Total CO2 26 H 26 H 26 H (19-24) mmol/L ABG O2 Saturation 99.8 H 99.9 H 99.9 H (94-97) % ABG Hematocrit 25 L 25 L 24 L (34.0-46.0) % ABG Potassium 5.8 H 5.1 H (3.4-4.5) mmol/L Sodium (137-145) mmol/L Glucose (74-99) mg/dL POC Glucose (mg/dL) (75-99) mg/dL Calcium (8.4-10.2) mg/dL Total Protein (6.3-8.2) g/dL Albumin (3.5-5.0) g/dL Arterial Blood Potassium 5.8 H 5.1 H (3.4-4.5) mmol/L 12/20/16 12/20/16 12/20/16 Range/Units 12:30 17:18 20:06 RBC (4.30-5.90) m/uL Hgb (13.0-17.5) gm/dL Hct (39.0-53.0) % Lymphocytes # (1.0-4.8) k/uL ABG pH (7.35-7.45) ABG pCO2 (35-45) mmHg ABG pO2 (83-108) mmHg ABG HCO3 (21-25) mmol/L ABG Total CO2 (19-24) mmol/L ABG O2 Saturation (94-97) % ABG Hematocrit (34.0-46.0) % ABG Potassium (3.4-4.5) mmol/L Sodium (137-145) mmol/L Glucose (74-99) mg/dL POC Glucose (mg/dL) 112 H 114 H 117 H (75-99) mg/dL Calcium (8.4-10.2) mg/dL Total Protein (6.3-8.2) g/dL Albumin (3.5-5.0) g/dL Arterial Blood Potassium (3.4-4.5) mmol/L 12/21/16 12/21/16 12/21/16 Range/Units 04:34 04:34 08:16 RBC 2.53 L (4.30-5.90) m/uL Hgb 7.6 L (13.0-17.5) gm/dL Hct 23.2 L (39.0-53.0) % Lymphocytes # 0.9 L (1.0-4.8) k/uL ABG pH (7.35-7.45) ABG pCO2 (35-45) mmHg ABG pO2 (83-108) mmHg ABG HCO3 (21-25) mmol/L ABG Total CO2 (19-24) mmol/L ABG O2 Saturation (94-97) % ABG Hematocrit (34.0-46.0) % ABG Potassium (3.4-4.5) mmol/L Sodium 134 L (137-145) mmol/L Glucose 103 H (74-99) mg/dL POC Glucose (mg/dL) 106 H (75-99) mg/dL Calcium 8.2 L (8.4-10.2) mg/dL Total Protein 5.3 L (6.3-8.2) g/dL Albumin 3.0 L (3.5-5.0) g/dL Arterial Blood Potassium (3.4-4.5) mmol/L Assessment and Plan Plan: The patient was seen and examined. I agree with the above assessment and plan. Overall he looks great. Chest x-rays clear. His labs are unremarkable. He is ambulating without difficulty on room air. We will plan on discharging him home today.
[2016-12-21 09:37] VITALS: PULSE 96
[2016-12-21 10:36] VITALS: BMI 26.3
--- NOTE | 2016-12-21 11:01 | P.DS ---
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 Consult: post cardiac surgery Do you want consulting provider notified?: Yes Primary care physician: Stated None - Discharge Diagnosis(es) (1) Coronary artery disease Current Visit: Yes Status: Acute (2) Ischemic cardiomyopathy Current Visit: Yes Status: Acute (3) Status post implantation of automatic cardioverter/defibrillator (AICD) Current Visit: Yes Status: Acute (4) Hypertension Current Visit: Yes Status: Acute (5) Hyperlipidemia Current Visit: Yes Status: Acute (6) Peripheral vascular disease Current Visit: Yes Status: Acute (7) COPD (chronic obstructive pulmonary disease) Current Visit: Yes Status: Acute Hospital Course: FINAL DIAGNOSIS: 1.[Triple-vessel coronary artery disease] 2.[Chronically occluded left anterior descending artery] 3.[Old anteroapical myocardial infarction] 4.[Ischemic artery myopathy, status post ICD implantation] 5.[Hypertension] 6.[Hyperlipidemia] 7.[Peripheral vascular disease, status post toe amputation in the past] 8.[Acute blood loss anemia] PRINCIPAL PROCEDURE: [] 1.[Quadruple coronary artery bypass grafting] 2.[Bilateral endoscopic harvesting of the greater saphenous veins] 3.[Intraoperative transesophageal echocardiogram and epi-aortic scanning] 4.[Intraoperative graft flow measurements using the Medistim system HISTORY OF PRESENT ILLNESS: [This 66-year-old gentleman with multiple comorbidities who was known to have chronically occluded left anterior descending artery had a stress test last year showing fixed defects anteroseptally with some minimal apical reversibility. He underwent ICD implantation in October 2016 for ischemic Cardiomyopathy. He was reevaluated at this point was brought in for potential PCI stenting of his chronically occluded left anterior descending artery which was unsuccessful. In addition, he was noted to have severe disease of the diagonal right coronary system and moderate disease of the circumflex system. Cardiothoracic surgery was consulted for potential surgical revascularization. Dr. Johnson had an extensive discussion with the patient and his , all risks and benefits were explained, and they elected to proceed with surgery. Preoperative testing was completed. The patient was discharged home to allow for Plavix metabolism and to be brought back in as an outpatient.] HOSPITAL COURSE:[This gentleman came in on 12/16/2016 from outpatient for surgery. He was taken to the preoperative area, prepared for surgery, and taken to the operating room. Dr. Johnson performed an elective quadruple coronary artery bypass grafting using the left internal mammary artery to the left anterior descending artery, reverse saphenous vein graft from the aorta to the posterior descending artery, reverse saphenous vein graft from the aorta to the diagonal artery, reverse saphenous vein graft from the aorta to the obtuse marginal artery, bilateral endoscopic harvesting of the greater saphenous veins , intraoperative transesophageal echocardiogram and epi-aortic scanning, and intraoperative graft flow measurements using the Medistim machine. Upon completion of surgery, the patient was subsequently transferred to the cardiovascular intensive care unit where he was recovered, monitored hemodynamically, and where he progressed to cardiac rehabilitation phase 1. He did have an episode of acute blood loss anemia, which was treated with blood transfusion. He was extubated, all lines, tubes, and drips were discontinued when appropriate, and he was appropriate for transfer to [address] [place] [address] for further monitoring and rehabilitation, however [facility] did not have any beds so he remained in the intensive care unit. His oxygen was titrated down, he continued to work with physical therapy, and was ready to be discharged home on postoperative day #5 with [facility] to follow.] COMPLICATIONS: [The patient did experience acute blood loss anemia which was treated with blood transfusion.] CONSULTATIONS: 1.[Dr. Sevilla for cardiology] 2.[Dr. Lamar for pulmonology] 3.[Dr. Escobar for medical management] DISCHARGE INSTRUCTIONS: 1. No driving for 4 weeks, or until physician gives their ok. 2. The patient should sleep in their own bed, no medical bed needed. 3. Stairs are not an issue. If the bedroom is upstairs, it is advised that the patient go up at night and down in the morning for the first week. Go slowly, using handrail and take 1 step at a time. 4. ROMA hose are to be worn for 30 days or until physician discontinues. 5. Heart hugger is to be worn 100% of the time until physician discontinues.( except when showering) 6. No lifting, pushing, or pulling more than 10 pounds for 12 weeks. The physician will advise of any restriction changes. 7. The patient is expected to continue the prescribed walking program. 8. Continue pain control per as needed orders. 9. Continue with incentive spirometry and splinting/heart hugger until otherwise directed by the physician. 10. Must shower daily using liquid antibacterial soap and a separate white washcloth for each individual incision. 11. Please remove Silverlon chest dressing on [12/23/16] with routine sternal incision care thereafter. HOME HEALTH SERVICES TO PROVIDE: RN SKILLED HOME CARE SERVICES FOR POST-OP SURGICAL PATIENTS WITH THE FOLLOWING: Coronary Artery Bypass Surgery (CABG), Mitral Valve Replacement/ Repair ( MVR), Aortic Valve Replacement/Repair (AVR) RN TO CONTINUE EDUCATION FROM ``ROAD TO A HEALTH HEART PATIENT EDUCATION MANUAL (GIVEN TO PATIENT IN THE HOSPITAL) MEDICATION RECONCILIATION WITH EDUCATION NEEDED ON FIRST HOME VISIT EMPHASIZE IMPORTANCE OF WEARING BREAST SUPPORT/HEART HUGGER ENCOURAGE USE OF INCENTIVE SPIROMETER 10 X EVERY HOUR WHILE AWAKE ENCOURAGE UTILIZATION OF LOWER EXTREMITY COMPRESSION STOCKINGS/RMOA HOSE and ELEVATE LEGS ABOVE LEVEL OF HEART WHILE AT REST. ENCOURAGE AMBULATION 3-5x/day INCREASING TOLERATES, WHILE AVOID EXTREMES IN TEMPERATURE FREQUENCY: RN TO OPEN THE PATIENT WITHIN 24 HOURS OF DISCHARGE FROM THE HOSPITAL WITH TELEHEALTH INSTALLED AT [facility], RN TO VISIT 2-3 X A WEEK FOR 4 WEEKS ESTABLISHED BY PATIENT NEEDS. REMOVAL OF SUTURES: NURSING SERVICES TO REMOVE SUTURES TWO WEEKS POST SURGICAL DATE [ 12/30/16]. If any questions regarding suture removal please call the office at [phone]. LABORATORY: CBC, CMP TO BE DRAWN ON THE THIRD DAY HOME, Tuesday12/24/2016 (RAN STAT) FAX RESULTS TO [phone]. TELEHEALTH PARAMETERS: WEIGHT: NOTIFY MD OF WEIGHT GAIN OF 2 LBS IN 24 HOURS OR 5 LBS IN ONE WEEK HR: NOTIFY MD OF HR <55 BPM OR HR>100 BPM BP: NOTIFY MD IF BP <90/55 OR BP>140/100 O2 SAT: NOTIFY MD IF PO2<93% ON ROOM AIR SEND TELEHEALTH REPORT TO ONCOLOGY PHYSICIAN AND CARDIOVASCULAR SURGEON THE FIRST WEEK OF CARE AND THEN BI-WEEKLY. PLEASE ADDITIONALLY COMMUNICATE ANY ABNORMALS AND NEW FINDINGS TO THE SURGEONS OFFICE. Plan - Discharge Summary New Discharge Prescriptions: Aspirin 325 mg PO DAILY #30 tab Clopidogrel [Plavix] 75 mg PO DAILY #30 tab Furosemide [Lasix] 20 mg PO DAILY #3 tab HYDROcodone/APAP 7.5-325MG [Husser 7.5-325] 1 - 2 tab PO Q6HR PRN 7 Days PRN Reason: SEVERE Pain Lisinopril [Zestril] 2.5 mg PO 1200 #30 tab Metoprolol Tartrate [Lopressor] 25 mg PO BID #60 tab Pantoprazole [Protonix] 40 mg PO AC-BID #30 tablet. Discharge Medication List Atorvastatin [Lipitor] 40 mg PO DAILY 12/16/16 [History] Aspirin 325 mg PO DAILY #30 tab 12/21/16 [Rx] Clopidogrel [Plavix] 75 mg PO DAILY #30 tab 12/21/16 [Rx] Furosemide [Lasix] 20 mg PO DAILY #3 tab 12/21/16 [Rx] HYDROcodone/APAP 7.5-325MG [Husser 7.5-325] 1 - 2 tab PO Q6HR PRN 7 Days [Rx] Lisinopril [Zestril] 2.5 mg PO 1200 #30 tab 12/21/16 [Rx] Metoprolol Tartrate [Lopressor] 25 mg PO BID #60 tab 12/21/16 [Rx] Pantoprazole [Protonix] 40 mg PO AC-BID #30 tablet. 12/21/16 [Rx] Follow up Appointment(s)/Referral(s): Ivy Sevilla MD [STAFF PHYSICIAN] - 12/27/16 3:15 pm Jennie Johnson MD [STAFF PHYSICIAN] - 01/21/17 11:00 am [facility], [NON-STAFF] - 1 Week Heather Rebolledo MD [REFERRING] - 12/28/16 1:45 pm Jean Lamar MD [STAFF PHYSICIAN] - 12/30/16 1:15 pm Ambulatory/Diagnostic Orders: Complete Blood Count w/diff [LAB.AMB] Time Frame: 3 Days, Facility: [facility], Location: [facility] Comprehensive Metabolic Panel [LAB.AMB] Time Frame: 3 Days, Facility: [facility], Location: Laboratory Main Hospital Activity/Diet/Wound Care/Special Instructions: DISCHARGE INSTRUCTIONS: 1. No driving for 4 weeks, or until physician gives their ok. 2. The patient should sleep in their own bed, no medical bed needed. 3. Stairs are not an issue. If the bedroom is upstairs, it is advised that the patient go up at night and down in the morning for the first week. Go slowly, using handrail and take 1 step at a time. 4. ROMA hose are to be worn for 30 days or until physician discontinues. 5. Heart hugger is to be worn 100% of the time until physician discontinues.( except when showering) 6. No lifting, pushing, or pulling more than 10 pounds for 12 weeks. The physician will advise of any restriction changes. 7. The patient is expected to continue the prescribed walking program. 8. Continue pain control per as needed orders. 9. Continue with incentive spirometry and splinting/heart hugger until otherwise directed by the physician. 10. Must shower daily using liquid antibacterial soap and a separate white washcloth for each individual incision. 11. Please remove Silverlon chest dressing on [12/23/16] with routine sternal incision care thereafter. HOME HEALTH SERVICES TO PROVIDE: RN SKILLED HOME CARE SERVICES FOR POST-OP SURGICAL PATIENTS WITH THE FOLLOWING: Coronary Artery Bypass Surgery (CABG), Mitral Valve Replacement/ Repair ( MVR), Aortic Valve Replacement/Repair (AVR) RN TO CONTINUE EDUCATION FROM ``ROAD TO A HEALTH HEART PATIENT EDUCATION MANUAL (GIVEN TO PATIENT IN THE HOSPITAL) MEDICATION RECONCILIATION WITH EDUCATION NEEDED ON FIRST HOME VISIT EMPHASIZE IMPORTANCE OF WEARING BREAST SUPPORT/HEART HUGGER ENCOURAGE USE OF INCENTIVE SPIROMETER 10 X EVERY HOUR WHILE AWAKE ENCOURAGE UTILIZATION OF LOWER EXTREMITY COMPRESSION STOCKINGS/ROMA HOSE and ELEVATE LEGS ABOVE LEVEL OF HEART WHILE AT REST. ENCOURAGE AMBULATION 3-5x/day INCREASING TOLERATES, WHILE AVOID EXTREMES IN TEMPERATURE FREQUENCY: RN TO OPEN THE PATIENT WITHIN 24 HOURS OF DISCHARGE FROM THE HOSPITAL WITH TELEHEALTH INSTALLED AT [facility], RN TO VISIT 2-3 X A WEEK FOR 4 WEEKS ESTABLISHED BY PATIENT NEEDS. REMOVAL OF SUTURES: NURSING SERVICES TO REMOVE SUTURES TWO WEEKS POST SURGICAL DATE [ 12/30/16]. If any questions regarding suture removal please call the office at [phone]. LABORATORY: CBC, CMP TO BE DRAWN ON THE THIRD DAY HOME, Tuesday12/24/2016 (RAN STAT) FAX RESULTS TO [phone]. TELEHEALTH PARAMETERS: WEIGHT: NOTIFY MD OF WEIGHT GAIN OF 2 LBS IN 24 HOURS OR 5 LBS IN ONE WEEK HR: NOTIFY MD OF HR <55 BPM OR HR>100 BPM BP: NOTIFY MD IF BP <90/55 OR BP>140/100 O2 SAT: NOTIFY MD IF PO2<93% ON ROOM AIR SEND TELEHEALTH REPORT TO ONCOLOGY PHYSICIAN AND CARDIOVASCULAR SURGEON THE FIRST WEEK OF CARE AND THEN BI-WEEKLY. PLEASE ADDITIONALLY COMMUNICATE ANY ABNORMALS AND NEW FINDINGS TO THE SURGEONS OFFICE. Discharge Disposition: HOME WITH HOME HEALTH SERVICES
--- NOTE | 2016-12-21 11:59 | P.PN ---
Subjective Principal diagnosis: Status post CABG On 12/17/2016 the patient is being seen in follow-up. The patient is postop day #1 following carotid bypass surgery. The patient underwent his surgery yesterday without any major complications. Overnight the patient was weaned off the mechanical ventilator and the patient was extubated without any major difficulties. This morning, the patient is sitting up on a chair. The patient is hemodynamically stable. He is known to have COPD with FEV1 of 41% of predicted preoperatively. He is using incentive spirometer. In oxygen by nasal cannula. Chest tubes are still in place and the patient has 2 mediastinal and one left-sided pleural chest tube. Output is noted. Based on the output the patient's chest tube will be kept in place for another 24 hours. The patient did drop his hemoglobin postop and his hemoglobin was as low as 6.2 and based on that he was given a total of 2 units of packed RBCs. In fact after the packed RBC transfusion the patient's hemodynamics improved considerably. Her 89 was briefly placed on Primacor which was subsequently discontinued. Most recent hemoglobin is up to 7.2. No other specific complaints. Chest pain is under good control for now. Blood sugars also under good control. On 12/19/2016, the patient is postop day #3. chest tubes can be potentially moved today knowing that output is minimal. Left pleural chest tube will be kept. Chest x-ray shows no acute abnormalities per no pneumothorax. Patient is ambulating. Hemodynamically stable. No nausea or vomiting. Chest wall pain is under good control. Hemoglobin is stable. The patient's most recent hemoglobin is at 7.3. Patient was reevaluated today on 12/20/2016, doing quite well, relatively asymptomatic, he is just generally weak, but doing well with incentive spirometry, and his chest x-ray is reassuring. Hence the patient will likely need to be transferred out of the ICU to monitor bed. Patient is postoperative day #4 today Patient was seen today on 12/21/2016, his postoperative day #5, doing quite well , being discharged home today. Chest x-ray showed a small tiny right pleural effusion and otherwise unremarkable. Patient is asymptomatic. Objective - Vital Signs Vital signs: Vital Signs Temp 97.1 F L 12/21/16 08:00 Pulse 96 12/21/16 09:35 Resp 18 12/21/16 08:00 BP 107/74 12/21/16 08:00 Pulse Ox 96 12/21/16 08:00 Intake & Output 12/20/16 12/21/16 12/21/16 18:59 06:59 18:59 Output Total 2480 1625 Balance -2480 -1625 Weight 98.2 kg 98.2 kg 98.2 kg Output: Chest Tube Drainage 80 Left Lateral Chest 80 Urine 2400 1625 Other: Voiding Method Urinal Urinal Urinal # Voids 1 # Bowel Movements 1 ABP, PAP, CO, CI - Last Documented Arterial Blood Pressure 110/49 Pulmonary Artery Pressure 32/22 Cardiac Output 6.3 Cardiac Index 2.8 - Exam Head exam was generally normal. There was no scleral icterus or corneal arcus. Mucous membranes were moist.Neck was supple and without jugular venous distension, thyromegaly, or carotid bruits. Carotids were easily palpable bilaterally. There was no adenopathy. neck is supple and there is no significant venous distention goiter. Lungs sounds are diminished in the lung bases bilaterally and the chest tubes are all in place. Sternum stable clean and intact. Heart sounds are positive for a throughout. No significant murmurs appreciated.Abdominal exam revealed normal bowel sounds. The abdomen was soft, non-tender, and without masses, organomegaly, or appreciable enlargement of the abdominal aorta.Examination of the extremities revealed easily palpable radial, femoral and pedal pulses. There was no cyanosis, clubbing or edema. - Labs CBC & Chem 7: 12/21/16 04:34 12/21/16 04:34 Labs: Abnormal Lab Results - Last 24 Hours (Table) 12/16/16 12/16/16 12/16/16 Range/Units 08:41 10:38 11:44 RBC (4.30-5.90) m/uL Hgb (13.0-17.5) gm/dL Hct (39.0-53.0) % Lymphocytes # (1.0-4.8) k/uL ABG pH 7.33 L 7.30 L (7.35-7.45) ABG pCO2 51 H 56 H (35-45) mmHg ABG pO2 353 H >420 H 329 H (83-108) mmHg ABG HCO3 26 H 26 H 27 H (21-25) mmol/L ABG Total CO2 27 H 28 H 28 H (19-24) mmol/L ABG O2 Saturation 99.9 H 100.0 H 99.9 H (94-97) % ABG Hematocrit 33 L 33 L (34.0-46.0) % ABG Potassium 4.9 H 5.0 H (3.4-4.5) mmol/L Sodium (137-145) mmol/L Glucose (74-99) mg/dL POC Glucose (mg/dL) (75-99) mg/dL Calcium (8.4-10.2) mg/dL Total Protein (6.3-8.2) g/dL Albumin (3.5-5.0) g/dL Arterial Blood Potassium 4.9 H 5.0 H (3.4-4.5) mmol/L 12/16/16 12/16/16 12/16/16 Range/Units 12:15 12:32 13:00 RBC (4.30-5.90) m/uL Hgb (13.0-17.5) gm/dL Hct (39.0-53.0) % Lymphocytes # (1.0-4.8) k/uL ABG pH (7.35-7.45) ABG pCO2 (35-45) mmHg ABG pO2 >420 H 359 H 278 H (83-108) mmHg ABG HCO3 27 H 26 H (21-25) mmol/L ABG Total CO2 26 H 28 H 28 H (19-24) mmol/L ABG O2 Saturation 100.0 H 99.9 H 99.9 H (94-97) % ABG Hematocrit 29 L 26 L 25 L (34.0-46.0) % ABG Potassium 4.6 H 7.3 H* (3.4-4.5) mmol/L Sodium (137-145) mmol/L Glucose (74-99) mg/dL POC Glucose (mg/dL) (75-99) mg/dL Calcium (8.4-10.2) mg/dL Total Protein (6.3-8.2) g/dL Albumin (3.5-5.0) g/dL Arterial Blood Potassium 4.6 H 7.3 H* (3.4-4.5) mmol/L 12/16/16 12/16/16 12/16/16 Range/Units 13:30 14:05 15:06 RBC (4.30-5.90) m/uL Hgb (13.0-17.5) gm/dL Hct (39.0-53.0) % Lymphocytes # (1.0-4.8) k/uL ABG pH 7.34 L 7.33 L (7.35-7.45) ABG pCO2 47 H 47 H (35-45) mmHg ABG pO2 234 H 292 H 351 H (83-108) mmHg ABG HCO3 (21-25) mmol/L ABG Total CO2 26 H 26 H 26 H (19-24) mmol/L ABG O2 Saturation 99.8 H 99.9 H 99.9 H (94-97) % ABG Hematocrit 25 L 25 L 24 L (34.0-46.0) % ABG Potassium 5.8 H 5.1 H (3.4-4.5) mmol/L Sodium (137-145) mmol/L Glucose (74-99) mg/dL POC Glucose (mg/dL) (75-99) mg/dL Calcium (8.4-10.2) mg/dL Total Protein (6.3-8.2) g/dL Albumin (3.5-5.0) g/dL Arterial Blood Potassium 5.8 H 5.1 H (3.4-4.5) mmol/L 12/20/16 12/20/16 12/20/16 Range/Units 12:30 17:18 20:06 RBC (4.30-5.90) m/uL Hgb (13.0-17.5) gm/dL Hct (39.0-53.0) % Lymphocytes # (1.0-4.8) k/uL ABG pH (7.35-7.45) ABG pCO2 (35-45) mmHg ABG pO2 (83-108) mmHg ABG HCO3 (21-25) mmol/L ABG Total CO2 (19-24) mmol/L ABG O2 Saturation (94-97) % ABG Hematocrit (34.0-46.0) % ABG Potassium (3.4-4.5) mmol/L Sodium (137-145) mmol/L Glucose (74-99) mg/dL POC Glucose (mg/dL) 112 H 114 H 117 H (75-99) mg/dL Calcium (8.4-10.2) mg/dL Total Protein (6.3-8.2) g/dL Albumin (3.5-5.0) g/dL Arterial Blood Potassium (3.4-4.5) mmol/L 12/21/16 12/21/16 12/21/16 Range/Units 04:34 04:34 08:16 RBC 2.53 L (4.30-5.90) m/uL Hgb 7.6 L (13.0-17.5) gm/dL Hct 23.2 L (39.0-53.0) % Lymphocytes # 0.9 L (1.0-4.8) k/uL ABG pH (7.35-7.45) ABG pCO2 (35-45) mmHg ABG pO2 (83-108) mmHg ABG HCO3 (21-25) mmol/L ABG Total CO2 (19-24) mmol/L ABG O2 Saturation (94-97) % ABG Hematocrit (34.0-46.0) % ABG Potassium (3.4-4.5) mmol/L Sodium 134 L (137-145) mmol/L Glucose 103 H (74-99) mg/dL POC Glucose (mg/dL) 106 H (75-99) mg/dL Calcium 8.2 L (8.4-10.2) mg/dL Total Protein 5.3 L (6.3-8.2) g/dL Albumin 3.0 L (3.5-5.0) g/dL Arterial Blood Potassium (3.4-4.5) mmol/L Assessment and Plan Plan: #1 Coronary artery disease status post coronary artery bypass grafting utilizing a VIZCAINO to LAD saphenous vein grafts to the OM, diabetic and PDA. Postoperative day # 5 # 2 postoperative anemia, status post transfusion with 2 units of packed RBC. Hemogram is stable for now at 7.6 # 3 Hypertension. # 4 Hyperlipidemia. # 5 Ischemic cardiomyopathy, status post AICD, most recent echocardiogram reveals estimated ejection fraction 40-45% Recommendation: Continue incentive spirometry, ambulate, agree with discharge planning home today. Time with Patient: Less than 30
--- NOTE | 2016-12-21 13:10 | PN ---
A 66-year-old gentleman with CAD, who is status post CABG doing well and is free of symptoms. On exam, comfortable at rest. Vital signs are stable. There is no jugular venous distention. Chest is clear to auscultation and percussion. Heart exam reveals first and second heart sounds. No gallop. Abdomen is soft. Exam of the extremities did not reveal edema. Peripheral pulses are felt. He is currently on aspirin, Lipitor, Plavix, lisinopril, insulin and Lopressor. On exam, comfortable at rest. Vital signs are stable. Chest exam reveals good air entry bilaterally. Heart exam reveals first and second heart sounds. No gallop. Exam of the extremities did not reveal edema. Peripheral pulses are felt. ASSESSMENT: Coronary artery disease, status post coronary artery bypass graft. PLAN: Patient is doing well. Will continue his current medications. Will be transferred out to [facility].
== END 2016-12-21 13:57 | disposition home or self-care (01) | DRG 236 ==
LOC: 2ORMAIN 05:40 → 6ICU 11:52
PROVIDERS: ADMIT Surgery; ATTEND Surgery
PROC: 02100Z9 Bypass Coronary Artery, One Artery from Left Internal Mammary, Open Approach (ICD-10-PCS; 2016-12-16)
PROC: 06BQ4ZZ Excision of Left Saphenous Vein, Percutaneous Endoscopic Approach (ICD-10-PCS; 2016-12-16)
PROC: 06BP4ZZ Excision of Right Saphenous Vein, Percutaneous Endoscopic Approach (ICD-10-PCS; 2016-12-16)
PROC: 5A1221Z Performance of Cardiac Output, Continuous (ICD-10-PCS; 2016-12-16)
PROC: 021209W Bypass Coronary Artery, Three Arteries from Aorta with Autologous Venous Tissue, Open Approach (ICD-10-PCS; principal; 2016-12-16 08:00)
PROC: 30243N1 Transfusion of Nonautologous Red Blood Cells into Central Vein, Percutaneous Approach (ICD-10-PCS; 2016-12-17)
DX: I25.10 Atherosclerotic heart disease of native coronary artery without angina pectoris (principal); E44.0 Moderate protein-calorie malnutrition; D62 Acute posthemorrhagic anemia; I25.82 Chronic total occlusion of coronary artery; J44.9 Chronic obstructive pulmonary disease, unspecified; E66.9 Obesity, unspecified; E78.5 Hyperlipidemia, unspecified; H54.42 Blindness, left eye, normal vision right eye; I10 Essential (primary) hypertension; I25.2 Old myocardial infarction; I25.5 Ischemic cardiomyopathy; I73.9 Peripheral vascular disease, unspecified; G89.29 Other chronic pain; M54.9 Dorsalgia, unspecified; R73.9 Hyperglycemia, unspecified; Z68.26 Body mass index [BMI] 26.0-26.9, adult; Z79.82 Long term (current) use of aspirin; Z79.899 Other long term (current) drug therapy; Z87.891 Personal history of nicotine dependence; Z89.429 Acquired absence of other toe(s), unspecified side; Z95.810 Presence of automatic (implantable) cardiac defibrillator
CPT/HCPCS: 36415; 36600; 36620; 71010; 71020; 80048; 80053; 80061; 81003; 82271; 82330; 82805; 83036; 83735; 84132; 85025; 85520; 85610; 85730; 86701; 86704; 86705; 86803; 86850; 86891; 86900; 86901; 86920; 87086; 87340; 93923; 93970; 94002; 94003; 94150; 94640

== ENCOUNTER → 2016-12-30 | Outpatient (CLI) | payer BC ==
[2016-12-30 14:33] LABS: Basophils % (A) 0 %; CHCM 31.3; Eosinophils # (A) 0.1 k/uL (0-0.7); Eosinophils % (A) 1 %; HCT 29.8 % (39.0-53.0); HDW 3.81; HGB 9.4 gm/dL (13.0-17.5); Hypochromasia Marked; Luc # (Auto) 0.12; Luc % (Auto) 1; Lymphocytes # (A) 0.7 k/uL (1.0-4.8); Lymphocytes % (A) 7 %; MCH 29.5 pg (25.0-35.0); MCHC 31.6 g/dL (31.0-37.0); MCV 93.2 fL (80.0-100.0); Monocytes # (A) 0.5 k/uL (0-1.0); Monocytes % (A) 6 %; Neutrophils # (A) 8.2 k/uL (1.3-7.7); Neutrophils % (A) 85 %; Poikilocytosis Slight; RDW 14.9 % (11.5-15.5); WBC 9.6 k/uL (3.8-10.6); WBC (Perox) 9.79
== END ==
LOC: LABWHC1 13:54
PROVIDERS: ATTEND Internal Medicine Critical Care Medicine
DX: I25.10 Atherosclerotic heart disease of native coronary artery without angina pectoris (principal)
CPT/HCPCS: 36415; 85025

== ENCOUNTER → 2018-09-05 | Outpatient (CLI) | payer BC ==
--- NOTE | 2018-09-05 08:13 | CT ---
EXAMINATION TYPE: CT angio chest DATE OF EXAM: 09/05/2018 COMPARISON: None HISTORY: SOB CT DLP: 333.8 mGycm CONTRAST: CT chest with contrast and 3D reconstruction with MIP imaging is performed with IV Contrast, patient injected with 68 mL of Isovue 370. Contrast-enhanced CT of the chest was performed through the course of the pulmonary arteries with boris g and mediastinal window settings submitted. 3D reconstruction with MIP imaging was also performed. PULMONARY ARTERIES: The pulmonary arteries and their major tributaries are patent. I do not see erin dence for sizable filling defect to suggest pulmonary embolic process. LUNGS: Noted are scattered patchy infiltrates. There is bronchial wall thickening. No evidence for pl eural effusion. Mild upper lobe emphysematous change noted. MEDIASTINUM: Thoracic aorta is of normal caliber,however, evaluation is limited given timing of the contrast bolus. If there is concern for thoracic aortic pathology consider MOOSE. Correlate clinicall y . The heart is enlarged. No evidence for mediastinal mass. No mediastinal lymph nodes greater roger n 1cm. HILAR STRUCTURES: No evidence for mass. No hilar lymph nodes greater than 1 cm. UPPER ABDOMEN: Adrenal glandular thickening identified. IMPRESSION: 1. No evidence for Pulmonary embolism at this time. 2.Noted are scattered patchy infiltrates. There is bronchial wall thickening.
--- NOTE | 2018-09-05 08:41 | XR ---
EXAMINATION TYPE: XR chest 2V DATE OF EXAM: 09/05/2018 COMPARISON: 12/30/2016 TECHNIQUE: PA and lateral views submitted. HISTORY: Shortness of breath FINDINGS: No pneumothorax or pleural effusion. Hypertrophic and degenerative change of the spine. Postsurgical change. Cardiac device noted. Correlate for COPD. Arthropathy shoulders. Atherosclerotic change aorta . There is a nodule in the left upper lobe measuring 8 mm. Areas of subsegmental consolidation along the medial aspect of the right lung base. IMPRESSION: 1. Subsegmental atelectasis or infiltrate medial aspect right lung base. 2. Question a 8mm left upper lobe pulmonary nodule..
== END | disposition home or self-care (01) ==
LOC: RADCTMAIN 06:47
PROVIDERS: ATTEND Family Medicine
DX: J98.09 Other diseases of bronchus, not elsewhere classified (principal); R91.8 Other nonspecific abnormal finding of lung field; R06.00 Dyspnea, unspecified
CPT/HCPCS: 71046; 71275; Q9967

== ENCOUNTER 2022-03-01 14:27 | Emergency (ER) | payer MEDICARE, OTHER ==
[2022-03-01 14:41] VITALS: TEMP 98.2
[2022-03-01] MEDS ORDERED: MAGNESIUM SULFATE-D5W PMX 1 GM in DEXTROSE/WATER 1 100ML.BAG IVPB ONE (15:04)
[2022-03-01] MEDS ORDERED: methylPREDNISolone SOD SUCCI 125 MG/2 ML VIAL IV STA (15:04)
[2022-03-01] MEDS ORDERED: IPRATROPIUM-ALBUTEROL 3 ML NEB INHALATION STA (15:04)
--- NOTE | 2022-03-01 15:47 | XR ---
EXAMINATION TYPE: XR chest 2V DATE OF EXAM: 03/01/2022 COMPARISON: Chest radiograph 09/05/[address] chest 09/05/2018 HISTORY: Shortness of breath, chest pain TECHNIQUE: Frontal and lateral views of the chest are obtained. FINDINGS: Single-lead ICD with power pack overlying the left chest appears unchanged. CABG changes w ith multiple sternotomy wires and mediastinal clips. Mild atherosclerotic vascular calcifications of the aortic arch. There is no focal air space opacity, pleural effusion, or pneumothorax seen. The ca rdiac silhouette size is within normal limits. The osseous structures are intact. Moderate multilev el degenerative changes of the thoracic spine. IMPRESSION: No acute cardiopulmonary process.
[2022-03-01 16:10] LABS: HCT 34.2 % (39.0-53.0); HGB 10.7 gm/dL (13.0-17.5); Hypochromasia Slight; MCH 28.6 pg (25.0-35.0); MCHC 31.2 g/dL (31.0-37.0); MCV 91.5 fL (80.0-100.0); Mean Platelet Volume 7.1; Platelet Count 251 k/uL (150-450); RBC 3.74 m/uL (4.30-5.90); RDW 13.9 % (11.5-15.5)
[2022-03-01 16:19] LABS: ALT 19 U/L (4-49); AST 25 U/L (17-59); African American GFR (CKD) >90 (>60 ml/min/1.73 sqM); Albumin 3.6 g/dL (3.5-5.0); Alkaline Phosphatase 86 U/L (38-126); Anion Gap 11 mmol/L; Blood Urea Nitrogen 21 mg/dL (9-20); Calcium 8.5 mg/dL (8.4-10.2); Carbon Dioxide 24 mmol/L (22-30); Chloride 102 mmol/L (98-107); Glucose 100 mg/dL (74-99); Magnesium 1.9 mg/dL (1.6-2.3); Non-African American GFR(CKD) >90 (>60 ml/min/1.73 sqM); Potassium 4.1 mmol/L (3.5-5.1); Sodium 137 mmol/L (137-145); Total Bilirubin 0.6 mg/dL (0.2-1.3)
[2022-03-01 16:25] LABS: INR 1.2 (<1.2)
[2022-03-01 16:48] LABS: Partial Thromboplastin Time 18.5 sec (22.0-30.0)
[2022-03-01 17:29] LABS: Appearance,Urine Cloudy (Clear); Bacteria,Urine Rare /hpf; Bilirubin,Urine 1+ (Negative); Blood,Urine Negative (Negative); Color,Urine Yellow; Glucose,Urine (UA) Negative (Negative); Hyaline Casts,Urine 4 /lpf (0-2); Ketones,Urine 2+ (Negative); Leukocyte Esterase,Urine Negative (Negative); Mucus,Urine Many /hpf; Nitrite,Urine Negative (Negative); PH, Urine 5.5 (5.0-8.0); Protein,Urine 1+ (Negative); RBC,Urine 2 /hpf (0-5); Specific Gravity,Urine 1.036 (1.001-1.035); Squamous Epithelial Cell,Urine <1 /hpf (0-4); WBC,Urine 3 /hpf (0-5)
--- NOTE | 2022-03-01 17:40 | ED ---
General Adult HPI - General Chief complaint: Shortness of Breath Stated complaint: SOB Time Seen by Provider: 03/01/22 14:44 Source: patient, EMS, RN notes reviewed, old records reviewed Mode of arrival: EMS Limitations: no limitations - History of Present Illness Initial comments: Patient is a 71-year-old male with past medical history remarkable for COPD, hypertension status post AICD placement presents emergency Department complaining of worsening exertional shortness of breath over the last few days with weather changes. Denies any orthopnea. Denies any worsening lower extremity edema. Denies any PND. Does have a history of coronary bypass surgery. Denies any chest pain, cough, fevers. States he believes that this is COPD and has requested steroids previously. Denies any nausea or vomiting. Has no other acute complaints at this time. - Related Data Home Medications Medication Instructions Recorded Confirmed Atorvastatin [Lipitor] 40 mg PO DAILY 12/16/16 03/01/22 Aspirin EC [Ecotrin Low Dose] 81 mg PO DAILY 03/01/22 03/01/22 Metoprolol Tartrate [Lopressor] 50 mg PO BID 03/01/22 03/01/22 lisinopriL [Zestril] 5 mg PO HS 03/01/22 03/01/22 Previous Rx's Medication Instructions Recorded Albuterol Inhaler [Ventolin Hfa 1 puff INHALATION RT-TID #8 gm 03/01/22 Inhaler] predniSONE [Deltasone] 40 mg PO DAILY 5 Days #10 tab 03/01/22 Allergies Allergy/AdvReac Type Severity Reaction Status Date / Time No Known Allergies Allergy Verified 03/01/22 16:15 Review of Systems ROS Statement: Those systems with pertinent positive or pertinent negative responses have been documented in the HPI. Review of Systems: CONST: Denies fever EYES: Denies blurry vision ENT: Denies nasal congestion C/V: Denies Chest pain RESP: Endorses exertional shortness of breath. GI: Denies abdominal pain : Denies dysuria SKIN: Denies rash. MSK: Denies joint pain. NEURO: Denies headache ROS Other: All systems not noted in ROS Statement are negative. Past Medical History Past Medical History: Eye Disorder, Hyperlipidemia, Hypertension, Vascular Disorder Additional Past Medical History / Comment(s): Ischemic cardiomyopathy with impaired LV function preoperatively., COPD with an FEV1 of 41% of predicted based on a spirometer was done preoperatively, blindness in the left eye, peripheral vascular disease with previous amputation of the toe, chronic back pain, hyperlipidemia, hypertension History of Any Multi-Drug Resistant Organisms: None Reported Past Surgical History: AICD, Heart Catheterization, Tonsillectomy Additional Past Surgical History / Comment(s): right foot surgery, Left eye surgery after injury. [employer] AICD Lt Chest. Past Anesthesia/Blood Transfusion Reactions: No Reported Reaction, Motion Sickness Type of Cardiac Device: AICD Device Placement Date:: 10/27/2016 Past Psychological History: No Psychological Hx Reported Smoking Status: Never smoker Past Alcohol Use History: None Reported Past Drug Use History: None Reported - Past Family History Mother Family Medical History: Cancer Additional Family Medical History / Comment(s): age 62 of cancer Father Additional Family Medical History / Comment(s): paraplegic after motorcycle accident age 57. age 64 2 weeks after . General Exam - General Exam Comments Initial Comments: General: Appears in no acute distress. HEAD: Normal with no signs of head trauma. EYES: PERRLA, EOMI, conjunctiva normal, no discharge. ENT: Hearing grossly intact, normal oropharynx. RESPIRATORY: Bilateral end expiratory wheezing. No increased work of breathing. No hypoxia. C/V: Regular rate and rhythm. S1 and S2 auscultated, no edema, peripheral pulses 2+ and intact throughout ABD: Abd is soft, nontender, nondistended EXT: Normal range of motion, no obvious deformity SKIN: No rashes or lesions observed on exposed skin. NEURO: Alert and oriented 4. No focal deficits. Limitations: no limitations Course Vital Signs 03/01/22 03/01/22 03/01/22 14:36 15:43 15:51 Temperature 98.2 F Pulse Rate 86 75 87 Respiratory 16 Rate Blood Pressure 139/79 O2 Sat by Pulse 97 Oximetry Medical Decision Making - Medical Decision Making Based on the patient's presentation and physical exam, patient is likely experiencing an acute COPD exacerbation, but I cannot rule out cardiopulmonary etiology at this time otherwise. We will obtain vital signs, urinalysis, as well as cardiac workup. He was in agreement with this plan. He'll be given IV Solu-Medrol, DuoNeb times, magnesium for his COPD exacerbation. EKG shows no acute changes. No signs of acute ischemia. Chest x-ray reveals no acute cardiopulmonary process. Laboratory studies are remarkable for an undetectable troponin, BNP within normal limits, a slight leukocytosis of 13 which is likely reactive, a chronic normocytic anemia, as well as a urinalysis was remarkable for 2+ ketones. This is likely secondary to his increased work of breathing. Already received IV fluids incompleted bag was started by EMS. Covid and influenza negative. On reevaluation, patient is feeling improved. Wheezing is improved. Vital signs remained within normal limits and stable throughout his stay. I believe it is safer to be discharged home at this time. He will be given a prescription for steroids as well as albuterol inhaler. He was in agreement this plan. Strict return precautions were discussed. I will provide the patient with a prescription for prednisone, albuterol. I instructed the patient to follow up with their PCP in the next 3 days. I explained that the patient should return to the emergency department if they experience any worsening symptoms. Strict return precautions were discussed with the patient. The patient expressed understanding of these instructions. I answered all questions that the patient had. The patient was discharged home in good condition with their prescriptions and follow up information. - Lab Data Result diagrams: 03/01/22 16:03 03/01/22 16:03 Lab Results 03/01/22 03/01/22 03/01/22 Range/Units 16:03 16:03 16:03 WBC 13.0 H (3.8-10.6) k/uL RBC 3.74 L (4.30-5.90) m/uL Hgb 10.7 L (13.0-17.5) gm/dL Hct 34.2 L (39.0-53.0) % MCV 91.5 (80.0-100.0) fL MCH 28.6 (25.0-35.0) pg MCHC 31.2 (31.0-37.0) g/dL RDW 13.9 (11.5-15.5) % Plt Count 251 (150-450) k/uL MPV 7.1 Hypochromasia Slight PT (9.0-12.0) sec INR (<1.2) APTT (22.0-30.0) sec Sodium (137-145) mmol/L Potassium (3.5-5.1) mmol/L Chloride (98-107) mmol/L Carbon Dioxide (22-30) mmol/L Anion Gap mmol/L BUN (9-20) mg/dL Creatinine (0.66-1.25) mg/dL Est GFR (CKD-EPI)AfAm (>60 ml/min/1.73 sqM) Est GFR (CKD-EPI)NonAf (>60 ml/min/1.73 sqM) Glucose (74-99) mg/dL Calcium (8.4-10.2) mg/dL Magnesium (1.6-2.3) mg/dL Total Bilirubin (0.2-1.3) mg/dL AST (17-59) U/L ALT (4-49) U/L Alkaline Phosphatase (38-126) U/L Troponin I (0.000-0.034) ng/mL NT-Pro-B Natriuret Pep pg/mL Total Protein (6.3-8.2) g/dL Albumin (3.5-5.0) g/dL Urine Color Urine Appearance (Clear) Urine pH (5.0-8.0) Ur Specific [place] (1.001-1.035) Urine Protein (Negative) Urine Glucose (UA) (Negative) Urine Ketones (Negative) Urine Blood (Negative) Urine Nitrite (Negative) Urine Bilirubin (Negative) Urine Urobilinogen (<2.0) mg/dL Ur Leukocyte Esterase (Negative) Urine RBC (0-5) /hpf Urine WBC (0-5) /hpf Ur Squamous Epith Cells (0-4) /hpf Urine Bacteria (None) /hpf Hyaline Casts (0-2) /lpf Urine Mucus (None) /hpf Coronavirus (PCR) Not Detected (Not Detectd) Influenza Type A RNA Not Detected (Not Detectd) Influenza Type B (PCR) Not Detected (Not Detectd) 03/01/22 03/01/22 03/01/22 Range/Units 16:03 16:03 16:03 WBC (3.8-10.6) k/uL RBC (4.30-5.90) m/uL Hgb (13.0-17.5) gm/dL Hct (39.0-53.0) % MCV (80.0-100.0) fL MCH (25.0-35.0) pg MCHC (31.0-37.0) g/dL RDW (11.5-15.5) % Plt Count (150-450) k/uL MPV Hypochromasia PT 13.0 H (9.0-12.0) sec INR 1.2 H (<1.2) APTT 18.5 L (22.0-30.0) sec Sodium (137-145) mmol/L Potassium (3.5-5.1) mmol/L Chloride (98-107) mmol/L Carbon Dioxide (22-30) mmol/L Anion Gap mmol/L BUN (9-20) mg/dL Creatinine (0.66-1.25) mg/dL Est GFR (CKD-EPI)AfAm (>60 ml/min/1.73 sqM) Est GFR (CKD-EPI)NonAf (>60 ml/min/1.73 sqM) Glucose (74-99) mg/dL Calcium (8.4-10.2) mg/dL Magnesium (1.6-2.3) mg/dL Total Bilirubin (0.2-1.3) mg/dL AST (17-59) U/L ALT (4-49) U/L Alkaline Phosphatase (38-126) U/L Troponin I <0.012 (0.000-0.034) ng/mL NT-Pro-B Natriuret Pep 417 pg/mL Total Protein (6.3-8.2) g/dL Albumin (3.5-5.0) g/dL Urine Color Urine Appearance (Clear) Urine pH (5.0-8.0) Ur Specific [place] (1.001-1.035) Urine Protein (Negative) Urine Glucose (UA) (Negative) Urine Ketones (Negative) Urine Blood (Negative) Urine Nitrite (Negative) Urine Bilirubin (Negative) Urine Urobilinogen (<2.0) mg/dL Ur Leukocyte Esterase (Negative) Urine RBC (0-5) /hpf Urine WBC (0-5) /hpf Ur Squamous Epith Cells (0-4) /hpf Urine Bacteria (None) /hpf Hyaline Casts (0-2) /lpf Urine Mucus (None) /hpf Coronavirus (PCR) (Not Detectd) Influenza Type A RNA (Not Detectd) Influenza Type B (PCR) (Not Detectd) 03/01/22 03/01/22 Range/Units 16:03 17:15 WBC (3.8-10.6) k/uL RBC (4.30-5.90) m/uL Hgb (13.0-17.5) gm/dL Hct (39.0-53.0) % MCV (80.0-100.0) fL MCH (25.0-35.0) pg MCHC (31.0-37.0) g/dL RDW (11.5-15.5) % Plt Count (150-450) k/uL MPV Hypochromasia PT (9.0-12.0) sec INR (<1.2) APTT (22.0-30.0) sec Sodium 137 (137-145) mmol/L Potassium 4.1 (3.5-5.1) mmol/L Chloride 102 (98-107) mmol/L Carbon Dioxide 24 (22-30) mmol/L Anion Gap 11 mmol/L BUN 21 H (9-20) mg/dL Creatinine 0.68 (0.66-1.25) mg/dL Est GFR (CKD-EPI)AfAm >90 (>60 ml/min/1.73 sqM) Est GFR (CKD-EPI)NonAf >90 (>60 ml/min/1.73 sqM) Glucose 100 H (74-99) mg/dL Calcium 8.5 (8.4-10.2) mg/dL Magnesium 1.9 (1.6-2.3) mg/dL Total Bilirubin 0.6 (0.2-1.3) mg/dL AST 25 (17-59) U/L ALT 19 (4-49) U/L Alkaline Phosphatase 86 (38-126) U/L Troponin I (0.000-0.034) ng/mL NT-Pro-B Natriuret Pep pg/mL Total Protein 7.0 (6.3-8.2) g/dL Albumin 3.6 (3.5-5.0) g/dL Urine Color Yellow Urine Appearance Cloudy (Clear) Urine pH 5.5 (5.0-8.0) Ur Specific Garber 1.036 H (1.001-1.035) Urine Protein 1+ H (Negative) Urine Glucose (UA) Negative (Negative) Urine Ketones 2+ H (Negative) Urine Blood Negative (Negative) Urine Nitrite Negative (Negative) Urine Bilirubin 1+ H (Negative) Urine Urobilinogen 3.0 (<2.0) mg/dL Ur Leukocyte Esterase Negative (Negative) Urine RBC 2 (0-5) /hpf Urine WBC 3 (0-5) /hpf Ur Squamous Epith Cells <1 (0-4) /hpf Urine Bacteria Rare H (None) /hpf Hyaline Casts 4 H (0-2) /lpf Urine Mucus Many H (None) /hpf Coronavirus (PCR) (Not Detectd) Influenza Type A RNA (Not Detectd) Influenza Type B (PCR) (Not Detectd) - EKG Data -: EKG Interpreted by Me EKG Comments: 12-lead Electrocardiogram Interpretation Note EKG was reviewed and interpreted by myself. 12-lead ECG performed at 1506 is interpreted by me as revealing normal sinus rhythm at a rate of 84 beats per minute. [place] is normal. [place] interval is somewhat 170 ms, QRS duration is 92 ms, QTc is 435 ms. There are chronic T wave inversions in the anterior precordial leads.. There were no acute ST or T wave abnormalities to suggest myocardial ischemia or injury. R wave progression across the precordium was satisfactory. By my interpretation this EKG is non-diagnostic for acute ischemia. Disposition Clinical Impression: COPD exacerbation Disposition: HOME SELF-CARE Condition: Good Instructions (If sedation given, give patient instructions): COPD (Chronic Obstructive Pulmonary Disease) (ED) Prescriptions: predniSONE [Deltasone] 40 mg PO DAILY 5 Days #10 tab Albuterol Inhaler [Ventolin Hfa Inhaler] 1 puff INHALATION RT-TID #8 gm Is patient prescribed a controlled substance at d/c from ED?: No Referrals: None,Stated [Primary Care Provider] - 1-2 days Time of Disposition: 17:35
[2022-03-01 18:05] VITALS: BP 131/80; PULSE 76; RESP 18
== END 2022-03-01 18:03 | disposition home or self-care (01) ==
LOC: EC 14:27
DX: J44.1 Chronic obstructive pulmonary disease with (acute) exacerbation (principal); I10 Essential (primary) hypertension; E78.5 Hyperlipidemia, unspecified; I73.9 Peripheral vascular disease, unspecified; Z79.82 Long term (current) use of aspirin; Z79.899 Other long term (current) drug therapy; Z20.822 Contact with and (suspected) exposure to COVID-19
CPT/HCPCS: 36415; 94640; 93005; 83880; 80053; 83735; 84484; 85027; 85610; 85730; 81001; 87502; 87635; 71046; 99285; 96365; 96375; J2930; J3475

== ENCOUNTER 2022-03-29 20:12 | Inpatient (IN) | payer MEDICARE, OTHER ==
[2022-03-29] MEDS ORDERED: IPRATROPIUM-ALBUTEROL 3 ML NEB INHALATION STA (20:31)
[2022-03-29] MEDS ORDERED: methylPREDNISolone SOD SUCCI 125 MG/2 ML VIAL IV STA (20:31)
--- NOTE | 2022-03-29 21:02 | ED ---
General Adult HPI - General Chief complaint: Shortness of Breath Stated complaint: Low O2, Difficulty Breathing, Weakness Time Seen by Provider: 03/29/22 20:20 Source: patient, RN notes reviewed, old records reviewed Mode of arrival: ambulatory Limitations: no limitations - History of Present Illness Initial comments: Patient is a 71-year-old male with past medical history remarkable for COPD, hypertension, vascular disorder, ischemic cardiomyopathy who presents emergency Department complaining of persistent shortness of breath. I evaluated the pat ient multiple weeks ago, but is now returning complaining of worsening shortness of breath over the last 1-2 weeks. Worse on exertion. Endorses nonproductive cough. Endorses feeling weak. Lack of appetite. No nausea, vomiting, diarrhea. No chest pain. Has noticed left lower extremity pitting edema that is relatively new. Mild tenderness over the inferior aspect of the left calf. Mostly posterior heel. No other acute complaints at this time. 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 No history of blood clots. Not on blood thinners. No history of heart failure. - Related Data Home Medications Medication Instructions Recorded Confirmed Atorvastatin [Lipitor] 40 mg PO DAILY 12/16/16 03/29/22 Aspirin EC [Ecotrin Low Dose] 81 mg PO DAILY 03/01/22 03/29/22 Metoprolol Tartrate [Lopressor] 50 mg PO BID 03/01/22 03/29/22 lisinopriL [Zestril] 5 mg PO HS 03/01/22 03/29/22 Albuterol Inhaler [Ventolin Hfa 2 puff INHALATION RT-QID PRN 03/29/22 03/29/22 Inhaler] Allergies Allergy/AdvReac Type Severity Reaction Status Date / Time No Known Allergies Allergy Verified 03/29/22 23:25 Review of Systems ROS Statement: Those systems with pertinent positive or pertinent negative responses have been documented in the HPI. Review of Systems: CONST: Denies fever EYES: Denies blurry vision ENT: Denies nasal congestion C/V: Denies Chest pain RESP: Endorses exertional shortness of breath. GI: Denies abdominal pain : Denies dysuria SKIN: Denies rash. MSK: Denies joint pain. NEURO: Denies headache ROS Other: All systems not noted in ROS Statement are negative. Past Medical History Past Medical History: COPD, Eye Disorder, Hyperlipidemia, Hypertension, Vascular Disorder Additional Past Medical History / Comment(s): Ischemic cardiomyopathy with impaired LV function preoperatively., COPD with an FEV1 of 41% of predicted based on a spirometer was done preoperatively, blindness in the left eye, peripheral vascular disease with previous amputation of the toe, chronic back pain, hyperlipidemia, hypertension History of Any Multi-Drug Resistant Organisms: None Reported Past Surgical History: AICD, Heart Catheterization, Tonsillectomy Additional Past Surgical History / Comment(s): right foot surgery, Left eye surgery after injury. [employer] AICD Lt Chest. Past Anesthesia/Blood Transfusion Reactions: No Reported Reaction, Motion Sickness Type of Cardiac Device: AICD Device Placement Date:: 10/27/2016 Past Psychological History: No Psychological Hx Reported Smoking Status: Never smoker Past Alcohol Use History: None Reported Past Drug Use History: None Reported - Past Family History Mother Family Medical History: Cancer Additional Family Medical History / Comment(s): age 62 of cancer Father Additional Family Medical History / Comment(s): paraplegic after motorcycle accident age 57. age 64 2 weeks after . General Exam - General Exam Comments Initial Comments: General: Appears in mild respiratory distress. HEAD: Normal with no signs of head trauma. EYES: PERRLA, EOMI, conjunctiva normal, no discharge. ENT: Hearing grossly intact, normal oropharynx. RESPIRATORY: Didn't expiratory wheezing bilaterally. No hypoxia at rest. Mild tachypnea. C/V: Regular rate and rhythm. S1 and S2 auscultated. Peripheral pulses 2+ intact throughout. Left lower extremity has 1+ pitting edema that is not symmetrical. ABD: Abd is soft, nontender, nondistended EXT: Normal range of motion, no obvious deformity SKIN: No rashes or lesions observed on exposed skin. NEURO: Alert and oriented 4. Limitations: no limitations Course Vital Signs 03/29/22 03/29/22 03/29/22 20:13 20:45 20:50 Temperature 99.7 F H Pulse Rate 104 H 100 100 Respiratory 34 H Rate Blood Pressure 123/76 O2 Sat by Pulse 98 Oximetry 03/29/22 03/29/22 22:09 23:00 Temperature Pulse Rate 90 92 Respiratory 20 18 Rate Blood Pressure 124/67 104/62 O2 Sat by Pulse 93 L 95 Oximetry Medical Decision Making - Medical Decision Making Based on the patient's presentation and physical exam, I'm concerned for cardiopulmonary etiology for his current symptoms. Cannot rule out PE or DVT. We'll obtain lower extremity duplex in addition to screening d-dimer and cardiopulmonary labs. We will treat his mild COPD exacerbation at this time with did DuoNeb as well as IV steroids. Patient was in agreement this plan. Not requiring oxygen at rest at this time. Vital signs are otherwise within normal limits. EKG shows no signs of acute ischemia. Does show chronic changes. Chest x-ray revealed no acute cardiopulmonary process. Duplex of the left lower extremity revealed a DVT in the left popliteal vein. Laboratory studies remarkable for a leukocytosis of 17 which is likely reactive secondary to the current blood clot as well as concerned for PE. Hemoglobin is at a baseline of 11.7. Patient does have a thrombocytopenia, which he does have a history of. D-dimer is elevated to 24. Lactic acid is slightly elevated to 2.2. BNP is slightly elevated to 1320. Troponin is undetectable. Patient is Covid and flu negative. Due to the patient's elevated d-dimer, I did recommend we obtain a CT angiogram to rule out PE. He was in agreement this plan. CT PE did reveal bilateral PEs with no signs of right heart strain. Laboratory the patient. Patient will be started on high intensity heparin. Patient requires admission hospital and he was in agreement this plan. Currently cardiology is occupational psychologist for EKOS and PE management. I did speak with over the phone who was in agreement this plan. He states there is no need to consult vascular surgery at this time as cardiology is on-call for ekos and PE managment. He did recommend an echo be ordered. Otherwise was in agreement with plan. Vital signs remain within normal limits. Not requiring home action to maintain saturations above 95%. We'll continue to monitor. Patient will be admitted to the telemetry bed in serious condition. I spoke with the admitting team, [facility] BREONNA Zayas who accepted the patient. - Lab Data Result diagrams: 03/29/22 20:59 03/29/22 20:59 Lab Results 03/29/22 03/29/22 03/29/22 Range/Units 20:59 20:59 20:59 WBC 17.3 H (3.8-10.6) k/uL RBC 4.01 L (4.30-5.90) m/uL Hgb 11.7 L (13.0-17.5) gm/dL Hct 35.5 L (39.0-53.0) % MCV 88.4 (80.0-100.0) fL MCH 29.0 (25.0-35.0) pg MCHC 32.9 (31.0-37.0) g/dL RDW 14.6 (11.5-15.5) % Plt Count 115 L D (150-450) k/uL MPV 8.2 Neutrophils % 90 % Lymphocytes % 4 % Monocytes % 5 % Eosinophils % 0 % Basophils % 0 % Neutrophils # 15.6 H (1.3-7.7) k/uL Lymphocytes # 0.7 L (1.0-4.8) k/uL Monocytes # 0.8 (0-1.0) k/uL Eosinophils # 0.0 (0-0.7) k/uL Basophils # 0.0 (0-0.2) k/uL Hypochromasia Slight PT 15.1 H (9.0-12.0) sec INR 1.5 H (<1.2) APTT 22.9 (22.0-30.0) sec D-Dimer 24.41 H (<0.60) mg/L FEU Sodium 133 L (137-145) mmol/L Potassium 5.0 (3.5-5.1) mmol/L Chloride 101 (98-107) mmol/L Carbon Dioxide 25 (22-30) mmol/L Anion Gap 7 mmol/L BUN 20 (9-20) mg/dL Creatinine 0.79 (0.66-1.25) mg/dL Est GFR (CKD-EPI)AfAm >90 (>60 ml/min/1.73 sqM) Est GFR (CKD-EPI)NonAf >90 (>60 ml/min/1.73 sqM) Glucose 117 H (74-99) mg/dL Lactic Ac Sepsis Rflx Plasma Lactic Acid James (0.7-2.0) mmol/L Calcium 8.2 L (8.4-10.2) mg/dL Magnesium 1.9 (1.6-2.3) mg/dL Total Bilirubin 1.2 (0.2-1.3) mg/dL AST 55 (17-59) U/L ALT 33 (4-49) U/L Alkaline Phosphatase 117 (38-126) U/L Troponin I (0.000-0.034) ng/mL NT-Pro-B Natriuret Pep pg/mL Total Protein 6.9 (6.3-8.2) g/dL Albumin 3.1 L (3.5-5.0) g/dL Coronavirus (PCR) (Not Detectd) Influenza Type A RNA (Not Detectd) Influenza Type B (PCR) (Not Detectd) 03/29/22 03/29/22 03/29/22 Range/Units 20:59 20:59 20:59 WBC (3.8-10.6) k/uL RBC (4.30-5.90) m/uL Hgb (13.0-17.5) gm/dL Hct (39.0-53.0) % MCV (80.0-100.0) fL MCH (25.0-35.0) pg MCHC (31.0-37.0) g/dL RDW (11.5-15.5) % Plt Count (150-450) k/uL MPV Neutrophils % % Lymphocytes % % Monocytes % % Eosinophils % % Basophils % % Neutrophils # (1.3-7.7) k/uL Lymphocytes # (1.0-4.8) k/uL Monocytes # (0-1.0) k/uL Eosinophils # (0-0.7) k/uL Basophils # (0-0.2) k/uL Hypochromasia PT (9.0-12.0) sec INR (<1.2) APTT (22.0-30.0) sec D-Dimer (<0.60) mg/L FEU Sodium (137-145) mmol/L Potassium (3.5-5.1) mmol/L Chloride (98-107) mmol/L Carbon Dioxide (22-30) mmol/L Anion Gap mmol/L BUN (9-20) mg/dL Creatinine (0.66-1.25) mg/dL Est GFR (CKD-EPI)AfAm (>60 ml/min/1.73 sqM) Est GFR (CKD-EPI)NonAf (>60 ml/min/1.73 sqM) Glucose (74-99) mg/dL Lactic Ac Sepsis Rflx Plasma Lactic Acid James 2.2 H* (0.7-2.0) mmol/L Calcium (8.4-10.2) mg/dL Magnesium (1.6-2.3) mg/dL Total Bilirubin (0.2-1.3) mg/dL AST (17-59) U/L ALT (4-49) U/L Alkaline Phosphatase (38-126) U/L Troponin I <0.012 (0.000-0.034) ng/mL NT-Pro-B Natriuret Pep 1320 pg/mL Total Protein (6.3-8.2) g/dL Albumin (3.5-5.0) g/dL Coronavirus (PCR) (Not Detectd) Influenza Type A RNA (Not Detectd) Influenza Type B (PCR) (Not Detectd) 03/29/22 03/29/22 03/29/22 Range/Units 20:59 20:59 21:31 WBC (3.8-10.6) k/uL RBC (4.30-5.90) m/uL Hgb (13.0-17.5) gm/dL Hct (39.0-53.0) % MCV (80.0-100.0) fL MCH (25.0-35.0) pg MCHC (31.0-37.0) g/dL RDW (11.5-15.5) % Plt Count (150-450) k/uL MPV Neutrophils % % Lymphocytes % % Monocytes % % Eosinophils % % Basophils % % Neutrophils # (1.3-7.7) k/uL Lymphocytes # (1.0-4.8) k/uL Monocytes # (0-1.0) k/uL Eosinophils # (0-0.7) k/uL Basophils # (0-0.2) k/uL Hypochromasia PT (9.0-12.0) sec INR (<1.2) APTT (22.0-30.0) sec D-Dimer (<0.60) mg/L FEU Sodium (137-145) mmol/L Potassium (3.5-5.1) mmol/L Chloride (98-107) mmol/L Carbon Dioxide (22-30) mmol/L Anion Gap mmol/L BUN (9-20) mg/dL Creatinine (0.66-1.25) mg/dL Est GFR (CKD-EPI)AfAm (>60 ml/min/1.73 sqM) Est GFR (CKD-EPI)NonAf (>60 ml/min/1.73 sqM) Glucose (74-99) mg/dL Lactic Ac Sepsis Rflx Y Plasma Lactic Acid James (0.7-2.0) mmol/L Calcium (8.4-10.2) mg/dL Magnesium (1.6-2.3) mg/dL Total Bilirubin (0.2-1.3) mg/dL AST (17-59) U/L ALT (4-49) U/L Alkaline Phosphatase (38-126) U/L Troponin I (0.000-0.034) ng/mL NT-Pro-B Natriuret Pep pg/mL Total Protein (6.3-8.2) g/dL Albumin (3.5-5.0) g/dL Coronavirus (PCR) Not Detected (Not Detectd) Influenza Type A RNA Not Detected (Not Detectd) Influenza Type B (PCR) Not Detected (Not Detectd) - EKG Data -: EKG Interpreted by Me EKG Comments: 12-lead Electrocardiogram Interpretation Note EKG was reviewed and interpreted by myself. 12-lead ECG performed at 2107 is interpreted by me as revealing normal sinus rhythm at a rate of 96 beats per minute. [place] is normal. [place] interval 125 ms, QRS duration is 91 ms, QTc is 449 ms.. There are chronic T wave inversions in leads V2 and V3 which are seen on prior EKGs. There were no acute ST or T wave abnormalities to suggest myocardial ischemia or injury. R wave progression across the precordium was satisfactory. By my interpretation this EKG is non-diagnostic for acute isch emia. Disposition Clinical Impression: Bilateral pulmonary embolism, Left leg DVT, Dyspnea Disposition: ADMITTED IP TO THIS HOSP Condition: Serious Time of Disposition: 23:15
[2022-03-29 21:19] LABS: ALT 33 U/L (4-49); AST 55 U/L (17-59); African American GFR (CKD) >90 (>60 ml/min/1.73 sqM); Albumin 3.1 g/dL (3.5-5.0); Alkaline Phosphatase 117 U/L (38-126); Anion Gap 7 mmol/L; Blood Urea Nitrogen 20 mg/dL (9-20); Calcium 8.2 mg/dL (8.4-10.2); Carbon Dioxide 25 mmol/L (22-30); Chloride 101 mmol/L (98-107); Glucose 117 mg/dL (74-99); Magnesium 1.9 mg/dL (1.6-2.3); Non-African American GFR(CKD) >90 (>60 ml/min/1.73 sqM); Sodium 133 mmol/L (137-145); Total Bilirubin 1.2 mg/dL (0.2-1.3); Total Protein 6.9 g/dL (6.3-8.2)
[2022-03-29 21:30] LABS: INR 1.5 (<1.2)
[2022-03-29 21:31] LABS: Partial Thromboplastin Time 22.9 sec (22.0-30.0); Prothrombin Time 15.1 sec (9.0-12.0)
[2022-03-29 21:39] LABS: Basophils % (A) 0 %; Eosinophils % (A) 0 %; HCT 35.5 % (39.0-53.0); HGB 11.7 gm/dL (13.0-17.5); Hypochromasia Slight; Lymphocytes # (A) 0.7 k/uL (1.0-4.8); Lymphocytes % (A) 4 %; MCHC 32.9 g/dL (31.0-37.0); MCV 88.4 fL (80.0-100.0); Mean Platelet Volume 8.2; Monocytes # (A) 0.8 k/uL (0-1.0); Monocytes % (A) 5 %; Neutrophils # (A) 15.6 k/uL (1.3-7.7); Neutrophils % (A) 90 %; RBC 4.01 m/uL (4.30-5.90); RDW 14.6 % (11.5-15.5); WBC 17.3 k/uL (3.8-10.6)
--- NOTE | 2022-03-29 21:39 | XR ---
EXAMINATION TYPE: XR chest 2V DATE OF EXAM: 03/29/2022 COMPARISON: 03/01/2022 HISTORY: Short of breath TECHNIQUE: FINDINGS: There is no heart failure nor confluent pneumonic infiltrate. Costophrenic angles are clear . There is left axillary pacemaker. There are chest leads. Bony thorax is intact. IMPRESSION: No active cardiopulmonary disease. No adverse change.
[2022-03-29 21:41] LABS: Platelet Count 115 k/uL (150-450)
--- NOTE | 2022-03-29 22:32 | US ---
EXAMINATION TYPE: US venous doppler duplex LE LT DATE OF EXAM: 03/29/2022 10:25 PM COMPARISON: NONE CLINICAL HISTORY: swelling, eval for dvt. Left leg swelling SIDE PERFORMED: Left TECHNIQUE: The lower extremity deep venous system is examined utilizing real time linear array sonog sahara with graded compression, doppler sonography and color-flow sonography. VESSELS IMAGED: Common Femoral Vein Deep Femoral Vein Greater Saphenous Vein * Femoral Vein Popliteal Vein Small Saphenous Vein * Proximal Calf Veins (* superficial vessels) Left Leg: There appears to be thrombus within the left popliteal vein. IMPRESSION: There is evidence of acute deep vein thrombosis in the popliteal vein.
--- NOTE | 2022-03-29 23:04 | CT ---
EXAMINATION TYPE: CT chest angio for PE DATE OF EXAM: 03/29/2022 COMPARISON: 09/05/2018 HISTORY: elevated d-dimer, concern for PE. SOB CT DLP: 471.4 mGycm Automated exposure control for dose reduction was used. CONTRAST: Performed with IV Contrast, patient injected with 84 mL of Isovue 370. Images obtained from the thoracic inlet to the diaphragm without IV contrast. There are Three-D postp rocessed images. There is some pulmonary emphysema. There is mild pulmonary hyperinflation. There is some reticular reed bpleural densities in the anterior right upper lobe. No pleural effusion. No pericardial effusion. He art size is normal. There are multiple filling defects in the left upper lobe pulmonary artery and in the right lower lobe pulmonary artery. There is also some involvement left lower lobe pulmonary kayy ry close to the pulmonary hilum. There is no mediastinal adenopathy. Thoracic aorta is atheromatous. The thoracic spine is intact. No compression fracture. There are sternal wires. The upper abdominal soft tissues are intact. IMPRESSION: Multiple bilateral pulmonary emboli appear new compared to old exam. No evidence of right heart strai n. Emphysema. Mild pulmonary fibrotic changes. No suspicious pulmonary mass. Attempt was made to contact the emergency room by telephone to discuss this exam but this was not suc cessful. No answer.
[2022-03-29] MEDS ORDERED: HEPARIN SODIUM 1,000 UN/ML (10ML VL) IV ONE (23:07)
[2022-03-29] MEDS ORDERED: NALOXONE 0.4 MG/ML 1 ML VIAL IV PRN (23:25)
[2022-03-29] MEDS: HEPARIN SOD,PORK IN 0.45% NACL 25,000 UNIT in 0.45% NACL 1 250ML.BAG IV SCH (23:44)
[2022-03-30] MEDS ORDERED: SODIUM CHLORIDE 0.9% 500 ML 500 ML IV STA (00:31)
[2022-03-30 01:09] LABS: INR 2.1 (<1.2)
[2022-03-30 07:05] LABS: Basophils % (A) 0 %; Eosinophils # (A) 0.1 k/uL (0-0.7); Eosinophils % (A) 0 %; HGB 10.5 gm/dL (13.0-17.5); Hypochromasia Slight; Lymphocytes # (A) 0.5 k/uL (1.0-4.8); Lymphocytes % (A) 3 %; MCH 28.6 pg (25.0-35.0); MCV 89.6 fL (80.0-100.0); Mean Platelet Volume 7.7; Monocytes # (A) 0.9 k/uL (0-1.0); Monocytes % (A) 6 %; Neutrophils # (A) 15.3 k/uL (1.3-7.7); Neutrophils % (A) 91 %; Platelet Count 121 k/uL (150-450); RBC 3.68 m/uL (4.30-5.90); RDW 14.4 % (11.5-15.5); WBC 16.9 k/uL (3.8-10.6)
--- NOTE | 2022-03-30 07:21 | P.HPIM ---
History of Present Illness This is a pleasant 71 years old male with past medical history of hypertension, COPD, Hyperlipidemia, Hypertension, ,Ischemic cardiomyopathy with impaired LV function preoperatively., COPD with an FEV1 of 41% of predicted based on a spirometer was done preoperatively, blindness in the left eye, peripheral vascular disease with previous amputation of the toe, chronic back pain, hs/p AICD, Patient presents because of exertional dyspnea that has been going on for months, patient states that he has 2 sit down from tiredness and dyspnea after 30 feet of walking. He denies any chest pain or coughing or hemoptysis. But is complaining of from left leg pain and swelling. No diarrhea or vomiting. No dysuria or urgency. No headache or dizziness. No weakness or numbness. No blurred vision He denies recent smoking, alcohol or illicit drugs Vitals looks stable. He has low-grade fever 99.7 on admission Labs show leukocytosis 17.3, hemoglobin 11.7. Platelet count 115 INR was 1.5, then went up to 2.1 D-dimer elevated at 24.4 The MP shown only mild hyponatremia at 123, creatinine normal 0.7. Liver enzymes not elevated. Coronal and influenza as viruses not detected EKG showed normal sinus rhythm at 96 with QTC 449, no significant ST-T changes CT of the chest showed multiple bilateral pulmonary emboli appears new compared to old exam. No evidence of right heart strain. Ultrasound showing evidence of acute left dizziness thrombosis. Patient was started on heparin drip Review of Systems Review of systems CONSTITUTIONAL: No fever, no malaise, no fatigue. HEENT: No recent visual problems or hearing problems. Denied any sore throat. CARDIOVASCULAR: No orthopnea, PND, no palpitations, no syncope. PULMONARY: No chest wall tenderness, no cough, no hemoptysis. GASTROINTESTINAL: No diarrhea, no nausea, no vomiting, no abdominal pain. Normoactive bowel sounds. NEUROLOGICAL: No headaches, no weakness, no numbness. HEMATOLOGICAL: Denies any bleeding or petechiae. GENITOURINARY: Denies any burning micturition, frequency, or urgency. MUSCULOSKELETAL/RHEUMATOLOGICAL: Denies any joint pain, swelling, or any muscle pain. ENDOCRINE: Denies any polyuria or polydipsia. Past Medical History Past Medical History: COPD, Eye Disorder, Hyperlipidemia, Hypertension, Vascular Disorder Additional Past Medical History / Comment(s): Ischemic cardiomyopathy with impaired LV function preoperatively., COPD with an FEV1 of 41% of predicted based on a spirometer was done preoperatively, blindness in the left eye, pe ripheral vascular disease with previous amputation of the toe, chronic back pain, hyperlipidemia, hypertension History of Any Multi-Drug Resistant Organisms: None Reported Past Surgical History: AICD, Heart Catheterization, Tonsillectomy Additional Past Surgical History / Comment(s): right foot surgery, Left eye surgery after injury. [email or web address] AICD Lt Chest. Past Anesthesia/Blood Transfusion Reactions: No Reported Reaction, Motion Sickness Type of Cardiac Device: AICD Device Placement Date:: 10/27/2016 Past Psychological History: No Psychological Hx Reported Smoking Status: Never smoker Past Alcohol Use History: None Reported Past Drug Use History: None Reported - Past Family History Mother Family Medical History: Cancer Additional Family Medical History / Comment(s): age 62 of cancer Father Additional Family Medical History / Comment(s): paraplegic after motorcycle accident age 57. age 64 2 weeks after . Medications and Allergies Home Medications Medication Instructions Recorded Confirmed Type Atorvastatin [Lipitor] 40 mg PO DAILY 12/16/16 03/29/22 History Aspirin EC [Ecotrin Low Dose] 81 mg PO DAILY 03/01/22 03/29/22 History Metoprolol Tartrate [Lopressor] 50 mg PO BID 03/01/22 03/29/22 History lisinopriL [Zestril] 5 mg PO HS 03/01/22 03/29/22 History Albuterol Inhaler [Ventolin Hfa 2 puff INHALATION RT-QID PRN 03/29/22 03/29/22 History Inhaler] Allergies Allergy/AdvReac Type Severity Reaction Status Date / Time No Known Allergies Allergy Verified 03/29/22 23:25 Physical Exam Vitals: Vital Signs Temp Pulse Resp BP Pulse Ox 03/30/22 06:00 75 20 94 L 03/30/22 05:32 98 20 122/87 94 L 03/30/22 02:40 77 16 115/71 94 L 03/29/22 23:00 92 18 104/62 95 03/29/22 22:09 90 20 124/67 93 L 03/29/22 20:50 100 03/29/22 20:45 100 03/29/22 20:13 99.7 F H 104 H 34 H 123/76 98 Intake and Output 03/29/22 03/29/22 03/30/22 14:59 22:59 06:59 Other: Weight 90.718 kg GENERAL: The patient is alert and oriented x3, not in any acute distress. Well developed, well nourished. HEENT: Pupils are round and equally reacting to light. EOMI. No scleral icterus. No conjunctival pallor. Normocephalic, atraumatic. No pharyngeal erythema. No thyromegaly. CARDIOVASCULAR: S1 and S2 present. No murmurs, rubs, or gallops. PULMONARY: Chest is clear to auscultation, no wheezing or crackles. ABDOMEN: Soft, nontender, nondistended, normoactive bowel sounds. No palpable organomegaly. MUSCULOSKELETAL: No joint swelling or deformity. -EXTREMITIES: No cyanosis, clubbing, or pedal edema. Left leg is swollen and warm NEUROLOGICAL: Gross neurological examination did not reveal any focal deficits. SKIN: No rashes. no petechiae. Results CBC & Chem 7: 03/30/22 06:48 03/29/22 20:59 Labs: Abnormal Lab Results - Last 24 Hours (Table) 03/29/22 03/29/22 03/29/22 Range/Units 20:59 20:59 20:59 WBC 17.3 H (3.8-10.6) k/uL RBC 4.01 L (4.30-5.90) m/uL Hgb 11.7 L (13.0-17.5) gm/dL Hct 35.5 L (39.0-53.0) % Plt Count 115 L D (150-450) k/uL Neutrophils # 15.6 H (1.3-7.7) k/uL Lymphocytes # 0.7 L (1.0-4.8) k/uL PT 15.1 H (9.0-12.0) sec INR 1.5 H (<1.2) D-Dimer 24.41 H (<0.60) mg/L FEU Sodium 133 L (137-145) mmol/L Glucose 117 H (74-99) mg/dL Plasma Lactic Acid James (0.7-2.0) mmol/L Calcium 8.2 L (8.4-10.2) mg/dL Albumin 3.1 L (3.5-5.0) g/dL 03/29/22 03/30/22 Range/Units 20:59 00:10 WBC (3.8-10.6) k/uL RBC (4.30-5.90) m/uL Hgb (13.0-17.5) gm/dL Hct (39.0-53.0) % Plt Count (150-450) k/uL Neutrophils # (1.3-7.7) k/uL Lymphocytes # (1.0-4.8) k/uL PT 21.0 H (9.0-12.0) sec INR 2.1 H (<1.2) D-Dimer (<0.60) mg/L FEU Sodium (137-145) mmol/L Glucose (74-99) mg/dL Plasma Lactic Acid James 2.2 H* (0.7-2.0) mmol/L Calcium (8.4-10.2) mg/dL Albumin (3.5-5.0) g/dL Assessment and Plan Assessment: Acute pulmonary embolism and left lower extremity deep venous thrombosis Hypertension Hyperlipidemia COPD, no acute exacerbation History of ischemic cardiomyopathy Status post AICD Chronic back pain Blindness of left eye Peripheral vascular disease Plan: This is a pleasant 71 years old male who presents with acute DVT and PE Continue with anticoagulation Pulmonary consult Labs and medication were reviewed.. Continue same treatment. Continue with symptomatic treatment. Resume home medication. Monitor lytes and vitals. DVT and GI prophylaxis. Further recommendations as per clinical course of the patient DVT prophylaxis: heparin GI Prophylaxis: Pepcid PT/OT: Pending Prognosis is guarded
[2022-03-30 07:28] LABS: African American GFR (CKD) >90 (>60 ml/min/1.73 sqM); Anion Gap 10 mmol/L; Blood Urea Nitrogen 19 mg/dL (9-20); Calcium 7.9 mg/dL (8.4-10.2); Carbon Dioxide 21 mmol/L (22-30); Chloride 102 mmol/L (98-107); Glucose 123 mg/dL (74-99); Non-African American GFR(CKD) >90 (>60 ml/min/1.73 sqM); Potassium 4.4 mmol/L (3.5-5.1); Sodium 133 mmol/L (137-145)
--- NOTE | 2022-03-30 10:00 | P.CRDCN ---
History of Present Illness History of present illness: HISTORY OF PRESENTING ILLNESS This is a pleasant 71-year-old male past medical history significant for coronary artery disease status post four-vessel bypass in 2017 and PCI of mid LAD in 2017, ischemic cardiomyopathy status post single-chamber ICD placement in 2017, hypertension, dyslipidemia, former smoker, COPD. He follows in the office with Dr. Sevilla. We have been asked to see in consultation for Bilateral pulmonary embolism. Patient is seen and examined in the emergency department. Patient presents to the emergency room with worsening shortness of breath with activity and exertion over the past month. He states he did go for a long car ride around 6 hours to visit family in [place] about 1 month ago. He states he has been experiencing worsening shortness of breath with exertion activity, and also noted left lower extremity swelling. Patient was found to have bilateral pulmonary embolism and left lower extremity DVT. Patient denies any chest pain, lightheadedness, dizziness, syncope or near syncope. He denies symptoms of orthopnea or PND. He denies any symptoms or fever, cough, chills, nausea, vomiting, abdominal pain.patient denies any history of hematological disorder or family history of bleeding disorder. DIAGNOSTICS EKG revealssinus rhythm, heart rate 96, T wave inversions noted in V2, V3 and aVL.no acute ischemia noted. Prior EKG in 01/2022 with similar findings. Telemetry tracings indicate sinus mechanism CT chest revealed multiple bilateral pulmonary emboli. No evidence of right heart strain. Emphysema. No suspicious pulmonary mass. venous Doppler revealed left popliteal vein thrombus Laboratory reviewed, WBC 6.9, hemoglobin 10.5, platelets 121, INR 2.1, d-dimer 24.4, lactate 2.2, repeat 1.6, sodium 133, potassium 4.4, BUN 19, serum 0.7, t roponin negative, proBNP 1320, Covid and influenza negative Current home cardiac medications include lisinopril 5 mg daily, metoprolol tartrate 50 mg twice a day, atorvastatin 40 mg daily, aspirin 81 mg daily Most recent echo in the office 08/2021 revealed an EF of 43%, anteroapical septals and also inferior apical hypokinesia REVIEW OF SYSTEMS At the time of my exam: CONSTITUTIONAL: Denies fever or chills. CARDIOVASCULAR: Denies chest pain, +shortness of breath,+SERNA , denies orthopnea, PND or palpitations. RESPIRATORY: Denies cough. GASTROINTESTINAL: Denies abdominal pain, diarrhea, constipation, nausea or vomiting. MUSCULOSKELETAL: Denies myalgias. NEUROLOGIC: Denies numbness, tingling, headacbe or weakness. ENDOCRINE: Denies fatigue, weight change, polydipsia or polyurina. GENITOURINARY: Denies burning, hematuria or urgency with micturation. HEMATOLOGIC: Denies history of anemia or bleeding. PHYSICAL EXAMINATION Vitals reviewed blood pressure 110/71, heart rate 75, afebrile saturations 95% room air CONSTITUTIONAL: No apparent distress. HEENT: Head is normocephalic. Pupils are equal, round. Sclerae anicteric. Mucous membranes of the mouth are moist. No JVD. No carotid bruit. CHEST EXAMINATION: Lungs are diminished bases bilaterally to auscultation. No chest wall tenderness is noted on palpation or with deep breathing. HEART EXAMINATION: Regular rate and rhythm. S1, S2 heard. No murmurs, gallops or rub. ABDOMEN: Soft, nontender. Positive bowel sounds. EXTREMITIES: 2+ peripheral pulses, +3 left lower extremity edema and no calf tenderness. NEUROLOGIC EXAMINATION: Patient is awake, alert and oriented x3. ASSESSMENT Bilateral pulmonary emboli Left lower extremity DVT Coronary artery disease status post four-vessel bypass in 2017 and PCI of mid LAD in 2017 Ischemic cardiomyopathy status post single-chamber ICD placement in 2017 Hypertension Dyslipidemia Former smoker COPD PLAN Obtain 2D echocardiogram and doppler study to assess cardiac structure and function and assess right heart strain Continue IV Heparin Continue home aspirin, statin, lisinopril and beta simran If no evidence of right heart strain on echocardiogram, no indication for EKOS procedure and we can treat patient with PO anticoagulation. Further recommendations based on clinical course Nurse practitioner note has been reviewed by physician. Signing provider agrees with the documented findings, assessment, and plan of care. Past Medical History Past Medical History: COPD, Eye Disorder, Hyperlipidemia, Hypertension, Vascular Disorder Additional Past Medical History / Comment(s): Ischemic cardiomyopathy with impa ired LV function preoperatively., COPD with an FEV1 of 41% of predicted based on a spirometer was done preoperatively, blindness in the left eye, peripheral vascular disease with previous amputation of the toe, chronic back pain, hyperlipidemia, hypertension History of Any Multi-Drug Resistant Organisms: None Reported Past Surgical History: AICD, Heart Catheterization, Tonsillectomy Additional Past Surgical History / Comment(s): right foot surgery, Left eye surgery after injury. [employer] AICD Lt Chest. Past Anesthesia/Blood Transfusion Reactions: No Reported Reaction, Motion Sickness Type of Cardiac Device: AICD Device Placement Date:: 10/27/2016 Past Psychological History: No Psychological Hx Reported Smoking Status: Never smoker Past Alcohol Use History: None Reported Past Drug Use History: None Reported - Past Family History Mother Family Medical History: Cancer Additional Family Medical History / Comment(s): age 62 of cancer Father Additional Family Medical History / Comment(s): paraplegic after motorcycle accident age 57. age 64 2 weeks after . Medications and Allergies Home Medications Medication Instructions Recorded Confirmed Type Atorvastatin [Lipitor] 40 mg PO DAILY 12/16/16 03/29/22 History Aspirin EC [Ecotrin Low Dose] 81 mg PO DAILY 03/01/22 03/29/22 History Metoprolol Tartrate [Lopressor] 50 mg PO BID 03/01/22 03/29/22 History lisinopriL [Zestril] 5 mg PO HS 03/01/22 03/29/22 History Albuterol Inhaler [Ventolin Hfa 2 puff INHALATION RT-QID PRN 03/29/22 03/29/22 History Inhaler] Allergies Allergy/AdvReac Type Severity Reaction Status Date / Time No Known Allergies Allergy Verified 03/29/22 23:25 Physical Exam Vitals: Vital Signs Temp Pulse Resp BP BP Pulse Ox 03/30/22 07:52 97.2 F L 16 110/71 95 03/30/22 06:00 75 20 94 L 03/30/22 05:32 98 20 122/87 94 L 03/30/22 02:40 77 16 115/71 94 L 03/29/22 23:00 92 18 104/62 95 03/29/22 22:09 90 20 124/67 93 L 03/29/22 20:50 100 03/29/22 20:45 100 03/29/22 20:13 99.7 F H 104 H 34 H 123/76 98 Intake and Output 03/29/22 03/30/22 03/30/22 22:59 06:59 14:59 Intake Total 137.708 Balance 137.708 Intake: Intake, IV Titration 137.708 Amount Heparin Sod,Pork in 0.45% 137.708 NaCl 25,000 unit In 0.45 % NaCl 1 250ml.bag @ 18 UNITS/KG/HR 16.329 mls/hr IV .[id number] [facility] Rx#: [id number] Other: Weight 90.718 kg Results 03/30/22 06:48 03/30/22 06:48 Cardiac Enzymes 03/29/22 03/29/22 Range/Units 20:59 20:59 AST 55 (17-59) U/L Troponin I <0.012 (0.000-0.034) ng/mL Coagulation 03/29/22 03/30/22 03/30/22 Range/Units 20:59 00:10 06:48 PT 15.1 H 21.0 H (9.0-12.0) sec APTT 22.9 66.7 H (22.0-30.0) sec CBC 03/29/22 03/30/22 Range/Units 20:59 06:48 WBC 17.3 H 16.9 H (3.8-10.6) k/uL RBC 4.01 L 3.68 L (4.30-5.90) m/uL Hgb 11.7 L 10.5 L (13.0-17.5) gm/dL Hct 35.5 L 33.0 L (39.0-53.0) % Plt Count 115 L D 121 L (150-450) k/uL Comprehensive Metabolic Panel 03/29/22 03/30/22 Range/Units 20:59 06:48 Sodium 133 L 133 L (137-145) mmol/L Potassium 5.0 4.4 (3.5-5.1) mmol/L Chloride 101 102 (98-107) mmol/L Carbon Dioxide 25 21 L (22-30) mmol/L BUN 20 19 (9-20) mg/dL Creatinine 0.79 0.72 (0.66-1.25) mg/dL Glucose 117 H 123 H (74-99) mg/dL Calcium 8.2 L 7.9 L (8.4-10.2) mg/dL AST 55 (17-59) U/L ALT 33 (4-49) U/L Alkaline Phosphatase 117 (38-126) U/L Total Protein 6.9 (6.3-8.2) g/dL Albumin 3.1 L (3.5-5.0) g/dL Current Medications Generic Name Dose Route Start Last Admin Trade Name Freq PRN Reason Stop Dose Admin Albuterol Sulfate 2.5 mg 03/29/22 23:27 Albuterol Nebulized 2.5 Mg/3 Ml INHALATION RT-QID PRN Shortness Of Breath Aspirin 81 mg 03/30/22 09:00 Aspirin 81 Mg PO DAILY [facility] Atorvastatin Calcium 40 mg 03/30/22 09:00 Atorvastatin 40 Mg Tab PO DAILY [facility] Heparin Sodium (Porcine) 0 unit 03/29/22 23:07 Heparin Sodium 1,000 Un/Ml (10ml Vl) IV PER PROTOCOL PRN Low PTT Protocol Heparin Sodium/Sodium Chloride 250 mls @ 16.329 mls/hr 03/29/22 23:15 03/30/22 08:10 25,000 unit/ Sodium Chloride IV 16 units/kg/hr .[id number] MICHAELA 14.515 mls/hr Titration Protocol 18 UNITS/KG/HR Lisinopril 5 mg 03/30/22 21:00 Lisinopril 5 Mg Tab PO HS [facility] Metoprolol Tartrate 50 mg 03/30/22 09:00 Metoprolol Tartrate 50 Mg Tab PO BID [facility] Naloxone HCl 0.2 mg 03/29/22 23:25 Naloxone 0.4 Mg/Ml 1 Ml Vial IV Q2M PRN Opioid Reversal Intake and Output 03/29/22 03/30/22 03/30/22 22:59 06:59 14:59 Intake Total 137.708 Balance 137.708 Intake: Intake, IV Titration 137.708 Amount Heparin Sod,Pork in 0.45% 137.708 NaCl 25,000 unit In 0.45 % NaCl 1 250ml.bag @ 18 UNITS/KG/HR 16.329 mls/hr IV .[id number] [facility] Rx#: [id number] Other: Weight 90.718 kg 03/30/22 06:48 03/30/22 06:48
[2022-03-30] MEDS: METOPROLOL TARTRATE 50 MG TAB PO SCH ×2 (10:19→20:37)
[2022-03-30] MEDS: ASPIRIN 81 MG PO SCH (10:19)
[2022-03-30] MEDS: ATORVASTATIN 40 MG TAB PO SCH (10:19)
[2022-03-30 11:20] LABS: Glucose,Whole Blood 112 mg/dL (70-110)
--- NOTE | 2022-03-30 12:28 | CA ---
Transthoracic Echo Report Name: Francois Avendano Age: 71 Gender: M : 1950 Exam Date: 03/30/2022 09:25 Exam Location: [facility] Ht (in): 76 Wt (lb): 200 Ordering Physician: Anival Amato MD Attending/Referring Phys: High Lift Operator Janeth Luna RDCS Procedure CPT: Indications: bilateral PE, assess for heart strain Cardiac Hx: Technical Quality: Technically difficult study Contrast 1: Lumason Total Dose (mL): 4 Contrast 2: Total Dose (mL): MEASUREMENTS (Male / Female) Normal Values 2D ECHO LV Diastolic Diameter PLAX 4.5 cm 4.2 - 5.9 / 3.9 - 5.3 cm LV Systolic Diameter PLAX 3.2 cm IVS Diastolic Thickness 1.5 cm 0.6 - 1.0 / 0.6 - 0.9 cm LVPW Diastolic Thickness 1.3 cm 0.6 - 1.0 / 0.6 - 0.9 cm LV Relative Wall Thickness 0.6 RV Internal Dim ED PLAX 3.0 cm LA Volume 50.8 cm??? 18 - 58 / 22 - 52 cm??? M-MODE Aortic Root Diameter MM 4.1 cm LA Systolic Diameter MM 3.7 cm LA Ao Ratio MM 0.9 MV E Point Septal Separation 1.2 cm AV Cusp Separation MM 2.4 cm DOPPLER AV Peak Velocity 98.2 cm/s AV Peak Gradient 3.9 mmHg LVOT Peak Velocity 93.7 cm/s LVOT Peak Gradient 3.5 mmHg MV Area PHT 3.5 cm??? Mitral E Point Velocity 57.3 cm/s Mitral A Point Velocity 98.3 cm/s Mitral E to A Ratio 0.6 MV Deceleration Time 219.0 ms MV E' Velocity 6.1 cm/s Mitral E to MV E' Ratio 9.4 FINDINGS Left Ventricle Moderately increased left ventricular wall thickness. Left ventricular ejection fraction is estimated at 40-45%. Reduced global left ventricular systolic function. Right Ventricle Normal right ventricular size. TAPSE @14 mm Right Atrium Normal right atrial size. Catheter/pacemaker wire in the right atrial cavity. Left Atrium Normal left atrial size. No evidence for an atrial septal defect. Mitral Valve Mild mitral annular calcification. Mild mitral regurgitation. Aortic Valve Aortic valve sclerosis. No aortic stenosis. No aortic regurgitation. Tricuspid Valve Mild tricuspid regurgitation. Pulmonic Valve Mild pulmonic regurgitation. Pericardium No pericardial effusion. Aorta Normal size aortic root and proximal ascending aorta. CONCLUSIONS Moderate LV systolic dysfunction with an ejection fraction of 40-45% Inferoapical hypokinesis Previewed by: Dr. Olvin Marie MD (Electronically Signed) Final Date: 30 March 2022 12:27
[2022-03-30] MEDS: HEPARIN SODIUM 1,000 UN/ML (10ML VL) IV PRN ×2 (14:28→20:51)
[2022-03-30] MEDS: ALBUTEROL NEBULIZED 2.5 MG/3 ML INHALATION PRN (15:06)
[2022-03-30] MEDS: HEPARIN SOD,PORK IN 0.45% NACL 25,000 UNIT in 0.45% NACL 1 250ML.BAG IV SCH (15:16)
[2022-03-30] MEDS: lisinopriL 5 MG TAB PO SCH (20:37)
[2022-03-31] MEDS: HEPARIN SOD,PORK IN 0.45% NACL 25,000 UNIT in 0.45% NACL 1 250ML.BAG IV SCH (06:51)
[2022-03-31] MEDS ORDERED: FUROSEMIDE 10 MG/ML 2 ML VIAL IV ONE (07:59)
--- NOTE | 2022-03-31 07:59 | P.PN ---
Subjective Progress Note Date: 03/31/22 PROGRESS NOTE The patient is a 71-year-old male with a known history of CABG, PCI, ischemic cardiomyopathy and ICD implantation who presented with progressive dyspnea going on for the last few weeks. He was diagnosed with DVT and pulmonary embolism. He computed tomography scan of the chest showed no evidence of right ventricular strain. His echocardiogram showed an ejection fraction of 40-45% no docu mentation of his right ventricular systolic pressure was made. He is feeling stable this morning, he continues to have some dyspnea but no chest discomfort. He denies any dizziness or palpitations. He denies any nausea or vomiting. He continues to be in sinus mechanism. Medications: Aspirin 81 mg daily, Zestril 5 mg daily, metoprolol titrate 50 mg twice a day, Lipitor 40 mg daily and IV heparin PHYSICAL EXAMINATION: Blood pressure 106/60 heart rate 89 LUNGS: Clear to auscultation HEART: Regular rate and rhythm, S1, S2. No S3. systolic ejection murmur at the base ABDOMEN: Soft, nontender, no organomegaly EXTREMETIES: +1 edema LAB: Pending IMPRESSION: 1. Pulmonary embolism and DVT, patient started having symptoms about a month ago. 2. History of CAD status post CABG 3. Ischemic cardiomyopathy 4. Hyperlipidemia PLAN: 1. Changed to oral anticoagulation 2. Stop heparin 3. Increase physical activity 4. Depending on his progress further recommendations will be made. Objective - Vital Signs Vital signs: Vital Signs Temp 98.0 F 03/31/22 04:00 Pulse 89 03/31/22 04:00 Resp 25 H 03/31/22 04:00 BP 106/63 03/31/22 04:00 Pulse Ox 93 L 03/31/22 00:00 FiO2 Intake & Output 03/30/22 03/31/22 03/31/22 18:59 06:59 18:59 Intake Total 742.246 500.000 Output Total 400 350 Balance 342.246 150.000 Weight 91.9 kg 92 kg Intake: Intake, IV Titration 242.246 250.000 Amount Heparin Sod,Pork in 0.45% 242.246 250.000 NaCl 25,000 unit In 0.45 % NaCl 1 250ml.bag @ 18 UNITS/KG/HR 16.329 mls/hr IV .[id number] [facility] Rx#: [id number] Oral 500 250 Output: Urine 400 350 Other: Voiding Method Urinal External Catheter - Labs CBC & Chem 7: 03/30/22 06:48 03/30/22 06:48 Labs: Abnormal Lab Results - Last 24 Hours (Table) 03/30/22 03/30/22 03/30/22 Range/Units 11:18 13:54 19:56 APTT 42.6 H 42.1 H (22.0-30.0) sec POC Glucose (mg/dL) 112 H (70-110) mg/dL 03/31/22 Range/Units 03:00 APTT 77.7 H (22.0-30.0) sec POC Glucose (mg/dL) (70-110) mg/dL
[2022-03-31 08:24] LABS: Basophils # (A) 0.1 k/uL (0-0.2); Basophils % (A) 0 %; Eosinophils % (A) 0 %; HCT 32.1 % (39.0-53.0); HGB 10.5 gm/dL (13.0-17.5); Lymphocytes # (A) 0.5 k/uL (1.0-4.8); Lymphocytes % (A) 3 %; MCHC 32.8 g/dL (31.0-37.0); MCV 88.5 fL (80.0-100.0); Mean Platelet Volume 7.6; Monocytes # (A) 0.9 k/uL (0-1.0); Monocytes % (A) 6 %; Neutrophils # (A) 12.9 k/uL (1.3-7.7); Neutrophils % (A) 89 %; Platelet Count 151 k/uL (150-450); RBC 3.63 m/uL (4.30-5.90); RDW 14.5 % (11.5-15.5); WBC 14.5 k/uL (3.8-10.6)
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
[2022-03-31 08:46] LABS: ALT 31 U/L (4-49); AST 54 U/L (17-59); African American GFR (CKD) >90 (>60 ml/min/1.73 sqM); Albumin 2.5 g/dL (3.5-5.0); Alkaline Phosphatase 91 U/L (38-126); Anion Gap 8 mmol/L; Bilirubin, Delta 0.2 mg/dL (0.0-0.2); Bilirubin,Unconjugated 0.6 mg/dL (0.0-1.1); Blood Urea Nitrogen 17 mg/dL (9-20); Calcium 7.5 mg/dL (8.4-10.2); Carbon Dioxide 23 mmol/L (22-30); Chloride 100 mmol/L (98-107); Glucose 100 mg/dL (74-99); Magnesium 1.9 mg/dL (1.6-2.3); Non-African American GFR(CKD) >90 (>60 ml/min/1.73 sqM); Potassium 3.9 mmol/L (3.5-5.1); Sodium 131 mmol/L (137-145); Total Bilirubin 0.8 mg/dL (0.2-1.3); Total Protein 5.7 g/dL (6.3-8.2)
[2022-03-31] MEDS: ASPIRIN 81 MG PO SCH (08:58)
[2022-03-31] MEDS: ATORVASTATIN 40 MG TAB PO SCH (08:58)
[2022-03-31] MEDS: RIVAROXABAN 15 MG TAB PO SCH ×2 (08:58→16:22)
[2022-03-31] MEDS: METOPROLOL TARTRATE 50 MG TAB PO SCH ×2 (08:58→19:57)
[2022-03-31] MEDS ORDERED: traMADol 50 MG TAB PO STA (12:54)
[2022-03-31] MEDS ORDERED: traMADol 50 MG TAB PO PRN (12:54)
--- NOTE | 2022-03-31 12:55 | P.PN ---
Subjective This is a pleasant 71 years old male with past medical history of hypertension, COPD, Hyperlipidemia, Hypertension, ,Ischemic cardiomyopathy with impaired LV function preoperatively., COPD with an FEV1 of 41% of predicted based on a spirometer was done preoperatively, blindness in the left eye, peripheral vascular disease with previous amputation of the toe, chronic back pain, hs/p AICD, Patient presents because of exertional dyspnea that has been going on for months, patient states that he has 2 sit down from tiredness and dyspnea after 30 feet of walking. He denies any chest pain or coughing or hemoptysis. But is complaining of from left leg pain and swelling. No diarrhea or vomiting. No dysuria or urgency. No headache or dizziness. No weakness or numbness. No blurred vision He denies recent smoking, alcohol or illicit drugs Vitals looks stable. He has low-grade fever 99.7 on admission Labs show leukocytosis 17.3, hemoglobin 11.7. Platelet count 115 INR was 1.5, then went up to 2.1 D-dimer elevated at 24.4 The MP shown only mild hyponatremia at 123, creatinine normal 0.7. Liver enzymes not elevated. Coronal and influenza as viruses not detected EKG showed normal sinus rhythm at 96 with QTC 449, no significant ST-T changes CT of the chest showed multiple bilateral pulmonary emboli appears new compared to old exam. No evidence of right heart strain. Ultrasound showing evidence of acute left dizziness thrombosis. Patient was started on heparin drip 03/31/2022 Patient is awake alert, he is still somewhat tachypneic but no chest pain. He still complaining of from discomfort in his left leg. His heparin drip was switched Xarelto 50 mg twice daily today. Patient management, started on Ultram when necessary Objective - Vital Signs Vital signs: Vital Signs Temp 98.4 F 03/31/22 08:00 Pulse 98 03/31/22 09:00 Resp 29 H 03/31/22 09:00 BP 105/79 03/31/22 09:00 Pulse Ox 94 L 03/31/22 09:00 FiO2 Intake & Output 03/30/22 03/31/22 03/31/22 18:59 06:59 18:59 Intake Total 742.246 500.000 Output Total 400 350 125 Balance 342.246 150.000 -125 Weight 91.9 kg 92 kg Intake: Intake, IV Titration 242.246 250.000 Amount Heparin Sod,Pork in 0.45% 242.246 250.000 NaCl 25,000 unit In 0.45 % NaCl 1 250ml.bag @ 18 UNITS/KG/HR 16.329 mls/hr IV .[id number] [facility] Rx#: [id number] Oral 500 250 Output: Urine 400 350 125 Other: Voiding Method Urinal External Catheter External Catheter - Exam GENERAL: The patient is alert and oriented x3, not in any acute distress. Well developed, well nourished. HEENT: Pupils are round and equally reacting to light. EOMI. No scleral icterus. No conjunctival pallor. Normocephalic, atraumatic. No pharyngeal erythema. No thyromegaly. CARDIOVASCULAR: S1 and S2 present. No murmurs, rubs, or gallops. -PULMONARY: Chest is clear to auscultation, no wheezing or crackles. Patient somewhat tachypneic ABDOMEN: Soft, nontender, nondistended, normoactive bowel sounds. No palpable organomegaly. MUSCULOSKELETAL: No joint swelling or deformity. EXTREMITIES: No cyanosis, clubbing, or pedal edema. NEUROLOGICAL: Gross neurological examination did not reveal any focal deficits. SKIN: No rashes. no petechiae. - Labs CBC & Chem 7: 03/31/22 07:07 03/31/22 07:07 Labs: Abnormal Lab Results - Last 24 Hours (Table) 03/30/22 03/30/22 03/31/22 Range/Units 13:54 19:56 03:00 WBC (3.8-10.6) k/uL RBC (4.30-5.90) m/uL Hgb (13.0-17.5) gm/dL Hct (39.0-53.0) % Neutrophils # (1.3-7.7) k/uL Lymphocytes # (1.0-4.8) k/uL APTT 42.6 H 42.1 H 77.7 H (22.0-30.0) sec Sodium (137-145) mmol/L Glucose (74-99) mg/dL Calcium (8.4-10.2) mg/dL Total Protein (6.3-8.2) g/dL Albumin (3.5-5.0) g/dL 03/31/22 03/31/22 Range/Units 07:07 07:07 WBC 14.5 H (3.8-10.6) k/uL RBC 3.63 L (4.30-5.90) m/uL Hgb 10.5 L (13.0-17.5) gm/dL Hct 32.1 L (39.0-53.0) % Neutrophils # 12.9 H (1.3-7.7) k/uL Lymphocytes # 0.5 L (1.0-4.8) k/uL APTT (22.0-30.0) sec Sodium 131 L (137-145) mmol/L Glucose 100 H (74-99) mg/dL Calcium 7.5 L (8.4-10.2) mg/dL Total Protein 5.7 L (6.3-8.2) g/dL Albumin 2.5 L (3.5-5.0) g/dL Assessment and Plan Assessment: Acute pulmonary embolism and left lower extremity deep venous thrombosis Hypertension Hyperlipidemia COPD, no acute exacerbation History of ischemic cardiomyopathy Status post AICD Chronic back pain Blindness of left eye Peripheral vascular disease Plan: This is a pleasant 71 years old male who presents with acute DVT and PE Continue with anticoagulation, currently switched and to oral Xarelto Pulmonary consult Labs and medication were reviewed.. Continue same treatment. Continue with symptomatic treatment. Resume home medication. Monitor lytes and vitals. DVT and GI prophylaxis. Further recommendations as per clinical course of the patient DVT prophylaxis: Xarelto GI Prophylaxis: Pepcid PT/OT: Pending Prognosis is guarded
[2022-03-31 16:12] LABS: Appearance,Urine Clear (Clear); Bilirubin,Urine Negative (Negative); Blood,Urine Negative (Negative); Color,Urine Yellow; Glucose,Urine (UA) Negative (Negative); Ketones,Urine Negative (Negative); Leukocyte Esterase,Urine Negative (Negative); Nitrite,Urine Negative (Negative); Protein,Urine Trace (Negative); Specific Gravity,Urine 1.021 (1.001-1.035)
[2022-03-31] MEDS: lisinopriL 5 MG TAB PO SCH (19:57)
[2022-04-01] MEDS: RIVAROXABAN 15 MG TAB PO SCH ×2 (07:04→16:36)
[2022-04-01 08:04] LABS: African American GFR (CKD) >90 (>60 ml/min/1.73 sqM); Anion Gap 9 mmol/L; Blood Urea Nitrogen 19 mg/dL (9-20); Calcium 7.5 mg/dL (8.4-10.2); Carbon Dioxide 25 mmol/L (22-30); Chloride 97 mmol/L (98-107); Glucose 109 mg/dL (74-99); Non-African American GFR(CKD) 89 (>60 ml/min/1.73 sqM); Potassium 3.6 mmol/L (3.5-5.1); Sodium 131 mmol/L (137-145)
[2022-04-01] MEDS: METOPROLOL TARTRATE 50 MG TAB PO SCH ×2 (08:10→19:56)
[2022-04-01] MEDS: ATORVASTATIN 40 MG TAB PO SCH (08:10)
[2022-04-01] MEDS: ASPIRIN 81 MG PO SCH (08:10)
[2022-04-01] MEDS: ALBUTEROL NEBULIZED 2.5 MG/3 ML INHALATION PRN (08:26)
--- NOTE | 2022-04-01 10:54 | P.PN ---
Subjective This is a pleasant 71-year-old male past medical history significant for coronary artery disease status post four-vessel bypass in 2017 and PCI of mid LAD in 2017, ischemic cardiomyopathy status post single-chamber ICD placement in 2017, hypertension, dyslipidemia, former smoker, COPD. He follows in the office with Dr. Sevilla. We have been asked to see in consultation for Bilateral pulmonary embolism. Patient presents to the emergency room with worsening shortness of breath with activity and exertion over the past month. CTA revealed multiple bilateral pulmonary emboli. No evidence of right heart strain. Venous Doppler revealed left popliteal vein thrombus. Echocardiogram revealed EF of 4045%, inferior apical hypokinesis normal right ventricular size. No evidence of right heart strain reported. No change in EF from previous Echo. Patient seen and examined at bedside, no acute distress. He denies any chest pain or shortness of breath. He denies any lightheadedness or dizziness. Blood pressure 92/53, heart rate 93. He is maintaining sinus mechanism on telemetry. Oxygen saturations 94% on 2 L nasal cannula PHYSICAL EXAMINATION Vitals reviewed CONSTITUTIONAL: No apparent distress. HEENT: Neck Supple. No JVD. CHEST EXAMINATION: Lungs are diminished bases bilaterally to auscultation. No chest wall tenderness is noted on palpation or with deep breathing. HEART EXAMINATION: Regular rate and rhythm. S1, S2 heard. Systolic murmur at base. ABDOMEN: Soft, nontender. Positive bowel sounds. EXTREMITIES: 2+ peripheral pulses, improved 1+ left lower extremity edema and no calf tenderness. NEUROLOGIC EXAMINATION: Patient is awake, alert and oriented x3. ASSESSMENT Bilateral pulmonary emboli, unprovoked Left lower extremity DVT Coronary artery disease status post four-vessel bypass in 2017 and PCI of mid LAD in 2017 Ischemic cardiomyopathy status post single-chamber ICD placement in 2017 Hypertension Dyslipidemia Former smoker COPD PLAN Continue anticoagulation with Xarelto Decrease lisinopril 2.5mg night secondary to hypotension Continue home aspirin, statin, and beta simran Increase activity as tolerated. Patient is stable from a cardiology perspective for discharge. Follow up with Dr. Sevilla as an outpatient Nurse practitioner note has been reviewed by physician. Signing provider agrees with the documented findings, assessment, and plan of care. Objective - Vital Signs Vital signs: Vital Signs Temp 97.8 F 04/01/22 04:00 Pulse 86 04/01/22 08:38 Resp 16 04/01/22 08:00 BP 92/53 06/30/22 08:00 Pulse Ox 94 L 04/01/22 08:27 FiO2 Intake & Output 03/31/22 04/01/22 04/01/22 18:59 06:59 18:59 Intake Total 120 Output Total 275 400 0 Balance -275 -400 120 Intake: Oral 120 Output: Urine 275 400 0 Stool 0 Urine/Stool Mix 0 Emesis 0 Oral Regurgitation 0 Other: Voiding Method External Catheter External Catheter # Voids 0 - Labs CBC & Chem 7: 03/31/22 07:07 04/01/22 07:14 Labs: Abnormal Lab Results - Last 24 Hours (Table) 03/31/22 03/31/22 04/01/22 Range/Units 07:07 15:43 07:14 Sodium 131 L (137-145) mmol/L Chloride 97 L (98-107) mmol/L Glucose 109 H (74-99) mg/dL Calcium 7.5 L (8.4-10.2) mg/dL Procalcitonin 1.01 H (0.02-0.09) ng/mL Urine Protein Trace H (Negative)
--- NOTE | 2022-04-01 12:27 | P.PN ---
Subjective Progress Note Date: 04/01/22 71-year-old male patient presented emergency department because of exertional d yspnea this been going on for at least 3-4 weeks. He took a culture abovewhere he was driving for approximately 6 hours without any interruption. He started getting short of breath over this past several weeks and his condition progressively got worse and for that reason the patient presented to the emergency department the patient was diagnosed having that CTA of the chest was multiple bilateral pulmonary emboli without any evidence of strain pattern. Ultrasound of the left lower extremity revealed a popliteal DVT. The patient was started on IV heparin. The patient is currently on 2 L of oxygen by nasal cannula. Echocardiogram showed no evidence of any RV strain. COVID 19 testing was negative. Influenza screen was negative. D-dimer was 24. The patient's hemoglobin was 11.7 with a platelet count of 215 and a white cell count of 17.3. INR was at 1.5 with a PT of 15.1 and a PTT of 22.9. The patient is known to have multiple comorbidities. Known history of CAD with previous bypass surgery and previous AICD placement. He has also peripheral arterial disease, CHF with mild impairment of LV function, COPD with an FEV1 of 41%, along with hypertension and hyperlipidemia. No history of any personal or family history of DVTs. No history of any malignancy. No recent surgeries. 04/01/2022, the patient is feeling well. No specific complaints. The patient was taken off the IV heparin and the patient was started on oral Xarelto. No chest pain. No pleurisy or hemoptysis. He still has a condom catheter in place and this needs to be removed to facilitate the patient's ability to ambulate. Meanwhile, the patient is on 2 L of O2 nasal cannula pulse ox of 94%. The blood work from today shows a BUN of 19 with a creatinine of 0.8. Sodium is at 131. No other acute abnormalities and electrolytes. No tenderness. No syncope. No other complaints. No bleeding issues. Objective - Vital Signs Vital signs: Vital Signs Temp 97.8 F 04/01/22 04:00 Pulse 86 04/01/22 08:38 Resp 16 04/01/22 08:00 BP 92/53 04/01/22 08:00 Pulse Ox 94 L 04/01/22 08:27 FiO2 Intake & Output 03/31/22 04/01/22 04/01/22 18:59 06:59 18:59 Intake Total 120 Output Total 275 400 100 Balance -275 -400 20 Intake: Oral 120 Output: Urine 275 400 100 Stool 0 Urine/Stool Mix 0 Emesis 0 Oral Regurgitation 0 Other: Voiding Method External Catheter External Catheter External Catheter # Voids 0 - Exam Gen. appearance, comfortable likely distress currently on 2 L of oxygen by nasal cannula Head exam was generally normal. There was no scleral icterus or corneal arcus. Mucous membranes were moist. Neck was supple and without jugular venous distension, thyromegaly, or carotid bruits. Carotids were easily palpable bilaterally. There was no adenopathy. Lungs diminished bilaterally otherwise clear Heart sounds regular rate and rhythm normal S1-S2 and there is no significant murmurs appreciated Abdominal exam revealed normal bowel sounds. The abdomen was soft, non-tender, and without masses, organomegaly, or appreciable enlargement of the abdominal aorta. Examination of the extremities revealed easily palpable radial, femoral and pedal pulses. There was no cyanosis, clubbing or edema. Examination of the skin revealed no evidence of significant rashes, suspicious appearing nevi or other concerning lesions. Neurologically, the patient is awake and alert and the patient does not have any focal neurological deficit. Cranial nerves are essentially intact. - Labs CBC & Chem 7: 03/31/22 07:07 04/01/22 07:14 Labs: Abnormal Lab Results - Last 24 Hours (Table) 03/31/22 03/31/22 04/01/22 Range/Units 07:07 15:43 07:14 Sodium 131 L (137-145) mmol/L Chloride 97 L (98-107) mmol/L Glucose 109 H (74-99) mg/dL Calcium 7.5 L (8.4-10.2) mg/dL Procalcitonin 1.01 H (0.02-0.09) ng/mL Urine Protein Trace H (Negative) Assessment and Plan Plan: Acute pulmonary embolism with a left lower extremity popliteal DVT. The patient was started on IV heparin and the patient was transitioned to oral anticoagulants with Xarelto. No evidence of any RV strain. The patient is hemodynamically stable on 2 L of O2 nasal cannula. The patient is clinically stable. The patient remains on 2 L of oxygen by nasal cannula. No shortness of breath. No pleurisy. Acute hypoxic respiratory failure currently on 2 L of nasal cannula. COPD with an FEV1 of 41% of predicted Coronary artery disease with previous bypass surgery Previous AICD placement Ischemic cardiomyopathy with impaired LV with an ejection fraction of around 45% Peripheral vascular disease with previous amputation of the toe Hypertension Hyperlipidemia Chronic back pain Blindness in the left eye Plan 1 Unprovoked pulmonary embolism , only risk factor identified risk factor was a 4- 6 hours. The patient undertook several weeks back. Otherwise, there is no unde rlying hypercoagulable condition, family history without any recent surgeries or malignancy. Continue anticoagulation with Xarelto Hemodynamically stable Wean down FiO2 as tolerated Continue to follow, if able to come off the oxygen, the patient should be able to get discharged home on oral Xarelto.
--- NOTE | 2022-04-01 18:47 | P.PN ---
Subjective This is a pleasant 71 years old male with past medical history of hypertension, COPD, Hyperlipidemia, Hypertension, ,Ischemic cardiomyopathy with impaired LV function preoperatively., COPD with an FEV1 of 41% of predicted based on a spirometer was done preoperatively, blindness in the left eye, peripheral vascular disease with previous amputation of the toe, chronic back pain, hs/p AICD, Patient presents because of exertional dyspnea that has been going on for months, patient states that he has 2 sit down from tiredness and dyspnea after 30 feet of walking. He denies any chest pain or coughing or hemoptysis. But is complaining of from left leg pain and swelling. No diarrhea or vomiting. No dysuria or urgency. No headache or dizziness. No weakness or numbness. No blurred vision He denies recent smoking, alcohol or illicit drugs Vitals looks stable. He has low-grade fever 99.7 on admission Labs show leukocytosis 17.3, hemoglobin 11.7. Platelet count 115 INR was 1.5, then went up to 2.1 D-dimer elevated at 24.4 The MP shown only mild hyponatremia at 123, creatinine normal 0.7. Liver enzymes not elevated. Coronal and influenza as viruses not detected EKG showed normal sinus rhythm at 96 with QTC 449, no significant ST-T changes CT of the chest showed multiple bilateral pulmonary emboli appears new compared to old exam. No evidence of right heart strain. Ultrasound showing evidence of acute left dizziness thrombosis. Patient was started on heparin drip 03/31/2022 Patient is awake alert, he is still somewhat tachypneic but no chest pain. He still complaining of from discomfort in his left leg. His heparin drip was switched Xarelto 50 mg twice daily today. Patient management, started on Ultram when necessary 04/01/2022 Patient clinically is doing well, he is even breathing quite compared to yesterday. There was concern about his weakness therefore we'll ask for PT/OT evaluation. Other than that patient remains on Xarelto. Dose of lisinopril was lowered for low blood pressure. Patient was cleared for discharge by pulmonary and cardiology team pending physical therapy evaluation given his possible generalized weakness and the fact he is been started on a blood thinner Objective - Vital Signs Vital signs: Vital Signs Temp 97.8 F 04/01/22 04:00 Pulse 86 04/01/22 08:38 Resp 16 04/01/22 08:00 BP 92/53 04/01/22 08:00 Pulse Ox 94 L 04/01/22 08:27 FiO2 Intake & Output 03/31/22 04/01/22 04/01/22 18:59 06:59 18:59 Intake Total 360 Output Total 275 400 100 Balance -275 -400 260 Intake: Oral 360 Output: Urine 275 400 100 Stool 0 Urine/Stool Mix 0 Emesis 0 Oral Regurgitation 0 Other: Voiding Method External Catheter External Catheter External Catheter # Voids 0 - Exam GENERAL: The patient is alert and oriented x3, not in any acute distress. Well developed, well nourished. HEENT: Pupils are round and equally reacting to light. EOMI. No scleral icterus. No conjunctival pallor. Normocephalic, atraumatic. No pharyngeal erythema. No thyromegaly. CARDIOVASCULAR: S1 and S2 present. No murmurs, rubs, or gallops. -PULMONARY: Chest is clear to auscultation, no wheezing or crackles. Patient so mewhat tachypneic ABDOMEN: Soft, nontender, nondistended, normoactive bowel sounds. No palpable organomegaly. MUSCULOSKELETAL: No joint swelling or deformity. EXTREMITIES: No cyanosis, clubbing, or pedal edema. NEUROLOGICAL: Gross neurological examination did not reveal any focal deficits. SKIN: No rashes. no petechiae. - Labs CBC & Chem 7: 03/31/22 07:07 04/01/22 07:14 Labs: Abnormal Lab Results - Last 24 Hours (Table) 03/31/22 03/31/22 04/01/22 Range/Units 07:07 15:43 07:14 Sodium 131 L (137-145) mmol/L Chloride 97 L (98-107) mmol/L Glucose 109 H (74-99) mg/dL Calcium 7.5 L (8.4-10.2) mg/dL Procalcitonin 1.01 H (0.02-0.09) ng/mL Urine Protein Trace H (Negative) Assessment and Plan Assessment: Acute pulmonary embolism and left lower extremity deep venous thrombosis Hypertension Hyperlipidemia COPD, no acute exacerbation History of ischemic cardiomyopathy Status post AICD Chronic back pain Blindness of left eye Peripheral vascular disease Plan: This is a pleasant 71 years old male who presents with acute DVT and PE Continue with anticoagulation, currently switched and to oral Xarelto Pulmonary consult Labs and medication were reviewed.. Continue same treatment. Continue with sy mptomatic treatment. Resume home medication. Monitor lytes and vitals. DVT and GI prophylaxis. Further recommendations as per clinical course of the patient DVT prophylaxis: Xarelto GI Prophylaxis: Pepcid PT/OT: Pending
[2022-04-02] MEDS: RIVAROXABAN 15 MG TAB PO SCH ×2 (06:59→16:44)
[2022-04-02] MEDS: ATORVASTATIN 40 MG TAB PO SCH (08:22)
[2022-04-02] MEDS: ASPIRIN 81 MG PO SCH (08:22)
[2022-04-02] MEDS: METOPROLOL TARTRATE 50 MG TAB PO SCH (08:22)
[2022-04-02 08:37] VITALS: BMI 24.7
--- NOTE | 2022-04-02 09:53 | P.PN ---
Subjective Progress Note Date: 04/02/22 71-year-old male patient presented emergency department because of exertional d yspnea this been going on for at least 3-4 weeks. He took a culture abovewhere he was driving for approximately 6 hours without any interruption. He started getting short of breath over this past several weeks and his condition progressively got worse and for that reason the patient presented to the emergency department the patient was diagnosed having that CTA of the chest was multiple bilateral pulmonary emboli without any evidence of strain pattern. Ultrasound of the left lower extremity revealed a popliteal DVT. The patient was started on IV heparin. The patient is currently on 2 L of oxygen by nasal cannula. Echocardiogram showed no evidence of any RV strain. COVID 19 testing was negative. Influenza screen was negative. D-dimer was 24. The patient's hemoglobin was 11.7 with a platelet count of 215 and a white cell count of 17.3. INR was at 1.5 with a PT of 15.1 and a PTT of 22.9. The patient is known to have multiple comorbidities. Known history of CAD with previous bypass surgery and previous AICD placement. He has also peripheral arterial disease, CHF with mild impairment of LV function, COPD with an FEV1 of 41%, along with hypertension and hyperlipidemia. No history of any personal or family history of DVTs. No history of any malignancy. No recent surgeries. 04/01/2022, the patient is feeling well. No specific complaints. The patient was taken off the IV heparin and the patient was started on oral Xarelto. No chest pain. No pleurisy or hemoptysis. He still has a condom catheter in place and this needs to be removed to facilitate the patient's ability to ambulate. Meanwhile, the patient is on 2 L of O2 nasal cannula pulse ox of 94%. The blood work from today shows a BUN of 19 with a creatinine of 0.8. Sodium is at 131. No other acute abnormalities and electrolytes. No tenderness. No syncope. No other complaints. No bleeding issues. On 04/02/2022, patient has no respiratory complaints as the patient is being treated with Xarelto. No pleurisy or hemoptysis. Nevertheless, the patient is profoundly weak. He was offered a walker. He is unable to get up and move appropriately and he may need potentially some rehabilitation. No respiratory difficulties. He is currently on room air oxygen. Pulse ox is above 90% on room air oxygen. He is being anticoagulated with Xarelto without any complications. Objective - Vital Signs Vital signs: Vital Signs Temp 98.0 F 04/02/22 03:15 Pulse 115 H 04/02/22 08:00 Resp 16 04/02/22 08:00 BP 90/56 04/02/22 08:00 Pulse Ox 94 L 04/02/22 03:15 FiO2 Intake & Output 04/01/22 04/02/22 04/02/22 18:59 06:59 18:59 Intake Total 600 Output Total 250 100 Balance 350 -100 Weight 92 kg Intake: Oral 600 Output: Urine 250 100 Stool 0 Urine/Stool Mix 0 Emesis 0 Oral Regurgitation 0 Other: Voiding Method External Catheter Urinal # Voids 0 - Exam Gen. appearance, comfortable likely distress currently on room air O2 Head exam was generally normal. There was no scleral icterus or corneal arcus. Mucous membranes were moist. Neck was supple and without jugular venous distension, thyromegaly, or carotid bruits. Carotids were easily palpable bilaterally. There was no adenopathy. Lungs diminished bilaterally otherwise clear Heart sounds regular rate and rhythm normal S1-S2 and there is no significant murmurs appreciated Abdominal exam revealed normal bowel sounds. The abdomen was soft, non-tender, and without masses, organomegaly, or appreciable enlargement of the abdominal a sesar. Examination of the extremities revealed easily palpable radial, femoral and pedal pulses. There was no cyanosis, clubbing or edema. Examination of the skin revealed no evidence of significant rashes, suspicious appearing nevi or other concerning lesions. Neurologically, the patient is awake and alert and the patient does not have any focal neurological deficit. Cranial nerves are essentially intact. - Labs CBC & Chem 7: 03/31/22 07:07 04/01/22 07:14 Assessment and Plan Plan: Acute pulmonary embolism with a left lower extremity popliteal DVT. The patient was started on IV heparin and the patient was transitioned to oral anticoagulants with Xarelto. No evidence of any RV strain. The patient is hem odynamically stable on RA 02 been adequately treated with Xarelto. No respiratory difficulties for now. Acute hypoxic respiratory failure currently on room air oxygen COPD with an FEV1 of 41% of predicted Coronary artery disease with previous bypass surgery Previous AICD placement Ischemic cardiomyopathy with impaired LV with an ejection fraction of around 45% Peripheral vascular disease with previous amputation of the toe Hypertension Hyperlipidemia Chronic back pain Blindness in the left eye Plan Unprovoked pulmonary embolism , only risk factor identified risk factor was a 4- 6 hours. The patient undertook several weeks back. Otherwise, there is no underlying hypercoagulable condition, family history without any recent surgeries or malignancy. Continue anticoagulation with Xarelto Patient is profoundly weak. The patient is working with physical therapy. Possibly some rehabilitation. Not ready to go home because of his generalized weakness.
[2022-04-02] MEDS ORDERED: SODIUM CHLORIDE 0.9% 500 ML 500 ML IV ONE (12:27)
[2022-04-02 12:41] LABS: Basophils # (A) 0.1 k/uL (0-0.2); Basophils % (A) 0 %; Eosinophils % (A) 0 %; HCT 31.3 % (39.0-53.0); HGB 10.3 gm/dL (13.0-17.5); Lymphocytes # (A) 0.6 k/uL (1.0-4.8); Lymphocytes % (A) 4 %; MCH 28.8 pg (25.0-35.0); MCV 87.2 fL (80.0-100.0); Mean Platelet Volume 8.5; Monocytes % (A) 6 %; Neutrophils # (A) 13.5 k/uL (1.3-7.7); Neutrophils % (A) 87 %; Platelet Count 124 k/uL (150-450); RBC 3.59 m/uL (4.30-5.90); RDW 14.5 % (11.5-15.5); WBC 15.5 k/uL (3.8-10.6)
--- NOTE | 2022-04-02 13:22 | P.PN ---
Subjective This is a pleasant 71-year-old male past medical history significant for coronary artery disease status post four-vessel bypass in 2017 and PCI of mid LAD in 2017, ischemic cardiomyopathy status post single-chamber ICD placement in 2017, hypertension, dyslipidemia, former smoker, COPD. He follows in the office with Dr. Sevilla. We have been asked to see in consultation for Bilateral pulmonary embolism. Patient presents to the emergency room with worsening shortness of breath with activity and exertion over the past month. CTA revealed multiple bilateral pulmonary emboli. No evidence of right heart strain. Venous Doppler revealed left popliteal vein thrombus. Echocardiogram revealed EF of 4045%, inferior apical hypokinesis normal right ventricular size. No evidence of right heart strain reported. No change in EF from previous Echo. Patient seen and examined at bedside, no acute distress. He is having generalized weakness and debility. He has been weaned to room air SpO2 98%. He denies any chest pain or shortness of breath. He denies any lightheadedness or dizziness. He is maintaining sinus mechanism on telemetry. PHYSICAL EXAMINATION Vitals reviewed CONSTITUTIONAL: No apparent distress. HEENT: Neck Supple. No JVD. CHEST EXAMINATION: Lungs are diminished bases bilaterally to auscultation. No chest wall tenderness is noted on palpation or with deep breathing. HEART EXAMINATION: Regular rate and rhythm. S1, S2 heard. Systolic murmur at base. ABDOMEN: Soft, nontender. Positive bowel sounds. EXTREMITIES: 2+ peripheral pulses, improved 1+ left lower extremity edema and no calf tenderness. NEUROLOGIC EXAMINATION: Patient is awake, alert and oriented x3. ASSESSMENT Bilateral pulmonary emboli, unprovoked Left lower extremity DVT Coronary artery disease status post four-vessel bypass in 2017 and PCI of mid LAD in 2017 Ischemic cardiomyopathy status post single-chamber ICD placement in 2017 Hypertension Dyslipidemia Former smoker COPD PLAN Continue anticoagulation with Xarelto Decrease lisinopril 2.5mg night secondary to hypotension Continue home aspirin, statin, and beta simran Increase activity as tolerated. Patient is stable from a cardiology perspective for discharge. Follow up with Dr. Sevilla as an outpatient Nurse practitioner note has been reviewed by physician. Signing provider agrees with the documented findings, assessment, and plan of care. Objective - Vital Signs Vital signs: Vital Signs Temp 98.0 F 04/02/22 03:15 Pulse 115 H 04/02/22 08:00 Resp 16 04/02/22 08:00 BP 90/56 04/02/22 08:00 Pulse Ox 94 L 04/02/22 03:15 FiO2 Intake & Output 04/01/22 04/02/22 04/02/22 18:59 06:59 18:59 Intake Total 600 358 Output Total 250 100 0 Balance 350 -100 358 Weight 92 kg Intake: Oral 600 358 Output: Urine 250 100 Stool 0 0 Urine/Stool Mix 0 Emesis 0 Oral Regurgitation 0 Other: Voiding Method External Catheter Urinal Urinal # Voids 0 - Labs CBC & Chem 7: 04/02/22 12:33 04/01/22 07:14
--- NOTE | 2022-04-02 13:47 | XR ---
EXAMINATION TYPE: XR chest 1V DATE OF EXAM: 04/02/2022 COMPARISON: 03/29/2022 HISTORY: Low blood pressure TECHNIQUE: Single frontal view of the chest is obtained. FINDINGS: There is no focal air space opacity, pleural effusion, or pneumothorax seen. The cardiac silhouette size is within normal limits. The osseous structures are intact. Arthropathy of the AC j oints. Postsurgical change. Cardiac device noted. Heart size normal. No overt failure. IMPRESSION: No acute process.
--- NOTE | 2022-04-02 17:52 | P.PN ---
Subjective This is a pleasant 71 years old male with past medical history of hypertension, COPD, Hyperlipidemia, Hypertension, ,Ischemic cardiomyopathy with impaired LV function preoperatively., COPD with an FEV1 of 41% of predicted based on a spirometer was done preoperatively, blindness in the left eye, peripheral vascular disease with previous amputation of the toe, chronic back pain, hs/p AICD, Patient presents because of exertional dyspnea that has been going on for months, patient states that he has 2 sit down from tiredness and dyspnea after 30 feet of walking. He denies any chest pain or coughing or hemoptysis. But is complaining of from left leg pain and swelling. No diarrhea or vomiting. No dysuria or urgency. No headache or dizziness. No weakness or numbness. No blurred vision He denies recent smoking, alcohol or illicit drugs Vitals looks stable. He has low-grade fever 99.7 on admission Labs show leukocytosis 17.3, hemoglobin 11.7. Platelet count 115 INR was 1.5, then went up to 2.1 D-dimer elevated at 24.4 The MP shown only mild hyponatremia at 123, creatinine normal 0.7. Liver enzymes not elevated. Coronal and influenza as viruses not detected EKG showed normal sinus rhythm at 96 with QTC 449, no significant ST-T changes CT of the chest showed multiple bilateral pulmonary emboli appears new compared to old exam. No evidence of right heart strain. Ultrasound showing evidence of acute left dizziness thrombosis. Patient was started on heparin drip 03/31/2022 Patient is awake alert, he is still somewhat tachypneic but no chest pain. He still complaining of from discomfort in his left leg. His heparin drip was switched Xarelto 50 mg twice daily today. Patient management, started on Ultram when necessary 04/01/2022 Patient clinically is doing well, he is even breathing quite compared to yesterday. There was concern about his weakness therefore we'll ask for PT/OT evaluation. Other than that patient remains on Xarelto. Dose of lisinopril was lowered for low blood pressure. Patient was cleared for discharge by pulmonary and cardiology team pending physical therapy evaluation given his possible generalized weakness and the fact he is been started on a blood thinner 04/02/2022 Patient awake alert and denying any pain or any other complaint. However he is very weak. Blood pressure today dropped 80/50 and received a bolus of normal saline and improved 98/59. He has leukocytosis of 15,000, also his pro-calcitonin was elevated 1.02 days ago. He had low-grade fever 99.7 on admission reviewed. Therefore we repeated his chest x-ray which shows no pneumonia. Also we will repeat urine analysis. Patient does not complain of from any abdominal pain and he does not have any rash or ulcers. However we will repeat labs in the morning we will keep monitoring. In the meantime he kept on Xarelto and home dose of aspirin. We'll lower the dose of metoprolol 50 down to 25, earlier beam house inspector has lowered his lisinopril dose 5 down to 2.5. Repeat labs in the morning and repeat urinalysis. Objective - Vital Signs Vital signs: Vital Signs Temp 98.0 F 04/02/22 03:15 Pulse 77 04/02/22 16:00 Resp 16 04/02/22 16:00 BP 98/59 04/02/22 16:00 Pulse Ox 95 04/02/22 16:00 FiO2 Intake & Output 04/01/22 04/02/22 04/02/22 18:59 06:59 18:59 Intake Total 600 858 Output Total 250 100 250 Balance 350 -100 608 Weight 92 kg Intake: Intake, IV Titration 500 Amount Sodium Chloride 0.9% 500 500 ml 500 ml @ 999 mls/hr IV .Q31M ONE Rx#:[id number] Oral 600 358 Output: Urine 250 100 250 Stool 0 0 Urine/Stool Mix 0 Emesis 0 Oral Regurgitation 0 Other: Voiding Method External Catheter Urinal Urinal # Voids 0 - Exam GENERAL: The patient is alert and oriented x3, not in any acute distress. Well developed, well nourished. HEENT: Pupils are round and equally reacting to light. EOMI. No scleral icterus. No conjunctival pallor. Normocephalic, atraumatic. No pharyngeal erythema. No thyromegaly. CARDIOVASCULAR: S1 and S2 present. No murmurs, rubs, or gallops. -PULMONARY: Chest is clear to auscultation, no wheezing or crackles. Patient somewhat tachypneic ABDOMEN: Soft, nontender, nondistended, normoactive bowel sounds. No palpable organomegaly. MUSCULOSKELETAL: No joint swelling or deformity. EXTREMITIES: No cyanosis, clubbing, or pedal edema. NEUROLOGICAL: Gross neurological examination did not reveal any focal deficits. SKIN: No rashes. no petechiae. - Labs CBC & Chem 7: 04/02/22 12:33 04/01/22 07:14 Labs: Abnormal Lab Results - Last 24 Hours (Table) 04/02/22 Range/Units 12:33 WBC 15.5 H (3.8-10.6) k/uL RBC 3.59 L (4.30-5.90) m/uL Hgb 10.3 L (13.0-17.5) gm/dL Hct 31.3 L (39.0-53.0) % Plt Count 124 L (150-450) k/uL Neutrophils # 13.5 H (1.3-7.7) k/uL Lymphocytes # 0.6 L (1.0-4.8) k/uL Assessment and Plan Assessment: Acute pulmonary embolism and left lower extremity deep venous thrombosis Leukocytosis Hypertension Hyperlipidemia COPD, no acute exacerbation History of ischemic cardiomyopathy Status post AICD Chronic back pain Blindness of left eye Peripheral vascular disease Plan: This is a pleasant 71 years old male who presents with acute DVT and PE Continue with anticoagulation, currently switched and to oral Xarelto Pulmonary consult and cardiology consult Repeat urinalysis and repeat labs in the morning. Labs and medication were reviewed.. Continue same treatment. Continue with symptomatic treatment. Resume home medication. Monitor lytes and vitals. DVT and GI prophylaxis. Further recommendations as per clinical course of the kelvin ent DVT prophylaxis: Xarelto GI Prophylaxis: Pepcid PT/OT: Subacute rehab recommended and patient agrees, discussed with social work
[2022-04-02 19:13] LABS: Appearance,Urine Cloudy (Clear); Bilirubin,Urine Negative (Negative); Blood,Urine Negative (Negative); Color,Urine Yellow; Glucose,Urine (UA) Negative (Negative); Ketones,Urine Negative (Negative); Leukocyte Esterase,Urine Negative (Negative); Mucus,Urine Rare /hpf; Nitrite,Urine Negative (Negative); PH, Urine 5.5 (5.0-8.0); Protein,Urine 1+ (Negative); RBC,Urine 1 /hpf (0-5); Specific Gravity,Urine 1.018 (1.001-1.035); WBC,Urine 3 /hpf (0-5)
[2022-04-02] MEDS: METOPROLOL TARTRATE 25 MG TAB PO SCH (21:11)
[2022-04-03] MEDS: RIVAROXABAN 15 MG TAB PO SCH ×2 (07:06→16:05)
[2022-04-03 07:38] LABS: Basophils # (A) 0.1 k/uL (0-0.2); Basophils % (A) 1 %; Eosinophils % (A) 0 %; HCT 30.6 % (39.0-53.0); HGB 10.2 gm/dL (13.0-17.5); Lymphocytes # (A) 0.5 k/uL (1.0-4.8); Lymphocytes % (A) 3 %; MCH 28.9 pg (25.0-35.0); MCHC 33.3 g/dL (31.0-37.0); Mean Platelet Volume 8.4; Monocytes # (A) 1.3 k/uL (0-1.0); Monocytes % (A) 9 %; Neutrophils # (A) 12.9 k/uL (1.3-7.7); Neutrophils % (A) 85 %; Platelet Count 117 k/uL (150-450); RBC 3.52 m/uL (4.30-5.90); RDW 14.6 % (11.5-15.5); WBC 15.1 k/uL (3.8-10.6)
[2022-04-03 07:53] LABS: ALT 78 U/L (4-49); AST 144 U/L (17-59); African American GFR (CKD) >90 (>60 ml/min/1.73 sqM); Albumin 2.4 g/dL (3.5-5.0); Alkaline Phosphatase 123 U/L (38-126); Anion Gap 4 mmol/L; Bilirubin, Delta 0.3 mg/dL (0.0-0.2); Bilirubin,Unconjugated 0.7 mg/dL (0.0-1.1); Blood Urea Nitrogen 20 mg/dL (9-20); Calcium 7.5 mg/dL (8.4-10.2); Carbon Dioxide 27 mmol/L (22-30); Chloride 97 mmol/L (98-107); Glucose 120 mg/dL (74-99); Magnesium 1.8 mg/dL (1.6-2.3); Non-African American GFR(CKD) >90 (>60 ml/min/1.73 sqM); Sodium 128 mmol/L (137-145); Total Protein 5.7 g/dL (6.3-8.2)
[2022-04-03] MEDS: ASPIRIN 81 MG PO SCH (08:21)
[2022-04-03] MEDS: METOPROLOL TARTRATE 25 MG TAB PO SCH ×2 (08:21→21:18)
[2022-04-03] MEDS: ATORVASTATIN 40 MG TAB PO SCH (08:21)
--- NOTE | 2022-04-03 08:53 | P.PN ---
Subjective Progress Note Date: 04/03/22 71-year-old male patient presented emergency department because of exertional d yspnea this been going on for at least 3-4 weeks. He took a culture abovewhere he was driving for approximately 6 hours without any interruption. He started getting short of breath over this past several weeks and his condition progressively got worse and for that reason the patient presented to the emergency department the patient was diagnosed having that CTA of the chest was multiple bilateral pulmonary emboli without any evidence of strain pattern. Ultrasound of the left lower extremity revealed a popliteal DVT. The patient was started on IV heparin. The patient is currently on 2 L of oxygen by nasal cannula. Echocardiogram showed no evidence of any RV strain. COVID 19 testing was negative. Influenza screen was negative. D-dimer was 24. The patient's hemoglobin was 11.7 with a platelet count of 215 and a white cell count of 17.3. INR was at 1.5 with a PT of 15.1 and a PTT of 22.9. The patient is known to have multiple comorbidities. Known history of CAD with previous bypass surgery and previous AICD placement. He has also peripheral arterial disease, CHF with mild impairment of LV function, COPD with an FEV1 of 41%, along with hypertension and hyperlipidemia. No history of any personal or family history of DVTs. No history of any malignancy. No recent surgeries. 04/01/2022, the patient is feeling well. No specific complaints. The patient was taken off the IV heparin and the patient was started on oral Xarelto. No chest pain. No pleurisy or hemoptysis. He still has a condom catheter in place and this needs to be removed to facilitate the patient's ability to ambulate. Meanwhile, the patient is on 2 L of O2 nasal cannula pulse ox of 94%. The blood work from today shows a BUN of 19 with a creatinine of 0.8. Sodium is at 131. No other acute abnormalities and electrolytes. No tenderness. No syncope. No other complaints. No bleeding issues. On 04/02/2022, patient has no respiratory complaints as the patient is being treated with Xarelto. No pleurisy or hemoptysis. Nevertheless, the patient is profoundly weak. He was offered a walker. He is unable to get up and move appropriately and he may need potentially some rehabilitation. No respiratory difficulties. He is currently on room air oxygen. Pulse ox is above 90% on room air oxygen. He is being anticoagulated with Xarelto without any complications. David 2 2021, no new complaints and the patient remains on anticoagulation with Xarelto. Weakness is gradually improving and the patient is going to medical [place] for further rehabilitation. He is on room air oxygen. No cough. No sputum production. No chest tightness no wheezing. No other active issues for now. Objective - Vital Signs Vital signs: Vital Signs Temp 98.2 F 04/03/22 03:50 Pulse 94 04/03/22 08:00 Resp 16 04/03/22 08:00 BP 94/50 04/03/22 08:00 Pulse Ox 93 L 04/03/22 08:00 FiO2 Intake & Output 04/02/22 04/03/22 04/03/22 18:59 06:59 18:59 Intake Total 858 Output Total 250 550 Balance 608 -550 Weight 92 kg Intake: Intake, IV Titration 500 Amount Sodium Chloride 0.9% 500 500 ml 500 ml @ 999 mls/hr IV .Q31M ONE Rx#:[id number] Oral 358 Output: Urine 250 550 Stool 0 Other: Voiding Method Urinal Toilet Urinal # Voids 1 # Bowel Movements 1 - Exam Gen. appearance, comfortable likely distress currently on room air O2 Head exam was generally normal. There was no scleral icterus or corneal arcus. Mucous membranes were moist. Neck was supple and without jugular venous distension, thyromegaly, or carotid bruits. Carotids were easily palpable bilaterally. There was no adenopathy. Lungs diminished bilaterally otherwise clear Heart sounds regular rate and rhythm normal S1-S2 and there is no significant murmurs appreciated Abdominal exam revealed normal bowel sounds. The abdomen was soft, non-tender, and without masses, organomegaly, or appreciable enlargement of the abdominal aorta. Examination of the extremities revealed easily palpable radial, femoral and pedal pulses. There was no cyanosis, clubbing or edema. Examination of the skin revealed no evidence of significant rashes, suspicious appearing nevi or other concerning lesions. Neurologically, the patient is awake and alert and the patient does not have any focal neurological deficit. Cranial nerves are essentially intact. - Labs CBC & Chem 7: 04/03/22 07:24 04/03/22 07:24 Labs: Abnormal Lab Results - Last 24 Hours (Table) 07/10/2404/02/22 04/03/22 Range/Units 12:33 18:36 07:24 WBC 15.5 H 15.1 H (3.8-10.6) k/uL RBC 3.59 L 3.52 L (4.30-5.90) m/uL Hgb 10.3 L 10.2 L (13.0-17.5) gm/dL Hct 31.3 L 30.6 L (39.0-53.0) % Plt Count 124 L 117 L (150-450) k/uL Neutrophils # 13.5 H 12.9 H (1.3-7.7) k/uL Lymphocytes # 0.6 L 0.5 L (1.0-4.8) k/uL Monocytes # 1.3 H (0-1.0) k/uL Sodium (137-145) mmol/L Chloride (98-107) mmol/L Glucose (74-99) mg/dL Calcium (8.4-10.2) mg/dL Delta Bilirubin (0.0-0.2) mg/dL AST (17-59) U/L ALT (4-49) U/L Total Protein (6.3-8.2) g/dL Albumin (3.5-5.0) g/dL Urine Protein 1+ H (Negative) Urine Mucus Rare H (None) /hpf 04/03/22 Range/Units 07:24 WBC (3.8-10.6) k/uL RBC (4.30-5.90) m/uL Hgb (13.0-17.5) gm/dL Hct (39.0-53.0) % Plt Count (150-450) k/uL Neutrophils # (1.3-7.7) k/uL Lymphocytes # (1.0-4.8) k/uL Monocytes # (0-1.0) k/uL Sodium 128 L (137-145) mmol/L Chloride 97 L (98-107) mmol/L Glucose 120 H (74-99) mg/dL Calcium 7.5 L (8.4-10.2) mg/dL Delta Bilirubin 0.3 H (0.0-0.2) mg/dL AST 144 H (17-59) U/L ALT 78 H (4-49) U/L Total Protein 5.7 L (6.3-8.2) g/dL Albumin 2.4 L (3.5-5.0) g/dL Urine Protein (Negative) Urine Mucus (None) /hpf Assessment and Plan Plan: Acute pulmonary embolism with a left lower extremity popliteal DVT. The patient was started on IV heparin and the patient was transitioned to oral anticoagulants with Xarelto. No evidence of any RV strain. The patient is hem odynamically stable on RA 02 been adequately treated with Xarelto. No respiratory difficulties for now. Acute hypoxic respiratory failure currently on room air oxygen COPD with an FEV1 of 41% of predicted Coronary artery disease with previous bypass surgery Previous AICD placement Ischemic cardiomyopathy with impaired LV with an ejection fraction of around 45% Peripheral vascular disease with previous amputation of the toe Hypertension Hyperlipidemia Chronic back pain Blindness in the left eye Debility and motor weakness Mild hyponatremia with a sodium level of 128 Plan Unprovoked pulmonary embolism , only risk factor identified risk factor was a 4- 6 hours. The patient undertook several weeks back. Otherwise, there is no underlying hypercoagulable condition, family history without any recent surgeries or malignancy. Continue anticoagulation with Xarelto Patient is profoundly weak. The patient is working with physical therapy. Monitor the sodium level Patient is looking to go to [facility] for further rehabilitation. No active pulmonary that issue at this point in time.
[2022-04-03] MEDS: IOPAMIDOL CONTRAST (ORAL USE) VIAL PO PRN ×2 (09:34→10:17)
--- NOTE | 2022-04-03 12:14 | CT ---
EXAMINATION TYPE: CT abdomen pelvis wo con CT DLP: 1399.4 mGycm, Automated exposure control for dose reduction was used. DATE OF EXAM: 04/03/2022 11:27 AM COMPARISON: CT lumbar spine same day. CLINICAL INDICATION:Male, 71 years old with history of hypotension and leukocytosis; Hypotension and leukocytosis, trouble breathing, TECHNIQUE: Standard CT of the abdomen and pelvis without IV or oral contrast. Lack of IV or oral co ntrast limits evaluation of solid and hollow organ viscera. Coronal and sagittal reformats were perfo rmed. FINDINGS: LOWER CHEST: Unremarkable ABDOMEN Motion artifact limits evaluation. LIVER: Hepatic lobe cyst. GALLBLADDER AND BILE DUCTS: Layering higher density suggesting sludge. The gallbladder is nondistende d. PANCREAS: Unremarkable. SPLEEN: Small splenule is present. Spleen is mildly enlarged measuring up to 15.5 cm. ADRENAL GLANDS: Unremarkable. KIDNEYS AND URETERS: No evidence of hydronephrosis or renal calculus. The ureters are unremarkable. PELVIS BLADDER: Unremarkable REPRODUCTIVE: Unremarkable. ABDOMEN & PELVIS STOMACH AND BOWEL: Scattered diverticula are noted throughout the colon. No evidence of bowel obstruc tion. PERITONEUM: No evidence of pneumoperitoneum. Trace fluid within the pelvis VASCULATURE: No evidence of aortic aneurysm. Large severe coronary atherosclerosis. MUSCULOSKELETAL: No acute osseous abnormalities. Multilevel disc degeneration changes are seen throug hout the spine. LYMPH NODES: No gross evidence for lymphadenopathy. SOFT TISSUE/ABDOMINAL WALL: Unremarkable IMPRESSION: 1. No evidence for acute abdominal process to explain the patient's symptomology. 2. Biliary sludge. 3. Colonic diverticulosis. 4. Mild splenomegaly.
--- NOTE | 2022-04-03 12:19 | CT ---
EXAMINATION TYPE: CT lumbar spine wo con CT DLP: Included in abd/pel dose mGycm, Automated exposure control for dose reduction was used. DATE OF EXAM: 04/03/2022 11:27 AM COMPARISON: CT abdomen pelvis same day. CLINICAL INDICATION:Male, 71 years old with history of low back pain; TECHNIQUE: Multiple axial images were obtained from the midportion of T11 through the sacroiliac eddi nts. Soft tissue and bone windows in coronal and sagittal planes were obtained and reviewed. FINDINGS: Alignment: There are 5 lumbar type vertebral bodies within normal alignment. Bone: No evidence of fracture is identified. Extensive multilevel disc degeneration changes with gra de 1 anterolisthesis of L3 on L4. No pars interarticularis defects. Discs: T12-L1: Disc bulge with with facet joint arthropathy results in mild spinal canal stenosis. There is moderate bilateral neural foraminal stenosis. L1-L2: Disc bulge with facet joint arthropathy results in moderate spinal canal stenosis. There is mo derate to severe left and moderate right neural foraminal stenosis. L2-L3: Disc bulge with facet joint arthropathy results in moderate spinal canal stenosis. There is mi ld bilateral neural foraminal stenosis. L3-L4: Disc bulge with facet joint arthropathy results in moderate spinal canal stenosis. There is se elena bilateral neural foraminal stenosis. L4-L5: Disc bulge with facet joint arthropathy results in moderate to severe spinal canal stenosis. There is severe bilateral neural foraminal stenosis. L5-S1: Disc bulge with facet joint arthropathy results in no significant spinal canal stenosis. There is severe bilateral neural foraminal stenosis. IMPRESSION: 1. Severe multilevel disc degeneration changes throughout the spine with varying degrees of neural f oraminal and spinal canal stenosis. Findings are worse at L4-L5 with moderate to severe spinal canal stenosis and L3-L4 and L4-L5 with severe bilateral neural foraminal stenosis. 2. No evidence for acute fracture.
--- NOTE | 2022-04-03 14:58 | US ---
EXAMINATION TYPE: US liver DATE OF EXAM: 04/03/2022 COMPARISON: CT abdomen pelvis same day. CLINICAL HISTORY: elevated liver enzymes EXAM MEASUREMENTS: Liver Length: 16.4 cm Gallbladder Wall: Not visualized well cm CBD: 0.72 cm Right Kidney: 12.3 x 5.9 x 5.9 cm Pancreas: wnl Liver: Heterogeneous appearing Gallbladder: Limited due to patient being unable to roll on side and bowel gas. Intercostal and subc ostal imaging was attempted. Limited evaluation of the gallbladder secondary to patient positioning. Common duct at the upper limits of normal measuring 7 mm. Evidence for sonographic Pratt's sign: No CBD: wnl Right Kidney: wnl IMPRESSION: 1. Limited evaluation of the gallbladder secondary to patient positioning. 2. Heterogenous appearance to the liver parenchyma could represent hepatocellular disease.
--- NOTE | 2022-04-03 16:25 | P.PN ---
Subjective This is a pleasant 71 years old male with past medical history of hypertension, COPD, Hyperlipidemia, Hypertension, ,Ischemic cardiomyopathy with impaired LV function preoperatively., COPD with an FEV1 of 41% of predicted based on a spirometer was done preoperatively, blindness in the left eye, peripheral vascular disease with previous amputation of the toe, chronic back pain, hs/p AICD, Patient presents because of exertional dyspnea that has been going on for months, patient states that he has 2 sit down from tiredness and dyspnea after 30 feet of walking. He denies any chest pain or coughing or hemoptysis. But is complaining of from left leg pain and swelling. No diarrhea or vomiting. No dysuria or urgency. No headache or dizziness. No weakness or numbness. No blurred vision He denies recent smoking, alcohol or illicit drugs Vitals looks stable. He has low-grade fever 99.7 on admission Labs show leukocytosis 17.3, hemoglobin 11.7. Platelet count 115 INR was 1.5, then went up to 2.1 D-dimer elevated at 24.4 The MP shown only mild hyponatremia at 123, creatinine normal 0.7. Liver enzymes not elevated. Coronal and influenza as viruses not detected EKG showed normal sinus rhythm at 96 with QTC 449, no significant ST-T changes CT of the chest showed multiple bilateral pulmonary emboli appears new compared to old exam. No evidence of right heart strain. Ultrasound showing evidence of acute left dizziness thrombosis. Patient was started on heparin drip 03/31/2022 Patient is awake alert, he is still somewhat tachypneic but no chest pain. He still complaining of from discomfort in his left leg. His heparin drip was switched Xarelto 50 mg twice daily today. Patient management, started on Ultram when necessary 04/01/2022 Patient clinically is doing well, he is even breathing quite compared to yesterday. There was concern about his weakness therefore we'll ask for PT/OT evaluation. Other than that patient remains on Xarelto. Dose of lisinopril was lowered for low blood pressure. Patient was cleared for discharge by pulmonary and cardiology team pending physical therapy evaluation given his possible generalized weakness and the fact he is been started on a blood thinner 04/02/2022 Patient awake alert and denying any pain or any other complaint. However he is very weak. Blood pressure today dropped 80/50 and received a bolus of normal saline and improved 98/59. He has leukocytosis of 15,000, also his pro-calcitonin was elevated 1.02 days ago. He had low-grade fever 99.7 on admission reviewed. Therefore we repeated his chest x-ray which shows no pneumonia. Also we will repeat urine analysis. Patient does not complain of from any abdominal pain and he does not have any rash or ulcers. However we will repeat labs in the morning we will keep monitoring. In the meantime he kept on Xarelto and home dose of aspirin. 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 Repeat labs in the morning and repeat urinalysis. 04/03/2022 Patient clinically looks the same, is somewhat tachypneic and generally weak but no chest pain, no breathing difficulty, no diarrhea or rash, no abdominal pain. He was complaining of from some low back pain since admission however he able to move around slowly. Blood pressure is still low normal lower the dose of metoprolol 25 mg and lisinopril down to 2.5 mg. No fever actually is very mildly hypothermic on 2 occasions. Labs shows persistent leukocytosis with no worsening, sodium slightly went down 128. On January calcitonin is not worsened is 1.0. We did lumbar CT which shows severe spinal stenosis and degenerative disc disease. While CT of the abdomen and pelvis with oral contrast only felt to show any source of infection except for some sludge in the liver but liver ultrasound is negative. Liver enzymes only mildly elevated but be due to a drug effect would just need to be monitored reviewed Patient remains on therapeutic dose of Xarelto with plan for him is placement to go to [facility] for rehab which is pending for now Review of systems CONSTITUTIONAL: No fever, no malaise, no fatigue. HEENT: No recent visual problems or hearing problems. Denied any sore throat. CARDIOVASCULAR: No orthopnea, PND, no palpitations, no syncope. PULMONARY: No shortness of breath, no cough, no hemoptysis. GASTROINTESTINAL: No diarrhea, no nausea, no vomiting, no abdominal pain. Normo active bowel sounds. NEUROLOGICAL: No headaches, no weakness, no numbness. Active Medications Generic Name Dose Route Start Last Admin Trade Name Freq PRN Reason Stop Dose Admin Albuterol Sulfate 2.5 mg 03/29/22 23:27 04/01/22 08:26 Albuterol Nebulized 2.5 Mg/3 Ml INHALATION 2.5 mg RT-QID PRN Administration Shortness Of Breath Aspirin 81 mg 03/30/22 09:00 04/03/22 08:21 Aspirin 81 Mg PO 81 mg DAILY MICHAELA Administration Atorvastatin Calcium 40 mg 03/30/22 09:00 04/03/22 08:21 Atorvastatin 40 Mg Tab PO 40 mg DAILY MICHAELA Administration Lisinopril 2.5 mg 04/01/22 21:00 04/02/22 21:11 Lisinopril 2.5 Mg Tab PO 2.5 mg HS MICHAELA Administration Metoprolol Tartrate 25 mg 04/02/22 21:00 04/03/22 08:21 Metoprolol Tartrate 25 Mg Tab PO 25 mg BID MICHAELA Administration Naloxone HCl 0.2 mg 03/29/22 23:25 Naloxone 0.4 Mg/Ml 1 Ml Vial IV Q2M PRN Opioid Reversal Rivaroxaban 15 mg 03/31/22 08:15 04/03/22 16:05 Rivaroxaban 15 Mg Tab PO 15 mg BID-W/MEALS MICHAELA Administration Protocol Tramadol HCl 25 mg 03/31/22 12:54 Tramadol 50 Mg Tab PO QID PRN Pain Objective - Vital Signs Vital signs: Vital Signs Temp 98.2 F 04/03/22 03:50 Pulse 83 04/03/22 12:00 Resp 16 04/03/22 16:00 BP 98/60 04/03/22 16:00 Pulse Ox 97 04/03/22 16:00 FiO2 Intake & Output 04/02/22 04/03/22 04/03/22 18:59 06:59 18:59 Intake Total 858 358 Output Total 250 550 150 Balance 608 -550 208 Weight 92 kg Intake: Intake, IV Titration 500 Amount Sodium Chloride 0.9% 500 500 ml 500 ml @ 999 mls/hr IV .Q31M ONE Rx#:[id number] Oral 358 358 Output: Urine 250 550 150 Stool 0 0 Other: Voiding Method Urinal Toilet Toilet Urinal Urinal # Voids 1 # Bowel Movements 1 - Exam GENERAL: The patient is alert and oriented x3, not in any acute distress. Well developed, well nourished. HEENT: Pupils are round and equally reacting to light. EOMI. No scleral icterus. No conjunctival pallor. Normocephalic, atraumatic. No pharyngeal erythema. No thyromegaly. CARDIOVASCULAR: S1 and S2 present. No murmurs, rubs, or gallops. -PULMONARY: Chest is clear to auscultation, no wheezing or crackles. Patient somewhat tachypneic ABDOMEN: Soft, nontender, nondistended, normoactive bowel sounds. No palpable organomegaly. MUSCULOSKELETAL: No joint swelling or deformity. EXTREMITIES: No cyanosis, clubbing, or pedal edema. NEUROLOGICAL: Gross neurological examination did not reveal any focal deficits. SKIN: No rashes. no petechiae. - Labs CBC & Chem 7: 04/03/22 07:24 04/03/22 07:24 Labs: Abnormal Lab Results - Last 24 Hours (Table) 04/02/22 04/03/22 04/03/22 Range/Units 18:36 07:24 07:24 WBC 15.1 H (3.8-10.6) k/uL RBC 3.52 L (4.30-5.90) m/uL Hgb 10.2 L (13.0-17.5) gm/dL Hct 30.6 L (39.0-53.0) % Plt Count 117 L (150-450) k/uL Neutrophils # 12.9 H (1.3-7.7) k/uL Lymphocytes # 0.5 L (1.0-4.8) k/uL Monocytes # 1.3 H (0-1.0) k/uL Sodium (137-145) mmol/L Chloride (98-107) mmol/L Glucose (74-99) mg/dL Calcium (8.4-10.2) mg/dL Delta Bilirubin (0.0-0.2) mg/dL AST (17-59) U/L ALT (4-49) U/L Total Protein (6.3-8.2) g/dL Albumin (3.5-5.0) g/dL Procalcitonin 1.03 H (0.02-0.09) ng/mL Urine Protein 1+ H (Negative) Urine Mucus Rare H (None) /hpf 04/03/22 Range/Units 07:24 WBC (3.8-10.6) k/uL RBC (4.30-5.90) m/uL Hgb (13.0-17.5) gm/dL Hct (39.0-53.0) % Plt Count (150-450) k/uL Neutrophils # (1.3-7.7) k/uL Lymphocytes # (1.0-4.8) k/uL Monocytes # (0-1.0) k/uL Sodium 128 L (137-145) mmol/L Chloride 97 L (98-107) mmol/L Glucose 120 H (74-99) mg/dL Calcium 7.5 L (8.4-10.2) mg/dL Delta Bilirubin 0.3 H (0.0-0.2) mg/dL AST 144 H (17-59) U/L ALT 78 H (4-49) U/L Total Protein 5.7 L (6.3-8.2) g/dL Albumin 2.4 L (3.5-5.0) g/dL Procalcitonin (0.02-0.09) ng/mL Urine Protein (Negative) Urine Mucus (None) /hpf Assessment and Plan Assessment: Acute pulmonary embolism and left lower extremity deep venous thrombosis Leukocytosis, with no evidence of infection so far, no fever. Hypertension Hyperlipidemia COPD, no acute exacerbation History of ischemic cardiomyopathy Status post AICD Chronic back pain Blindness of left eye Peripheral vascular disease Plan: This is a pleasant 71 years old male who presents with acute DVT and PE Continue with anticoagulation, currently switched and to oral Xarelto, therapeutic dose Pulmonary consult and cardiology consult Repeat urinalysis and repeat labs in the morning. Labs and medication were reviewed.. Continue same treatment. Continue with symptomatic treatment. Resume home medication. Monitor lytes and vitals. DVT and GI prophylaxis. Further recommendations as per clinical course of the patient DVT prophylaxis: Xarelto GI Prophylaxis: Pepcid PT/OT: Subacute rehab recommended and patient agrees, discussed with social work. Patient medically stable pending placement
[2022-04-04] MEDS: RIVAROXABAN 15 MG TAB PO SCH ×2 (06:56→17:45)
[2022-04-04 07:48] LABS: Basophils % (A) 0 %; Eosinophils % (A) 0 %; HCT 30.9 % (39.0-53.0); HGB 10.1 gm/dL (13.0-17.5); Lymphocytes # (A) 0.6 k/uL (1.0-4.8); Lymphocytes % (A) 4 %; MCH 28.6 pg (25.0-35.0); MCHC 32.8 g/dL (31.0-37.0); MCV 87.3 fL (80.0-100.0); Mean Platelet Volume 7.9; Monocytes # (A) 0.7 k/uL (0-1.0); Monocytes % (A) 5 %; Neutrophils # (A) 13.2 k/uL (1.3-7.7); Neutrophils % (A) 89 %; Platelet Count 134 k/uL (150-450); RBC 3.54 m/uL (4.30-5.90); RDW 14.9 % (11.5-15.5); WBC 14.8 k/uL (3.8-10.6)
[2022-04-04 08:01] LABS: ALT 68 U/L (4-49); AST 110 U/L (17-59); African American GFR (CKD) >90 (>60 ml/min/1.73 sqM); Albumin 2.5 g/dL (3.5-5.0); Alkaline Phosphatase 136 U/L (38-126); Anion Gap 8 mmol/L; Bilirubin, Delta 0.3 mg/dL (0.0-0.2); Bilirubin,Unconjugated 0.7 mg/dL (0.0-1.1); Blood Urea Nitrogen 17 mg/dL (9-20); Calcium 7.5 mg/dL (8.4-10.2); Carbon Dioxide 24 mmol/L (22-30); Chloride 96 mmol/L (98-107); Glucose 123 mg/dL (74-99); Magnesium 1.8 mg/dL (1.6-2.3); Non-African American GFR(CKD) >90 (>60 ml/min/1.73 sqM); Potassium 4.2 mmol/L (3.5-5.1); Sodium 128 mmol/L (137-145); Total Protein 5.9 g/dL (6.3-8.2)
[2022-04-04] MEDS: METOPROLOL TARTRATE 25 MG TAB PO SCH ×2 (08:07→20:25)
[2022-04-04] MEDS: ASPIRIN 81 MG PO SCH (08:07)
[2022-04-04] MEDS: ATORVASTATIN 40 MG TAB PO SCH (08:07)
--- NOTE | 2022-04-04 10:46 | P.PN ---
Subjective This is a pleasant 71 years old male with past medical history of hypertension, COPD, Hyperlipidemia, Hypertension, ,Ischemic cardiomyopathy with impaired LV function preoperatively., COPD with an FEV1 of 41% of predicted based on a spirometer was done preoperatively, blindness in the left eye, peripheral vascular disease with previous amputation of the toe, chronic back pain, hs/p AICD, Patient presents because of exertional dyspnea that has been going on for months, patient states that he has 2 sit down from tiredness and dyspnea after 30 feet of walking. He denies any chest pain or coughing or hemoptysis. But is complaining of from left leg pain and swelling. No diarrhea or vomiting. No dysuria or urgency. No headache or dizziness. No weakness or numbness. No blurred vision He denies recent smoking, alcohol or illicit drugs Vitals looks stable. He has low-grade fever 99.7 on admission Labs show leukocytosis 17.3, hemoglobin 11.7. Platelet count 115 INR was 1.5, then went up to 2.1 D-dimer elevated at 24.4 The MP shown only mild hyponatremia at 123, creatinine normal 0.7. Liver enzymes not elevated. Coronal and influenza as viruses not detected EKG showed normal sinus rhythm at 96 with QTC 449, no significant ST-T changes CT of the chest showed multiple bilateral pulmonary emboli appears new compared to old exam. No evidence of right heart strain. Ultrasound showing evidence of acute left dizziness thrombosis. Patient was started on heparin drip 03/31/2022 Patient is awake alert, he is still somewhat tachypneic but no chest pain. He still complaining of from discomfort in his left leg. His heparin drip was switched Xarelto 50 mg twice daily today. Patient management, started on Ultram when necessary 04/01/2022 Patient clinically is doing well, he is even breathing quite compared to yesterday. There was concern about his weakness therefore we'll ask for PT/OT evaluation. Other than that patient remains on Xarelto. Dose of lisinopril was lowered for low blood pressure. Patient was cleared for discharge by pulmonary and cardiology team pending physical therapy evaluation given his possible generalized weakness and the fact he is been started on a blood thinner 04/02/2022 Patient awake alert and denying any pain or any other complaint. However he is very weak. Blood pressure today dropped 80/50 and received a bolus of normal saline and improved 98/59. He has leukocytosis of 15,000, also his pro-calcitonin was elevated 1.02 days ago. He had low-grade fever 99.7 on admission reviewed. Therefore we repeated his chest x-ray which shows no pneumonia. Also we will repeat urine analysis. Patient does not complain of from any abdominal pain and he does not have any rash or ulcers. However we will repeat labs in the morning we will keep monitoring. In the meantime he kept on Xarelto and home dose of aspirin. We'll lower the dose of metoprolol 50 down to 25, earlier taxi servicer has lowered his lisinopril dose 5 down to 2.5. Repeat labs in the morning and repeat urinalysis. 04/03/2022 Patient clinically looks the same, is somewhat tachypneic and generally weak but no chest pain, no breathing difficulty, no diarrhea or rash, no abdominal pain. He was complaining of from some low back pain since admission however he able to move around slowly. Blood pressure is still low normal lower the dose of metoprolol 25 mg and lisinopril down to 2.5 mg. No fever actually is very mildly hypothermic on 2 occasions. Labs shows persistent leukocytosis with no worsening, sodium slightly went down 128. On January calcitonin is not worsened is 1.0. We did lumbar CT which shows severe spinal stenosis and degenerative disc disease. While CT of the abdomen and pelvis with oral contrast only felt to show any source of infection except for some sludge in the liver but liver ultrasound is negative. Liver enzymes only mildly elevated but be due to a drug effect would just need to be monitored reviewed Patient remains on therapeutic dose of Xarelto with plan for him is placement to go to ECF for rehab which is pending for now 04/04/2022 Patient today no change from his clinical status, he is still fully awake and oriented but generally weak and with no chest pain or dyspnea. Blood pressure is 93/51, he still slightly tachycardic and tachypneic. WBC 14.8, hemoglobin 10.3, sodium 128. Liver enzymes slightly up but liver ultrasound was negative for acute process. He remains on Xarelto and aspirin Patient will benefit from ECF upon discharge. Objective - Vital Signs Vital signs: Vital Signs Temp 98.2 F 04/04/22 08:02 Pulse 101 H 04/04/22 08:02 Resp 20 07/03/22 08:02 BP 93/51 04/04/22 08:02 Pulse Ox 92 L 04/04/22 08:02 FiO2 Intake & Output 04/03/22 04/04/22 04/04/22 18:59 06:59 18:59 Intake Total 358 10 240 Output Total 150 800 Balance 208 -790 240 Intake: IV 10 Invasive Line 1 10 Oral 358 240 Output: Urine 150 800 Stool 0 0 Other: Voiding Method Toilet Toilet Urinal Urinal - Exam GENERAL: The patient is alert and oriented x3, not in any acute distress. Well developed, well nourished. HEENT: Pupils are round and equally reacting to light. EOMI. No scleral icterus. No conjunctival pallor. Normocephalic, atraumatic. No pharyngeal erythema. No thyromegaly. CARDIOVASCULAR: S1 and S2 present. No murmurs, rubs, or gallops. -PULMONARY: Chest is clear to auscultation, no wheezing or crackles. Patient somewhat tachypneic ABDOMEN: Soft, nontender, nondistended, normoactive bowel sounds. No palpable organomegaly. MUSCULOSKELETAL: No joint swelling or deformity. EXTREMITIES: No cyanosis, clubbing, or pedal edema. NEUROLOGICAL: Gross neurological examination did not reveal any focal deficits. SKIN: No rashes. no petechiae. - Labs CBC & Chem 7: 04/04/22 07:20 04/04/22 07:20 Labs: Abnormal Lab Results - Last 24 Hours (Table) 04/03/22 04/04/22 04/04/22 Range/Units 07:24 07:20 07:20 WBC 14.8 H (3.8-10.6) k/uL RBC 3.54 L (4.30-5.90) m/uL Hgb 10.1 L (13.0-17.5) gm/dL Hct 30.9 L (39.0-53.0) % Plt Count 134 L (150-450) k/uL Neutrophils # 13.2 H (1.3-7.7) k/uL Lymphocytes # 0.6 L (1.0-4.8) k/uL Sodium 128 L (137-145) mmol/L Chloride 96 L (98-107) mmol/L Glucose 123 H (74-99) mg/dL Calcium 7.5 L (8.4-10.2) mg/dL Delta Bilirubin 0.3 H (0.0-0.2) mg/dL AST 110 H (17-59) U/L ALT 68 H (4-49) U/L Alkaline Phosphatase 136 H (38-126) U/L Total Protein 5.9 L (6.3-8.2) g/dL Albumin 2.5 L (3.5-5.0) g/dL Procalcitonin 1.03 H (0.02-0.09) ng/mL Assessment and Plan Assessment: Acute pulmonary embolism and left lower extremity deep venous thrombosis Leukocytosis, with no evidence of infection so far, no fever. Hypertension Hyperlipidemia COPD, no acute exacerbation History of ischemic cardiomyopathy Status post AICD Chronic back pain Blindness of left eye Peripheral vascular disease Plan: This is a pleasant 71 years old male who presents with acute DVT and PE Continue with anticoagulation, currently switched and to oral Xarelto, therapeutic dose Pulmonary consult and cardiology consult Repeat urinalysis and repeat labs in the morning. Labs and medication were reviewed.. Continue same treatment. Continue with symptomatic treatment. Resume home medication. Monitor lytes and vitals. DVT and GI prophylaxis. Further recommendations as per clinical course of the patient DVT prophylaxis: Xarelto GI Prophylaxis: Pepcid PT/OT: Subacute rehab recommended and patient agrees, discussed with social work. Patient medically stable pending placement
--- NOTE | 2022-04-04 11:06 | P.PN ---
Subjective Progress Note Date: 04/04/22 71-year-old male patient presented emergency department because of exertional d yspnea this been going on for at least 3-4 weeks. He took a culture abovewhere he was driving for approximately 6 hours without any interruption. He started getting short of breath over this past several weeks and his condition progressively got worse and for that reason the patient presented to the emergency department the patient was diagnosed having that CTA of the chest was multiple bilateral pulmonary emboli without any evidence of strain pattern. Ultrasound of the left lower extremity revealed a popliteal DVT. The patient was started on IV heparin. The patient is currently on 2 L of oxygen by nasal cannula. Echocardiogram showed no evidence of any RV strain. COVID 19 testing was negative. Influenza screen was negative. D-dimer was 24. The patient's hemoglobin was 11.7 with a platelet count of 215 and a white cell count of 17.3. INR was at 1.5 with a PT of 15.1 and a PTT of 22.9. The patient is known to have multiple comorbidities. Known history of CAD with previous bypass surgery and previous AICD placement. He has also peripheral arterial disease, CHF with mild impairment of LV function, COPD with an FEV1 of 41%, along with hypertension and hyperlipidemia. No history of any personal or family history of DVTs. No history of any malignancy. No recent surgeries. 04/01/2022, the patient is feeling well. No specific complaints. The patient was taken off the IV heparin and the patient was started on oral Xarelto. No chest pain. No pleurisy or hemoptysis. He still has a condom catheter in place and this needs to be removed to facilitate the patient's ability to ambulate. Meanwhile, the patient is on 2 L of O2 nasal cannula pulse ox of 94%. The blood work from today shows a BUN of 19 with a creatinine of 0.8. Sodium is at 131. No other acute abnormalities and electrolytes. No tenderness. No syncope. No other complaints. No bleeding issues. On 04/02/2022, patient has no respiratory complaints as the patient is being treated with Xarelto. No pleurisy or hemoptysis. Nevertheless, the patient is profoundly weak. He was offered a walker. He is unable to get up and move appropriately and he may need potentially some rehabilitation. No respiratory difficulties. He is currently on room air oxygen. Pulse ox is above 90% on room air oxygen. He is being anticoagulated with Xarelto without any complications. David 2 2021, no new complaints and the patient remains on anticoagulation with Xarelto. Weakness is gradually improving and the patient is going to medical [place] for further rehabilitation. He is on room air oxygen. No cough. No sputum production. No chest tightness no wheezing. No other active issues for now. 04/04/2022, the patient is clinically unchanged. The patient remains on anticoagulation. Waiting ECF transfer. The patient remains on a combination with Xarelto. Room air oxygen. Objective - Vital Signs Vital signs: Vital Signs Temp 98.2 F 04/04/22 08:02 Pulse 101 H 04/04/22 08:02 Resp 20 04/04/22 08:02 BP 93/51 04/04/22 08:02 Pulse Ox 92 L 04/04/22 08:02 FiO2 Intake & Output 04/03/22 04/04/22 04/04/22 18:59 06:59 18:59 Intake Total 358 10 240 Output Total 150 800 0 Balance 208 -790 240 Intake: IV 10 Invasive Line 1 10 Oral 358 240 Output: Urine 150 800 Stool 0 0 0 Other: Voiding Method Toilet Toilet Toilet Urinal Urinal Urinal - Labs CBC & Chem 7: 04/04/22 07:20 04/04/22 07:20 Labs: Abnormal Lab Results - Last 24 Hours (Table) 04/03/22 04/04/22 04/04/22 Range/Units 07:24 07:20 07:20 WBC 14.8 H (3.8-10.6) k/uL RBC 3.54 L (4.30-5.90) m/uL Hgb 10.1 L (13.0-17.5) gm/dL Hct 30.9 L (39.0-53.0) % Plt Count 134 L (150-450) k/uL Neutrophils # 13.2 H (1.3-7.7) k/uL Lymphocytes # 0.6 L (1.0-4.8) k/uL Sodium 128 L (137-145) mmol/L Chloride 96 L (98-107) mmol/L Glucose 123 H (74-99) mg/dL Calcium 7.5 L (8.4-10.2) mg/dL Delta Bilirubin 0.3 H (0.0-0.2) mg/dL AST 110 H (17-59) U/L ALT 68 H (4-49) U/L Alkaline Phosphatase 136 H (38-126) U/L Total Protein 5.9 L (6.3-8.2) g/dL Albumin 2.5 L (3.5-5.0) g/dL Procalcitonin 1.03 H (0.02-0.09) ng/mL Assessment and Plan Plan: Acute pulmonary embolism with a left lower extremity popliteal DVT. The patient was started on IV heparin and the patient was transitioned to oral anticoagulants with Xarelto. No evidence of any RV strain. The patient is hemodynamically stable on RA 02 been adequately treated with Xarelto. No respiratory difficulties for now. Acute hypoxic respiratory failure currently on room air oxygen COPD with an FEV1 of 41% of predicted Coronary artery disease with previous bypass surgery Previous AICD placement Ischemic cardiomyopathy with impaired LV with an ejection fraction of around 45% Peripheral vascular disease with previous amputation of the toe Hypertension Hyperlipidemia Chronic back pain Blindness in the left eye Debility and motor weakness Mild hyponatremia with a sodium level of 128 Plan Unprovoked pulmonary embolism , only risk factor identified risk factor was a 4- 6 hours. The patient undertook several weeks back. Otherwise, there is no underlying hypercoagulable condition, family history without any recent surgeries or malignancy. Continue anticoagulation with Xarelto Patient is profoundly weak. The patient is working with physical therapy. No active pulmonary critical care issue. I'm going to sign off the case. Awaiting ECF transfer.
[2022-04-05] MEDS: RIVAROXABAN 15 MG TAB PO SCH ×2 (06:40→17:01)
[2022-04-05] MEDS: ASPIRIN 81 MG PO SCH (09:15)
[2022-04-05] MEDS: ATORVASTATIN 40 MG TAB PO SCH (09:15)
[2022-04-05] MEDS: METOPROLOL TARTRATE 25 MG TAB PO SCH ×2 (09:16→20:35)
--- NOTE | 2022-04-05 15:06 | P.PN ---
Subjective This is a pleasant 71 years old male with past medical history of hypertension, COPD, Hyperlipidemia, Hypertension, ,Ischemic cardiomyopathy with impaired LV function preoperatively., COPD with an FEV1 of 41% of predicted based on a spirometer was done preoperatively, blindness in the left eye, peripheral vascular disease with previous amputation of the toe, chronic back pain, hs/p AICD, Patient presents because of exertional dyspnea that has been going on for months, patient states that he has 2 sit down from tiredness and dyspnea after 30 feet of walking. He denies any chest pain or coughing or hemoptysis. But is complaining of from left leg pain and swelling. No diarrhea or vomiting. No dysuria or urgency. No headache or dizziness. No weakness or numbness. No blurred vision He denies recent smoking, alcohol or illicit drugs Vitals looks stable. He has low-grade fever 99.7 on admission Labs show leukocytosis 17.3, hemoglobin 11.7. Platelet count 115 INR was 1.5, then went up to 2.1 D-dimer elevated at 24.4 The MP shown only mild hyponatremia at 123, creatinine normal 0.7. Liver enzymes not elevated. Coronal and influenza as viruses not detected EKG showed normal sinus rhythm at 96 with QTC 449, no significant ST-T changes CT of the chest showed multiple bilateral pulmonary emboli appears new compared to old exam. No evidence of right heart strain. Ultrasound showing evidence of acute left dizziness thrombosis. Patient was started on heparin drip 03/31/2022 Patient is awake alert, he is still somewhat tachypneic but no chest pain. He still complaining of from discomfort in his left leg. His heparin drip was switched Xarelto 50 mg twice daily today. Patient management, started on Ultram when necessary 04/01/2022 Patient clinically is doing well, he is even breathing quite compared to yesterday. There was concern about his weakness therefore we'll ask for PT/OT evaluation. Other than that patient remains on Xarelto. Dose of lisinopril was lowered for low blood pressure. Patient was cleared for discharge by pulmonary and cardiology team pending physical therapy evaluation given his possible generalized weakness and the fact he is been started on a blood thinner 04/02/2022 Patient awake alert and denying any pain or any other complaint. However he is very weak. Blood pressure today dropped 80/50 and received a bolus of normal saline and improved 98/59. He has leukocytosis of 15,000, also his pro-calcitonin was elevated 1.02 days ago. He had low-grade fever 99.7 on admission reviewed. Therefore we repeated his chest x-ray which shows no pneumonia. Also we will repeat urine analysis. Patient does not complain of from any abdominal pain and he does not have any rash or ulcers. However we will repeat labs in the morning we will keep monitoring. In the meantime he kept on Xarelto and home dose of aspirin. We'll lower the dose of metoprolol 50 down to 25, earlier account specialist has lowered his lisinopril dose 5 down to 2.5. Repeat labs in the morning and repeat urinalysis. 04/03/2022 Patient clinically looks the same, is somewhat tachypneic and generally weak but no chest pain, no breathing difficulty, no diarrhea or rash, no abdominal pain. He was complaining of from some low back pain since admission however he able to move around slowly. Blood pressure is still low normal lower the dose of metoprolol 25 mg and lisinopril down to 2.5 mg. No fever actually is very mildly hypothermic on 2 occasions. Labs shows persistent leukocytosis with no worsening, sodium slightly went down 128. On January calcitonin is not worsened is 1.0. We did lumbar CT which shows severe spinal stenosis and degenerative disc disease. While CT of the abdomen and pelvis with oral contrast only felt to show any source of infection except for some sludge in the liver but liver ultrasound is negative. Liver enzymes only mildly elevated but be due to a drug effect would just need to be monitored reviewed Patient remains on therapeutic dose of Xarelto with plan for him is placement to go to ECF for rehab which is pending for now 04/04/2022 Patient today no change from his clinical status, he is still fully awake and oriented but generally weak and with no chest pain or dyspnea. Blood pressure is 93/51, he still slightly tachycardic and tachypneic. WBC 14.8, hemoglobin 10.3, sodium 128. Liver enzymes slightly up but liver ultrasound was negative for acute process. He remains on Xarelto and aspirin Patient will benefit from ECF upon discharge. 04/05/2022 Patient remains generally weak and mildly tachypneic, he is a known case of pulmonary embolism on Xarelto His blood pressure 93/51, breathing treatment about 24, Pulmonary team signed off. Check labs tomorrow morning Objective - Vital Signs Vital signs: Vital Signs Temp 97.3 F L 04/05/22 12:57 Pulse 94 04/05/22 12:57 Resp 24 04/05/22 12:57 BP 93/51 04/05/22 12:57 Pulse Ox 96 04/05/22 12:57 FiO2 Intake & Output 04/04/22 04/05/22 04/05/22 18:59 06:59 18:59 Intake Total 480 10 Output Total 200 450 200 Balance 280 -440 -200 Intake: IV 10 Invasive Line 1 10 Oral 480 Output: Urine 200 450 200 Stool 0 0 Other: Voiding Method Toilet Toilet Toilet Urinal Urinal Urinal - Exam GENERAL: The patient is alert and oriented x3, not in any acute distress. Well developed, well nourished. HEENT: Pupils are round and equally reacting to light. EOMI. No scleral icterus. No conjunctival pallor. Normocephalic, atraumatic. No pharyngeal erythema. No thyromegaly. CARDIOVASCULAR: S1 and S2 present. No murmurs, rubs, or gallops. -PULMONARY: Chest is clear to auscultation, no wheezing or crackles. Patient somewhat tachypneic ABDOMEN: Soft, nontender, nondistended, normoactive bowel sounds. No palpable organomegaly. MUSCULOSKELETAL: No joint swelling or deformity. EXTREMITIES: No cyanosis, clubbing, or pedal edema. NEUROLOGICAL: Gross neurological examination did not reveal any focal deficits. SKIN: No rashes. no petechiae. - Labs CBC & Chem 7: 04/04/22 07:20 04/04/22 07:20 Assessment and Plan Assessment: Acute pulmonary embolism and left lower extremity deep venous thrombosis Leukocytosis, with no evidence of infection so far, no fever. Hypertension Hyperlipidemia COPD, no acute exacerbation History of ischemic cardiomyopathy Status post AICD Chronic back pain Blindness of left eye Peripheral vascular disease Plan: This is a pleasant 71 years old male who presents with acute DVT and PE Continue with anticoagulation, currently switched and to oral Xarelto, therapeutic dose Pulmonary consult and cardiology consult Repeat urinalysis and repeat labs in the morning. Check chest x-ray in the morning Labs and medication were reviewed.. Continue same treatment. Continue with symptomatic treatment. Resume home medication. Monitor lytes and vitals. DVT and GI prophylaxis. Further recommendations as per clinical course of the patient DVT prophylaxis: Xarelto GI Prophylaxis: Pepcid PT/OT: Subacute rehab recommended and patient agrees, discussed with social work. Patient medically stable pending placement
[2022-04-06] MEDS: RIVAROXABAN 15 MG TAB PO SCH (06:38)
[2022-04-06 07:53] LABS: African American GFR (CKD) >90 (>60 ml/min/1.73 sqM); Anion Gap 8 mmol/L; Blood Urea Nitrogen 20 mg/dL (9-20); Calcium 7.3 mg/dL (8.4-10.2); Carbon Dioxide 22 mmol/L (22-30); Chloride 97 mmol/L (98-107); Glucose 108 mg/dL (74-99); Magnesium 1.9 mg/dL (1.6-2.3); Non-African American GFR(CKD) >90 (>60 ml/min/1.73 sqM); Potassium 4.3 mmol/L (3.5-5.1); Sodium 127 mmol/L (137-145)
--- NOTE | 2022-04-06 08:16 | XR ---
EXAMINATION TYPE: XR chest 1V DATE OF EXAM: 04/06/2022 COMPARISON: Chest x-ray 04/02/2022 HISTORY: Shortness of breath TECHNIQUE: frontal view of the chest is obtained on 2 images. FINDINGS: Patient is post median sternotomy. There is a generator in the left pectoral region, lead in the right ventricle. Overlying leads are noted. No evident pneumothorax or pleural effusion. Cardi ac mediastinal silhouette is stable. Aorta is dense. There is thoracic spondylosis. IMPRESSION: No acute process.
[2022-04-06 08:22] LABS: HGB 9.4 gm/dL (13.0-17.5); Hypochromasia Slight; MCH 29.2 pg (25.0-35.0); MCHC 33.6 g/dL (31.0-37.0); MCV 86.8 fL (80.0-100.0); Mean Platelet Volume 8.9; Platelet Count 132 k/uL (150-450); RBC 3.23 m/uL (4.30-5.90); RDW 14.9 % (11.5-15.5); WBC 13.7 k/uL (3.8-10.6)
[2022-04-06 08:26] VITALS: RESP 16
[2022-04-06] MEDS: ASPIRIN 81 MG PO SCH (09:08)
[2022-04-06] MEDS: ATORVASTATIN 40 MG TAB PO SCH (09:08)
[2022-04-06] MEDS: METOPROLOL TARTRATE 25 MG TAB PO SCH (09:08)
[2022-04-06 10:10] LABS: Band Neutrophils % 1 %; Lymphocytes # (M) 0.96 k/uL (1.0-4.8); Monocytes # (M) 0.82 k/uL (0-1.0); Myelocytes # (M) 0.14 k/uL (0); Myelocytes % 1 %; Neutrophils % (M) 87 %; Nucleated Red Blood Cells 0 /100 WBC (0-0); Total Cells Counted 200
[2022-04-06 11:15] VITALS: BP 91/57; PULSE 88; TEMP 98.1
--- NOTE | 2022-04-06 11:34 | P.DS ---
Providers Date of admission: 03/29/22 23:25 Attending physician: Bayron Mena Consults: 03/29/22 23:25 Consult Physician Routine Consulting Provider: [facility] Consult Reason/Comments: bilateral PE, echo pending Do you want consulting provider notified?: Already Contacted 03/31/22 06:33 Consult Physician Routine Consulting Provider: Jean Lamar Consult Reason/Comments: pe Do you want consulting provider notified?: Yes Primary care physician: Stated None Hospital Course: Diagnoses Acute pulmonary embolism and left lower extremity deep venous thrombosis Leukocytosis, with no evidence of infection so far, no fever. Hyponatremia Hypertension Hyperlipidemia COPD, no acute exacerbation Coronary artery disease status post four-vessel bypass in 2017 and PCI of mid LAD in 2017 Ischemic cardiomyopathy status post single-chamber ICD placement in 2017 Status post AICD Chronic back pain Blindness of left eye Peripheral vascular disease Hospital course This is a pleasant 71 years old male with past medical history of hypertension, COPD, Hyperlipidemia, Hypertension, ,Ischemic cardiomyopathy with impaired LV function preoperatively., COPD with an FEV1 of 41% of predicted based on a spirometer was done preoperatively, blindness in the left eye, peripheral vascular disease with previous amputation of the toe, chronic back pain, hs/p AICD, Patient presents because of exertional dyspnea that has been going on for months, patient states that he has 2 sit down from tiredness and dyspnea after 30 feet of walking. Patient has been evaluated by report developer and scrap metal burner patient was found to have bilateral pulmonary embolism and left leg DVT and his been treated with Xarelto. History of some tachypnea but no chest pain, he feels generally weak and he might benefit from rehab Echocardiogram showed ejection fraction 40-45% lumbar CT showing severe spinal stenosis with degenerative disc disease Sodium has been stable 1:30 to 127, patient was instructed to restrict fluid intake to 1200 mL per day No evidence of infection, no antibiotic needed upon discharge however patient is high-risk for infection, he is high-risk for full and readmission to the hospital. On the day of discharge he denies worsening dyspnea, no coughing, no chest pain, no abdominal pain, no vomiting or diarrhea, no dysuria, no headache or weakness or numbness. No fever. Patient was cleared for discharge by pulmonary and cardiology service Patient will benefit from ECF for subacute rehab and he is agreeable. Patient will need to continue with Xarelto for 15 days at 15 mg twice a day and then switched to 20 mg daily Problems and management plan were discussed with the patient and he verbalized understanding and acceptance Patient was found stable and can be discharged home however he needs follow-up as an outpatient. Patient was instructed to follow up with PCP within one week and patient agrees Patient was instructed to follow up with report developer Dr. Sevilla in one week and scrap metal burner Dr. Lamar in 1-2 weeks and he agrees Physical exam Gen: patient is a AAOx3, no distress CVS: S1-S2, RRR, no murmur Lungs: B/L CTA, no wheezing. Mild tachypnea Abdomen: soft, no distention, no tenderness, positive bowel sounds Extremity: no leg edema or induration Time spent more than 35 minutes Patient Condition at Discharge: Serious Plan - Discharge Summary Discharge Rx Participant: Yes New Discharge Prescriptions: No Action Atorvastatin [Lipitor] 40 mg PO DAILY lisinopriL [Zestril] 5 mg PO HS Metoprolol Tartrate [Lopressor] 50 mg PO BID Aspirin EC [Ecotrin Low Dose] 81 mg PO DAILY Albuterol Inhaler [Ventolin Hfa Inhaler] 2 puff INHALATION RT-QID PRN PRN Reason: Shortness Of Breath Discharge Medication List Atorvastatin [Lipitor] 40 mg PO DAILY 12/16/16 [History] Aspirin EC [Ecotrin Low Dose] 81 mg PO DAILY 03/01/22 [History] Metoprolol Tartrate [Lopressor] 50 mg PO BID 03/01/22 [History] lisinopriL [Zestril] 5 mg PO HS 03/01/22 [History] Albuterol Inhaler [Ventolin Hfa Inhaler] 2 puff INHALATION RT-QID PRN 03/29/22 [History] Follow up Appointment(s)/Referral(s): vIy Sevilla MD [STAFF PHYSICIAN] - 1 Week None,Stated [Primary Care Provider] - 1-2 days
== END 2022-04-06 14:50 | DRG 175 ==
LOC: EC 20:12 → 3SCARD 23:25 → 2SICU 03-30 09:41 → 3SCARD 03-31 15:13
PROVIDERS: ADMIT Hospitalist; ATTEND Hospitalist
DX: I26.99 Other pulmonary embolism without acute cor pulmonale (principal); J96.01 Acute respiratory failure with hypoxia; I82.432 Acute embolism and thrombosis of left popliteal vein; J44.1 Chronic obstructive pulmonary disease with (acute) exacerbation; E87.1 Hypo-osmolality and hyponatremia; D69.6 Thrombocytopenia, unspecified; I11.0 Hypertensive heart disease with heart failure; I95.9 Hypotension, unspecified; I50.9 Heart failure, unspecified; I73.9 Peripheral vascular disease, unspecified; Z89.429 Acquired absence of other toe(s), unspecified side; Z20.822 Contact with and (suspected) exposure to COVID-19; I25.5 Ischemic cardiomyopathy; I25.10 Atherosclerotic heart disease of native coronary artery without angina pectoris; D72.829 Elevated white blood cell count, unspecified; E78.5 Hyperlipidemia, unspecified; G89.29 Other chronic pain; M48.061 Spinal stenosis, lumbar region without neurogenic claudication; M51.36 Other intervertebral disc degeneration, lumbar region; H54.62 Unqualified visual loss, left eye, normal vision right eye; Z79.82 Long term (current) use of aspirin; Z79.899 Other long term (current) drug therapy; Z87.891 Personal history of nicotine dependence; Z95.810 Presence of automatic (implantable) cardiac defibrillator; Z95.1 Presence of aortocoronary bypass graft
CPT/HCPCS: 36415; 71045; 71046; 71275; 72131; 74176; 76705; 80048; 80053; 80076; 81001; 81003; 83605; 83735; 83880; 84145; 84484; 85025; 85379; 85610; 85730; 87502; 87635; 93005; 93306; 94640; 94760; 96365; 96366; 96375; 99285

== ENCOUNTER 2022-04-06 18:10 | Inpatient (IN) | payer MEDICARE ==
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
[2022-04-06] MEDS ORDERED: MAG HYDROX/AL HYDROX/SIMETH 30 ML CUP PO PRN (19:46)
[2022-04-06] MEDS ORDERED: NALOXONE 0.4 MG/ML 1 ML VIAL IV PRN (19:46)
[2022-04-06] MEDS ORDERED: TEMAZEPAM 15 MG CAP PO PRN (19:46)
[2022-04-06] MEDS ORDERED: DOCUSATE 100 MG CAP PO PRN (19:46)
[2022-04-06] MEDS ORDERED: MORPHINE SULFATE 4 MG/ML SYRINGE IVP PRN (19:46)
[2022-04-06] MEDS ORDERED: ONDANSETRON 4 MG/2 ML VIAL IVP PRN (19:46)
[2022-04-06] MEDS ORDERED: ALBUTEROL NEBULIZED 2.5 MG/3 ML INHALATION PRN (19:50)
[2022-04-06] MEDS ORDERED: SODIUM CHLORIDE 0.9% 1,000 ML IV STA (19:55)
[2022-04-07] MEDS: RIVAROXABAN 15 MG TAB PO SCH ×2 (00:27→08:15)
[2022-04-07] MEDS: METOPROLOL TARTRATE 25 MG TAB PO SCH ×3 (01:12→22:14)
[2022-04-07] MEDS ORDERED: ACETAMINOPHEN TAB 325 MG TAB PO PRN (07:51)
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
[2022-04-07] MEDS: FAMOTIDINE 20 MG/2 ML VIAL IV SCH (08:14)
[2022-04-07] MEDS: ASPIRIN 81 MG PO SCH (08:15)
[2022-04-07] MEDS: ATORVASTATIN 40 MG TAB PO SCH (08:15)
[2022-04-07 08:59] LABS: Basophils % (A) 0 %; Eosinophils % (A) 0 %; HCT 29.8 % (39.0-53.0); HGB 9.8 gm/dL (13.0-17.5); Hypochromasia Slight; Lymphocytes # (A) 0.6 k/uL (1.0-4.8); Lymphocytes % (A) 5 %; MCH 28.7 pg (25.0-35.0); MCHC 32.8 g/dL (31.0-37.0); MCV 87.6 fL (80.0-100.0); Monocytes # (A) 0.6 k/uL (0-1.0); Monocytes % (A) 4 %; Neutrophils # (A) 12.1 k/uL (1.3-7.7); Neutrophils % (A) 88 %; Platelet Count 137 k/uL (150-450); RDW 15.4 % (11.5-15.5); WBC 13.7 k/uL (3.8-10.6)
[2022-04-07 09:08] LABS: ALT 55 U/L (4-49); AST 81 U/L (17-59); African American GFR (CKD) >90 (>60 ml/min/1.73 sqM); Albumin 2.3 g/dL (3.5-5.0); Alkaline Phosphatase 128 U/L (38-126); Anion Gap 7 mmol/L; Bilirubin, Delta 0.3 mg/dL (0.0-0.2); Bilirubin,Unconjugated 0.5 mg/dL (0.0-1.1); Blood Urea Nitrogen 19 mg/dL (9-20); Calcium 7.3 mg/dL (8.4-10.2); Carbon Dioxide 22 mmol/L (22-30); Chloride 100 mmol/L (98-107); Glucose 116 mg/dL (74-99); Magnesium 1.8 mg/dL (1.6-2.3); Non-African American GFR(CKD) >90 (>60 ml/min/1.73 sqM); Potassium 4.2 mmol/L (3.5-5.1); Sodium 129 mmol/L (137-145); Total Bilirubin 0.8 mg/dL (0.2-1.3); Total Protein 5.6 g/dL (6.3-8.2)
[2022-04-07] MEDS: DEXTROSE 5%-0.9% NACL 1,000 ML IV SCH (11:06)
--- NOTE | 2022-04-07 13:47 | XR ---
EXAMINATION TYPE: XR chest 2V DATE OF EXAM: 04/07/2022 COMPARISON: Chest x-ray 04/06/2022 HISTORY: Fever TECHNIQUE: Frontal and lateral views of the chest are obtained. FINDINGS: There is no focal air space opacity, pleural effusion, or pneumothorax seen. The cardiac silhouette size is within normal limits. There is a generator in the left pectoral region, lead in th e right ventricle. Patient is post median sternotomy. Aorta is dense. Contrast is present within the bowel. The osseous structures are intact, question findings of diffuse idiopathic skeletal hyperosto sis. IMPRESSION: No acute cardiopulmonary process.
[2022-04-07 16:14] LABS: Glucose,Whole Blood 129 mg/dL (70-110)
[2022-04-07 17:34] LABS: Appearance,Urine Cloudy (Clear); Bacteria,Urine Occasional /hpf; Bilirubin,Urine Negative (Negative); Blood,Urine Small (Negative); Color,Urine Yellow; Glucose,Urine (UA) Negative (Negative); Ketones,Urine Negative (Negative); Leukocyte Esterase,Urine Negative (Negative); Mucus,Urine Rare /hpf; Nitrite,Urine Negative (Negative); PH, Urine 5.5 (5.0-8.0); Protein,Urine 1+ (Negative); RBC,Urine 3 /hpf (0-5); Squamous Epithelial Cell,Urine <1 /hpf (0-4); WBC,Urine 4 /hpf (0-5)
[2022-04-07 21:35] LABS: Glucose,Whole Blood 134 mg/dL (70-110)
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
[2022-04-08] MEDS: RIVAROXABAN 15 MG TAB PO SCH ×3 (01:00→17:17)
[2022-04-08] MEDS: FAMOTIDINE 20 MG/2 ML VIAL IV SCH (01:00)
[2022-04-08] MEDS: PIPERACILLIN-TAZOBACTAM 3.375 GM in SODIUM CHLORIDE 0.9% 100 ML IVPB SCH ×2 (01:00→10:06)
[2022-04-08 07:04] LABS: Glucose,Whole Blood 122 mg/dL (70-110)
[2022-04-08] MEDS: ASPIRIN 81 MG PO SCH (07:23)
[2022-04-08] MEDS: METOPROLOL TARTRATE 25 MG TAB PO SCH (07:23)
[2022-04-08] MEDS: DEXTROSE 5%-0.9% NACL 1,000 ML IV SCH (08:53)
[2022-04-08] MEDS: FAMOTIDINE 20 MG TAB PO SCH (10:06)
[2022-04-08 10:09] LABS: Basophils # (A) 0.01 X 10*3/uL (0.00-0.10); Basophils % (A) 0.1 %; Eosinophils # (A) 0 X 10*3/uL (0.04-0.35); Eosinophils % (A) 0 %; HCT 29.7 % (39.6-50.0); HGB 8.8 g/dL (13.0-17.0); Immature Grans, Automated 1.4 %; Lymphocytes # (A) 0.63 X 10*3/uL (0.90-5.00); Lymphocytes % (A) 4.1 %; MCH 26.4 pg (27.0-32.0); MCHC 29.6 g/dL (32.0-37.0); MCV 89.2 fL (80.0-97.0); Mean Platelet Volume 10.8 fL (9.5-12.2); Monocytes # (A) 1.04 X 10*3/uL (0.20-1.00); Monocytes % (A) 6.7 %; NRBC Per 100 WBC 0 /100 WBCS (0.0-0.0); Neutrophils # (A) 13.58 X 10*3/uL (1.80-7.70); Neutrophils % (A) 87.7 %; Platelet Count 139 X 10*3/uL (140-440); RBC 3.33 X 10*6/uL (4.40-5.60); RDW 15.5 % (11.5-14.5); WBC 15.48 X 10*3/uL (4.50-10.00)
--- NOTE | 2022-04-08 10:30 | NM ---
EXAMINATION TYPE: NM hepatobiliary w CCK DATE OF EXAM: 04/08/2022 COMPARISON: CT 04/03/2022 HISTORY: Elevated liver enzymes, leukocytosis TECHNIQUE: After the intravenous administration of 5.2 mCi Tc 99m Mebrofenin hepatobiliary scintigrap hy is performed. Immediate images post injection. FINDINGS: There is satisfactory initial accumulation of tracer by the liver. The gallbladder is visualized wit hin 54 minutes. The small bowel activity is noted within 6 minutes. At one hour CCK was administere d, patient was injected with 1.85 mcg of Kinevac, and gallbladder ejection fraction is calculated at 1 %, abnormal. IMPRESSION: Abnormal low gallbladder ejection fraction, consider biliary dyskinesia
[2022-04-08 10:32] LABS: African American GFR (CKD) 102.2 (60.0-200.0); Albumin 2.3 g/dL (3.8-4.9); Albumin/Globulin Ratio 0.73 (1.60-3.17); Anion Gap 10.8 mmol/L (10.00-18.00); BUN/Creat Ratio 17.76 Ratio (12.00-20.00); Bilirubin, Conjugated 0.4 mg/dL (0.20-0.40); Bilirubin,Unconjugated 0.39 mg/dL (0.20-1.00); Blood Urea Nitrogen 15.4 mg/dL (9.0-27.0); Calcium 7.7 mg/dL (8.7-10.3); Carbon Dioxide 22.9 mmol/L (20.0-27.5); Globulin 3.2 g/dL (1.6-3.3); Non-African American GFR(CKD) 88.2 (60.0-200.0); Potassium 4.4 mmol/L (3.5-5.5); Total Bilirubin 0.8 mg/dL (0.30-1.20); Total Protein 5.5 g/dL (6.2-8.2)
[2022-04-08] MEDS: IOPAMIDOL CONTRAST (ORAL USE) VIAL PO PRN ×2 (11:27→12:04)
[2022-04-08 11:33] LABS: Erythrocyte Sedimentation Rate 21 mm/Hr (0-20)
[2022-04-08 11:36] LABS: Glucose,Whole Blood 125 mg/dL (70-110)
--- NOTE | 2022-04-08 13:31 | CT ---
EXAMINATION TYPE: CT abdomen pelvis wo con DATE OF EXAM: 04/08/2022 COMPARISON: 04/03/2022 INDICATION: Fever, Elevated liver enzymes DLP: 711.5 mGycm, Automated exposure control for dose reduction was used. CONTRAST: 0 mL of Isovue 300. Study performed with Oral Contrast TECHNIQUE: Axial images were obtained from above the diaphragm to the pubic rami in the axial plane a t 5 mm thick sections. Reconstructed images are reviewed on the computer in the coronal plane. FINDINGS: Limited CT sections are obtained the lung bases. Some pericardial calcification present. Small left pleural effusion is present. CT ABDOMEN: Liver: Normal, small cyst is along the anterior right lobe liver. Spleen: Normal. A splenule is anterior to the spleen. Pancreas: Normal Adrenal glands: Adrenal gland is prominent at 1.7 cm. Gallbladder: Some sludge may be within the gallbladder. Kidneys: No masses are evident. No hydronephrosis is present. No cysts are present. No renal stone s are evident. Aorta: Vascular calcification is within the aorta. Inferior vena cava: Normal. CT PELVIS: Loops of bowel with contrast within the abdomen and pelvis are normal. There are loops of bowel w hich are incompletely distended or lack oral contrast limiting their evaluation. Appendix: Not identified. No dilated tubular structure or inflammatory change is evident. Urinary bladder: Normal. Genitourinary structures: Prostate is prominent. Osseous structures: No suspicious lytic or sclerotic lesions. Spondylosis as within the spine. IMPRESSIONS: 1. There may be sludge within the gallbladder. This can be evaluated with ultrasound. 2. Mild prominence of the adrenal gland 1.7 cm. 3. Small left pleural effusion.
--- NOTE | 2022-04-08 20:47 | P.PN ---
Subjective This is a pleasant 71 years old male with past medical history of hypertension, COPD, Hyperlipidemia, Hypertension, ,Ischemic cardiomyopathy with impaired LV function preoperatively., COPD with an FEV1 of 41% of predicted based on a spirometer was done preoperatively, blindness in the left eye, peripheral vascular disease with previous amputation of the toe, chronic back pain, hs/p AICD, He was discharged from the hospital yesterday for left lower extremity DVT and pulmonary embolism and has been evaluated by communication equipment repairer and instructional leader on discharge on Xarelto Since last admission patient has been feeling generally weak and some tachypnea but all workup was negative including repeat chest x-ray, repeat urine analysis, CT of the abdomen and the lumbar spine. No positive culture results. Had no fever over a monitored several days but he had mild leukocytosis which was stable and slightly turned in the. Patient was discharged to [facility] for rehab after he was been cleared by pulmonary and cardiology service for several days. [facility] he develops fever of 103.0 and blood pressure was on the low side. She was sent back to the hospital. Patient this morning is fully awake and oriented, normal change clinically from yesterday when we discharged him, he still tachypneic but no difficulty breathing, no coughing. No abdominal pain or nausea vomiting. No diarrhea. No rash. No urinary complaints or dysuria, no headache or weakness or numbness. Distal compressed from lower back pain and right leg pain. His chest pain is somewhat 7/10. Currently blood pressure 141/89 after he received 1 L of normal saline, heart rate is 98. from yesterday showed WBCs of 13.7, hemoglobin 9.4, sodium 127. Troponin 2 are negative. Viruses this were negative including covid and influenza Patient currently restarted on his home medication, no antibiotic was started as well. 04/08/2022 Patient awake but still generally weak, and it is similar to the yesterday and last few days. Blood pressure is low normal and he continue on normal saline WBC 15.4, hemoglobin 8.8, platelets 139 No more fever. 4calcitonin 1.8. CT of the abdomen and pelvis showing possible biliary sludge HIDA scan showing biliary dyskinesia Surgical team consulted Blood cultures positive for staph lugdenesis and antibiotics was adjusted to cefazolin per ID team react Pt arrives via [facility] for complaint of fever. Pt was discharged today from [facility] after being admitted for bi-lat PE and left leg dvt. Pt arrives showing no signs of severe distress. Pt was given tylenol at [facility] after then found pt to have a temp of 103. Pt on [facility] Objective - Vital Signs Vital signs: Vital Signs Temp 98.5 F 04/08/22 06:58 Pulse 81 04/08/22 06:58 Resp 32 H 04/08/22 06:58 BP 96/56 04/08/22 06:58 Pulse Ox 93 L 04/08/22 06:58 FiO2 Intake & Output 04/07/22 04/08/22 04/08/22 18:59 06:59 18:59 Intake Total 540 Output Total 175 550 Balance -175 -10 Weight 86.183 kg 92.7 kg Intake: Oral 540 Output: Urine 175 550 Other: Voiding Method Urinal Urinal # Voids 1 - Exam GENERAL: The patient is alert and oriented x3, not in any acute distress. Well developed, well nourished. HEENT: Pupils are round and equally reacting to light. EOMI. No scleral icterus. No conjunctival pallor. Normocephalic, atraumatic. No pharyngeal erythema. No thyromegaly. CARDIOVASCULAR: S1 and S2 present. No murmurs, rubs, or gallops. PULMONARY: Chest is clear to auscultation, no wheezing or crackles. -ABDOMEN: Soft, mild epigastric tenderness, nondistended, normoactive bowel sounds. No palpable organomegaly. MUSCULOSKELETAL: No joint swelling or deformity. EXTREMITIES: No cyanosis, clubbing, or pedal edema. NEUROLOGICAL: Gross neurological examination did not reveal any focal deficits. SKIN: No rashes. no petechiae. - Labs CBC & Chem 7: 04/08/22 06:10 04/08/22 06:10 Labs: Abnormal Lab Results - Last 24 Hours (Table) 04/07/22 04/07/22 04/07/22 Range/Units 08:18 14:26 16:13 POC Glucose (mg/dL) 129 H (70-110) mg/dL C-Reactive Protein 8.0 H (<1.0) mg/dL Procalcitonin 1.73 H (0.02-0.09) ng/mL Urine Protein (Negative) Urine Blood (Negative) Urine Bacteria (None) /hpf Urine Mucus (None) /hpf 04/07/22 04/07/22 04/08/22 Range/Units 17:29 21:35 07:03 POC Glucose (mg/dL) 134 H 122 H (70-110) mg/dL C-Reactive Protein (<1.0) mg/dL Procalcitonin (0.02-0.09) ng/mL Urine Protein 1+ H (Negative) Urine Blood Small H (Negative) Urine Bacteria Occasional H (None) /hpf Urine Mucus Rare H (None) /hpf Microbiology - Last 24 Hours (Table) 04/07/22 14:26 Blood Culture Gram Stain - Preliminary Blood 04/07/22 14:26 Blood Culture - Final Blood Assessment and Plan Assessment: Sepsis with fever and leukocytosis and tachypnea, with positive blood culture for staph species Biliary dyskinesia, rule out cholecystitis Acute pulmonary embolism and left lower extremity deep venous thrombosis Hyponatremia Hypertension Hyperlipidemia COPD, no acute exacerbation Coronary artery disease status post four-vessel bypass in 2017 and PCI of mid LAD in 2017 Ischemic cardiomyopathy status post single-chamber ICD placement in 2017 Status post AICD Chronic back pain Blindness of left eye Peripheral vascular disease Plan: This is a pleasant 71 years old male who is being admitted for fever and hypotension Follow-up blood culture final results Continue with cefazolin per ID team Consults surgical team Consults infectious disease team continue with IV hydration Hold lisinopril will continue with metoprolol. continue with normal saline 100 mL per hour Labs and medication were reviewed.. Continue same treatment. Continue with symptomatic treatment. Resume home medication. Monitor lytes and vitals. DVT and GI prophylaxis. Further recommendations as per clinical course of the patient DVT prophylaxis: xarelto GI Prophylaxis: Pepcid PT/OT: Pending Prognosis is guarded
[2022-04-09] MEDS: METOPROLOL TARTRATE 25 MG TAB PO SCH ×3 (00:20→20:24)
[2022-04-09] MEDS: FAMOTIDINE 20 MG TAB PO SCH ×3 (00:20→20:24)
[2022-04-09] MEDS: DEXTROSE 5%-0.9% NACL 1,000 ML IV SCH ×3 (00:20→20:12)
--- NOTE | 2022-04-09 08:02 | P.PN ---
Subjective Progress Note Date: 04/08/22 Principal diagnosis: Fever Patient is a 71 year old male with a recent admission to this facility has been diagnosed with a PE and started on surrounding the patient also complaining of fever for about a week along with some chills did have a chronic back pain with recent CT did not show any acute finding, On today's evaluation that is 04/08/2022, the patient is afebrile this morning, the patient is breathing comfortably on room air patient denies having any chest pain shortness breath occasional cough no vomiting no abdominal pain or diarrhea Objective - Vital Signs Vital signs: Vital Signs Temp 98.5 F 04/08/22 06:58 Pulse 81 04/08/22 06:58 Resp 32 H 04/08/22 06:58 BP 96/56 04/08/22 06:58 Pulse Ox 93 L 04/08/22 06:58 FiO2 Intake & Output 04/07/22 04/08/22 04/08/22 18:59 06:59 18:59 Intake Total 540 Output Total 175 550 Balance -175 -10 Weight 86.183 kg 92.7 kg Intake: Oral 540 Output: Urine 175 550 Other: Voiding Method Urinal Urinal # Voids 1 - Exam GENERAL DESCRIPTION: An elderly male lying in bed in no distress RESPIRATORY SYSTEM: Unlabored breathing , decreased breath sounds at bases HEART: S1 S2 regular rate and rhythm , ABDOMEN: Soft , no tenderness EXTREMITIES: No edema feet - Labs CBC & Chem 7: 04/08/22 06:10 04/08/22 06:10 Labs: Abnormal Lab Results - Last 24 Hours (Table) 04/07/22 04/07/22 04/07/22 Range/Units 08:18 14:26 16:13 WBC (4.50-10.00) X 10*3/uL RBC (4.40-5.60) X 10*6/uL Hgb (13.0-17.0) g/dL Hct (39.6-50.0) % MCH (27.0-32.0) pg MCHC (32.0-37.0) g/dL RDW (11.5-14.5) % Plt Count (140-440) X 10*3/uL Immature Gran # (0.00-0.04) X 10*3/uL Neutrophils # (1.80-7.70) X 10*3/uL Lymphocytes # (0.90-5.00) X 10*3/uL Monocytes # (0.20-1.00) X 10*3/uL Eosinophils # (0.04-0.35) X 10*3/uL POC Glucose (mg/dL) 129 H (70-110) mg/dL C-Reactive Protein 8.0 H (<1.0) mg/dL Procalcitonin 1.73 H (0.02-0.09) ng/mL Urine Protein (Negative) Urine Blood (Negative) Urine Bacteria (None) /hpf Urine Mucus (None) /hpf 04/07/22 04/07/22 04/08/22 Range/Units 17:29 21:35 06:10 WBC 15.48 H (4.50-10.00) X 10*3/uL RBC 3.33 L (4.40-5.60) X 10*6/uL Hgb 8.8 L (13.0-17.0) g/dL Hct 29.7 L (39.6-50.0) % MCH 26.4 L (27.0-32.0) pg MCHC 29.6 L (32.0-37.0) g/dL RDW 15.5 H (11.5-14.5) % Plt Count 139 L (140-440) X 10*3/uL Immature Gran # 0.22 H (0.00-0.04) X 10*3/uL Neutrophils # 13.58 H (1.80-7.70) X 10*3/uL Lymphocytes # 0.63 L (0.90-5.00) X 10*3/uL Monocytes # 1.04 H (0.20-1.00) X 10*3/uL Eosinophils # 0 L (0.04-0.35) X 10*3/uL POC Glucose (mg/dL) 134 H (70-110) mg/dL C-Reactive Protein (<1.0) mg/dL Procalcitonin (0.02-0.09) ng/mL Urine Protein 1+ H (Negative) Urine Blood Small H (Negative) Urine Bacteria Occasional H (None) /hpf Urine Mucus Rare H (None) /hpf 04/08/22 Range/Units 07:03 WBC (4.50-10.00) X 10*3/uL RBC (4.40-5.60) X 10*6/uL Hgb (13.0-17.0) g/dL Hct (39.6-50.0) % MCH (27.0-32.0) pg MCHC (32.0-37.0) g/dL RDW (11.5-14.5) % Plt Count (140-440) X 10*3/uL Immature Gran # (0.00-0.04) X 10*3/uL Neutrophils # (1.80-7.70) X 10*3/uL Lymphocytes # (0.90-5.00) X 10*3/uL Monocytes # (0.20-1.00) X 10*3/uL Eosinophils # (0.04-0.35) X 10*3/uL POC Glucose (mg/dL) 122 H (70-110) mg/dL C-Reactive Protein (<1.0) mg/dL Procalcitonin (0.02-0.09) ng/mL Urine Protein (Negative) Urine Blood (Negative) Urine Bacteria (None) /hpf Urine Mucus (None) /hpf Microbiology - Last 24 Hours (Table) 04/07/22 14:26 Blood Culture Gram Stain - Preliminary Blood 04/07/22 14:26 Blood Culture - Final Blood Assessment and Plan (1) Fever Current Visit: Yes Status: Acute Code(s): R50.9 - FEVER, UNSPECIFIED SNOMED Code(s): 387468121 Plan: 1patient with a fever and weakness in this patient did have elevated white count mildly elevated liver enzymes questionable abdominal source patient did have a recent diagnosis of PE and we did obtain a chest x-ray which was negative for any pneumonia. 2we are waiting for a CT of abdominal pelvis with oral contrast. 3 patient now with a blood culture positive for Staphylococcus Lugdunenisis ,, we will discontinue Zosyn and start the patient cefazolin 2 g every 8 hours, blood cultures will be repeated document clearance of bacteremia Time with Patient: Less than 30
[2022-04-09] MEDS: RIVAROXABAN 15 MG TAB PO SCH ×2 (09:36→16:55)
[2022-04-09] MEDS: ASPIRIN 81 MG PO SCH (09:36)
[2022-04-09 10:41] LABS: Basophils # (A) 0.03 X 10*3/uL (0.00-0.10); Basophils % (A) 0.2 %; Eosinophils # (A) 0.01 X 10*3/uL (0.04-0.35); Eosinophils % (A) 0.1 %; HCT 27.7 % (39.6-50.0); HGB 8.5 g/dL (13.0-17.0); Immature Grans, Automated 1.9 %; Lymphocytes # (A) 1.03 X 10*3/uL (0.90-5.00); Lymphocytes % (A) 7.1 %; MCH 27.1 pg (27.0-32.0); MCHC 30.7 g/dL (32.0-37.0); MCV 88.2 fL (80.0-97.0); Mean Platelet Volume 10.6 fL (9.5-12.2); Monocytes # (A) 1.41 X 10*3/uL (0.20-1.00); Monocytes % (A) 9.7 %; NRBC Per 100 WBC 0 /100 WBCS (0.0-0.0); Neutrophils # (A) 11.75 X 10*3/uL (1.80-7.70); Platelet Count 134 X 10*3/uL (140-440); RBC 3.14 X 10*6/uL (4.40-5.60); RDW 15.7 % (11.5-14.5)
[2022-04-09 11:02] LABS: Erythrocyte Sedimentation Rate 18 mm/Hr (0-20)
[2022-04-09 11:08] LABS: African American GFR (CKD) 102.5 (60.0-200.0); Albumin 2.2 g/dL (3.8-4.9); Albumin/Globulin Ratio 0.68 (1.60-3.17); Anion Gap 10.1 mmol/L (10.00-18.00); BUN/Creat Ratio 19.03 Ratio (12.00-20.00); Bilirubin, Conjugated 0.29 mg/dL (0.20-0.40); Bilirubin,Unconjugated 0.27 mg/dL (0.20-1.00); Blood Urea Nitrogen 16.4 mg/dL (9.0-27.0); C Reactive Protein 8.8 mg/dL (0.00-0.80); Calcium 7.7 mg/dL (8.7-10.3); Carbon Dioxide 22.6 mmol/L (20.0-27.5); Globulin 3.1 g/dL (1.6-3.3); Magnesium 2.1 mg/dL (1.5-2.4); Non-African American GFR(CKD) 88.4 (60.0-200.0); Potassium 4.9 mmol/L (3.5-5.5); Total Bilirubin 0.6 mg/dL (0.30-1.20); Total Protein 5.3 g/dL (6.2-8.2)
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
--- NOTE | 2022-04-09 13:05 | P.PN ---
Subjective Progress Note Date: 04/09/22 Principal diagnosis: Fever Patient is a 71 year old male with a recent admission to this facility has been diagnosed with a PE and started on surrounding the patient also complaining of fever for about a week along with some chills did have a chronic back pain with recent CT did not show any acute finding, patient HIDA scan with the biliary dyskinesia and CT did show sludge in the gallbladder, surgery on the case On today's evaluation that is 04/09/2022, the patient is afebrile, the patient is breathing comfortably on room air, the patient denies having any chest pain shortness breath occasional cough, the patient denies nausea vomiting no abdominal pain or diarrhea, Objective - Vital Signs Vital signs: Vital Signs Temp 97.5 F L 04/09/22 05:55 Pulse 77 04/09/22 05:55 Resp 16 04/09/22 05:55 BP 91/55 04/09/22 05:55 Pulse Ox 95 04/09/22 05:55 FiO2 Intake & Output 04/08/22 04/09/22 04/09/22 18:59 06:59 18:59 Output Total 250 575 200 Balance -250 -575 -200 Weight 92.7 kg 93.1 kg Output: Urine 250 575 200 Other: Voiding Method Urinal Urinal Urinal # Voids 1 1 # Bowel Movements 1 2 1 - Exam GENERAL DESCRIPTION: An elderly male lying in bed in no distress HEENT; bad dentition with a few necrotic incisor teeth left RESPIRATORY SYSTEM: Unlabored breathing , decreased breath sounds at bases HEART: S1 S2 regular rate and rhythm , ABDOMEN: Soft , no tenderness EXTREMITIES: No edema feet - Labs CBC & Chem 7: 04/09/22 06:52 04/09/22 06:52 Labs: Abnormal Lab Results - Last 24 Hours (Table) 04/09/22 04/09/22 Range/Units 06:52 06:52 WBC 14.50 H (4.50-10.00) X 10*3/uL RBC 3.14 L (4.40-5.60) X 10*6/uL Hgb 8.5 L (13.0-17.0) g/dL Hct 27.7 L (39.6-50.0) % MCHC 30.7 L (32.0-37.0) g/dL RDW 15.7 H (11.5-14.5) % Plt Count 134 L (140-440) X 10*3/uL Immature Gran # 0.27 H (0.00-0.04) X 10*3/uL Neutrophils # 11.75 H (1.80-7.70) X 10*3/uL Monocytes # 1.41 H (0.20-1.00) X 10*3/uL Eosinophils # 0.01 L (0.04-0.35) X 10*3/uL Sodium 132 L (135-145) mmol/L Glucose 112 H (70-110) mg/dL Calcium 7.7 L (8.7-10.3) mg/dL AST 78 H (14-35) U/L ALT 52 H (10-49) U/L C-Reactive Protein 8.80 H (0.00-0.80) mg/dL Total Protein 5.3 L (6.2-8.2) g/dL Albumin 2.2 L (3.8-4.9) g/dL Albumin/Globulin Ratio 0.68 L (1.60-3.17) g/dL Microbiology - Last 24 Hours (Table) 04/07/22 14:26 Blood Culture Gram Stain - Preliminary Blood Blood Culture - Preliminary Staphylococcus lugdunenisis Assessment and Plan (1) Fever Current Visit: Yes Status: Acute Code(s): R50.9 - FEVER, UNSPECIFIED SNOMED Code(s): 318208445 Plan: 1patient with a fever and weakness in this patient did have elevated white count mildly elevated liver enzymes questionable abdominal source patient did have a recent diagnosis of PE and we did obtain a chest x-ray which was negative for any pneumonia. 2HIDA scan with the biliary dyskinesia and CT did show sludge in the gallbladder, echocardiogram will be ordered 3 patient blood culture positive for Staphylococcus Lugdunenisis , 4- patient continue with cefazolin 2 g every 8 hours, blood cultures repeated to document clearance of bacteremia Time with Patient: Less than 30
--- NOTE | 2022-04-09 19:47 | P.PN ---
Subjective Progress Note Date: 04/09/22 71 years old male with past medical history of hypertension, COPD, Hyperlipidemia, Hypertension, ,Ischemic cardiomyopathy with impaired LV function preoperatively., COPD with an FEV1 of 41% of predicted based on a spirometer was done preoperatively, blindness in the left eye, peripheral vascular disease with previous amputation of the toe, chronic back pain, hs/p AICD, He was discharged from the hospital yesterday for left lower extremity DVT and pulmonary embolism and has been evaluated by salt refiner and ballet soloist on discharge on Xarelto Since last admission patient has been feeling generally weak and some tachypnea but all workup was negative including repeat chest x-ray, repeat urine analysis, CT of the abdomen and the lumbar spine. No positive culture results. Had no fever over a monitored several days but he had mild leukocytosis which was stable and slightly turned in the. Patient was discharged to [facility] for rehab after he was been cleared by pulmonary and cardiology service for several days. At [facility] he develops fever of 103.0 and blood pressure was on the low side. She was sent back to the hospital. Patient this morning is fully awake and oriented, normal change clinically from yesterday when we discharged him, he still tachypneic but no difficulty breathing, no coughing. No abdominal pain or nausea vomiting. No diarrhea. No rash. No urinary complaints or dysuria, no headache or weakness or numbness. Distal compressed from lower back pain and right leg pain. His chest pain is somewhat 7/10. Currently blood pressure 141/89 after he received 1 L of normal saline, heart rate is 98. from yesterday showed WBCs of 13.7, hemoglobin 9.4, sodium 127. Troponin 2 are negative. Viruses this were negative including covid and influenza Objective - Vital Signs Vital signs: Vital Signs Temp 97.6 F 04/09/22 14:00 Pulse 87 04/09/22 14:00 Resp 17 04/09/22 14:00 BP 100/59 04/09/22 14:00 Pulse Ox 97 04/09/22 14:00 FiO2 Intake & Output 04/09/22 04/09/22 04/10/22 06:59 18:59 06:59 Output Total 575 500 Balance -575 -500 Weight 93.1 kg Output: Urine 575 500 Other: Voiding Method Urinal Urinal # Voids 1 1 # Bowel Movements 2 1 - Exam GENERAL: The patient is alert and oriented x3, not in any acute distress. Well developed, well nourished. HEENT: Pupils are round and equally reacting to light. EOMI. No scleral icterus. No conjunctival pallor. Normocephalic, atraumatic. No pharyngeal erythema. No thyromegaly. CARDIOVASCULAR: S1 and S2 present. No murmurs, rubs, or gallops. PULMONARY: Chest is clear to auscultation, no wheezing or crackles. -ABDOMEN: Soft, mild epigastric tenderness, nondistended, normoactive bowel sounds. No palpable organomegaly. MUSCULOSKELETAL: No joint swelling or deformity. EXTREMITIES: No cyanosis, clubbing, or pedal edema. NEUROLOGICAL: Gross neurological examination did not reveal any focal deficits. SKIN: No rashes. no petechiae. - Labs CBC & Chem 7: 04/09/22 06:52 04/09/22 06:52 Labs: Abnormal Lab Results - Last 24 Hours (Table) 04/09/22 04/09/22 Range/Units 06:52 06:52 WBC 14.50 H (4.50-10.00) X 10*3/uL RBC 3.14 L (4.40-5.60) X 10*6/uL Hgb 8.5 L (13.0-17.0) g/dL Hct 27.7 L (39.6-50.0) % MCHC 30.7 L (32.0-37.0) g/dL RDW 15.7 H (11.5-14.5) % Plt Count 134 L (140-440) X 10*3/uL Immature Gran # 0.27 H (0.00-0.04) X 10*3/uL Neutrophils # 11.75 H (1.80-7.70) X 10*3/uL Monocytes # 1.41 H (0.20-1.00) X 10*3/uL Eosinophils # 0.01 L (0.04-0.35) X 10*3/uL Sodium 132 L (135-145) mmol/L Glucose 112 H (70-110) mg/dL Calcium 7.7 L (8.7-10.3) mg/dL AST 78 H (14-35) U/L ALT 52 H (10-49) U/L C-Reactive Protein 8.80 H (0.00-0.80) mg/dL Total Protein 5.3 L (6.2-8.2) g/dL Albumin 2.2 L (3.8-4.9) g/dL Albumin/Globulin Ratio 0.68 L (1.60-3.17) g/dL Microbiology - Last 24 Hours (Table) 04/07/22 14:26 Blood Culture Gram Stain - Preliminary Blood Blood Culture - Preliminary Staphylococcus lugdunenisis Assessment and Plan Assessment: Sepsis with fever and leukocytosis and tachypnea, with positive blood culture for staph species Biliary dyskinesia, rule out cholecystitis Acute pulmonary embolism and left lower extremity deep venous thrombosis Hyponatremia Hypertension Hyperlipidemia COPD, no acute exacerbation Coronary artery disease status post four-vessel bypass in 2017 and PCI of mid LAD in 2017 Ischemic cardiomyopathy status post single-chamber ICD placement in 2017 Status post AICD Chronic back pain Blindness of left eye Peripheral vascular disease ---- Follow-up blood culture final results Continue with cefazolin per ID team Consults surgical team Consults infectious disease team continue with IV hydration Hold lisinopril will continue with metoprolol. continue with normal saline 100 mL per hour Labs and medication were reviewed.. Continue same treatment. Continue with symptomatic treatment. Resume home medication. Monitor lytes and vitals. DVT and GI prophylaxis. Further recommendations as per clinical course of the patient DVT prophylaxis: xarelto GI Prophylaxis: Pepcid PT/OT: Pending Prognosis is guarded
[2022-04-10] MEDS: DEXTROSE 5%-0.9% NACL 1,000 ML IV SCH ×2 (05:54→16:00)
--- NOTE | 2022-04-10 09:02 | P.CRDCN ---
History of Present Illness History of present illness: HISTORY OF PRESENTING ILLNESS Patient is pleasant 71-year-old male with history of CAD status post CABG approximately 2012, COPD, DVT/PE, hyperlipidemia, hypertension, ischemic cardiomyopathy status post AICD. He normally follows with Dr. Sevilla. He had been doing fairly well however the last week had noticed fevers, generalized fatigue, weakness. He was found to have elevated liver enzymes and elevated white blood cell count with possible concern of abdominal source of infection with CT abdomen and pelvis showing possible sludge within the gallbladder and small left pleural effusion. A nuclear hepatobiliary scan showed abnormal low gallbladder ejection fraction. Blood culture 1 of 2 was positive for staph lugdunenisis. Infectious disease recommending MOOSE to further evaluate. He denies any current chest pain or pressure. Admits to chronic dyspnea which is unchanged. Admits to mild lower extremity edema which is predominantly unchanged. REVIEW OF SYSTEMS At the time of my exam: CONSTITUTIONAL: +fever, no chills. CARDIOVASCULAR: Denies chest pain, +chronic shortness of breath, no orthopnea, PND or palpitations. RESPIRATORY: Denies cough. GASTROINTESTINAL: Denies abdominal pain, diarrhea, constipation, nausea or vomiting. MUSCULOSKELETAL: Denies myalgias. NEUROLOGIC: Denies numbness, tingling or weakness. ENDOCRINE: Denies fatigue, weight change, polydipsia or polyurina. GENITOURINARY: Denies burning, hematuria or urgency with micturation. HEMATOLOGIC: Denies history of anemia or bleeding. PHYSICAL EXAMINATION Vital signs reviewed. CONSTITUTIONAL: No apparent distress, chronically ill appearing HEENT: Head is normocephalic. Pupils are equal, round. Sclerae anicteric. Mucous membranes of the mouth are moist. No JVD. No carotid bruit. CHEST EXAMINATION: Lungs are clear to auscultation. No chest wall tenderness is noted on palpation or with deep breathing. HEART EXAMINATION: Regular rate and rhythm. S1, S2 heard. No murmurs, gallops or rub. ABDOMEN: Soft, nontender. Positive bowel sounds. EXTREMITIES: 2+ peripheral pulses, +trace lower extremity edema and no calf tenderness. NEUROLOGIC EXAMINATION: Patient is awake, alert and oriented x3. ASSESSMENT 1. Staph lugdunenisis bacteremia rule out infectious endocarditis 2. Coronary artery disease with history of 4 vessel CABG 2016 as well as PCI mid LAD 2016 3. Ischemic cardiomyopathy status post single-chamber AICD 2017. Recovered EF 40-45% by most recent echo 4. Hypertension 5. Hyperlipidemia 6. COPD 7. Chronic systolic heart failure 8. History of DVT/PE on anticoagulation PLAN Continue with home heart failure regimen as tolerated. Currently appears euvolemic. Staph lugdunenisis bacteremia with possibility of endocarditis. Infectious disease recommendations appreciated and recommended for MOOSE. Check MOOSE likely 04/12/2022. Past Medical History Past Medical History: Coronary Artery Disease (CAD), COPD, Deep Vein Thrombosis (DVT), Eye Disorder, Hyperlipidemia, Hypertension, Pulmonary Embolus (PE), Vascular Disorder Additional Past Medical History / Comment(s): Pt recently admitted to [facility] on 03/29/22 with bilateral PEs, L leg dvt, hyponatremia. Other hx: Ischemic cardiomyopathy/has AICD, PVD with R foot 5th toe amputation/bone shaved d/t infection, chronic back pain, L eye injury/blind. History of Any Multi-Drug Resistant Organisms: None Reported Past Surgical History: AICD, Heart Catheterization, Orthopedic Surgery, Tonsillectomy Additional Past Surgical History / Comment(s): 2017 failed cardiac stent, 2017 CABG 3 vessel, 2017 AICD, R 5th toe amputation, L eye injury with surgery. Past Anesthesia/Blood Transfusion Reactions: No Reported Reaction, Motion Sickness Additional Past Anesthesia/Blood Transfusion Reaction / Comment(s): Pt received blood in past without reaction. Type of Cardiac Device: AICD Device Placement Date:: 10/27/2016 Smoking Status: Former smoker - Past Family History Mother Family Medical History: Cancer Additional Family Medical History / Comment(s): age 62 of cancer Father Additional Family Medical History / Comment(s): paraplegic after motorcycle accident age 57. age 62 2 weeks after . Medications and Allergies Home Medications Medication Instructions Recorded Confirmed Type Atorvastatin [Lipitor] 40 mg PO DAILY@0800 12/16/04/06/22 History Aspirin EC [Ecotrin Low Dose] 81 mg PO DAILY@0800 03/01/22 04/06/22 History Albuterol Inhaler [Ventolin Hfa 2 puff INHALATION RT-QID PRN 03/29/22 04/06/22 History Inhaler] Acetaminophen Tab [Tylenol] 650 mg PO Q4H PRN 04/06/22 04/06/22 History Magnesium Hydroxide [Milk of 7,200 mg PO DAILY PRN 04/06/22 04/06/22 History Magnesia Concentrate] Metoprolol Tartrate [Lopressor] 25 mg PO BID@0800,1700 04/06/22 04/06/22 History Na Phos,M-B/Na Phos,Di-Ba [Fleet 133 ml RECTAL DAILY PRN 04/06/22 04/06/22 History Adult] Rivaroxaban [Xarelto] 15 mg PO BID@0800,1700 04/06/22 04/06/22 History Rivaroxaban [Xarelto] 20 mg PO DIRECTED 04/06/22 04/06/22 History bisacodyL [Dulcolax] 10 mg RECTAL DAILY PRN 04/06/22 04/06/22 History lisinopriL [Zestril] 2.5 mg PO HS@2100 04/06/22 04/06/22 History Allergies Allergy/AdvReac Type Severity Reaction Status Date / Time No Known Allergies Allergy Verified 04/06/22 20:03 Physical Exam Vitals: Vital Signs Temp Pulse Resp BP Pulse Ox 04/10/22 08:00 97.8 F 91 16 108/64 95 04/10/22 02:00 98.3 F 80 21 98/61 94 L 04/09/22 19:37 98.2 F 87 20 107/64 96 04/09/22 14:00 97.6 F 87 17 100/59 97 Intake and Output 04/09/22 04/10/22 04/10/22 22:59 06:59 14:59 Intake Total 680 Output Total 300 Balance -300 680 Intake: Intake, IV Titration 650 Amount Dextrose 5%-0.9% NaCl 1, 600 000 ml @ 100 mls/hr IV . Q10H MICHAELA Rx#:[id number] ceFAZolin 2 gm In Sodium 50 Chloride 0.9% 50 ml @ 100 mls/hr IVPB Q8HR MICHAELA Rx# :[id number] Oral 30 Output: Urine 300 Other: # Voids 3 Results 04/09/22 06:52 04/09/22 06:52 Cardiac Enzymes 04/09/22 Range/Units 06:52 AST 78 H (14-35) U/L CBC 04/09/22 Range/Units 06:52 WBC 14.50 H (4.50-10.00) X 10*3/uL RBC 3.14 L (4.40-5.60) X 10*6/uL Hgb 8.5 L (13.0-17.0) g/dL Hct 27.7 L (39.6-50.0) % Plt Count 134 L (140-440) X 10*3/uL Comprehensive Metabolic Panel 04/09/22 Range/Units 06:52 Sodium 132 L (135-145) mmol/L Potassium 4.9 (3.5-5.5) mmol/L Chloride 99 (96-109) mmol/L Carbon Dioxide 22.6 (20.0-27.5) mmol/L BUN 16.4 (9.0-27.0) mg/dL Creatinine 0.9 (0.6-1.5) mg/dL Glucose 112 H (70-110) mg/dL Calcium 7.7 L (8.7-10.3) mg/dL Unconjugated Bilirubin 0.27 (0.20-1.00) mg/dL AST 78 H (14-35) U/L ALT 52 H (10-49) U/L Alkaline Phosphatase 101 (41-126) U/L Total Protein 5.3 L (6.2-8.2) g/dL Albumin 2.2 L (3.8-4.9) g/dL Current Medications Generic Name Dose Route Start Last Admin Trade Name Freq PRN Reason Stop Dose Admin Acetaminophen 325 mg 04/07/22 07:51 Acetaminophen Tab 325 Mg Tab PO Q6HR PRN Fever and/ or Mild Pain Al Hydroxide/Mg Hydroxide 15 ml 04/06/22 19:46 Mag Hydrox/Al Hydrox/Simeth 30 Ml Cup PO Q6HR PRN Indigestion Albuterol Sulfate 2.5 mg 04/06/22 19:50 04/07/22 07:21 Albuterol Nebulized 2.5 Mg/3 Ml INHALATION 2.5 mg RT-QID PRN Administration Shortness Of Breath Aspirin 81 mg 04/07/22 09:00 04/09/22 09:36 Aspirin 81 Mg PO 81 mg DAILY MICHAELA Administration Atorvastatin Calcium 40 mg 04/07/22 09:00 04/07/22 08:15 Atorvastatin 40 Mg Tab PO 40 mg DAILY MICHAELA Administration Docusate Sodium 100 mg 04/06/22 19:46 Docusate 100 Mg Cap PO BID PRN Constipation Famotidine 20 mg 04/08/22 09:00 04/09/22 20:24 Famotidine 20 Mg Tab PO 20 mg BID MICHAELA Administration Dextrose/Sodium Chloride 1,000 mls @ 100 mls/hr 04/07/22 08:00 04/10/22 05:54 Dextrose 5%-Ns Iv Soln IV 100 mls/hr .Q10H MICHAELA Administration Cefazolin Sodium 2 gm/ Sodium 50 mls @ 100 mls/hr 04/08/22 16:00 04/10/22 00:17 Chloride IVPB 100 mls/hr Q8HR [facility] Administration Protocol Lisinopril 2.5 mg 04/06/22 21:00 04/09/22 20:23 Lisinopril 2.5 Mg Tab PO Not Given [facility] Metoprolol Tartrate 25 mg 04/06/22 21:00 04/09/22 20:24 Metoprolol Tartrate 25 Mg Tab PO 25 mg BID MICHAELA Administration Morphine Sulfate 4 mg 04/06/22 19:46 Morphine Sulfate 4 Mg/Ml Syringe IVP Q4HR PRN Severe Pain Naloxone HCl 0.2 mg 04/06/22 19:46 Naloxone 0.4 Mg/Ml 1 Ml Vial IV Q2M PRN Opioid Reversal Ondansetron HCl 4 mg 04/06/22 19:46 Ondansetron 4 Mg/2 Ml Vial IVP Q8HR PRN Nausea And Vomiting Rivaroxaban 15 mg 04/06/22 21:00 04/09/22 16:55 Rivaroxaban 15 Mg Tab PO 04/21/22 23:00 15 mg BID@0800,1700 [facility] Administration Protocol Rivaroxaban 20 mg 04/22/22 08:00 Rivaroxaban 20 Mg Tab PO DAILY@0800 [facility] Protocol Intake and Output 04/09/22 04/10/22 04/10/22 22:59 06:59 14:59 Intake Total 680 Output Total 300 Balance -300 680 Intake: Intake, IV Titration 650 Amount Dextrose 5%-0.9% NaCl 1, 600 000 ml @ 100 mls/hr IV . Q10H [facility] Rx#:[id number] ceFAZolin 2 gm In Sodium 50 Chloride 0.9% 50 ml @ 100 mls/hr IVPB Q8HR [facility] Rx# :[id number] Oral 30 Output: Urine 300 Other: # Voids 3 04/09/22 06:52 04/09/22 06:52
--- NOTE | 2022-04-10 09:04 | P.PN ---
Subjective Progress Note Date: 04/10/22 Principal diagnosis: Possible cholecystitis Patient doing better today. No shortness of breath. He has no abdominal pain. He is tolerating his diet. No nausea or vomiting. Objective - Vital Signs Vital signs: Vital Signs Temp 97.8 F 04/10/22 08:00 Pulse 91 04/10/22 08:00 Resp 16 04/10/22 08:00 BP 108/64 04/10/22 08:00 Pulse Ox 95 04/10/22 08:00 FiO2 Intake & Output 04/09/22 04/10/22 04/10/22 18:59 06:59 18:59 Intake Total 680 480 Output Total 500 Balance -500 680 480 Intake: Intake, IV Titration 650 Amount Dextrose 5%-0.9% NaCl 1, 600 000 ml @ 100 mls/hr IV . Q10H [facility] Rx#:[id number] ceFAZolin 2 gm In Sodium 50 Chloride 0.9% 50 ml @ 100 mls/hr IVPB Q8HR MICHAELA Rx# :[id number] Oral 30 480 Output: Urine 500 Other: Voiding Method Urinal # Voids 1 3 # Bowel Movements 1 - Exam Abdomen: Soft, nontender, nondistended - Labs CBC & Chem 7: 04/09/22 06:52 04/09/22 06:52 Labs: Abnormal Lab Results - Last 24 Hours (Table) 04/09/22 04/09/22 Range/Units 06:52 06:52 WBC 14.50 H (4.50-10.00) X 10*3/uL RBC 3.14 L (4.40-5.60) X 10*6/uL Hgb 8.5 L (13.0-17.0) g/dL Hct 27.7 L (39.6-50.0) % MCHC 30.7 L (32.0-37.0) g/dL RDW 15.7 H (11.5-14.5) % Plt Count 134 L (140-440) X 10*3/uL Immature Gran # 0.27 H (0.00-0.04) X 10*3/uL Neutrophils # 11.75 H (1.80-7.70) X 10*3/uL Monocytes # 1.41 H (0.20-1.00) X 10*3/uL Eosinophils # 0.01 L (0.04-0.35) X 10*3/uL Sodium 132 L (135-145) mmol/L Glucose 112 H (70-110) mg/dL Calcium 7.7 L (8.7-10.3) mg/dL AST 78 H (14-35) U/L ALT 52 H (10-49) U/L C-Reactive Protein 8.80 H (0.00-0.80) mg/dL Total Protein 5.3 L (6.2-8.2) g/dL Albumin 2.2 L (3.8-4.9) g/dL Albumin/Globulin Ratio 0.68 L (1.60-3.17) g/dL Microbiology - Last 24 Hours (Table) 04/09/22 06:52 Blood Culture Gram Stain - Preliminary Blood 04/09/22 06:52 Blood Culture - Final Blood 04/07/22 14:26 Blood Culture Gram Stain - Preliminary Blood Blood Culture - Preliminary Staphylococcus lugdunenisis Assessment and Plan (1) Sepsis Narrative/Plan: Patient continues to slowly improve. Continue diet as tolerated. Continue antibiotics. Patient is not interested in cholecystectomy at this time. We'll follow. Current Visit: Yes Status: Acute Code(s): A41.9 - SEPSIS, UNSPECIFIED ORGANISM SNOMED Code(s): 36817788
[2022-04-10] MEDS: ATORVASTATIN 40 MG TAB PO SCH (09:12)
[2022-04-10] MEDS: RIVAROXABAN 15 MG TAB PO SCH ×2 (09:12→17:02)
[2022-04-10] MEDS: FAMOTIDINE 20 MG TAB PO SCH ×2 (09:12→21:06)
[2022-04-10] MEDS: METOPROLOL TARTRATE 25 MG TAB PO SCH ×2 (09:12→21:06)
[2022-04-10] MEDS: ASPIRIN 81 MG PO SCH (09:12)
--- NOTE | 2022-04-10 17:56 | P.PN ---
Subjective Progress Note Date: 04/10/22 71 years old male with past medical history of hypertension, COPD, Hyperlipidemia, Hypertension, ,Ischemic cardiomyopathy with impaired LV function preoperatively., COPD with an FEV1 of 41% of predicted based on a spirometer was done preoperatively, blindness in the left eye, peripheral vascular disease with previous amputation of the toe, chronic back pain, hs/p AICD, He was discharged from the hospital yesterday for left lower extremity DVT and pulmonary embolism and has been evaluated by health information director and valve pipe irrigator on discharge on Xarelto Since last admission patient has been feeling generally weak and some tachypnea but all workup was negative including repeat chest x-ray, repeat urine analysis, CT of the abdomen and the lumbar spine. No positive culture results. Had no fever over a monitored several days but he had mild leukocytosis which was stable and slightly turned in the. Patient was discharged to [facility] for rehab after he was been cleared by pulmonary and cardiology service for several days. At [facility] he develops fever of 103.0 and blood pressure was on the low side. She was sent back to the hospital. Patient this morning is fully awake and oriented, normal change clinically from yesterday when we discharged him, he still tachypneic but no difficulty breathing, no coughing. No abdominal pain or nausea vomiting. No diarrhea. No rash. No urinary complaints or dysuria, no headache or weakness or numbness. Distal compressed from lower back pain and right leg pain. His chest pain is somewhat 7/10. Currently blood pressure 141/89 after he received 1 L of normal saline, heart rate is 98. from yesterday showed WBCs of 13.7, hemoglobin 9.4, sodium 127. Troponin 2 are negative. Viruses this were negative including covid and influenza 04/10/2022 Patient is seen and evaluated with family at bedside; denies any complaint of chest pain or shortness of breath Patient is being followed by general surgery; he was found to have elevated te mperatures with elevated WBC and liver enzymes; CT of the abdomen and pelvis shows possible sludge. Gallbladder and cholecystectomy as recommended by surgery; patient is refusing cholecystectomy at that point Blood cultures reveal Staph lugdunenisis bacteremia rule out infectious endocarditis; cardiology on board with plans for MOOSE on Tuesday Objective - Vital Signs Vital signs: Vital Signs Temp 97.8 F 04/10/22 08:00 Pulse 91 04/10/22 08:00 Resp 16 04/10/22 08:00 BP 108/64 04/10/22 08:00 Pulse Ox 95 04/10/22 08:00 FiO2 Intake & Output 04/09/22 04/10/22 04/10/22 18:59 06:59 18:59 Intake Total 680 480 Output Total 500 Balance -500 680 480 Intake: Intake, IV Titration 650 Amount Dextrose 5%-0.9% NaCl 1, 600 000 ml @ 100 mls/hr IV . Q10H MICHAELA Rx#:[id number] ceFAZolin 2 gm In Sodium 50 Chloride 0.9% 50 ml @ 100 mls/hr IVPB Q8HR MICHAELA Rx# :[id number] Oral 30 480 Output: Urine 500 Other: Voiding Method Urinal # Voids 1 3 # Bowel Movements 1 - Exam GENERAL: The patient is alert and oriented x3, not in any acute distress. Well developed, well nourished. HEENT: Pupils are round and equally reacting to light. EOMI. No scleral icterus. No conjunctival pallor. Normocephalic, atraumatic. No pharyngeal erythema. No thyromegaly. CARDIOVASCULAR: S1 and S2 present. No murmurs, rubs, or gallops. PULMONARY: Chest is clear to auscultation, no wheezing or crackles. -ABDOMEN: Soft, mild epigastric tenderness, nondistended, normoactive bowel sounds. No palpable organomegaly. MUSCULOSKELETAL: No joint swelling or deformity. EXTREMITIES: No cyanosis, clubbing, or pedal edema. NEUROLOGICAL: Gross neurological examination did not reveal any focal deficits. SKIN: No rashes. no petechiae. - Labs CBC & Chem 7: 04/09/22 06:52 04/09/22 06:52 Labs: Microbiology - Last 24 Hours (Table) 04/07/22 14:26 Blood Culture Gram Stain - Final Blood Blood Culture - Final Staphylococcus lugdunenisis 04/09/22 06:52 Blood Culture Gram Stain - Preliminary Blood 04/09/22 06:52 Blood Culture - Final Blood Assessment and Plan Assessment: Sepsis with fever and leukocytosis and tachypnea, with positive blood culture for staph species Biliary dyskinesia, rule out cholecystitis Acute pulmonary embolism and left lower extremity deep venous thrombosis Hyponatremia Hypertension Hyperlipidemia COPD, no acute exacerbation Coronary artery disease status post four-vessel bypass in 2017 and PCI of mid LAD in 2017 Ischemic cardiomyopathy status post single-chamber ICD placement in 2017 Status post AICD Chronic back pain Blindness of left eye Peripheral vascular disease ---- Follow-up blood culture final results Continue with cefazolin per ID team Consults surgical team Consults infectious disease team continue with IV hydration Hold lisinopril will continue with metoprolol. continue with normal saline 100 mL per hour Labs and medication were reviewed.. Continue same treatment. Continue with symptomatic treatment. Resume home medication. Monitor lytes and vitals. DVT and GI prophylaxis. Further recommendations as per clinical course of the patient DVT prophylaxis: xarelto GI Prophylaxis: Pepcid PT/OT: Pending Prognosis is guarded
--- NOTE | 2022-04-10 20:03 | P.PN ---
Subjective Progress Note Date: 04/10/22 Principal diagnosis: Fever Patient is a 71 year old male with a recent admission to this facility has been diagnosed with a PE and started on surrounding the patient also complaining of fever for about a week along with some chills did have a chronic back pain with recent CT did not show any acute finding, patient HIDA scan with the biliary dyskinesia and CT did show sludge in the gallbladder, surgery on the case On today's evaluation that is 04/10/2022, the patient remains to be afebrile, the patient is breathing comfortably on room air, the patient denies having any chest pain, did have occasional dry cough, the patient denies nausea vomiting no abdominal pain or diarrhea, patient is overall feeling better and looking good per the at the bedside Objective - Vital Signs Vital signs: Vital Signs Temp 97.8 F 04/10/22 08:00 Pulse 91 04/10/22 08:00 Resp 16 04/10/22 08:00 BP 108/64 04/10/22 08:00 Pulse Ox 95 04/10/22 08:00 FiO2 Intake & Output 04/09/22 04/10/22 04/10/22 18:59 06:59 18:59 Intake Total 680 480 Output Total 500 Balance -500 680 480 Intake: Intake, IV Titration 650 Amount Dextrose 5%-0.9% NaCl 1, 600 000 ml @ 100 mls/hr IV . Q10H MICHAELA Rx#:[id number] ceFAZolin 2 gm In Sodium 50 Chloride 0.9% 50 ml @ 100 mls/hr IVPB Q8HR MICHAELA Rx# :[id number] Oral 30 480 Output: Urine 500 Other: Voiding Method Urinal # Voids 1 3 # Bowel Movements 1 - Exam GENERAL DESCRIPTION: An elderly male lying in bed in no distress HEENT; bad dentition with a few necrotic incisor teeth left RESPIRATORY SYSTEM: Unlabored breathing , decreased breath sounds at bases HEART: S1 S2 regular rate and rhythm , ABDOMEN: Soft , no tenderness EXTREMITIES: No edema feet - Labs CBC & Chem 7: 04/09/22 06:52 04/09/22 06:52 Labs: Microbiology - Last 24 Hours (Table) 04/09/22 06:52 Blood Culture Gram Stain - Preliminary Blood 04/09/22 06:52 Blood Culture - Final Blood 04/07/22 14:26 Blood Culture Gram Stain - Preliminary Blood Blood Culture - Preliminary Staphylococcus lugdunenisis Assessment and Plan (1) Fever Current Visit: Yes Status: Acute Code(s): R50.9 - FEVER, UNSPECIFIED SNOMED Code(s): 576998399 Plan: 1patient with a fever and weakness in this patient did have elevated white count mildly elevated liver enzymes questionable abdominal source patient did have a recent diagnosis of PE and we did obtain a chest x-ray which was negative for any pneumonia. 2HIDA scan with the biliary dyskinesia and CT did show sludge in the gallbladder, echocardiogram done last admission was negative as cardiology has been consulted for MOOSE to rule out endovascular source 3 patient blood culture positive for Staphylococcus Lugdunenisis , with a r epeat done on 04/09/2022 positive, blood cultures have been repeated this morning and will be repeated tomorrow morning as well 4- patient continue with cefazolin 2 g every 8 hours, and monitor clinical course closely Time with Patient: Less than 30
[2022-04-11] MEDS: DEXTROSE 5%-0.9% NACL 1,000 ML IV SCH ×3 (00:31→21:49)
[2022-04-11] MEDS: RIVAROXABAN 15 MG TAB PO SCH ×2 (08:31→15:18)
[2022-04-11] MEDS: METOPROLOL TARTRATE 25 MG TAB PO SCH ×2 (08:31→20:56)
[2022-04-11] MEDS: ATORVASTATIN 40 MG TAB PO SCH (08:31)
[2022-04-11] MEDS: FAMOTIDINE 20 MG TAB PO SCH ×2 (08:31→20:56)
[2022-04-11] MEDS: ASPIRIN 81 MG PO SCH (08:31)
--- NOTE | 2022-04-11 09:23 | P.PN ---
Subjective Progress Note Date: 04/11/22 Principal diagnosis: Possible cholecystitis Patient doing well today. No shortness of breath. No abdominal pain. Tolerating diet. Objective - Vital Signs Vital signs: Vital Signs Temp 98.1 F 04/11/22 07:39 Pulse 83 04/11/22 07:39 Resp 16 04/11/22 07:39 BP 117/64 04/11/22 07:39 Pulse Ox 97 04/11/22 07:39 FiO2 Intake & Output 04/10/22 04/11/22 04/11/22 18:59 06:59 18:59 Intake Total 1690 1150 Output Total 375 Balance 1315 1150 Intake: Intake, IV Titration 850 650 Amount Dextrose 5%-0.9% NaCl 1, 800 600 000 ml @ 100 mls/hr IV . Q10H MICHAELA Rx#:[id number] ceFAZolin 2 gm In Sodium 50 50 Chloride 0.9% 50 ml @ 100 mls/hr IVPB Q8HR MICHAELA Rx# :[id number] Oral 840 500 Output: Urine 375 Other: # Voids 3 - Exam Abdomen: Soft, nontender, nondistended - Labs CBC & Chem 7: 04/09/22 06:52 04/09/22 06:52 Labs: Microbiology - Last 24 Hours (Table) 04/10/22 06:30 Blood Culture Gram Stain - Preliminary Blood 04/10/22 06:30 Blood Culture - Final Blood 04/07/22 14:26 Blood Culture Gram Stain - Final Blood Blood Culture - Final Staphylococcus lugdunenisis 04/09/22 06:52 Blood Culture Gram Stain - Preliminary Blood Assessment and Plan (1) Sepsis Narrative/Plan: Patient states he would like to go home. Tolerating diet. He is having no pain. Continue observation of gallbladder for now. Current Visit: Yes Status: Acute Code(s): A41.9 - SEPSIS, UNSPECIFIED ORGANISM SNOMED Code(s): 35433359
--- NOTE | 2022-04-11 17:06 | P.PN ---
Subjective Progress Note Date: 04/11/22 Principal diagnosis: Sepsis/bacteremia Acute cholecystitis Acute PE and left lower extremity DVT 71 years old male with past medical history of hypertension, COPD, Hyperlipidemia, Hypertension, ,Ischemic cardiomyopathy with impaired LV function preoperatively., COPD with an FEV1 of 41% of predicted based on a spirometer was done preoperatively, blindness in the left eye, peripheral vascular disease with previous amputation of the toe, chronic back pain, hs/p AICD, He was discharged from the hospital yesterday for left lower extremity DVT and pulmonary embolism and has been evaluated by transmission design engineer and box toe cutter on discharge on Xarelto Since last admission patient has been feeling generally weak and some tachypnea but all workup was negative including repeat chest x-ray, repeat urine analysis, CT of the abdomen and the lumbar spine. No positive culture results. Had no fever over a monitored several days but he had mild leukocytosis which was stable and slightly turned in the. Patient was discharged to [facility] for rehab after he was been cleared by pulmonary and cardiology service for several days. At [facility] he develops fever of 103.0 and blood pressure was on the low side. She was sent back to the hospital. Patient this morning is fully awake and oriented, normal change clinically from yesterday when we discharged him, he still tachypneic but no difficulty breathing, no coughing. No abdominal pain or nausea vomiting. No diarrhea. No rash. No urinary complaints or dysuria, no headache or weakness or numbness. Distal compressed from lower back pain and right leg pain. His chest pain is somewhat 7/10. Currently blood pressure 141/89 after he received 1 L of normal saline, heart rate is 98. from yesterday showed WBCs of 13.7, hemoglobin 9.4, sodium 127. Troponin 2 are negative. Viruses this were negative including covid and influenza 04/10/2022 Patient is seen and evaluated with family at bedside; denies any complaint of chest pain or shortness of breath Patient is being followed by general surgery; he was found to have elevated temperatures with elevated WBC and liver enzymes; CT of the abdomen and pelvis shows possible sludge. Gallbladder and cholecystectomy as recommended by surgery; patient is refusing cholecystectomy at that point Blood cultures reveal Staph lugdunenisis bacteremia rule out infectious endocarditis; cardiology on board with plans for MOOSE on Tuesday04/11/2022 Patient seen and evaluated family at bedside; denies any specific complaints Vital signs are reviewed and remained stable; patient remains afebrile Patient has been scheduled for MOOSE to rule out endocarditis given positive blood cultures; patient has been placed on cefazolin; repeat blood cultures are negative to date Further recommendations regarding IV antibiotics once MOOSE is completed Patient has been recommended cholecystectomy; patient continues to refuse the procedure Objective - Vital Signs Vital signs: Vital Signs Temp 98.1 F 04/11/22 07:39 Pulse 83 04/11/22 07:39 Resp 16 04/11/22 07:39 BP 117/64 04/11/22 07:39 Pulse Ox 97 04/11/22 07:39 FiO2 Intake & Output 04/10/22 04/11/22 04/11/22 18:59 06:59 18:59 Intake Total 1690 1150 600 Output Total 375 Balance 1315 1150 600 Intake: Intake, IV Titration 850 650 Amount Dextrose 5%-0.9% NaCl 1, 800 600 000 ml @ 100 mls/hr IV . Q10H MICHAELA Rx#:[id number] ceFAZolin 2 gm In Sodium 50 50 Chloride 0.9% 50 ml @ 100 mls/hr IVPB Q8HR MICHAELA Rx# :[id number] Oral 840 500 600 Output: Urine 375 Other: # Voids 3 - Exam GENERAL: The patient is alert and oriented x3, not in any acute distress. Well developed, well nourished. HEENT: Pupils are round and equally reacting to light. EOMI. No scleral icterus. No conjunctival pallor. Normocephalic, atraumatic. No pharyngeal erythema. No thyromegaly. CARDIOVASCULAR: S1 and S2 present. No murmurs, rubs, or gallops. PULMONARY: Chest is clear to auscultation, no wheezing or crackles. -ABDOMEN: Soft, mild epigastric tenderness, nondistended, normoactive bowel sounds. No palpable organomegaly. MUSCULOSKELETAL: No joint swelling or deformity. EXTREMITIES: No cyanosis, clubbing, or pedal edema. NEUROLOGICAL: Gross neurological examination did not reveal any focal deficits. SKIN: No rashes. no petechiae. - Labs CBC & Chem 7: 04/09/22 06:52 04/09/22 06:52 Labs: Microbiology - Last 24 Hours (Table) 04/10/22 06:30 Blood Culture Gram Stain - Preliminary Blood 04/10/22 06:30 Blood Culture - Final Blood 04/07/22 14:26 Blood Culture Gram Stain - Final Blood Blood Culture - Final Staphylococcus lugdunenisis 04/09/22 06:52 Blood Culture Gram Stain - Preliminary Blood Assessment and Plan Assessment: Sepsis with fever and leukocytosis and tachypnea, with positive blood culture for staph species Biliary dyskinesia, rule out cholecystitis Acute pulmonary embolism and left lower extremity deep venous thrombosis Hyponatremia Hypertension Hyperlipidemia COPD, no acute exacerbation Coronary artery disease status post four-vessel bypass in 2017 and PCI of mid LAD in 2017 Ischemic cardiomyopathy status post single-chamber ICD placement in 2017 Status post AICD Chronic back pain Blindness of left eye Peripheral vascular disease ---- Follow-up blood culture final results Continue with cefazolin per ID team Consults surgical team Consults infectious disease team continue with IV hydration Hold lisinopril will continue with metoprolol. continue with normal saline 100 mL per hour Labs and medication were reviewed.. Continue same treatment. Continue with symptomatic treatment. Resume home medication. Monitor lytes and vitals. DVT and GI prophylaxis. Further recommendations as per clinical course of the patient DVT prophylaxis: xarelto GI Prophylaxis: Pepcid PT/OT: Pending Prognosis is guarded
--- NOTE | 2022-04-11 20:57 | P.PN ---
Subjective HISTORY OF PRESENTING ILLNESS Patient is pleasant 71-year-old male with history of CAD status post CABG approximately 2012, COPD, DVT/PE, hyperlipidemia, hypertension, ischemic cardiomyopathy status post AICD. He normally follows with Dr. Sevilla. He had been doing fairly well however the last week had noticed fevers, generalized fatigue, weakness. He was found to have elevated liver enzymes and elevated white blood cell count with possible concern of abdominal source of infection with CT abdomen and pelvis showing possible sludge within the gallbladder and small left pleural effusion. A nuclear hepatobiliary scan showed abnormal low gallbladder ejection fraction. Blood culture 1 of 2 was positive for staph lugdunenisis. Infectious disease recommending MOOSE to further evaluate. He denies any current chest pain or pressure. Admits to chronic dyspnea which is unchanged. Admits to mild lower extremity edema which is predominantly u nchanged. 04/12 Patient seen and examined. Patient denies any chest pain or pressure. Denies any shortness breath. Blood culture from 04/09 growing coag-negative staph. PHYSICAL EXAMINATION Vital signs reviewed. CONSTITUTIONAL: No apparent distress, chronically ill appearing HEENT: Head is normocephalic. Pupils are equal, round. Sclerae anicteric. Mucous membranes of the mouth are moist. No JVD. No carotid bruit. CHEST EXAMINATION: Lungs are clear to auscultation. No chest wall tenderness is noted on palpation or with deep breathing. HEART EXAMINATION: Regular rate and rhythm. S1, S2 heard. No murmurs, gallops or rub. ABDOMEN: Soft, nontender. Positive bowel sounds. EXTREMITIES: 2+ peripheral pulses, +trace lower extremity edema and no calf tenderness. NEUROLOGIC EXAMINATION: Patient is awake, alert and oriented x3. ASSESSMENT 1. Staph lugdunenisis bacteremia rule out infectious endocarditis 2. Coronary artery disease with history of 4 vessel CABG 2017 as well as PCI mid LAD 2016 3. Ischemic cardiomyopathy status post single-chamber AICD 2017. Recovered EF 40-45% by most recent echo 4. Hypertension 5. Hyperlipidemia 6. COPD 7. Chronic systolic heart failure 8. History of DVT/PE on anticoagulation PLAN Continue with home heart failure regimen as tolerated. Currently appears euvolemic. Staph lugdunenisis bacteremia with possibility of endocarditis. MOOSE tomorrow with Dr Sevilla. Objective - Vital Signs Vital signs: Vital Signs Temp 97.6 F 04/11/22 19:27 Pulse 84 04/11/22 19:27 Resp 16 04/11/22 19:27 BP 116/70 04/11/22 19:27 Pulse Ox 96 04/11/22 19:27 FiO2 Intake & Output 04/11/22 04/11/22 04/12/22 06:59 18:59 06:59 Intake Total 1150 2170 Output Total 800 Balance 1150 1370 Intake: Intake, IV Titration 650 850 Amount Dextrose 5%-0.9% NaCl 1, 600 800 000 ml @ 100 mls/hr IV . Q10H MICHAELA Rx#:[id number] ceFAZolin 2 gm In Sodium 50 50 Chloride 0.9% 50 ml @ 100 mls/hr IVPB Q8HR MICHAELA Rx# :[id number] Oral 500 1320 Output: Urine 800 Other: # Voids 3 - Labs CBC & Chem 7: 04/09/22 06:52 04/09/22 06:52 Labs: Microbiology - Last 24 Hours (Table) 04/09/22 06:52 Blood Culture Gram Stain - Preliminary Blood Blood Culture - Preliminary Coagulase Negative Staph 04/10/22 06:30 Blood Culture Gram Stain - Preliminary Blood 04/10/22 06:30 Blood Culture - Final Blood
[2022-04-12] MEDS: DEXTROSE 5%-0.9% NACL 1,000 ML IV SCH ×2 (06:53→15:31)
[2022-04-12] MEDS: RIVAROXABAN 15 MG TAB PO SCH ×2 (08:09→16:45)
[2022-04-12] MEDS: ASPIRIN 81 MG PO SCH (08:09)
[2022-04-12] MEDS: ATORVASTATIN 40 MG TAB PO SCH (08:09)
[2022-04-12] MEDS: FAMOTIDINE 20 MG TAB PO SCH ×2 (08:09→20:07)
[2022-04-12] MEDS: METOPROLOL TARTRATE 25 MG TAB PO SCH ×2 (08:10→20:07)
[2022-04-12 09:11] LABS: Basophils # (A) 0.02 X 10*3/uL (0.00-0.10); Basophils % (A) 0.2 %; Eosinophils # (A) 0 X 10*3/uL (0.04-0.35); Eosinophils % (A) 0 %; HCT 29.4 % (39.6-50.0); HGB 8.8 g/dL (13.0-17.0); Immature Grans, Automated 1.5 %; Lymphocytes # (A) 1.06 X 10*3/uL (0.90-5.00); Lymphocytes % (A) 8.1 %; MCH 26.7 pg (27.0-32.0); MCHC 29.9 g/dL (32.0-37.0); MCV 89.4 fL (80.0-97.0); Mean Platelet Volume 9.5 fL (9.5-12.2); Monocytes # (A) 1.03 X 10*3/uL (0.20-1.00); Monocytes % (A) 7.9 %; NRBC Per 100 WBC 0 /100 WBCS (0.0-0.0); Neutrophils # (A) 10.78 X 10*3/uL (1.80-7.70); Neutrophils % (A) 82.3 %; Platelet Count 164 X 10*3/uL (140-440); RBC 3.29 X 10*6/uL (4.40-5.60); RDW 15.9 % (11.5-14.5); WBC 13.09 X 10*3/uL (4.50-10.00)
[2022-04-12 09:31] LABS: African American GFR (CKD) 118.9 (60.0-200.0); BUN/Creat Ratio 13.33 Ratio (12.00-20.00); Calcium 7.7 mg/dL (8.7-10.3); Non-African American GFR(CKD) 102.6 (60.0-200.0); Potassium 4.3 mmol/L (3.5-5.5)
--- NOTE | 2022-04-12 09:31 | P.PN ---
Subjective HISTORY OF PRESENTING ILLNESS Patient is pleasant 71-year-old male with history of CAD status post CABG approximately 2012, COPD, DVT/PE, hyperlipidemia, hypertension, ischemic cardiomyopathy status post AICD. He normally follows with Dr. Sevilla. He had been doing fairly well however the last week had noticed fevers, generalized fatigue, weakness. He was found to have elevated liver enzymes and elevated white blood cell count with possible concern of abdominal source of infection with CT abdomen and pelvis showing possible sludge within the gallbladder and small left pleural effusion. A nuclear hepatobiliary scan showed abnormal low gallbladder ejection fraction. Blood culture 1 of 2 was positive for staph lugdunenisis. Infectious disease recommending MOOSE to further evaluate. Patient seen and examined. Patient denies any chest pain or pressure. Denies any shortness breath. Blood culture from 04/09 growing coag-negative staph. Vital signs are stable. Meds: Aspirin 81 mg daily, atorvastatin 40 mg daily, lisinopril 2.5 mg nightly, metoprolol tartrate 25 mg twice a day Xarelto 15mg BID Labs: WBC 13, hemoglobin 8.8, platelets 164 PHYSICAL EXAMINATION Vital signs reviewed. CONSTITUTIONAL: No apparent distress, chronically ill appearing HEENT: Head is normocephalic. Pupils are equal, round. Sclerae anicteric. Mucous membranes of the mouth are moist. No JVD. No carotid bruit. CHEST EXAMINATION: Lungs are clear to auscultation. No chest wall tenderness is noted on palpation or with deep breathing. HEART EXAMINATION: Regular rate and rhythm. S1, S2 heard. No murmurs, gallops or rub. ABDOMEN: Soft, nontender. Positive bowel sounds. EXTREMITIES: 2+ peripheral pulses, +trace lower extremity edema and no calf tenderness. NEUROLOGIC EXAMINATION: Patient is awake, alert and oriented x3. ASSESSMENT 1. Staph lugdunenisis bacteremia rule out infectious endocarditis 2. Coronary artery disease with history of 4 vessel CABG 2017 as well as PCI mid LAD 2016 3. Ischemic cardiomyopathy status post single-chamber AICD 2017. Recovered EF 40-45% by most recent echo 4. Hypertension 5. Hyperlipidemia 6. COPD 7. Chronic systolic heart failure 8. History of DVT/PE diagnosed on 03/29/2022 on anticoagulation PLAN Continue with home heart failure regimen as tolerated. Currently appears euvolemic. MOOSE today with Dr. Samman I have discussed the risks, benefits and alternative therapies for the above- mentioned procedure and for both sedation/analgesia, as they pertain to this patient. The patient has indicated understanding and acceptance of the risks and procedures discussed. Questions have been answered appropriately and he is agreeable to move forward with the above-stated procedure. Nurse practitioner note has been reviewed by physician. Signing provider agrees with the documented findings, assessment, and plan of care. Objective - Vital Signs Vital signs: Vital Signs Temp 97.8 F 04/12/22 08:04 Pulse 83 04/12/22 08:04 Resp 19 04/12/22 08:04 BP 118/69 04/12/22 08:04 Pulse Ox 95 04/12/22 07:01 FiO2 Intake & Output 04/11/22 04/12/22 04/12/22 18:59 06:59 18:59 Intake Total 2170 1100 Output Total 800 Balance 1370 1100 Intake: Intake, IV Titration 850 600 Amount Dextrose 5%-0.9% NaCl 1, 800 600 000 ml @ 100 mls/hr IV . Q10H MICHAELA Rx#:[id number] ceFAZolin 2 gm In Sodium 50 Chloride 0.9% 50 ml @ 100 mls/hr IVPB Q8HR MICHAELA Rx# :[id number] Oral 1320 500 Output: Urine 800 Other: # Voids 600 - Labs CBC & Chem 7: 04/12/22 05:54 04/09/22 06:52 Labs: Abnormal Lab Results - Last 24 Hours (Table) 04/12/22 Range/Units 05:54 WBC 13.09 H (4.50-10.00) X 10*3/uL RBC 3.29 L (4.40-5.60) X 10*6/uL Hgb 8.8 L (13.0-17.0) g/dL Hct 29.4 L (39.6-50.0) % MCH 26.7 L (27.0-32.0) pg MCHC 29.9 L (32.0-37.0) g/dL RDW 15.9 H (11.5-14.5) % Immature Gran # 0.20 H (0.00-0.04) X 10*3/uL Neutrophils # 10.78 H (1.80-7.70) X 10*3/uL Monocytes # 1.03 H (0.20-1.00) X 10*3/uL Eosinophils # 0 L (0.04-0.35) X 10*3/uL Microbiology - Last 24 Hours (Table) 04/11/22 07:23 Blood Culture - Final Blood 04/09/22 06:52 Blood Culture Gram Stain - Preliminary Blood Blood Culture - Preliminary Coagulase Negative Staph 04/10/22 06:30 Blood Culture Gram Stain - Preliminary Blood
[2022-04-12] MEDS ORDERED: fentaNYL (PF) 50 MCG/ML 2 ML AMP ONE (09:44)
[2022-04-12] MEDS: BENZOCAINE SPRAY 1 CAN MUCOUS MEM ONE ×2 (10:00→10:13)
[2022-04-12] MEDS ORDERED: IV FLUID CONTINUATION 1,000 ML IV ONE (10:02)
[2022-04-12] MEDS ORDERED: MIDAZOLAM 2 MG/2 ML VIAL IVP ONE ×2 (10:14→10:16)
[2022-04-12] MEDS ORDERED: fentaNYL (PF) 50 MCG/ML 2 ML AMP IVP ONE (10:14)
--- NOTE | 2022-04-12 11:05 | P.PCN ---
Date of Procedure: 04/12/22 Description of Procedure: Indication: Evaluation for possible endocarditis Procedure Description: After explaining the procedure to the patient, it's risk and complications, blood pressure, heart rate and O2 saturation were monitored. The throat was sprayed with Cetacaine. Patient received 3 mg intravenous Versed, 50 mcg intravenous fentanyl. The probe was introduced into the esophagus without difficulty. Images were obtained. Following that, the probe was removed. There was no immediate complication. Findings: Left atrial size is normal, left atrial appendage is normal. Left ventricle size is normal with mild global hypokinesis, ejection fraction around 45%. The aortic valve revealed an echogenic mass, suggestive of endocarditis, measuring 0.9 cm, the pulmonic valve revealed 2 masses attached to the leaflets. A large complex mass was noted in the right atrium, appears to spare the tricuspid valve. The mitral valve appears to be normal. No pericardial effusion was noted. Descending thoracic aorta shows mild atherosclerotic changes. Contrast bubble study revealed no shunting across the intra-atrial septum. The intra- atrial septum appears to be aneurysmal Doppler: Pulse wave and color Doppler were obtained, mild mitral, tricuspid, pulmonic and aortic regurgitation were noted. No shunting across the intra-atrial septum was noted. Conclusion: 1. Complex mass in the right atrium with suggestion of vegetation on the aortic and the pulmonic valve 2. Mild mitral, aortic, tricuspid and pulmonic regurgitation 3. Mildly impaired systolic function 4. Mild atherosclerotic changes of the descending thoracic aorta 5. Aneurysmal intra-atrial septum with no shunting
--- NOTE | 2022-04-12 11:42 | P.PN ---
Subjective Progress Note Date: 04/12/22 CHIEF COMPLAINT: Fever and hypotension HISTORY OF PRESENT ILLNESS: She service following in regards to possible chronic cholecystitis. Patient has had positive blood cultures. He had MOOSE today that showed mass in the right atrium with suggestion of vegetation on the aortic and pulmonic valve. Patient denies any abdominal pain. Denies any nausea or vomiting. Afebrile. WBC trending down from 14.5-13.09 Hgb 8.8 platelets 164 sodium is 133 creatinine 0.6 PHYSICAL EXAM: VITAL SIGNS: Reviewed. GENERAL: Well-developed in no acute distress. HEENT: No sclera icterus. Extraocular movements grossly intact. Moist buccal mucosa. Head is atraumatic, normocephalic. ABDOMEN: Soft. Nondistended. Nontender. NEUROLOGIC: Alert and oriented. Cranial nerves II through XII grossly intact. ASSESSMENT: 1. Chronic cholecystitis. Biliary dyskinesia noted on HIDA scan. Computed tomography scan with evidence of sludge in the gallbladder PLAN: -Continue to observe -Laparoscopic cholecystectomy when patient medically stable -Continue supportive care Physician Route Sales Delivery Drivers Supervisor note has been reviewed by physician. Signing provider agrees with the documented findings, assessment, and plan of care. Objective - Vital Signs Vital signs: Vital Signs Temp 97.8 F 04/12/22 08:04 Pulse 72 04/12/22 10:31 Resp 16 04/12/22 10:31 BP 97/56 04/12/22 10:31 Pulse Ox 98 04/12/22 10:31 FiO2 Intake & Output 04/11/22 04/12/22 04/12/22 18:59 06:59 18:59 Intake Total 2170 1100 50 Output Total 800 Balance 1370 1100 50 Intake: IV 50 Intake, IV Titration 850 600 Amount Dextrose 5%-0.9% NaCl 1, 800 600 000 ml @ 100 mls/hr IV . Q10H MICHAELA Rx#:[id number] ceFAZolin 2 gm In Sodium 50 Chloride 0.9% 50 ml @ 100 mls/hr IVPB Q8HR MICHAELA Rx# :[id number] Oral 1320 500 Output: Urine 800 Other: # Voids 600 - Labs CBC & Chem 7: 04/12/22 05:54 04/12/22 05:54 Labs: Abnormal Lab Results - Last 24 Hours (Table) 04/12/22 04/12/22 Range/Units 05:54 05:54 WBC 13.09 H (4.50-10.00) X 10*3/uL RBC 3.29 L (4.40-5.60) X 10*6/uL Hgb 8.8 L (13.0-17.0) g/dL Hct 29.4 L (39.6-50.0) % MCH 26.7 L (27.0-32.0) pg MCHC 29.9 L (32.0-37.0) g/dL RDW 15.9 H (11.5-14.5) % Immature Gran # 0.20 H (0.00-0.04) X 10*3/uL Neutrophils # 10.78 H (1.80-7.70) X 10*3/uL Monocytes # 1.03 H (0.20-1.00) X 10*3/uL Eosinophils # 0 L (0.04-0.35) X 10*3/uL Sodium 133 L (135-145) mmol/L Anion Gap 6.00 L (10.00-18.00) mmol/L BUN 8.0 L (9.0-27.0) mg/dL Glucose 111 H (70-110) mg/dL Calcium 7.7 L (8.7-10.3) mg/dL Microbiology - Last 24 Hours (Table) 04/11/22 07:23 Blood Culture Gram Stain - Preliminary Blood 04/11/22 07:23 Blood Culture - Final Blood 04/09/22 06:52 Blood Culture Gram Stain - Preliminary Blood Blood Culture - Preliminary Coagulase Negative Staph 04/10/22 06:30 Blood Culture Gram Stain - Preliminary Blood
--- NOTE | 2022-04-12 14:27 | P.GSCN ---
History of Present Illness Consult date: 04/12/22 Reason for Consult: Bacterial endocarditis Requesting physician: Sully Allen History of present illness: This is a 71-year-old gentleman who follows on an outpatient basis with Dr. Haines for primary care and Dr. Sevilla for cardiology. He is known to our service from previous open-heart surgery. He has a previous medical history of coronary artery disease with previous myocardial infarction status post 4 vessel CABG 12/16/2016, ischemic cardiomyopathy status post [employer] ICD implantation 10/27/2016, hypertension, hyperlipidemia, peripheral vascular disease status post toe amputation, previous tobacco dependence with COPD, and recent diagnosis of left lower extremity DVT with pulmonary embolism. This patient reports he has been feeling progressively short of breath since prior to . Apparently [place] 6 hours without any stopping for breaks. After that time he was noticing shortness of breath, no appetite, and much more sleeping than normal. He has continued to get progressively worse and has been in and out of the hospital. He was rec ently hospitalized at [facility] and was discovered to have left lower extremities DVT and pulmonary embolism, was treated with anticoagulation and discharged to subacute rehab April 06. He did have a transthoracic echocardiogram during that admission demonstrating reduced left ventricular function with EF 40-45%, mild mitral regurgitation, mild tricuspid regurgitation, and mild pulmonic regurgitation. Unfortunately upon presentation to subacute rehab patient was noted to have a fever of 101F and hypotension and was brought right back to [facility] for further evaluation and treatment. Blood cultures were drawn which grew Staphylococcus lugdunenisis. He was placed on IV an tibiotics and infectious disease was consulted. Recommendations were made for transesophageal echocardiogram which was completed today which demonstrated complex mass in the right atrium with suggestion of vegetation on the aortic and the pulmonic valve, mild mitral, aortic, tricuspid, and pulmonic regurgitation, mildly impaired systolic function with EF 45%. Due to these findings consultation was placed to cardiothoracic surgery for recommendations. Review of Systems Review of systems was completed and was negative except as noted - Constitutional Reports chills, Reports daytime sleepiness, Reports fatigue, Reports fever, Reports lethargy - Respiratory Reports dyspnea - Gastrointestinal Reports loss of appetite Past Medical History Past Medical History: Coronary Artery Disease (CAD), COPD, Deep Vein Thrombosis (DVT), Eye Disorder, Hyperlipidemia, Hypertension, Pulmonary Embolus (PE), Vascular Disorder Additional Past Medical History / Comment(s): Pt recently admitted to [facility] on 03/29/22 with bilateral PEs, L leg dvt, hyponatremia. Other hx: Ischemic cardiomyopathy/has AICD, PVD with R foot 5th toe amputation/bone shaved d/t infection, chronic back pain, L eye injury/blind. History of Any Multi-Drug Resistant Organisms: None Reported Past Surgical History: AICD, Coronary Bypass/CABG, Heart Catheterization, Orthopedic Surgery, Tonsillectomy Additional Past Surgical History / Comment(s): 2017 failed cardiac stent, 2017 CABG 4 vessel, 2017 AICD, R 5th toe amputation, L eye injury with surgery. Past Anesthesia/Blood Transfusion Reactions: No Reported Reaction, Motion Sickness Additional Past Anesthesia/Blood Transfusion Reaction / Comm: Pt received blood in past without reaction. Type of Cardiac Device: AICD Device Placement Date:: 10/27/2016 Past Psychological History: No Psychological Hx Reported Smoking Status: Former smoker Past Alcohol Use History: None Reported Past Drug Use History: None Reported - Past Family History Mother Family Medical History: Cancer Additional Family Medical History / Comment(s): age 62 of cancer Father Additional Family Medical History / Comment(s): paraplegic after motorcycle accident age 57. age 62 2 weeks after . Medications and Allergies Home Medications Medication Instructions Recorded Confirmed Type Atorvastatin [Lipitor] 40 mg PO DAILY@0800 //04/06/22 History Aspirin EC [Ecotrin Low Dose] 81 mg PO DAILY@0800 03/01/22 04/06/22 History Albuterol Inhaler [Ventolin Hfa 2 puff INHALATION RT-QID PRN 03/29/22 04/06/22 History Inhaler] Acetaminophen Tab [Tylenol] 650 mg PO Q4H PRN 04/06/22 04/06/22 History Magnesium Hydroxide [Milk of 7,200 mg PO DAILY PRN 04/06/22 04/06/22 History Magnesia Concentrate] Metoprolol Tartrate [Lopressor] 25 mg PO BID@0800,1700 04/06/22 04/06/22 History Na Phos,M-B/Na Phos,Di-Ba [Fleet 133 ml RECTAL DAILY PRN 04/06/22 04/06/22 History Adult] Rivaroxaban [Xarelto] 15 mg PO BID@0800,1700 04/06/22 04/06/22 History Rivaroxaban [Xarelto] 20 mg PO DIRECTED 04/06/22 04/06/22 History bisacodyL [Dulcolax] 10 mg RECTAL DAILY PRN 04/06/22 04/06/22 History lisinopriL [Zestril] 2.5 mg PO HS@2100 04/06/22 04/06/22 History Allergies Allergy/AdvReac Type Severity Reaction Status Date / Time No Known Allergies Allergy Verified 04/06/22 20:03 Surgical - Exam Vital Signs Temp Pulse Resp BP Pulse Ox 99.8 F H 102 H 18 87/58 100 04/06/22 18:21 04/06/22 18:21 04/06/22 18:21 04/06/22 18:21 04/06/22 18:21 CONSTITUTIONAL: Awake and alert, appears comfortable, cooperative, well- developed, well-nourished, no pain, no acute distress EYES: Pupils equal, round, reactive to light, normal ocular movement ENT: Moist mucous membranes without oral lesions present NECK: No masses, no bruits, trachea midline RESPIRATORY: Lungs sounds diminished bilaterally. Respirations even, nonlabored. Currently on room air with oxygen saturation 97%. Strong cough. No chest wall deformities. No clubbing or cyanosis present CARDIOVASCULAR: S1, S2 present. Regular rate and rhythm, sinus rhythm on telemetry. Palpable peripheral pulses bilaterally. No edema present. GASTROINTESTINAL: Abdomen soft, nontender, nondistended without masses or organomegaly noted. There is no rebound or guarding present. Active bowel sounds present 4 quadrants. GENITOURINARY: Deferred INTEGUMENTARY: Skin is warm and dry with evidence of good perfusion. Well- healed sternal incision present NEUROLOGIC: Cranial nerves II through XII intact, normal coordination, no obvious motor or sensory deficits, speech is normal MUSKULOSKELETAL: Able to move all extremities, strength equal bilaterally, normal posture PSYCHIATRIC: Alert and oriented to person place and time, appropriate affect, intact judgment and insight Results - Labs 04/12/22 05:54 04/12/22 05:54 Abnormal Lab Results - Last 24 Hours (Table) 04/12/22 04/12/22 Range/Units 05:54 05:54 WBC 13.09 H (4.50-10.00) X 10*3/uL RBC 3.29 L (4.40-5.60) X 10*6/uL Hgb 8.8 L (13.0-17.0) g/dL Hct 29.4 L (39.6-50.0) % MCH 26.7 L (27.0-32.0) pg MCHC 29.9 L (32.0-37.0) g/dL RDW 15.9 H (11.5-14.5) % Immature Gran # 0.20 H (0.00-0.04) X 10*3/uL Neutrophils # 10.78 H (1.80-7.70) X 10*3/uL Monocytes # 1.03 H (0.20-1.00) X 10*3/uL Eosinophils # 0 L (0.04-0.35) X 10*3/uL Sodium 133 L (135-145) mmol/L Anion Gap 6.00 L (10.00-18.00) mmol/L BUN 8.0 L (9.0-27.0) mg/dL Glucose 111 H (70-110) mg/dL Calcium 7.7 L (8.7-10.3) mg/dL Microbiology - Last 24 Hours (Table) 04/11/22 07:23 Blood Culture Gram Stain - Preliminary Blood Blood Culture - Preliminary Staphylococcus lugdunenisis 04/11/22 07:23 Blood Culture - Final Blood 04/09/22 06:52 Blood Culture Gram Stain - Preliminary Blood Blood Culture - Preliminary Coagulase Negative Staph 04/10/22 06:30 Blood Culture Gram Stain - Preliminary Blood Diabetes panel 04/12/22 Range/Units 05:54 Sodium 133 L (135-145) mmol/L Potassium 4.3 (3.5-5.5) mmol/L Chloride 104 (96-109) mmol/L Carbon Dioxide 23.0 (20.0-27.5) mmol/L BUN 8.0 L (9.0-27.0) mg/dL Creatinine 0.6 (0.6-1.5) mg/dL Glucose 111 H (70-110) mg/dL Calcium 7.7 L (8.7-10.3) mg/dL Calcium panel 04/12/22 Range/Units 05:54 Calcium 7.7 L (8.7-10.3) mg/dL Pituitary panel 04/12/22 Range/Units 05:54 Sodium 133 L (135-145) mmol/L Potassium 4.3 (3.5-5.5) mmol/L Chloride 104 (96-109) mmol/L Carbon Dioxide 23.0 (20.0-27.5) mmol/L BUN 8.0 L (9.0-27.0) mg/dL Creatinine 0.6 (0.6-1.5) mg/dL Glucose 111 H (70-110) mg/dL Calcium 7.7 L (8.7-10.3) mg/dL Adrenal panel 04/12/22 Range/Units 05:54 Sodium 133 L (135-145) mmol/L Potassium 4.3 (3.5-5.5) mmol/L Chloride 104 (96-109) mmol/L Carbon Dioxide 23.0 (20.0-27.5) mmol/L BUN 8.0 L (9.0-27.0) mg/dL Creatinine 0.6 (0.6-1.5) mg/dL Glucose 111 H (70-110) mg/dL Calcium 7.7 L (8.7-10.3) mg/dL - Imaging Chest x-ray: report reviewed, image reviewed Additional studies: TTE and MOOSE results reviewed Assessment and Plan Assessment: 1. Complex mass in the right atrium, suggestive of vegetation on the aortic and pulmonic valve 2. Mild mitral, aortic, tricuspid, and pulmonic regurgitation on MOOSE 3. Chronic cholecystitis 4. Recent diagnosis of left lower semi-DVT with bilateral pulmonary embolism, on Xarelto anticoagulation 5. History of coronary artery disease with previous myocardial infarction status post 4 vessel CABG 12/16/2016 6. Ischemic cardiomyopathy status post [employer] ICD implantation 10/27/2016 7. History of hypertension 8. History of hyperlipidemia 9. History of peripheral vascular disease status post toe amputation 10. Previous tobacco dependence with COPD Plan: The patient was seen and examined sitting up in a recliner eating lunch on the cardiac stepdown unit in no acute distress. Chart/diagnostics were reviewed in detail. The case was discussed in detail with Dr. Roberts. The patient states he feels better since admission, denies any pain, reports improvement in shortness of breath. Blood cultures from 04/11/2022 continued to report staff bacteremia. Our recommendations at this time are to continue IV antibiotics to eradicate bacteremia. The possibility of future valvular surgery after clearing of bacteremia was discussed with the patient. He is very hesitant at this time to have any kind of repeat surgery. The patient states he just wants to feel better and be able to get home to get back to his normal life. IV antibiotic management per infectious disease. Medical management of other comorbidities per primary care service. Thank you Dr. Allen for this consult. We will continue to follow along with you and make further recommendations as appropriate. I have personally seen and examined the patient, performed the documentation and the assessment and plan as written. Number of minutes spent on the visit: 30. MARIE OlsonC
--- NOTE | 2022-04-12 14:42 | P.PN ---
Subjective Progress Note Date: 04/12/22 Sepsis/bacteremia Acute cholecystitis Acute PE and left lower extremity DVT 71 years old male with past medical history of hypertension, COPD, Hyperlipidemia, Hypertension, ,Ischemic cardiomyopathy with impaired LV function preoperatively., COPD with an FEV1 of 41% of predicted based on a spirometer was done preoperatively, blindness in the left eye, peripheral vascular disease with previous amputation of the toe, chronic back pain, hs/p AICD, He was discharged from the hospital yesterday for left lower extremity DVT and pulmonary embolism and has been evaluated by burlap man and wealth management manager on discharge on Xarelto Since last admission patient has been feeling generally weak and some tachypnea but all workup was negative including repeat chest x-ray, repeat urine analysis, CT of the abdomen and the lumbar spine. No positive culture results. Had no fever over a monitored several days but he had mild leukocytosis which was stable and slightly turned in the. Patient was discharged to [facility] for rehab after he was been cleared by pulmonary and cardiology service for several days. At [facility] he develops fever of 103.0 and blood pressure was on the low side. She was sent back to the hospital. Patient this morning is fully awake and oriented, normal change clinically from yesterday when we discharged him, he still tachypneic but no difficulty breathing, no coughing. No abdominal pain or nausea vomiting. No diarrhea. No rash. No urinary complaints or dysuria, no headache or weakness or numbness. Distal compressed from lower back pain and right leg pain. His chest pain is somewhat 7/10. Currently blood pressure 141/89 after he received 1 L of normal saline, heart rate is 98. from yesterday showed WBCs of 13.7, hemoglobin 9.4, sodium 127. Troponin 2 are negative. Viruses this were negative including covid and influenza 04/10/2022 Patient is seen and evaluated with family at bedside; denies any complaint of chest pain or shortness of breath Patient is being followed by general surgery; he was found to have elevated temperatures with elevated WBC and liver enzymes; CT of the abdomen and pelvis shows possible sludge. Gallbladder and cholecystectomy as recommended by surgery; patient is refusing cholecystectomy at that point Blood cultures reveal Staph lugdunenisis bacteremia rule out infectious endocarditis; cardiology on board with plans for MOOSE on Tuesday04/11/2022 Patient seen and evaluated family at bedside; denies any specific complaints Vital signs are reviewed and remained stable; patient remains afebrile Patient has been scheduled for MOOSE to rule out endocarditis given positive blood cultures; patient has been placed on cefazolin; repeat blood cultures are negative to date Further recommendations regarding IV antibiotics once MOOSE is completed Patient has been recommended cholecystectomy; patient continues to refuse the procedure 04/12/2022 Patient is seen in follow-up this morning status post MOOSE with cardiology and is being closely monitored. Patient is maintained on IV antibiotics with infectious disease following as well. Most recent blood cultures preliminary continue to show gram-positive in clusters in groups and will need to continue with daily blood cultures to monitor for clearance of bacteremia. MOOSE showed a mass or lesion noted on the right atrium that was suggestive of vegetation and cardiothoracic have been consulted. is at the bedside and questions and concerns have been answered.patient is currently afebrile and blood pressures have been on the lower side. Patient was taking low-dose lisinopril at night and will hold. White blood count trending down and is currently 13.09 with a hemoglobin of 8.8. Sodium slightly improved at 133, potassium is 4.3, creatinine is 0.6. patient also continues with weakness and will have physical therapy evaluate the patient. Review of systems: Constitutional: No reports of fatigue, fever, or chills Cardiovascular: No reports of chest pain or palpitations Respiratory: No reports of shortness of breath or cough GI: No reports of nausea, vomiting, or diarrhea : No reports of dysuria or retention Neurovascular: No reports of weakness or numbness All medications have been reviewed Active Medications Acetaminophen (Acetaminophen Tab 325 Mg Tab) 325 mg PO Q6HR PRN PRN Reason: Fever and/ or Mild Pain Al Hydroxide/Mg Hydroxide (Mag Hydrox/Al Hydrox/Simeth 30 Ml Cup) 15 ml PO Q6HR PRN PRN Reason: Indigestion Albuterol Sulfate (Albuterol Nebulized 2.5 Mg/3 Ml) 2.5 mg INHALATION RT-QID PRN PRN Reason: Shortness Of Breath Last Admin: 04/07/22 07:21 Dose: 2.5 mg Aspirin (Aspirin 81 Mg) 81 mg PO DAILY [facility] Last Admin: 04/12/22 08:09 Dose: 81 mg Atorvastatin Calcium (Atorvastatin 40 Mg Tab) 40 mg PO DAILY [facility] Last Admin: 04/12/22 08:09 Dose: 40 mg Docusate Sodium (Docusate 100 Mg Cap) 100 mg PO BID PRN PRN Reason: Constipation Famotidine (Famotidine 20 Mg Tab) 20 mg PO BID [facility] Last Admin: 04/12/22 08:09 Dose: 20 mg Dextrose/Sodium Chloride (Dextrose 5%-Ns Iv Soln) 1,000 mls @ 100 mls/hr IV .Q10H [facility] Last Admin: 04/12/22 06:53 Dose: Not Given Nafcillin Sodium 2 gm/ (Dextrose/Water) 100 mls @ 50 mls/hr IVPB Q4HR [facility]; P rotocol Metoprolol Tartrate (Metoprolol Tartrate 25 Mg Tab) 25 mg PO BID [facility] Last Admin: 04/12/22 08:10 Dose: 25 mg Morphine Sulfate (Morphine Sulfate 4 Mg/Ml Syringe) 4 mg IVP Q4HR PRN PRN Reason: Severe Pain Naloxone HCl (Naloxone 0.4 Mg/Ml 1 Ml Vial) 0.2 mg IV Q2M PRN PRN Reason: Opioid Reversal Ondansetron HCl (Ondansetron 4 Mg/2 Ml Vial) 4 mg IVP Q8HR PRN PRN Reason: Nausea And Vomiting Rivaroxaban (Rivaroxaban 15 Mg Tab) 15 mg PO BID@0800,1700 [facility]; Protocol Stop: 04/21/22 23:00 Last Admin: 04/12/22 08:09 Dose: 15 mg Rivaroxaban (Rivaroxaban 20 Mg Tab) 20 mg PO DAILY@0800 [facility]; Protocol Physical exam: GENERAL: The patient is alert and oriented x3, not in any acute distress. Well developed, well nourished. HEENT: Pupils are round and equally reacting to light. EOMI. No scleral icterus. No conjunctival pallor. Normocephalic, atraumatic. No pharyngeal erythema. No thyromegaly. CARDIOVASCULAR: S1 and S2 present. No murmurs, rubs, or gallops. PULMONARY: Chest is clear to auscultation, no wheezing or crackles. ABDOMEN: Soft, mild epigastric tenderness, non-distended, normoactive bowel sounds. No palpable organomegaly. MUSCULOSKELETAL: No joint swelling or deformity. EXTREMITIES: No cyanosis, clubbing, or pedal edema. NEUROLOGICAL: Gross neurological examination did not reveal any focal deficits. SKIN: No rashes. no petechiae. Assessment: Sepsis with fever and leukocytosis and tachypnea, with positive blood culture with staphylococcus lugdunenisis Biliary dyskinesia, rule out cholecystitis Acute pulmonary embolism and left lower extremity deep venous thrombosis Hyponatremia Hypertension Hyperlipidemia COPD, no acute exacerbation Coronary artery disease status post four-vessel bypass in 2017 and PCI of mid LAD in 2017 Ischemic cardiomyopathy status post single-chamber ICD placement in 2017 Status post AICD Chronic back pain Blindness of left eye Peripheral vascular disease full code Plan: Patient is status post MOOSE with cardiology following. MOOSE showed complex mass in the right atrium was suggestive of vegetation in the aortic and pulmonic valves, mild mitral, aortic, tricuspid and pulmonary regurgitation, mildly impaired systolic function, mildly atherosclerotic changes of the descending thoracic aorta and aneurysmal intra-abdominal septum with no shuntingand cardiothoracic surgery has been consulted and pending at this time. Recommend continue with antibiotics with infectious disease following closely as most recent blood cultures continue to be positive for Staphylococcus lugdunenisis and will need to continue with daily blood cultures to monitor for clearance of bacteremia. Recommend continue holding lisinopril and gentle IV hydration as patient does have history of heart failure Continue DVT prophylaxis GI prophylaxis PT/OT to evaluate Due to multiple convex medical issues, prognosis is guarded The impression and plan of care has been dictated by Lisseth Xiao, Nurse Practitioner as directed. Dr. Juan MD I have performed a history and examination and MDM of this patient, discussed the same with the dictator, and agree with the dictator's assessment and plan as written ,documented as a scribe. Based on total visit time, I have performed more than 50% of the visit. Objective - Vital Signs Vital signs: Vital Signs Temp 97.8 F 04/12/22 08:04 Pulse 83 04/12/22 08:04 Resp 19 04/12/22 08:04 BP 118/69 04/12/22 08:04 Pulse Ox 95 04/12/22 07:01 FiO2 Intake & Output 04/11/22 04/12/22 04/12/22 18:59 06:59 18:59 Intake Total 2170 1100 Output Total 800 Balance 1370 1100 Intake: Intake, IV Titration 850 600 Amount Dextrose 5%-0.9% NaCl 1, 800 600 000 ml @ 100 mls/hr IV . Q10H [facility] Rx#:[id number] ceFAZolin 2 gm In Sodium 50 Chloride 0.9% 50 ml @ 100 mls/hr IVPB Q8HR [facility] Rx# :[id number] Oral 1320 500 Output: Urine 800 Other: # Voids 600 - Labs CBC & Chem 7: 04/12/22 05:54 04/12/22 05:54 Labs: Abnormal Lab Results - Last 24 Hours (Table) 04/12/22 04/12/22 Range/Units 05:54 05:54 WBC 13.09 H (4.50-10.00) X 10*3/uL RBC 3.29 L (4.40-5.60) X 10*6/uL Hgb 8.8 L (13.0-17.0) g/dL Hct 29.4 L (39.6-50.0) % MCH 26.7 L (27.0-32.0) pg MCHC 29.9 L (32.0-37.0) g/dL RDW 15.9 H (11.5-14.5) % Immature Gran # 0.20 H (0.00-0.04) X 10*3/uL Neutrophils # 10.78 H (1.80-7.70) X 10*3/uL Monocytes # 1.03 H (0.20-1.00) X 10*3/uL Eosinophils # 0 L (0.04-0.35) X 10*3/uL Sodium 133 L (135-145) mmol/L Anion Gap 6.00 L (10.00-18.00) mmol/L BUN 8.0 L (9.0-27.0) mg/dL Glucose 111 H (70-110) mg/dL Calcium 7.7 L (8.7-10.3) mg/dL Microbiology - Last 24 Hours (Table) 04/11/22 07:23 Blood Culture - Final Blood 04/09/22 06:52 Blood Culture Gram Stain - Preliminary Blood Blood Culture - Preliminary Coagulase Negative Staph 04/10/22 06:30 Blood Culture Gram Stain - Preliminary Blood
[2022-04-12] MEDS: NAFCILLIN 2 GM in DEXTROSE 5% IN WATER 100 ML IVPB SCH ×6 (15:30→23:21)
[2022-04-13] MEDS: NAFCILLIN 2 GM in DEXTROSE 5% IN WATER 100 ML IVPB SCH ×12 (04:13→23:47)
[2022-04-13] MEDS: DEXTROSE 5%-0.9% NACL 1,000 ML IV SCH ×2 (04:58→17:37)
--- NOTE | 2022-04-13 08:11 | P.PN ---
Subjective Progress Note Date: 04/11/22 Principal diagnosis: Fever Patient is a 71 year old male with a recent admission to this facility has been diagnosed with a PE and started on surrounding the patient also complaining of fever for about a week along with some chills did have a chronic back pain with recent CT did not show any acute finding, patient HIDA scan with the biliary dyskinesia and CT did show sludge in the gallbladder, surgery on the case On today's evaluation that is 04/11/2022, Patient continues to be afebrile, the patient is breathing comfortably on room air patient denies any chest pain shortness of breath or cough no abdominal pain no diarrhea overall feeling better Objective - Vital Signs Vital signs: Vital Signs Temp 98.5 F 04/11/22 14:00 Pulse 96 04/11/22 14:00 Resp 16 04/11/22 14:00 BP 134/79 04/11/22 14:00 Pulse Ox 96 04/11/22 14:00 FiO2 Intake & Output 04/10/22 04/11/22 04/11/22 18:59 06:59 18:59 Intake Total 1690 1150 1690 Output Total 375 Balance 1315 1150 1690 Intake: Intake, IV Titration 850 650 850 Amount Dextrose 5%-0.9% NaCl 1, 800 600 800 000 ml @ 100 mls/hr IV . Q10H [facility] Rx#:[id number] ceFAZolin 2 gm In Sodium 50 50 50 Chloride 0.9% 50 ml @ 100 mls/hr IVPB Q8HR [facility] Rx# :[id number] Oral 840 500 840 Output: Urine 375 Other: # Voids 3 - Exam GENERAL DESCRIPTION: An elderly male lying in bed in no distress HEENT; bad dentition with a few necrotic incisor teeth left RESPIRATORY SYSTEM: Unlabored breathing , decreased breath sounds at bases HEART: S1 S2 regular rate and rhythm , ABDOMEN: Soft , no tenderness EXTREMITIES: No edema feet - Labs CBC & Chem 7: 04/12/22 05:54 04/12/22 05:54 Labs: Microbiology - Last 24 Hours (Table) 04/09/22 06:52 Blood Culture Gram Stain - Preliminary Blood Blood Culture - Preliminary Coagulase Negative Staph 04/10/22 06:30 Blood Culture Gram Stain - Preliminary Blood 04/10/22 06:30 Blood Culture - Final Blood Assessment and Plan (1) Fever Current Visit: Yes Status: Acute Code(s): R50.9 - FEVER, UNSPECIFIED SNOMED Code(s): 597340732 Plan: 1patient with a fever and weakness in this patient did have elevated white count mildly elevated liver enzymes questionable abdominal source patient did have a recent diagnosis of PE and we did obtain a chest x-ray which was negative for any pneumonia. 2HIDA scan with the biliary dyskinesia and CT did show sludge in the gallbladder, echocardiogram done last admission was negative as cardiology has been consulted for MOOSE to rule out endovascular source 3 patient blood culture positive for Staphylococcus Lugdunenisis , with a repeat done on 04/09/2022 positive, blood cultures will be been repeated daily to document clearance of bacteremia 4- patient continue with cefazolin 2 g every 8 hours, and monitor clinical course closely Time with Patient: Less than 30
--- NOTE | 2022-04-13 08:14 | P.PN ---
Subjective Progress Note Date: 04/12/22 Principal diagnosis: Fever Patient is a 71 year old male with a recent admission to this facility has been diagnosed with a PE and started on surrounding the patient also complaining of fever for about a week along with some chills did have a chronic back pain with recent CT did not show any acute finding, patient HIDA scan with the biliary dyskinesia and CT did show sludge in the gallbladder, surgery on the case On today's evaluation that is 04/12/2022, Patient remains to be afebrile, the patient is breathing comfortably on room air patient denies any chest pain shortness of breath or cough no abdominal pain no diarrhea, patient is status post MOOSE this morning which the patient tolerated Objective - Vital Signs Vital signs: Vital Signs Temp 97.8 F 04/12/22 08:04 Pulse 72 04/12/22 10:31 Resp 16 04/12/22 10:31 BP 97/56 04/12/22 10:31 Pulse Ox 98 04/12/22 10:31 FiO2 Intake & Output 04/11/22 04/12/22 04/12/22 18:59 06:59 18:59 Intake Total 2170 1100 50 Output Total 800 Balance 1370 1100 50 Intake: IV 50 Intake, IV Titration 850 600 Amount Dextrose 5%-0.9% NaCl 1, 800 600 000 ml @ 100 mls/hr IV . Q10H [facility] Rx#:[id number] ceFAZolin 2 gm In Sodium 50 Chloride 0.9% 50 ml @ 100 mls/hr IVPB Q8HR [facility] Rx# :[id number] Oral 1320 500 Output: Urine 800 Other: # Voids 600 - Exam GENERAL DESCRIPTION: An elderly male lying in bed in no distress HEENT; bad dentition with a few necrotic incisor teeth left RESPIRATORY SYSTEM: Unlabored breathing , decreased breath sounds at bases HEART: S1 S2 regular rate and rhythm , ABDOMEN: Soft , no tenderness EXTREMITIES: No edema feet - Labs CBC & Chem 7: 04/12/22 05:54 04/12/22 05:54 Labs: Abnormal Lab Results - Last 24 Hours (Table) 04/12/22 04/12/22 Range/Units 05:54 05:54 WBC 13.09 H (4.50-10.00) X 10*3/uL RBC 3.29 L (4.40-5.60) X 10*6/uL Hgb 8.8 L (13.0-17.0) g/dL Hct 29.4 L (39.6-50.0) % MCH 26.7 L (27.0-32.0) pg MCHC 29.9 L (32.0-37.0) g/dL RDW 15.9 H (11.5-14.5) % Immature Gran # 0.20 H (0.00-0.04) X 10*3/uL Neutrophils # 10.78 H (1.80-7.70) X 10*3/uL Monocytes # 1.03 H (0.20-1.00) X 10*3/uL Eosinophils # 0 L (0.04-0.35) X 10*3/uL Sodium 133 L (135-145) mmol/L Anion Gap 6.00 L (10.00-18.00) mmol/L BUN 8.0 L (9.0-27.0) mg/dL Glucose 111 H (70-110) mg/dL Calcium 7.7 L (8.7-10.3) mg/dL Microbiology - Last 24 Hours (Table) 04/11/22 07:23 Blood Culture Gram Stain - Preliminary Blood 04/11/22 07:23 Blood Culture - Final Blood 04/09/22 06:52 Blood Culture Gram Stain - Preliminary Blood Blood Culture - Preliminary Coagulase Negative Staph 04/10/22 06:30 Blood Culture Gram Stain - Preliminary Blood Assessment and Plan (1) Fever Current Visit: Yes Status: Acute Code(s): R50.9 - FEVER, UNSPECIFIED SNOMED Code(s): 042633642 Plan: 1patient with a fever and weakness in this patient did have elevated white count mildly elevated liver enzymes questionable abdominal source patient did have a recent diagnosis of PE and we did obtain a chest x-ray which was negative for any pneumonia. 2HIDA scan with the biliary dyskinesia and CT did show sludge in the gallbladder, echocardiogram done last admission was negative , Patient did have a MOOSE completed which shows evidence of complex mass in the right atrium and vegetation on the aortic and pulmonary valve, CT surgery has been consulted 3 patient blood culture positive for Staphylococcus Lugdunenisis , blood cultures will be been repeated daily to document clearance of bacteremia 4- We will discontinue cefazolin start the patient on naficillin in view of persistent bacteremia and evidence of endocarditis
--- NOTE | 2022-04-13 09:41 | P.PN ---
Subjective Progress Note Date: 04/13/22 PROGRESS NOTE The patient is a 71-year-old male with a known history of CAD, post CABG, history of COPD, ischemic cardiomyopathy, post ICD who presented with progressive fatigue fever and weakness and was found to have elevated liver function test, leukocytosis and had positive blood cultures. He underwent a MOOSE yesterday that showed a mass in the right atrium of unclear etiology in addition to a mass on the pulmonic valve and the aortic valve. He's feeling well this morning, denies any chest discomfort, dizziness or palpitations. He denies any nausea or vomiting. He feels tired and is anxious to go home. He has no peripheral edema and continues to be in sinus mechanism. Medications: Metoprolol 25 mg twice a day atorvastatin 40 mg daily, aspirin once a day,Xarelto 15 mg bid PHYSICAL EXAMINATION: Blood pressure 141/90 heart rate 85 bpm, afebrile LUNGS: Clear to auscultation HEART: Regular rate and rhythm, S1, S2. No S3. systolic ejection murmur ABDOMEN: Soft, nontender, no organomegaly EXTREMETIES: No edema LAB: Yesterday his white blood cell 13.09, hemoglobin 8.8, BUN 8, creatinine 0.6 IMPRESSION: 1. Bacteremia with positive blood cultures 2. 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 3. Status post CABG and PCI 4. Prior history of cardiomyopathy and ICD implantation PLAN: 1. Continue present therapy 2. Cardiovascular surgery consultation 3. Consider transfer to tertiary care for further treatment. I discussed those findings with the patient 4. Depending on his progress further recommendations will be made. Objective - Vital Signs Vital signs: Vital Signs Temp 98.2 F 04/13/22 07:10 Pulse 85 04/13/22 07:10 Resp 20 04/13/22 07:10 BP 141/99 04/13/22 07:10 Pulse Ox 93 L 04/13/22 02:00 FiO2 Intake & Output 04/12/22 04/13/22 04/13/22 18:59 06:59 18:59 Intake Total 900 Output Total 1250 Balance 900 -1250 Intake: IV 50 Intake, IV Titration 850 Amount Dextrose 5%-0.9% NaCl 1, 800 000 ml @ 100 mls/hr IV . Q10H [facility] Rx#:[id number] ceFAZolin 2 gm In Sodium 50 Chloride 0.9% 50 ml @ 100 mls/hr IVPB Q8HR [facility] Rx# :[id number] Output: Urine 1250 Other: Voiding Method Urinal # Bowel Movements 1 - Labs CBC & Chem 7: 04/12/22 05:54 04/12/22 05:54 Labs: Microbiology - Last 24 Hours (Table) 04/12/22 05:54 Blood Culture Gram Stain - Preliminary Blood 04/12/22 05:54 Blood Culture - Final Blood 04/10/22 06:30 Blood Culture Gram Stain - Preliminary Blood Blood Culture - Preliminary Coagulase Negative Staph 04/11/22 07:23 Blood Culture Gram Stain - Preliminary Blood Blood Culture - Preliminary Staphylococcus lugdunenisis
[2022-04-13] MEDS: METOPROLOL TARTRATE 25 MG TAB PO SCH ×2 (09:47→20:06)
[2022-04-13] MEDS: ASPIRIN 81 MG PO SCH (09:47)
[2022-04-13] MEDS: RIVAROXABAN 15 MG TAB PO SCH ×2 (09:48→18:03)
[2022-04-13] MEDS: FAMOTIDINE 20 MG TAB PO SCH ×2 (09:48→20:05)
[2022-04-13] MEDS: ATORVASTATIN 40 MG TAB PO SCH (09:48)
[2022-04-13 10:42] LABS: Basophils # (A) 0.03 X 10*3/uL (0.00-0.10); Basophils % (A) 0.3 %; Eosinophils # (A) 0.01 X 10*3/uL (0.04-0.35); Eosinophils % (A) 0.1 %; HCT 27.4 % (39.6-50.0); Immature Grans, Automated 1.6 %; Lymphocytes # (A) 0.97 X 10*3/uL (0.90-5.00); Lymphocytes % (A) 9.6 %; MCH 26.4 pg (27.0-32.0); MCHC 29.2 g/dL (32.0-37.0); MCV 90.4 fL (80.0-97.0); Mean Platelet Volume 9.4 fL (9.5-12.2); Monocytes # (A) 0.98 X 10*3/uL (0.20-1.00); Monocytes % (A) 9.7 %; NRBC Per 100 WBC 0 /100 WBCS (0.0-0.0); Neutrophils # (A) 7.98 X 10*3/uL (1.80-7.70); Neutrophils % (A) 78.7 %; Platelet Count 153 X 10*3/uL (140-440); RBC 3.03 X 10*6/uL (4.40-5.60); RDW 16.2 % (11.5-14.5); WBC 10.13 X 10*3/uL (4.50-10.00)
[2022-04-13 11:01] LABS: Albumin/Globulin Ratio 0.62 (1.60-3.17); Anion Gap 7.3 mmol/L (10.00-18.00); Blood Urea Nitrogen 10.2 mg/dL (9.0-27.0); Calcium 7.7 mg/dL (8.7-10.3); Carbon Dioxide 25.5 mmol/L (20.0-27.5); Globulin 3.2 g/dL (1.6-3.3); Non-African American GFR(CKD) 88.9 (60.0-200.0); Potassium 4.2 mmol/L (3.5-5.5); Total Bilirubin 0.5 mg/dL (0.30-1.20); Total Protein 5.1 g/dL (6.2-8.2)
--- NOTE | 2022-04-13 13:46 | P.PN ---
Subjective Progress Note Date: 04/13/22 CHIEF COMPLAINT: Fever and hypotension HISTORY OF PRESENT ILLNESS: She service following in regards to possible chronic cholecystitis. Patient has had positive blood cultures. He had MOOSE today that showed mass in the right atrium with suggestion of vegetation on the aortic and pulmonic valve. Patient followed by both cardiology and cardiothoracic team. Cardiology is recommending transfer to tertiary care center. Patient denies any abdominal pain. Denies any nausea or vomiting. Afebrile. WBC 10.13 Hgb 8.0 platelets 153 creatinine 0.9 PHYSICAL EXAM: VITAL SIGNS: Reviewed. GENERAL: Well-developed in no acute distress. HEENT: No sclera icterus. Extraocular movements grossly intact. Moist buccal mucosa. Head is atraumatic, normocephalic. ABDOMEN: Soft. Nondistended. Nontender. NEUROLOGIC: Alert and oriented. Cranial nerves II through XII grossly intact. ASSESSMENT: 1. Chronic cholecystitis. Biliary dyskinesia noted on HIDA scan. Computed tomography scan with evidence of sludge in the gallbladder PLAN: -Recommend Laparoscopic cholecystectomy when patient medically stable -Continue supportive care -Workup per cardiology and cardiothoracic for mass in the right atrium Physician [employer] note has been reviewed by physician. Signing provider agrees with the documented findings, assessment, and plan of care. Objective - Vital Signs Vital signs: Vital Signs Temp 99.0 F 04/13/22 12:55 Pulse 93 04/13/22 12:55 Resp 19 04/13/22 12:55 BP 120/70 04/13/22 12:55 Pulse Ox 93 L 04/13/22 12:55 FiO2 Intake & Output 04/12/22 04/13/22 04/13/22 18:59 06:59 18:59 Intake Total 900 Output Total 1250 500 Balance 900 -1250 -500 Intake: IV 50 Intake, IV Titration 850 Amount Dextrose 5%-0.9% NaCl 1, 800 000 ml @ 100 mls/hr IV . Q10H [facility] Rx#:[id number] ceFAZolin 2 gm In Sodium 50 Chloride 0.9% 50 ml @ 100 mls/hr IVPB Q8HR [facility] Rx# :[id number] Output: Urine 1250 500 Other: Voiding Method Urinal # Bowel Movements 1 - Labs CBC & Chem 7: 04/13/22 06:31 04/13/22 06:31 Labs: Abnormal Lab Results - Last 24 Hours (Table) 04/13/22 04/13/22 Range/Units 06:31 06:31 WBC 10.13 H (4.50-10.00) X 10*3/uL RBC 3.03 L (4.40-5.60) X 10*6/uL Hgb 8.0 L (13.0-17.0) g/dL Hct 27.4 L (39.6-50.0) % MCH 26.4 L (27.0-32.0) pg MCHC 29.2 L (32.0-37.0) g/dL RDW 16.2 H (11.5-14.5) % MPV 9.4 L (9.5-12.2) fL Immature Gran # 0.16 H (0.00-0.04) X 10*3/uL Neutrophils # 7.98 H (1.80-7.70) X 10*3/uL Eosinophils # 0.01 L (0.04-0.35) X 10*3/uL Anion Gap 7.30 L (10.00-18.00) mmol/L Glucose 116 H (70-110) mg/dL Calcium 7.7 L (8.7-10.3) mg/dL AST 75 H (14-35) U/L Total Protein 5.1 L (6.2-8.2) g/dL Albumin 2.0 L (3.8-4.9) g/dL Albumin/Globulin Ratio 0.62 L (1.60-3.17) g/dL Microbiology - Last 24 Hours (Table) 04/12/22 05:54 Blood Culture Gram Stain - Preliminary Blood 04/09/22 06:52 Blood Culture Gram Stain - Final Blood Blood Culture - Final Staphylococcus lugdunenisis 04/12/22 05:54 Blood Culture - Final Blood 04/10/22 06:30 Blood Culture Gram Stain - Preliminary Blood Blood Culture - Preliminary Coagulase Negative Staph 04/11/22 07:23 Blood Culture Gram Stain - Preliminary Blood Blood Culture - Preliminary Staphylococcus lugdunenisis
--- NOTE | 2022-04-13 15:39 | P.DS ---
Providers Date of admission: 04/06/22 19:46 Expected date of discharge: 04/13/22 Attending physician: Juan Prado MD Consults: 04/07/22 06:48 Consult Physician Urgent Consulting Provider: Gurwinder Pineda Consult Reason/Comments: fever Do you want consulting provider notified?: Yes 04/08/22 20:34 Consult Physician Urgent Consulting Provider: Janes Troy Consult Reason/Comments: billiary dyskinesia Do you want consulting provider notified?: Yes, Notify in am 04/09/22 14:42 Consult Physician Routine Consulting Provider: Ivy Sevilla Consult Reason/Comments: requires MOOSE for possible bacteremia as requested by Dr Pineda. Do you want consulting provider notified?: Yes 04/12/22 11:01 Consult Physician Routine Consulting Provider: Jose L Roberts Consult Reason/Comments: cardiac mass Do you want consulting provider notified?: Yes Primary care physician: [facility] Course: Final diagnosis Sepsis with fever and leukocytosis and tachypnea, with positive blood culture with staphylococcus lugdunenisis Biliary dyskinesia, rule out cholecystitis, patient refusing surgical treatment at this time Persistent bacteremia with MOOSE showing right mass and vegetations on the aortic and pulmonic valve and possibly connected to his ICD wiring that would require wire removal and ICD removal Acute pulmonary embolism and left lower extremity deep venous thrombosis Hyponatremia Hypertension Hyperlipidemia COPD, no acute exacerbation Coronary artery disease status post four-vessel bypass in 2017 and PCI of mid LAD in 2017 Ischemic cardiomyopathy status post single-chamber ICD placement in 2017 Status post AICD Chronic back pain Blindness of left eye Peripheral vascular disease full code Discharge disposition Patient is being transferred in a stable condition with guarded prognosis to [facility]. Accepting physician Dr. Hugo cabrera [facility] for cardiothoracic and cardiology evaluation. Patient is currently maintained on nafcillin with persistent bacteremia with right mass noted and vegetations on MOOSE. Total time taken is greater than 35 minutes. Hospital course This is a 71-year-old male who was recently admitted with fevers and hypotension and generalized weakness and found to have bacteremia is being closely monitored. Infectious disease following closely and patient is maintained on nafcillin and continues to be persistently positive with bacteremia with blood cultures showing Staphylococcus lugdunenisis underwent MOOSE to assess for any vegetation. MOOSE showed complex mass in the right atrium with suggestion of vegetation on aortic and pulmonic valves with mild mitral aortic tricuspid and pulmonic regurgitation, mildly impaired systolic function and mild atherosclerotic changes of the descending thoracic aorta and aneurysmal interatrial septum with no shunting. Cardiology following closely and evaluated and concerned as the mass in the right atrium could be attached to his wire all the way or is not well-visualized which would mean the patient would require removal of his wire and ICD. Patient was evaluated by cardiothoracic here and will need tertiary transfer center for this potential procedure. Patient continues to be bacteremic and recommend to continue with nafcillin and further evaluate with infectious disease at [facility]. Patient is currently hemodynamically stable and is agreeable with this transfer and family has been notified. Currently no reports of chest pain, shortness of breath, or palpitations. Patient is afebrile. No reports of nausea or vomiting and patient is tolerating diet. Patient will be transferred to [facility] in [place] today once a bed becomes available. Transfer team to contact the unit with the bed number and nursing staff to call report. Guarded prognosis. Physical exam: Gen: This is a 71-year-old male awake, alert and oriented 3, well-developed, well-nourished. Temp is 99.0F, pulse is 93, respirations are 19, blood pressure is 120/70, oxygen saturation is 93% on room air. HEENT: Head is atraumatic, normocephalic. Pupils equal, round. Sclerae is anicteric. NECK: Supple. No JVD. No lymphadenopathy. No thyromegaly. LUNGS: Clear to auscultation. No wheezes or rhonchi. No intercostal retractions. HEART: Regular rate and rhythm. No murmur. ABDOMEN: Soft. Bowel sounds are present. No masses. No tenderness. EXTREMITIES: No pedal edema. No calf tenderness. NEUROLOGICAL: Patient is awake, alert and oriented x3. Cranial nerves 2 through 12 are grossly intact. Please refer to medication reconciliation sheet for a list of medications. The impression and plan of care has been dictated by Lisseth Xiao, Nurse Practitioner as directed. MD Hiral I have performed a history and examination and MDM of this patient, discussed the same with the dictator, and agree with the dictator's assessment and plan as written ,documented as a scribe. Based on total visit time, I have performed more than 50% of the visit. Patient Condition at Discharge: Fair Plan - Discharge Summary Discharge Rx Participant: No New Discharge Prescriptions: No Action Atorvastatin [Lipitor] 40 mg PO DAILY@0800 Aspirin EC [Ecotrin Low Dose] 81 mg PO DAILY@0800 bisacodyL [Dulcolax] 10 mg RECTAL DAILY PRN PRN Reason: Constipation Na Phos,M-B/Na Phos,Di-Ba [Fleet Adult] 133 ml RECTAL DAILY PRN PRN Reason: Constipation Acetaminophen Tab [Tylenol] 650 mg PO Q4H PRN PRN Reason: Pain Or Fever > 100.5 Metoprolol Tartrate [Lopressor] 25 mg PO BID@0800,1700 Rivaroxaban [Xarelto] 15 mg PO BID@0800,1700 Magnesium Hydroxide [Milk of Magnesia Concentrate] 7,200 mg PO DAILY PRN PRN Reason: Constipation Albuterol Inhaler [Ventolin Hfa Inhaler] 2 puff INHALATION RT-QID PRN PRN Reason: Shortness Of Breath Rivaroxaban [Xarelto] 20 mg PO DIRECTED lisinopriL [Zestril] 2.5 mg PO HS@2100 Discharge Medication List Atorvastatin [Lipitor] 40 mg PO DAILY@0800 12/16/16 [History] Aspirin EC [Ecotrin Low Dose] 81 mg PO DAILY@0800 03/01/22 [History] Albuterol Inhaler [Ventolin Hfa Inhaler] 2 puff INHALATION RT-QID PRN 03/29/22 [History] Acetaminophen Tab [Tylenol] 650 mg PO Q4H PRN 04/06/22 [History] Magnesium Hydroxide [Milk of Magnesia Concentrate] 7,200 mg PO DAILY PRN 04/06/22 [History] Metoprolol Tartrate [Lopressor] 25 mg PO BID@0800,1700 04/06/22 [History] Na Phos,M-B/Na Phos,Di-Ba [Fleet Adult] 133 ml RECTAL DAILY PRN 04/06/22 [History] Rivaroxaban [Xarelto] 15 mg PO BID@0800,1700 04/06/22 [History] Rivaroxaban [Xarelto] 20 mg PO DIRECTED 04/06/22 [History] bisacodyL [Dulcolax] 10 mg RECTAL DAILY PRN 04/06/22 [History] lisinopriL [Zestril] 2.5 mg PO HS@2100 04/06/22 [History] Follow up Appointment(s)/Referral(s): Hardik Haines DO [Primary Care Provider] - 1-2 days Karen Bill, [NON-STAFF] - As Needed Janes Troy MD [STAFF PHYSICIAN] - 1 Week
[2022-04-13 16:42] VITALS: BMI 25.0
[2022-04-14 01:29] VITALS: BP 137/62; PULSE 77; RESP 14; TEMP 98.9
[2022-04-14] MEDS: DEXTROSE 5%-0.9% NACL 1,000 ML IV SCH (01:59)
--- NOTE | 2022-04-14 08:29 | CONS ---
CONSULTATION DATE OF SERVICE: 04/12/22 I have seen, examined, and agree with the midlevel's findings. I met with this patient for 45 minutes during this consultation. VICKIE / KRANTHI: [phone] / [phone]
[2022-04-22] MEDS ORDERED: RIVAROXABAN 20 MG TAB PO SCH (08:00)
== END 2022-04-14 03:18 | disposition other institution (70) | DRG 871 ==
LOC: EC 18:10 → 3SCARD 19:46 → 4SSUR 04-07 08:00
PROVIDERS: ADMIT Internal Medicine; ATTEND Internal Medicine
DX: A41.1 Sepsis due to other specified staphylococcus (principal); I26.99 Other pulmonary embolism without acute cor pulmonale; I33.0 Acute and subacute infective endocarditis; E87.1 Hypo-osmolality and hyponatremia; K81.2 Acute cholecystitis with chronic cholecystitis; I50.22 Chronic systolic (congestive) heart failure; I11.0 Hypertensive heart disease with heart failure; J44.9 Chronic obstructive pulmonary disease, unspecified; I73.9 Peripheral vascular disease, unspecified; I08.3 Combined rheumatic disorders of mitral, aortic and tricuspid valves; I71.4 Abdominal aortic aneurysm, without rupture; I95.9 Hypotension, unspecified; E78.5 Hyperlipidemia, unspecified; G89.29 Other chronic pain; M54.50 Low back pain, unspecified; I25.5 Ischemic cardiomyopathy; H54.62 Unqualified visual loss, left eye, normal vision right eye; M79.604 Pain in right leg; R19.7 Diarrhea, unspecified; K82.8 Other specified diseases of gallbladder; B95.7 Other staphylococcus as the cause of diseases classified elsewhere; R63.0 Anorexia; I25.10 Atherosclerotic heart disease of native coronary artery without angina pectoris; K04.1 Necrosis of pulp; Z20.822 Contact with and (suspected) exposure to COVID-19; I25.2 Old myocardial infarction; Z79.82 Long term (current) use of aspirin; Z79.01 Long term (current) use of anticoagulants; Z95.810 Presence of automatic (implantable) cardiac defibrillator; Z90.89 Acquired absence of other organs; Z98.890 Other specified postprocedural states; Z89.429 Acquired absence of other toe(s), unspecified side; Z87.891 Personal history of nicotine dependence; Z68.25 Body mass index [BMI] 25.0-25.9, adult; Z95.1 Presence of aortocoronary bypass graft; Z86.718 Personal history of other venous thrombosis and embolism; Z79.899 Other long term (current) drug therapy; Z95.5 Presence of coronary angioplasty implant and graft; Z80.9 Family history of malignant neoplasm, unspecified
CPT/HCPCS: 71046; 74176; 78227; 80048; 80053; 80076; 81001; 83735; 84145; 84484; 85025; 85652; 86140; 87040; 87077; 87186; 87502; 87635; 93312; 93320; 93325; 94640; 96361; 96374; 99285

== ENCOUNTER → 2022-06-15 | Outpatient (CLI) | payer MEDICARE ==
[2022-06-15 10:33] LABS: Basophils # (A) 0.05 X 10*3/uL (0.00-0.10); Basophils % (A) 0.6 %; Eosinophils # (A) 0.12 X 10*3/uL (0.04-0.35); Eosinophils % (A) 1.4 %; HCT 39.4 % (39.6-50.0); HGB 11.9 g/dL (13.0-17.0); Immature Grans, Automated 0.7 %; Lymphocytes % (A) 22.8 %; MCH 28.7 pg (27.0-32.0); MCHC 30.2 g/dL (32.0-37.0); MCV 95.2 fL (80.0-97.0); Mean Platelet Volume 9.4 fL (9.5-12.2); Monocytes # (A) 0.67 X 10*3/uL (0.20-1.00); NRBC Per 100 WBC 0 /100 WBCS (0.0-0.0); Neutrophils # (A) 5.53 X 10*3/uL (1.80-7.70); Neutrophils % (A) 66.5 %; Platelet Count 277 X 10*3/uL (140-440); RBC 4.14 X 10*6/uL (4.40-5.60); RDW 15.3 % (11.5-14.5); WBC 8.33 X 10*3/uL (4.50-10.00)
[2022-06-15 10:53] LABS: ALT 14 U/L (10-49); AST 21 U/L (14-35); African American GFR (CKD) 88.6 (60.0-200.0); Albumin 3.9 g/dL (3.8-4.9); Albumin/Globulin Ratio 1.15 (1.60-3.17); Alkaline Phosphatase 98 U/L (41-126); Blood Urea Nitrogen 22.4 mg/dL (9.0-27.0); Calcium 9.4 mg/dL (8.7-10.3); Carbon Dioxide 25.8 mmol/L (20.0-27.5); Chloride 101 mmol/L (96-109); Creatine Kinase 15 U/L (35-257); Globulin 3.4 g/dL (1.6-3.3); Glucose 97 mg/dL (70-110); LDL Cholesterol,Calculated 68.6 mg/dL (0.0-131.0); Non-African American GFR(CKD) 76.5 (60.0-200.0); Potassium 4.4 mmol/L (3.5-5.5); Sodium 138 mmol/L (135-145); Total Protein 7.3 g/dL (6.2-8.2); VLDL Calculation 14.52 mg/dL (5.00-40.00)
== END | disposition home or self-care (01) ==
LOC: LABWHC1 07:05
PROVIDERS: ATTEND Family Medicine
DX: Z12.5 Encounter for screening for malignant neoplasm of prostate (principal); E78.5 Hyperlipidemia, unspecified
CPT/HCPCS: 36415; 80053; 80061; 82550; 83036; 84153; 85025

== ENCOUNTER → 2022-07-07 | Outpatient (CLI) | payer MEDICARE, OTHER ==
[2022-07-07 10:42] LABS: HCT 39.6 % (39.6-50.0); HGB 12.3 g/dL (13.0-17.0); MCHC 31.1 g/dL (32.0-37.0); MCV 93.4 fL (80.0-97.0); Mean Platelet Volume 10.6 fL (9.5-12.2); NRBC Per 100 WBC 0 /100 WBCS (0.0-0.0); Platelet Count 269 X 10*3/uL (140-440); RBC 4.24 X 10*6/uL (4.40-5.60); RDW 13.8 % (11.5-14.5); WBC 14.71 X 10*3/uL (4.50-10.00)
[2022-07-07 11:22] LABS: Basophils # (A) 0.05 X 10*3/uL (0.00-0.10); Basophils % (A) 0.3 %; Eosinophils # (A) 0.03 X 10*3/uL (0.04-0.35); Eosinophils % (A) 0.2 %; Immature Grans, Automated 0.5 %; Lymphocytes % (A) 8.2 %; Monocytes # (A) 1.62 X 10*3/uL (0.20-1.00); Neutrophils # (A) 11.73 X 10*3/uL (1.80-7.70); Neutrophils % (A) 79.8 %
[2022-07-07 11:31] LABS: ALT 35 U/L (10-49); AST 47 U/L (14-35); African American GFR (CKD) 88.6 (60.0-200.0); Albumin 3.8 g/dL (3.8-4.9); Albumin/Globulin Ratio 1.23 (1.60-3.17); Alkaline Phosphatase 101 U/L (41-126); Blood Urea Nitrogen 25.8 mg/dL (9.0-27.0); Calcium 8.9 mg/dL (8.7-10.3); Carbon Dioxide 24.1 mmol/L (20.0-27.5); Chloride 98 mmol/L (96-109); Chol/HDL Ratio 2.66 Ratio; Creatine Kinase 13 U/L (35-257); Globulin 3.1 g/dL (1.6-3.3); Glucose 120 mg/dL (70-110); LDL Cholesterol,Calculated 56.5 mg/dL (0.0-131.0); Non-African American GFR(CKD) 76.5 (60.0-200.0); Potassium 4.3 mmol/L (3.5-5.5); Sodium 134 mmol/L (135-145); Total Protein 6.9 g/dL (6.2-8.2)
== END | disposition home or self-care (01) ==
LOC: LABWHC1 07:05
PROVIDERS: ATTEND Family Medicine
DX: Z12.5 Encounter for screening for malignant neoplasm of prostate (principal); E78.5 Hyperlipidemia, unspecified; I50.9 Heart failure, unspecified
CPT/HCPCS: 36415; 80053; 80061; 82550; 83036; 84153; 85025